=== PATIENT | female | born 1945 | race Caucasian/White ===

== ENCOUNTER → 2017-01-14 | Outpatient (CLI) | payer MEDICARE, BC ==
[2017-01-14 11:28] LABS: Basophils % (A) 1 %; CH 29.4; CHCM 32.7; Eosinophils # (A) 0.2 k/uL (0-0.7); Eosinophils % (A) 3 %; HCT 49.4 % (34.0-46.0); HDW 2.67; HGB 15.6 gm/dL (11.4-16.0); Luc # (Auto) 0.17; Luc % (Auto) 3; Lymphocytes # (A) 1.6 k/uL (1.0-4.8); Lymphocytes % (A) 29 %; MCH 28.7 pg (25.0-35.0); MCHC 31.6 g/dL (31.0-37.0); MCV 90.8 fL (80.0-100.0); Mean Platelet Volume 7.6; Monocytes # (A) 0.4 k/uL (0-1.0); Monocytes % (A) 7 %; Neutrophils # (A) 3.3 k/uL (1.3-7.7); Neutrophils % (A) 58 %; RBC 5.44 m/uL (3.80-5.40); RDW 15.1 % (11.5-15.5); WBC 5.7 k/uL (3.8-10.6); WBC (Perox) 5.37
[2017-01-14 11:39] LABS: ALT 30 U/L (9-52); AST 31 U/L (14-36); Alkaline Phosphatase 93 U/L (38-126); Anion Gap 12 mmol/L; Blood Urea Nitrogen 21 mg/dL (7-17); Calcium 9.4 mg/dL (8.4-10.2); Carbon Dioxide 26 mmol/L (22-30); Chloride 102 mmol/L (98-107); Cholesterol 213 mg/dL (<200); Glucose 107 mg/dL (74-99); HDL Cholesterol 69 mg/dL (40-60); Non-African American GFR(MDRD) >60 (>60 ml/min/1.73 sqM); Potassium 4.7 mmol/L (3.5-5.1); Sodium 140 mmol/L (137-145); Total Protein 7.3 g/dL (6.3-8.2); Triglycerides 352 mg/dL (<150)
== END | disposition home or self-care (01) ==
LOC: LABWHC1 10:52
PROVIDERS: ATTEND Family Medicine
DX: E03.9 Hypothyroidism, unspecified (principal); I10 Essential (primary) hypertension; E78.00 Pure hypercholesterolemia, unspecified
CPT/HCPCS: 36415; 80053; 80061; 84439; 84443; 85025

== ENCOUNTER 2017-07-13 19:34 | Inpatient (IN) | payer MEDICARE, BC ==
[2017-07-13] MEDS ORDERED: SODIUM CHLORIDE 0.9% 500 ML IV STA (19:53)
[2017-07-13] MEDS ORDERED: PANTOPRAZOLE 40 MG/10 ML VIAL IVP STA (19:53)
--- NOTE | 2017-07-13 20:02 | ED ---
General Adult HPI - General Source: patient, RN notes reviewed Mode of arrival: wheelchair Limitations: no limitations <Daily Alexandra - Last Filed: 07/13/17 22:15> <Rudy Cobian - Last Filed: 07/13/17 22:16> - General Chief complaint: GI Bleed Stated complaint: Rectal Bleeding Time Seen by Provider: 07/13/17 19:45 - History of Present Illness Initial comments: 72-year-old female presents to the emergency department with a chief complaint of bright red blood for per rectum. Patient does take Coumadin. Patient states that this started this morning when she wiped and she did notice bright red blood in the toilet. Patient states she's been having lower abdominal cramping with a dark brown diarrhea. Patient has a lightheadedness or dizziness. Patient denies any nausea or vomiting with this. Patient states she has a history of hemorrhoids but she has not had those for years. Patient denies any difficulty or constipation recently. Patient was concerned due to the bleeding so she thought that she should be evaluated. Patient denies any recent fever, chills, shortness of breath, chest pain, back pain, nausea vomiting, numbness or tingling, dysuria or hematuria, constipation, headaches or visual changes, or any other current symptoms. (Daily Alexandra) - Related Data Home Medications Medication Instructions Recorded Confirmed Acetaminophen Tab [Tylenol] 500 mg PO DAILY PRN 06/06/15 07/13/17 Atorvastatin [Lipitor] 20 mg PO HS 06/06/15 07/13/17 Levothyroxine Sodium [Synthroid] 50 mcg PO DAILY 06/06/15 07/13/17 Multivitamins, Thera [Multivitamin 1 tab PO DAILY 06/06/15 07/13/17 (formulary)] amLODIPine BESYLATE/BENAZEPRIL 1 tab PO DAILY 06/06/15 07/13/17 [amLODIPine BESYLATE/BENAZEPRIL 5-40 mg] Ciclopirox 1 applic TOPICAL BID PRN 05/23/16 07/13/17 Furosemide [Lasix] 40 mg PO DAILY 05/23/16 07/13/17 Mupirocin 2% Oint [Bactroban 2% 1 applic TOPICAL TID PRN 05/23/16 07/13/17 Oint] Warfarin Sodium [Coumadin] 4 mg PO SUFR 05/23/16 07/13/17 Spironolactone [Aldactone] 25 mg PO DAILY 07/13/17 07/13/17 Warfarin Sodium [Coumadin] 2 mg PO MOTUWETHSA 07/13/17 07/13/17 Previous Rx's Medication Instructions Recorded Famotidine [Pepcid] 20 mg PO DAILY tab 06/13/15 Metoprolol Tartrate [Lopressor] 50 mg PO BID #60 tab 06/13/15 Allergies Allergy/AdvReac Type Severity Reaction Status Date / Time adhesive Allergy Rash/Hives Verified 07/13/17 20:14 cefaclor [From Ceclor] Allergy Rash/Hives Verified 07/13/17 20:14 Penicillins Allergy Unknown Verified 07/13/17 20:14 povidone-iodine Allergy Rash/Hives Verified 07/13/17 20:14 [From Betadine] soap [From Betadine] Allergy Rash/Hives Verified 07/13/17 20:14 Review of Systems ROS Other: All systems not noted in ROS Statement are negative. <Daily Alexandra - Last Filed: 07/13/17 22:15> ROS Other: All systems not noted in ROS Statement are negative. <Rudy Cobian - Last Filed: 07/13/17 22:16> ROS Statement: Those systems with pertinent positive or pertinent negative responses have been documented in the HPI. Past Medical History Past Medical History: Atrial Fibrillation, Asthma, Heart Failure, COPD, Hyperlipidemia, Hypertension, Osteoarthritis (OA), Thyroid Disorder Additional Past Medical History / Comment(s): 06-06-15 admitted to [facility] with c/o sob-dx with pe.other hx: diverticulosis,asthma, emphysema,scoliosis uses a crutch( when up walking), umbilical hernia,stated does have some blockage enrike carotids, History of Any Multi-Drug Resistant Organisms: None Reported Past Surgical History: Orthopedic Surgery, Tubal Ligation Additional Past Surgical History / Comment(s): per old hx: d&c,colonoscopy, orif lt ankle has plate and screws. Past Anesthesia/Blood Transfusion Reactions: No Reported Reaction Past Psychological History: No Psychological Hx Reported Smoking Status: Former smoker Past Alcohol Use History: Daily Past Drug Use History: None Reported - Past Family History Father Additional Family Medical History / Comment(s): had tb at age 55, lt leg amp.heart problems. Mother History Unknown: Yes <Daily Alexandra - Last Filed: 07/13/17 22:15> General Exam Limitations: no limitations <Daily Alexandra - Last Filed: 07/13/17 22:15> <Rudy Cobian - Last Filed: 07/13/17 22:16> - General Exam Comments Initial Comments: General: The patient is awake and alert, in no distress, and does not appear acutely ill. Eye: Pupils are equal, round and reactive to light, extra-ocular movements are intact; there is normal conjunctiva bilaterally. No signs of icterus. Ears, nose, mouth and throat: There are moist mucous membranes and no oral lesions. Neck: The neck is supple, there is no tenderness. Cardiovascular: There is a regular rate and rhythm. No murmur, rub or gallop is appreciated. Respiratory: Lungs are clear to auscultation, respirations are non-labored, breath sounds are equal. No wheezes, stridor, rales, or rhonchi. Gastrointestinal: Soft, non-distended, non-tender abdomen without masses or organomegaly noted. There is no rebound or guarding present. No CVA tenderness. Bowel sounds are unremarkable. Rectal: Patient does appear to have bright red blood, no obvious hemorrhoids noted Back: There is no tenderness to palpation in the midline. There is no obvious deformity. No rashes noted. Musculoskeletal: Normal ROM, no tenderness, There is no pedal edema. There is no calf tenderness or swelling. Sensation intact. Pulses equal bilaterally 2+. Neurological: CN II-XII intact, There are no obvious motor or sensory deficits. Coordination appears grossly intact. Speech is normal. Skin: Skin is warm and dry and no rashes or lesions are noted. Psychiatric: Cooperative, appropriate mood & affect, normal judgment. (Daily Aelxandra) Medical Decision Making - Lab Data Result diagrams: 07/13/17 20:36 07/13/17 20:36 <Daily lAexandra - Last Filed: 07/13/17 22:15> - Lab Data Result diagrams: 07/13/17 20:36 07/13/17 20:36 <Rudy Cobian - Last Filed: 07/13/17 22:16> - Medical Decision Making 72-year-old female presents for bright red blood per rectum who is on Coumadin. At this time patient is Hemoccult-positive hemoglobin vital signs are stable. Patient has not had any blood per rectum since she's been here. At this time we will admit the patient due to a mildly elevated INR 3.3. We did give the patient Protonix. We did discuss the case with on-call Dr. palencia who does agree to the plan. All questions have been answered. Patient will be admitted at this time. (Daily Alexandra) I saw this patient in conjunction with the physician marketing operations assistant. I performed independent history and physical exam. Agree with case management. (Rudy Cobian) - Lab Data Lab Results 07/13/17 07/13/17 07/13/17 Range/Units 20:36 20:36 20:36 WBC 9.5 (3.8-10.6) k/uL RBC 5.26 (3.80-5.40) m/uL Hgb 15.5 (11.4-16.0) gm/dL Hct 47.0 H (34.0-46.0) % MCV 89.5 (80.0-100.0) fL MCH 29.4 (25.0-35.0) pg MCHC 32.8 (31.0-37.0) g/dL RDW 14.7 (11.5-15.5) % Plt Count 268 (150-450) k/uL Neutrophils % 72 % Lymphocytes % 17 % Monocytes % 9 % Eosinophils % 1 % Basophils % 0 % Neutrophils # 6.8 (1.3-7.7) k/uL Lymphocytes # 1.6 (1.0-4.8) k/uL Monocytes # 0.8 (0-1.0) k/uL Eosinophils # 0.1 (0-0.7) k/uL Basophils # 0.0 (0-0.2) k/uL PT 32.3 H (9.0-12.0) sec INR 3.3 H (<1.2) APTT 32.8 H (22.0-30.0) sec Sodium 141 (137-145) mmol/L Potassium 4.3 (3.5-5.1) mmol/L Chloride 104 (98-107) mmol/L Carbon Dioxide 25 (22-30) mmol/L Anion Gap 12 mmol/L BUN 30 H (7-17) mg/dL Creatinine 1.08 H (0.52-1.04) mg/dL Est GFR (MDRD) Af Amer >60 (>60 ml/min/1.73 sqM) Est GFR (MDRD) Non-Af 50 (>60 ml/min/1.73 sqM) Glucose 103 H (74-99) mg/dL Calcium 9.3 (8.4-10.2) mg/dL Total Bilirubin 0.9 (0.2-1.3) mg/dL AST 25 (14-36) U/L ALT 32 (9-52) U/L Alkaline Phosphatase 96 (38-126) U/L Total Protein 7.2 (6.3-8.2) g/dL Albumin 4.2 (3.5-5.0) g/dL Urine Color Urine Appearance (Clear) Urine pH (5.0-8.0) Ur Specific [place] (1.001-1.035) Urine Protein (Negative) Urine Glucose (UA) (Negative) Urine Ketones (Negative) Urine Blood (Negative) Urine Nitrite (Negative) Urine Bilirubin (Negative) Urine Urobilinogen (<2.0) mg/dL Ur Leukocyte Esterase (Negative) Stool Occult Blood (Negative) 07/13/17 07/13/17 Range/Units 20:38 21:39 WBC (3.8-10.6) k/uL RBC (3.80-5.40) m/uL Hgb (11.4-16.0) gm/dL Hct (34.0-46.0) % MCV (80.0-100.0) fL MCH (25.0-35.0) pg MCHC (31.0-37.0) g/dL RDW (11.5-15.5) % Plt Count (150-450) k/uL Neutrophils % % Lymphocytes % % Monocytes % % Eosinophils % % Basophils % % Neutrophils # (1.3-7.7) k/uL Lymphocytes # (1.0-4.8) k/uL Monocytes # (0-1.0) k/uL Eosinophils # (0-0.7) k/uL Basophils # (0-0.2) k/uL PT (9.0-12.0) sec INR (<1.2) APTT (22.0-30.0) sec Sodium (137-145) mmol/L Potassium (3.5-5.1) mmol/L Chloride (98-107) mmol/L Carbon Dioxide (22-30) mmol/L Anion Gap mmol/L BUN (7-17) mg/dL Creatinine (0.52-1.04) mg/dL Est GFR (MDRD) Af Amer (>60 ml/min/1.73 sqM) Est GFR (MDRD) Non-Af (>60 ml/min/1.73 sqM) Glucose (74-99) mg/dL Calcium (8.4-10.2) mg/dL Total Bilirubin (0.2-1.3) mg/dL AST (14-36) U/L ALT (9-52) U/L Alkaline Phosphatase (38-126) U/L Total Protein (6.3-8.2) g/dL Albumin (3.5-5.0) g/dL Urine Color Yellow Urine Appearance Clear (Clear) Urine pH 6.5 (5.0-8.0) Ur Specific [place] 1.011 (1.001-1.035) Urine Protein Negative (Negative) Urine Glucose (UA) Negative (Negative) Urine Ketones Negative (Negative) Urine Blood Negative (Negative) Urine Nitrite Negative (Negative) Urine Bilirubin Negative (Negative) Urine Urobilinogen <2.0 (<2.0) mg/dL Ur Leukocyte Esterase Negative (Negative) Stool Occult Blood Positive H (Negative) Disposition Time of Disposition: 21:34 Decision Date: 07/13/17 Decision Time: 21:34 <Daily Alexandra - Last Filed: 07/13/17 22:15> <Rudy Cobian - Last Filed: 07/13/17 22:16> Clinical Impression: GI bleed, Elevated INR, Dehydration Disposition: ADMITTED IP TO THIS [facility] Condition: Stable Referrals: Miguel Hardwick MD [Primary Care Provider] - 1-2 days
[2017-07-13 20:53] LABS: Basophils % (A) 0 %; CHCM 32.7; Eosinophils # (A) 0.1 k/uL (0-0.7); Eosinophils % (A) 1 %; HDW 2.69; HGB 15.5 gm/dL (11.4-16.0); Luc # (Auto) 0.17; Luc % (Auto) 2; Lymphocytes # (A) 1.6 k/uL (1.0-4.8); Lymphocytes % (A) 17 %; MCH 29.4 pg (25.0-35.0); MCHC 32.8 g/dL (31.0-37.0); MCV 89.5 fL (80.0-100.0); Mean Platelet Volume 7.2; Monocytes # (A) 0.8 k/uL (0-1.0); Monocytes % (A) 9 %; Neutrophils # (A) 6.8 k/uL (1.3-7.7); Neutrophils % (A) 72 %; RBC 5.26 m/uL (3.80-5.40); RDW 14.7 % (11.5-15.5); WBC 9.5 k/uL (3.8-10.6); WBC (Perox) 8.83
[2017-07-13 20:55] LABS: INR 3.3 (<1.2); Partial Thromboplastin Time 32.8 sec (22.0-30.0); Prothrombin Time 32.3 sec (9.0-12.0)
[2017-07-13 20:57] LABS: ALT 32 U/L (9-52); AST 25 U/L (14-36); Alkaline Phosphatase 96 U/L (38-126); Anion Gap 12 mmol/L; Blood Urea Nitrogen 30 mg/dL (7-17); Calcium 9.3 mg/dL (8.4-10.2); Carbon Dioxide 25 mmol/L (22-30); Chloride 104 mmol/L (98-107); Glucose 103 mg/dL (74-99); Non-African American GFR(MDRD) 50 (>60 ml/min/1.73 sqM); Potassium 4.3 mmol/L (3.5-5.1); Sodium 141 mmol/L (137-145); Total Bilirubin 0.9 mg/dL (0.2-1.3); Total Protein 7.2 g/dL (6.3-8.2)
[2017-07-13] MEDS ORDERED: NALOXONE 0.4 MG/ML 1 ML VIAL IV PRN (21:34)
[2017-07-13] MEDS ORDERED: MUPIROCIN 2% OINT 22 GM TUBE TOPICAL PRN (21:36)
[2017-07-13] MEDS ORDERED: CLOTRIMAZOLE 1% CREAM 15 GM TUBE TOPICAL PRN (21:36)
[2017-07-13 21:49] LABS: Appearance,Urine Clear (Clear); Bilirubin,Urine Negative (Negative); Glucose,Urine (UA) Negative (Negative); Ketones,Urine Negative (Negative); Leukocyte Esterase,Urine Negative (Negative); Nitrite,Urine Negative (Negative); PH, Urine 6.5 (5.0-8.0); Protein,Urine Negative (Negative); Specific Gravity,Urine 1.011 (1.001-1.035); UA Billing (MACRO vs. MICRO) CHEM; Urobilinogen,Urine <2.0 mg/dL (<2.0)
[2017-07-13] MEDS: SODIUM CHLORIDE 0.9% 1,000 ML IV SCH (22:15)
[2017-07-14] MEDS: ACETAMINOPHEN TAB 325 MG TAB PO PRN ×2 (01:23→10:47)
[2017-07-14] MEDS: LEVOTHYROXINE 50 MCG TAB PO SCH (06:40)
[2017-07-14] MEDS: PANTOPRAZOLE 40 MG/10 ML VIAL IV SCH (08:46)
[2017-07-14 09:26] LABS: ALT 29 U/L (9-52); AST 21 U/L (14-36); Alkaline Phosphatase 81 U/L (38-126); Anion Gap 8 mmol/L; Blood Urea Nitrogen 22 mg/dL (7-17); Calcium 8.7 mg/dL (8.4-10.2); Carbon Dioxide 25 mmol/L (22-30); Chloride 108 mmol/L (98-107); Glucose 87 mg/dL (74-99); INR 2.3 (<1.2); Non-African American GFR(MDRD) >60 (>60 ml/min/1.73 sqM); Potassium 4.5 mmol/L (3.5-5.1); Prothrombin Time 21.7 sec (9.0-12.0); Sodium 141 mmol/L (137-145)
[2017-07-14 10:22] LABS: Basophils % (A) 0 %; CHCM 31.8; Eosinophils # (A) 0.1 k/uL (0-0.7); Eosinophils % (A) 1 %; HCT 43.7 % (34.0-46.0); HDW 2.62; HGB 14.1 gm/dL (11.4-16.0); Hypochromasia Slight; Luc # (Auto) 0.15; Luc % (Auto) 2; Lymphocytes # (A) 1.3 k/uL (1.0-4.8); Lymphocytes % (A) 16 %; MCH 29.5 pg (25.0-35.0); MCHC 32.2 g/dL (31.0-37.0); MCV 91.7 fL (80.0-100.0); Monocytes # (A) 0.8 k/uL (0-1.0); Monocytes % (A) 10 %; Neutrophils # (A) 5.4 k/uL (1.3-7.7); Neutrophils % (A) 70 %; RBC 4.77 m/uL (3.80-5.40); RDW 14.9 % (11.5-15.5); WBC 7.7 k/uL (3.8-10.6); WBC (Perox) 8.04
[2017-07-14] MEDS: METOPROLOL TARTRATE 50 MG TAB PO SCH ×2 (10:48→20:31)
[2017-07-14] MEDS: LISINOPRIL 20 MG TAB PO SCH (10:48)
[2017-07-14] MEDS: SODIUM CHLORIDE 0.9% 1,000 ML IV SCH (10:49)
[2017-07-14] MEDS: amLODIPine 5 MG TAB PO SCH (10:49)
[2017-07-14] MEDS: FUROSEMIDE 40 MG TAB PO SCH (10:49)
[2017-07-14] MEDS: SPIRONOLACTONE 25 MG TAB PO SCH (10:49)
[2017-07-14] MEDS ORDERED: RX INFO: IV CONTRAST WAS GIVEN 1 EACH MISC MISCELLANE PRN (11:15)
[2017-07-14] MEDS: MULTIVITAMINS, THERA 1 EACH TAB PO SCH (11:28)
[2017-07-14] MEDS: IOHEXOL 350 MG/ML 25 ML BOTTLE (ORAL USE) PO PRN ×2 (11:29→12:24)
--- NOTE | 2017-07-14 11:31 | P.CONS ---
History of Present Illness - Reason for Consult Consult date: 07/14/17 GI bleed Requesting physician: Miguel Hardwick - History of Present Illness 72-year-old female with a history of bilateral PE DVT 2014, atrial fibrillation maintained on Coumadin, chronic diastolic heart failure, morbid obesity BMI 49, chronic abdominal hernia, hypothyroidism, hypertension, hyperlipidemia, and COPD. Patient presents with acute rectal bleeding that started yesterday morning. Patient developed severe lower abdominal cramping followed by a large loose bowel movement that was blood tinged. She had 2 more bowel movements at home more grossly bloody red in color. Denies melena or hematemesis fever or chills. Patient has a chronic umbilical abdominal hernia for several years without discomfort except when palpated. Last bloody bowel movement was 3 hours ago bright red. No history GI bleed. Last screening colonoscopy August [address] Hopper left-sided diverticulosis. Admission hemoglobin 15.5 presently 14.1. INR 3.3 presently 2.3. BUN 30. Creatinine 1.0. Platelet 268. Review of Systems Constitutional: Denies fever, chills, sweats, weight gain, or loss. HEENT: Negative for migraines, blurred vision or loss, earaches, drainage, tinnitus, oral mucosal lesions, dysphagia, or odynophagia. CARDIAC: PE. DVT. Atrial fibrillation. Negative for chest pain, arrhythmias, or palpitation. RESPIRATORY: COPD. Negative for shortness of breath, hemoptysis, cough, or sputum production. GI: See HPI for pertinent findings. : Negative for hematuria, urgency, frequency, polyuria, or dysuria. GYNc: Denies possibility of . Negative vaginal discharge. MUSCULOSKELETAL: Negative for muscle aches, swelling, arthritis, and arthralgias. NEUROLOGIC: Negative for stroke or TIA. ENDOCRINE: Negative for thyroid problems. SKIN: Negative for rash or itching. PSYCHIATRIC: Negative history for depression and anxiety All systems: negative (See HPI) Past Medical History Past Medical History: Atrial Fibrillation, Asthma, Heart Failure, COPD, Hyperlipidemia, Hypertension, Osteoarthritis (OA), Thyroid Disorder Additional Past Medical History / Comment(s): 06-06-[address] [facility] with c/o sob-dx with pe.other hx: diverticulosis,asthma, emphysema,scoliosis uses a crutch( when up walking), umbilical hernia,stated does have some blockage enrike carotids, History of Any Multi-Drug Resistant Organisms: None Reported Past Surgical History: Orthopedic Surgery, Tubal Ligation Additional Past Surgical History / Comment(s): per old hx: d&c,colonoscopy, orif lt ankle has plate and screws. Past Anesthesia/Blood Transfusion Reactions: No Reported Reaction Past Psychological History: No Psychological Hx Reported Smoking Status: Former smoker Past Alcohol Use History: Daily Additional Past Alcohol Use History / Comment(s): smoked off and on for 20 years quit in 1999 Past Drug Use History: None Reported - Past Family History Father Additional Family Medical History / Comment(s): had tb at age 55, lt leg amp.heart problems. Mother History Unknown: Yes Medications and Allergies Home Medications Medication Instructions Recorded Confirmed Type Acetaminophen Tab [Tylenol] 500 mg PO DAILY PRN 06/06/15 07/13/17 History Atorvastatin [Lipitor] 20 mg PO HS 06/06/15 07/13/17 History Levothyroxine Sodium [Synthroid] 50 mcg PO DAILY 06/06/15 07/13/17 History Multivitamins, Thera [Multivitamin 1 tab PO DAILY 06/06/15 07/13/17 History (formulary)] amLODIPine BESYLATE/BENAZEPRIL 1 tab PO DAILY 06/06/15 07/13/17 History [amLODIPine BESYLATE/BENAZEPRIL 5-40 mg] Famotidine [Pepcid] 20 mg PO DAILY tab 06/13/15 07/13/17 Rx Metoprolol Tartrate [Lopressor] 50 mg PO BID #60 tab 06/13/15 07/13/17 Rx Ciclopirox 1 applic TOPICAL BID PRN 05/23/16 07/13/17 History Furosemide [Lasix] 40 mg PO DAILY 05/23/16 07/13/17 History Mupirocin 2% Oint [Bactroban 2% 1 applic TOPICAL TID PRN 05/23/16 07/13/17 History Oint] Warfarin Sodium [Coumadin] 4 mg PO SUFR 05/23/16 07/13/17 History Spironolactone [Aldactone] 25 mg PO DAILY 07/13/17 07/13/17 History Warfarin Sodium [Coumadin] 2 mg PO MOTUWETHSA 07/13/17 07/13/17 History Allergies Allergy/AdvReac Type Severity Reaction Status Date / Time adhesive Allergy Rash/Hives Verified 07/13/17 20:14 cefaclor [From Ceclor] Allergy Rash/Hives Verified 07/13/17 20:14 Penicillins Allergy Unknown Verified 07/13/17 20:14 povidone-iodine Allergy Rash/Hives Verified 07/13/17 20:14 [From Betadine] soap [From Betadine] Allergy Rash/Hives Verified 07/13/17 20:14 Physical Exam Vitals: Vital Signs Temp Pulse Pulse Resp BP BP Pulse Ox 07/14/17 08:39 85 16 156/81 97 07/14/17 08:00 85 16 07/14/17 07:00 97.0 F L 101 H 18 128/67 91 L 07/14/17 00:17 97.1 F L 89 20 141/57 99 07/13/17 23:34 96 16 154/92 96 07/13/17 22:16 99 17 135/83 97 07/13/17 21:24 93 17 150/87 97 07/13/17 20:26 97 17 145/83 96 07/13/17 19:39 97.4 F L 52 L 18 172/100 96 Intake and Output 07/13/17 07/14/17 07/14/17 22:59 06:59 14:59 Intake Total 580 0 Output Total 400 Balance 580 -400 Intake: Amount of Fluid Infused ( 580 ml) Oral 0 0 Output: Stool 400 Other: Voiding Method Bedside Commode Bedside Commode # Voids 1 # Bowel Movements 1 Weight 123.377 kg 119.522 kg General appearance: The patient is alert, oriented, in no acute distress. HET: Head is normocephalic and atraumatic. Pupils are equal and reactive. Oropharynx is clear without lesions. Neck: Supple without lymphadenopathy. Trachea midline. Heart: S1 S2. Lungs: No crackles or wheezes are heard. Abdomen: Soft, tenderness bilateral abdomen, large umbilical hernia reducible but tender on palpation without erythema, nondistended with bowel sounds. No peritoneal signs. No palpable organomegaly or masses. Extremities: Normal skin color and turgor. No cyanosis, rash, ulceration, clubbing, or edema. Radial and pedal pulses are 2/4 bilaterally. Neurological: No focal deficits. Strength and sensation are grossly intact. Results CBC & Chem 7: 07/15/17 02:10 07/15/17 02:10 Labs: Abnormal Lab Results - Last 24 Hours (Table) 07/13/17 07/13/17 07/13/17 Range/Units 20:36 20:36 20:36 Hct 47.0 H (34.0-46.0) % PT 32.3 H (9.0-12.0) sec INR 3.3 H (<1.2) APTT 32.8 H (22.0-30.0) sec Chloride (98-107) mmol/L BUN 30 H (7-17) mg/dL Creatinine 1.08 H (0.52-1.04) mg/dL Glucose 103 H (74-99) mg/dL Total Protein (6.3-8.2) g/dL Albumin (3.5-5.0) g/dL Stool Occult Blood (Negative) 07/13/17 07/14/17 07/14/17 Range/Units 20:38 08:10 08:10 Hct (34.0-46.0) % PT 21.7 H (9.0-12.0) sec INR 2.3 H (<1.2) APTT (22.0-30.0) sec Chloride 108 H (98-107) mmol/L BUN 22 H (7-17) mg/dL Creatinine (0.52-1.04) mg/dL Glucose (74-99) mg/dL Total Protein 6.0 L (6.3-8.2) g/dL Albumin 3.4 L (3.5-5.0) g/dL Stool Occult Blood Positive H (Negative) Assessment and Plan (1) GI bleed Narrative/Plan: Suspect ischemic colitis possible diverticular bleed possible combination of both with a history of chronic umbilical hernia cannot exclude superimposed infectious colitis exacerbated by warfarin-induced coagulopathy Status: Acute (2) Atrial fibrillation Status: Chronic (3) Warfarin-induced coagulopathy Status: Acute (4) Hx pulmonary embolism Status: Resolved (5) History of DVT (deep vein thrombosis) Status: Resolved (6) Diverticulosis of colon Status: Chronic (7) Morbid obesity with BMI of 45.0-49.9, adult Status: Chronic (8) Abdominal hernia Status: Chronic Plan: 1. CT abdomen and pelvis secondary to tenderness of abdominal hernia and rectal bleeding. 2. Hold Coumadin. Serial CBC every 6 hours. GI prophylaxis Protonix 40 mg daily. 3. We'll proceed with colonoscopy tentatively Wednesday once INR closer to 1.5 or less. 4. Will allow clear liquid sparingly. Thank you for this kind referral and the opportunity to participate in the care of your patient. This consultation was discussed with Dr. Luo. The impression and plan of care have been directed as dictated.
[2017-07-14 11:56] LABS: Glucose,Whole Blood 115 mg/dL (75-99)
--- NOTE | 2017-07-14 12:35 | P.HPIM ---
History of Present Illness H&P Date: 07/14/17 Chief Complaint: Rectal bleeding and abdominal pain Patient is a 72-year-old female who presented to [facility] emergency room with the chief complaint of rectal bleeding patient had multiple episodes of rectal bleeding . Patient stated that she felt some cramps in the lower abdomen she had a bowel movement in the morning with some blood in it subsequently she had recurrent episodes of rectal bleeding with large amount of blood she came to the emergency room she was initially admitted to medical floor she continued to have rectal bleeding and was then transferred to intensive care unit. Patient states that she had history of hemorrhoids however she hasn't had any problems with that for many years. She states that she had 2 colonoscopies in the past the last one was 7 years ago. She is maintained on Coumadin her INR on presentation was 3.3 Past Medical History Past Medical History: Atrial Fibrillation, Asthma, Heart Failure, COPD, Hyperlipidemia, Hypertension, Osteoarthritis (OA), Thyroid Disorder Additional Past Medical History / Comment(s): 06-06-15 admitted to [facility] with c/o sob-dx with pe.other hx: diverticulosis,asthma, emphysema,scoliosis uses a crutch( when up walking), umbilical hernia,stated does have some blockage enrike carotids, History of Any Multi-Drug Resistant Organisms: None Reported Past Surgical History: Orthopedic Surgery, Tubal Ligation Additional Past Surgical History / Comment(s): per old hx: d&c,colonoscopy, orif lt ankle has plate and screws. Past Anesthesia/Blood Transfusion Reactions: No Reported Reaction Past Psychological History: No Psychological Hx Reported Smoking Status: Former smoker Past Alcohol Use History: Daily Additional Past Alcohol Use History / Comment(s): smoked off and on for 20 years quit in 1999 Past Drug Use History: None Reported - Past Family History Father Additional Family Medical History / Comment(s): had tb at age 55, lt leg amp.heart problems. Mother History Unknown: Yes Medications and Allergies Home Medications Medication Instructions Recorded Confirmed Type Acetaminophen Tab [Tylenol] 500 mg PO DAILY PRN 06/06/15 07/13/17 History Atorvastatin [Lipitor] 20 mg PO HS 06/06/15 07/13/17 History Levothyroxine Sodium [Synthroid] 50 mcg PO DAILY 06/06/15 07/13/17 History Multivitamins, Thera [Multivitamin 1 tab PO DAILY 06/06/15 07/13/17 History (formulary)] amLODIPine BESYLATE/BENAZEPRIL 1 tab PO DAILY 06/06/15 07/13/17 History [amLODIPine BESYLATE/BENAZEPRIL 5-40 mg] Famotidine [Pepcid] 20 mg PO DAILY tab 06/13/15 07/13/17 Rx Metoprolol Tartrate [Lopressor] 50 mg PO BID #60 tab 06/13/15 07/13/17 Rx Ciclopirox 1 applic TOPICAL BID PRN 05/23/16 07/13/17 History Furosemide [Lasix] 40 mg PO DAILY 05/23/16 07/13/17 History Mupirocin 2% Oint [Bactroban 2% 1 applic TOPICAL TID PRN 05/23/16 07/13/17 History Oint] Warfarin Sodium [Coumadin] 4 mg PO SUFR 05/23/16 07/13/17 History Spironolactone [Aldactone] 25 mg PO DAILY 07/13/17 07/13/17 History Warfarin Sodium [Coumadin] 2 mg PO MOTUWETHSA 07/13/17 07/13/17 History Allergies Allergy/AdvReac Type Severity Reaction Status Date / Time adhesive Allergy Rash/Hives Verified 07/13/17 20:14 cefaclor [From Ceclor] Allergy Rash/Hives Verified 07/13/17 20:14 Penicillins Allergy Unknown Verified 07/13/17 20:14 povidone-iodine Allergy Rash/Hives Verified 07/13/17 20:14 [From Betadine] soap [From Betadine] Allergy Rash/Hives Verified 07/13/17 20:14 Physical Exam Vitals: Vital Signs Temp Pulse Pulse Resp BP BP Pulse Ox 07/14/17 12:10 98.2 F 79 27 H 124/58 96 07/14/17 08:39 85 16 156/81 97 07/14/17 08:00 85 16 07/14/17 07:00 97.0 F L 101 H 18 128/67 91 L 07/14/17 00:17 97.1 F L 89 20 141/57 99 07/13/17 23:34 96 16 154/92 96 07/13/17 22:16 99 17 135/83 97 07/13/17 21:24 93 17 150/87 97 07/13/17 20:26 97 17 145/83 96 07/13/17 19:39 97.4 F L 52 L 18 172/100 96 Intake and Output 07/13/17 07/14/17 07/14/17 22:59 06:59 14:59 Intake Total 580 80 Output Total 400 Balance 580 -320 Intake: Amount of Fluid Infused ( 580 ml) Intake, IV Titration 80 Amount Sodium Chloride 0.9% 1, 80 000 ml @ 80 mls/hr IV . [id number] [facility] Rx#:[id number] Oral 0 0 Output: Stool 400 Other: Voiding Method Bedside Commode Bedside Commode # Voids 1 # Bowel Movements 1 Weight 123.377 kg 119.522 kg In general patient is alert and oriented 3 in no apparent distress HEENT head normocephalic and atraumatic Neck is supple no JVD no goiter no lymphadenopathy Chest exam reveals a few scattered crackles no wheezing Cardiac exam reveals irregular heart sounds no gallops no murmurs Abdomen is soft nontender no organomegaly easily is a large umbilical hernia to the left of the umbilicus Lower extremity exam reveals 2+ edema no cyanosis or clubbing Results CBC & Chem 7: 07/14/17 08:10 07/14/17 08:10 Labs: Abnormal Lab Results - Last 24 Hours (Table) 07/13/17 07/13/17 07/13/17 Range/Units 20:36 20:36 20:36 Hct 47.0 H (34.0-46.0) % PT 32.3 H (9.0-12.0) sec INR 3.3 H (<1.2) APTT 32.8 H (22.0-30.0) sec Chloride (98-107) mmol/L BUN 30 H (7-17) mg/dL Creatinine 1.08 H (0.52-1.04) mg/dL Glucose 103 H (74-99) mg/dL POC Glucose (mg/dL) (75-99) mg/dL Total Protein (6.3-8.2) g/dL Albumin (3.5-5.0) g/dL Stool Occult Blood (Negative) 07/13/17 07/14/17 07/14/17 Range/Units 20:38 08:10 08:10 Hct (34.0-46.0) % PT 21.7 H (9.0-12.0) sec INR 2.3 H (<1.2) APTT (22.0-30.0) sec Chloride 108 H (98-107) mmol/L BUN 22 H (7-17) mg/dL Creatinine (0.52-1.04) mg/dL Glucose (74-99) mg/dL POC Glucose (mg/dL) (75-99) mg/dL Total Protein 6.0 L (6.3-8.2) g/dL Albumin 3.4 L (3.5-5.0) g/dL Stool Occult Blood Positive H (Negative) 07/14/17 Range/Units 11:53 Hct (34.0-46.0) % PT (9.0-12.0) sec INR (<1.2) APTT (22.0-30.0) sec Chloride (98-107) mmol/L BUN (7-17) mg/dL Creatinine (0.52-1.04) mg/dL Glucose (74-99) mg/dL POC Glucose (mg/dL) 115 H (75-99) mg/dL Total Protein (6.3-8.2) g/dL Albumin (3.5-5.0) g/dL Stool Occult Blood (Negative) Thrombosis Risk Factor Assmnt - Choose All That Apply Any of the Below Risk Factors Present?: Yes Each Factor Represents 1 point: Abnormal pulmonary function (COPD), Heart failure (<1month), Obesity (BMI >25) Other Risk Factors: Yes Each Risk Factor Represents 2 Points: Age 61-74 years Each Risk Factor Represents 3 Points: History of DVT/PE Thrombosis Risk Factor Assessment Total Risk Factor Score: 8 Thrombosis Risk Factor Assessment Level: High Risk Assessment and Plan Plan: #1 rectal bleeding was multiple episodes of large amount of blood at this time we are monitoring in ICU, check hemoglobin every 6 hours, GI consultation following #2 underlying history of atrial fibrillation maintained on Coumadin, Coumadin at this time on hold #3 umbilical hernia #4 abdominal cramping and pain patient is scheduled for computed tomography scan of the abdomen At this time continue to monitor hemoglobin Gastroenterology following Further management will depend on progress of hemoglobin and computed tomography scan of the abdomen results and clinical progress
--- NOTE | 2017-07-14 13:13 | P.CNPUL ---
History of Present Illness Consult date: 07/14/17 Requesting physician: Miguel Hardwick Reason for consult: other (Critical care management) Chief complaint: Bloody bowel movements History of present illness: This is a very pleasant 72-year-old female patient who follows with Dr. Hardwick as her primary care physician. She has a history of pulmonary embolism/DVT, atrial fibrillation anticoagulated with warfarin, diverticulosis, carotid stenosis, umbilical hernia, hypertension, hyperlipidemia, osteoarthritis, hypothyroidism. She has a remote history of smoking. She presented here yesterday after having 2-3 bright red mixed with maroon-colored bowel movements. She also had some abdominal cramping and diarrhea. Her initial hemoglobin is 5.8. INR 3.3. Creatinine 1.08. Stool for occult blood was positive. She was admitted to the regular medical floor. Earlier today she had another bloody bowel movement and felt as though the patient was actively bleeding and she was transferred here to the intensive care unit. Hemoglobin this morning is 14.1. Her INR is 2.3. she is seen today in consultation in the ICU. She is awake and alert in no acute distress. She does have some lower abdominal discomfort. No bleeding since she's arrived. She's been hemodynamically stable. She is maintaining good O2 saturations in the 90s on room air. She is afebrile. She has been seen and evaluated by GI services who are planning a computed tomography scan of the abdomen and pelvis. There is some concern regarding possible ischemic colitis as she does have a chronic umbilical hernia versus diverticular bleed. Review of Systems 14 point review of system was conducted. All negative other than as mentioned in the HPI. Past Medical History Past Medical History: Atrial Fibrillation, Asthma, Heart Failure, COPD, Hyperlipidemia, Hypertension, Osteoarthritis (OA), Thyroid Disorder Additional Past Medical History / Comment(s): 06-06-15 admitted to [facility] with c/o sob-dx with pe.other hx: diverticulosis,asthma, emphysema,scoliosis uses a crutch( when up walking), umbilical hernia,stated does have some blockage enrike carotids, History of Any Multi-Drug Resistant Organisms: None Reported Past Surgical History: Orthopedic Surgery, Tubal Ligation Additional Past Surgical History / Comment(s): per old hx: d&c,colonoscopy, orif lt ankle has plate and screws. Past Anesthesia/Blood Transfusion Reactions: No Reported Reaction Past Psychological History: No Psychological Hx Reported Smoking Status: Former smoker Past Alcohol Use History: Daily Additional Past Alcohol Use History / Comment(s): smoked off and on for 20 years quit in 1999 Past Drug Use History: None Reported - Past Family History Father Additional Family Medical History / Comment(s): had tb at age 55, lt leg amp.heart problems. Mother History Unknown: Yes Medications and Allergies Home Medications Medication Instructions Recorded Confirmed Type Acetaminophen Tab [Tylenol] 500 mg PO DAILY PRN 06/06/15 07/13/17 History Atorvastatin [Lipitor] 20 mg PO HS 06/06/15 07/13/17 History Levothyroxine Sodium [Synthroid] 50 mcg PO DAILY 06/06/15 07/13/17 History Multivitamins, Thera [Multivitamin 1 tab PO DAILY 06/06/15 07/13/17 History (formulary)] amLODIPine BESYLATE/BENAZEPRIL 1 tab PO DAILY 06/06/15 07/13/17 History [amLODIPine BESYLATE/BENAZEPRIL 5-40 mg] Famotidine [Pepcid] 20 mg PO DAILY tab 06/13/15 07/13/17 Rx Metoprolol Tartrate [Lopressor] 50 mg PO BID #60 tab 06/13/15 07/13/17 Rx Ciclopirox 1 applic TOPICAL BID PRN 05/23/16 07/13/17 History Furosemide [Lasix] 40 mg PO DAILY 05/23/16 07/13/17 History Mupirocin 2% Oint [Bactroban 2% 1 applic TOPICAL TID PRN 05/23/16 07/13/17 History Oint] Warfarin Sodium [Coumadin] 4 mg PO SUFR 05/23/16 07/13/17 History Spironolactone [Aldactone] 25 mg PO DAILY 07/13/17 07/13/17 History Warfarin Sodium [Coumadin] 2 mg PO MOTUWETHSA 07/13/17 07/13/17 History Allergies Allergy/AdvReac Type Severity Reaction Status Date / Time adhesive Allergy Rash/Hives Verified 07/13/17 20:14 cefaclor [From Ceclor] Allergy Rash/Hives Verified 07/13/17 20:14 Penicillins Allergy Unknown Verified 07/13/17 20:14 povidone-iodine Allergy Rash/Hives Verified 07/13/17 20:14 [From Betadine] soap [From Betadine] Allergy Rash/Hives Verified 07/13/17 20:14 Physical Exam Vitals: Vital Signs Temp Pulse Pulse Resp BP BP Pulse Ox 07/14/17 12:10 98.2 F 79 27 H 124/58 96 07/14/17 12:00 27 H 07/14/17 08:39 85 16 156/81 97 07/14/17 08:00 85 16 07/14/17 07:00 97.0 F L 101 H 18 128/67 91 L 07/14/17 00:17 97.1 F L 89 20 141/57 99 07/13/17 23:34 96 16 154/92 96 07/13/17 22:16 99 17 135/83 97 07/13/17 21:24 93 17 150/87 97 07/13/17 20:26 97 17 145/83 96 07/13/17 19:39 97.4 F L 52 L 18 172/100 96 Intake and Output 07/13/17 07/14/17 07/14/17 22:59 06:59 14:59 Intake Total 580 80 Output Total 400 Balance 580 -320 Intake: Amount of Fluid Infused ( 580 ml) Intake, IV Titration 80 Amount Sodium Chloride 0.9% 1, 80 000 ml @ 80 mls/hr IV . [id number] [facility] Rx#:[id number] Oral 0 0 Output: Stool 400 Other: Voiding Method Bedside Commode Bedside Commode # Voids 1 # Bowel Movements 1 Weight 123.377 kg 119.522 kg GENERAL EXAM: Obese. Alert, comfortable in no apparent distress. HEAD: Normocephalic. EYES: Normal reaction of pupils, equal size. NOSE: Clear with pink turbinates. THROAT: No erythema or exudates. NECK: No masses, no JVD. CHEST: No chest wall deformity. LUNGS: Equal air entry with no crackles, wheeze, rhonchi or dullness. CVS: S1 and S2 normal with no audible murmurs, irregular rhythm. ABDOMEN: Periumbilical hernia. Normal bowel sounds, no guarding or rigidity. SPINE: No scoliosis or deformity SKIN: No rashes CENTRAL NERVOUS SYSTEM: No focal deficits, tone is normal in all 4 extremities. Extremities: There is trace peripheral edema. No clubbing, no cyanosis. Peripheral pulses are intact. Results - Laboratory Findings CBC and BMP: 07/14/17 08:10 07/14/17 08:10 PT/INR, D-dimer PT 21.7 sec (9.0-12.0) H 07/14/17 08:10 INR 2.3 (<1.2) H 07/14/17 08:10 Abnormal lab findings: Abnormal Labs 07/13/17 07/13/17 07/13/17 20:36 20:36 20:36 Hct 47.0 H PT 32.3 H INR 3.3 H APTT 32.8 H Chloride BUN 30 H Creatinine 1.08 H Glucose 103 H POC Glucose (mg/dL) Total Protein Albumin Stool Occult Blood 07/13/17 07/14/17 07/14/17 20:38 08:10 08:10 Hct PT 21.7 H INR 2.3 H APTT Chloride 108 H BUN 22 H Creatinine Glucose POC Glucose (mg/dL) Total Protein 6.0 L Albumin 3.4 L Stool Occult Blood Positive H 07/14/17 11:53 Hct PT INR APTT Chloride BUN Creatinine Glucose POC Glucose (mg/dL) 115 H Total Protein Albumin Stool Occult Blood Assessment and Plan Plan: Impression: #1 Acute gastrointestinal bleeding suspect diverticular, however ischemic colitis cannot be ruled out in a patient with a chronic umbilical hernia. #2 Chronic atrial fibrillation, anticoagulated with warfarin, initial INR 3.3, currently 2.3. #3 History of bilateral pulmonary embolism/DVT. #4 Hypertension. #5 Hyperlipidemia. #6 Hypothyroidism. #7 History of diverticulosis per colonoscopy approximate 7 years ago. Plan: The patient was seen and evaluated by Dr. Feliciano. We'll continue to observe her closely here in the intensive care unit. Continue to monitor her hemoglobin. We will await computed tomography scan of the abdomen and pelvis results. The plan is for colonoscopy in the next day or 2. If INR is not normalized by tomorrow we'll utilize vitamin K. In the interim, we'll continue with her current medications. We'll continue to follow. Time with Patient: Greater than 30
--- NOTE | 2017-07-14 13:58 | CT ---
EXAMINATION TYPE: CT abdomen pelvis w con DATE OF EXAM: 07/14/2017 COMPARISON: NONE HISTORY: Rectal bleeding, hernia, GI bleed and increased INR CT DLP: 1665 mGycm Automated exposure control for dose reduction was used. TECHNIQUE: Helical acquisition of images from the lung bases through the pelvis have been completed. CONTRAST: Performed with Oral Contrast and with IV Contrast, patient injected with 100 ml mL of Omnipaque 300. FINDINGS: There is a marked scoliosis. Anterior abdominal wall hernia is present containing fat only in the umbilical location. LUNG BASES: No significant abnormality is appreciated. Heart is borderline enlarged, coronary artery calcifications. AORTA: No significant abnormality is appreciated. LIVER/GB: Cystic focus is present within the left lobe of the liver measuring approximately 2.6 cm is indeterminate but statistically likely represents a cyst, gallbladder is normal. PANCREAS: No significant abnormality is seen. SPLEEN: No significant abnormality is seen. ADRENALS: No significant abnormality is seen. KIDNEYS: No significant abnormality is seen. REPRODUCTIVE ORGANS: Uterus is atrophic and shows some associated calcifications compatible with fibr oids. Ovaries within normal limits. BOWEL: The transverse colon shows abnormal wall thickening, additional areas of colonic wall thicken ing are present, at the mid transverse colon there is very colonic inflammatory change however. Diver ticular change also present in the sigmoid colon. Hiatal hernia is present.. FREE AIR: No Free Air visible. ASCITES: None visible. PELVIC ADENOPATHY: None visualized. RETROPERITONEAL ADENOPATHY: No Retroperitoneal Adenopathy visible. URINARY BLADDER: No significant abnormality is seen. OSSEOUS STRUCTURES: No significant abnormality is seen. IMPRESSION: FINDINGS LIKELY REPRESENT COLITIS. Additional findings above.
[2017-07-14 15:52] LABS: Basophils % (A) 0 %; Eosinophils # (A) 0.1 k/uL (0-0.7); Eosinophils % (A) 1 %; HCT 44.5 % (34.0-46.0); HDW 2.67; HGB 14.3 gm/dL (11.4-16.0); Hypochromasia Slight; Luc # (Auto) 0.15; Luc % (Auto) 2; Lymphocytes # (A) 1.1 k/uL (1.0-4.8); Lymphocytes % (A) 11 %; MCH 29.3 pg (25.0-35.0); MCHC 32.1 g/dL (31.0-37.0); MCV 91.3 fL (80.0-100.0); Mean Platelet Volume 7.1; Monocytes # (A) 0.9 k/uL (0-1.0); Monocytes % (A) 9 %; Neutrophils # (A) 7.8 k/uL (1.3-7.7); Neutrophils % (A) 78 %; RBC 4.88 m/uL (3.80-5.40); WBC (Perox) 9.61
[2017-07-14 20:30] LABS: Basophils # (A) 0.1 k/uL (0-0.2); Basophils % (A) 1 %; CH 30.2; CHCM 33.2; Eosinophils # (A) 0.2 k/uL (0-0.7); Eosinophils % (A) 2 %; HCT 49.5 % (34.0-46.0); HDW 2.79; HGB 15.7 gm/dL (11.4-16.0); Luc # (Auto) 0.23; Luc % (Auto) 2; Lymphocytes # (A) 2.1 k/uL (1.0-4.8); Lymphocytes % (A) 15 %; MCH 29.2 pg (25.0-35.0); MCHC 31.8 g/dL (31.0-37.0); MCV 91.6 fL (80.0-100.0); Mean Platelet Volume 7.8; Monocytes # (A) 1.1 k/uL (0-1.0); Monocytes % (A) 8 %; Neutrophils # (A) 10.6 k/uL (1.3-7.7); Neutrophils % (A) 73 %; RDW 15.9 % (11.5-15.5); WBC 14.4 k/uL (3.8-10.6); WBC (Perox) 13.18
[2017-07-14] MEDS: ATORVASTATIN 20 MG TAB PO SCH (20:31)
[2017-07-15 02:26] LABS: Basophils % (A) 0 %; CH 30.2; CHCM 33.3; Eosinophils # (A) 0.2 k/uL (0-0.7); Eosinophils % (A) 2 %; HCT 44.3 % (34.0-46.0); HDW 2.78; HGB 14.1 gm/dL (11.4-16.0); Luc # (Auto) 0.11; Luc % (Auto) 1; Lymphocytes # (A) 1.3 k/uL (1.0-4.8); Lymphocytes % (A) 11 %; MCH 29.2 pg (25.0-35.0); MCHC 31.9 g/dL (31.0-37.0); MCV 91.7 fL (80.0-100.0); Mean Platelet Volume 7.7; Monocytes # (A) 0.7 k/uL (0-1.0); Monocytes % (A) 6 %; Neutrophils # (A) 8.8 k/uL (1.3-7.7); Neutrophils % (A) 79 %; RBC 4.83 m/uL (3.80-5.40); RDW 15.8 % (11.5-15.5); WBC (Perox) 10.83
[2017-07-15 02:49] LABS: Anion Gap 8 mmol/L; Blood Urea Nitrogen 16 mg/dL (7-17); Calcium 8.6 mg/dL (8.4-10.2); Carbon Dioxide 23 mmol/L (22-30); Chloride 107 mmol/L (98-107); Glucose 102 mg/dL (74-99); Magnesium 1.6 mg/dL (1.6-2.3); Non-African American GFR(MDRD) >60 (>60 ml/min/1.73 sqM); Potassium 4.1 mmol/L (3.5-5.1); Sodium 138 mmol/L (137-145)
[2017-07-15 06:08] LABS: INR 2.2 (<1.2); Prothrombin Time 21.3 sec (9.0-12.0)
[2017-07-15] MEDS: MAGNESIUM SULFATE-D5W PMX 1 GM in DEXTROSE/WATER 1 100ML.BAG IVPB SCH ×2 (06:12→08:46)
[2017-07-15] MEDS: LEVOTHYROXINE 50 MCG TAB PO SCH (06:16)
[2017-07-15] MEDS: FUROSEMIDE 40 MG TAB PO SCH (08:46)
[2017-07-15] MEDS: MULTIVITAMINS, THERA 1 EACH TAB PO SCH (08:47)
[2017-07-15] MEDS: LISINOPRIL 20 MG TAB PO SCH (08:47)
[2017-07-15] MEDS: PANTOPRAZOLE 40 MG/10 ML VIAL IV SCH (08:47)
[2017-07-15] MEDS: amLODIPine 5 MG TAB PO SCH (08:47)
[2017-07-15] MEDS: SODIUM CHLORIDE 0.9% 1,000 ML IV SCH ×2 (08:48→10:45)
[2017-07-15] MEDS: SPIRONOLACTONE 25 MG TAB PO SCH (08:48)
[2017-07-15] MEDS: METOPROLOL TARTRATE 50 MG TAB PO SCH ×2 (10:44→21:29)
--- NOTE | 2017-07-15 11:25 | P.PN ---
Subjective Principal diagnosis: Acute GI bleeding This is a very pleasant 72-year-old female patient who follows with Dr. Hardwick as her primary care physician. She has a history of pulmonary embolism/DVT, atrial fibrillation anticoagulated with warfarin, diverticulosis, carotid stenosis, umbilical hernia, hypertension, hyperlipidemia, osteoarthritis, hypothyroidism. She has a remote history of smoking. She presented here yesterday after having 2-3 bright red mixed with maroon-colored bowel movements. She also had some abdominal cramping and diarrhea. Her initial hemoglobin is 5.8. INR 3.3. Creatinine 1.08. Stool for occult blood was positive. She was admitted to the regular medical floor. Earlier today she had another bloody bowel movement and felt as though the patient was actively bleeding and she was transferred here to the intensive care unit. Hemoglobin this morning is 14.1. Her INR is 2.3. she is seen today in consultation in the ICU. She is awake and alert in no acute distress. She does have some lower abdominal discomfort. No bleeding since she's arrived. She's been hemodynamically stable. She is maintaining good O2 saturations in the 90s on room air. She is afebrile. She has been seen and evaluated by GI services who are planning a computed tomography scan of the abdomen and pelvis. There is some concern regarding possible ischemic colitis as she does have a chronic umbilical hernia versus diverticular bleed. Patient was reevaluated today on 07/15/2017, continues to do relatively well, minimal rectal bleeding noted today. Hemoglobin is holding at 14.1, it is basically unchanged since admission. INR is 2.2 today. Electrolytes and basic metabolic profile are normal. Hemodynamically, the patient remains stable. Patient is being considered for possible colonoscopy in the morning, and that is to be done, the patient could receive vitamin K sometime today hoping to get the INR down below 1.5. Overall the patient is stable from the IC perspective, and I will make arrangements for her to be transferred to a medical floor. GI is still following, and decision will likely be made regarding colonoscopy in the next 24 hours. Patient overall is asymptomatic. She had 1 episode of minimal blood in her bowel movement today. Objective - Vital Signs Vital signs: Vital Signs Temp 97.8 F 07/15/17 08:00 Pulse 100 07/15/17 10:00 Resp 32 H 07/15/17 10:00 BP 145/108 09/07/17 10:00 Pulse Ox 96 07/15/17 10:00 Intake & Output 07/14/17 07/15/17 07/15/17 18:59 06:59 18:59 Intake Total 560 1100 820 Output Total 400 0 Balance 160 1100 820 Weight 120.4 kg 123.2 kg Intake: IV 240 Sodium Chloride 0.9% 1, 240 000 ml @ 80 mls/hr IV . [id number] [facility] Rx#:[id number] Intake, IV Titration 560 980 100 Amount Magnesium Sulfate-D5w Pmx 100 100 1 gm In Dextrose/Water 1 100ml.bag @ 100 mls/hr IVPB Q1H [facility] Rx#: [id number] Sodium Chloride 0.9% 1, 560 880 000 ml @ 80 mls/hr IV . [id number] [facility] Rx#:[id number] Oral 0 120 480 Output: Urine 0 Stool 400 Other: Voiding Method Toilet Toilet Bedside Commode # Voids 1 0 1 # Bowel Movements 1 - Exam GENERAL EXAM: Obese. Alert, comfortable in no apparent distress. HEAD: Normocephalic. EYES: Normal reaction of pupils, equal size. NOSE: Clear with pink turbinates. THROAT: No erythema or exudates. NECK: No masses, no JVD. CHEST: No chest wall deformity. LUNGS: Equal air entry with no crackles, wheeze, rhonchi or dullness. CVS: S1 and S2 normal with no audible murmurs, irregular rhythm. ABDOMEN: Periumbilical hernia. Normal bowel sounds, no guarding or rigidity. SPINE: No scoliosis or deformity SKIN: No rashes CENTRAL NERVOUS SYSTEM: No focal deficits, tone is normal in all 4 extremities. Extremities: There is trace peripheral edema. No clubbing, no cyanosis. Peripheral pulses are intact. - Labs CBC & Chem 7: 07/15/17 02:10 07/15/17 02:10 Labs: Abnormal Lab Results - Last 24 Hours (Table) 07/14/17 07/14/17 07/14/17 Range/Units 11:53 15:17 20:10 WBC 14.4 H (3.8-10.6) k/uL Hct 49.5 H (34.0-46.0) % RDW 15.9 H (11.5-15.5) % Neutrophils # 7.8 H 10.6 H (1.3-7.7) k/uL Monocytes # 1.1 H (0-1.0) k/uL PT (9.0-12.0) sec INR (<1.2) Glucose (74-99) mg/dL POC Glucose (mg/dL) 115 H (75-99) mg/dL 07/15/17 07/15/17 07/15/17 Range/Units 02:10 02:10 02:10 WBC 11.0 H (3.8-10.6) k/uL Hct (34.0-46.0) % RDW 15.8 H (11.5-15.5) % Neutrophils # 8.8 H (1.3-7.7) k/uL Monocytes # (0-1.0) k/uL PT 21.3 H (9.0-12.0) sec INR 2.2 H (<1.2) Glucose 102 H (74-99) mg/dL POC Glucose (mg/dL) (75-99) mg/dL Assessment and Plan Plan: #1 Acute gastrointestinal bleeding suspect diverticular, however ischemic colitis cannot be ruled out in a patient with a chronic umbilical hernia. #2 Chronic atrial fibrillation, anticoagulated with warfarin, initial INR 3.3, currently 2.3. #3 History of bilateral pulmonary embolism/DVT. #4 Hypertension. #5 Hyperlipidemia. #6 Hypothyroidism. #7 History of diverticulosis per colonoscopy approximate 7 years ago. Plan: Continue present supportive care measures, patient did not require any transfusions, consider vitamin K today, and proceed with colonoscopy as recommended by gastroenterology on the case. Patient can be transferred out of the ICU today and we'll continue to follow. Time with Patient: Less than 30
--- NOTE | 2017-07-15 11:34 | P.PN ---
Subjective Principal diagnosis: GI bleed 72-year-old female with a history of chronic abdominal hernia, DVT PE A. fib warfarin monitoring admitted with crampy abdominal pain and bloody diarrhea. CT abdomen and pelvis reported colitis. Feels better today. Hemoccult 14.7. Warfarin on hold. Last bloody bowel movement several hours ago. Abdominal cramping improved. Afebrile. Tolerating clear liquids. Objective - Vital Signs Vital signs: Vital Signs Temp 97.8 F 07/15/17 08:00 Pulse 100 07/15/17 10:00 Resp 32 H 07/15/17 10:00 BP 145/108 07/15/17 10:00 Pulse Ox 96 07/15/17 10:00 Intake & Output 07/14/17 07/15/17 07/15/17 18:59 06:59 18:59 Intake Total 560 1100 820 Output Total 400 0 Balance 160 1100 820 Weight 120.4 kg 123.2 kg Intake: IV 240 Sodium Chloride 0.9% 1, 240 000 ml @ 80 mls/hr IV . [id number] [facility] Rx#:[id number] Intake, IV Titration 560 980 100 Amount Magnesium Sulfate-D5w Pmx 100 100 1 gm In Dextrose/Water 1 100ml.bag @ 100 mls/hr IVPB Q1H [facility] Rx#: [id number] Sodium Chloride 0.9% 1, 560 880 000 ml @ 80 mls/hr IV . [id number] [facility] Rx#:[id number] Oral 0 120 480 Output: Urine 0 Stool 400 Other: Voiding Method Toilet Toilet Bedside Commode # Voids 1 0 1 # Bowel Movements 1 - Exam General appearance: The patient is alert, oriented, in no acute distress. HET: Head is normocephalic and atraumatic. Pupils are equal and reactive. Oropharynx is clear without lesions. Neck: Supple without lymphadenopathy. Trachea midline. Heart: S1 S2. Lungs: No crackles or wheezes are heard. Abdomen: Soft, mild tenderness left lower abdomen reducible umbilical hernia with mild tenderness with bowel sounds. No peritoneal signs. No palpable organomegaly or masses. Extremities: Normal skin color and turgor. No cyanosis, rash, ulceration, clubbing, or edema. Radial and pedal pulses are 2/4 bilaterally. Neurological: No focal deficits. Strength and sensation are grossly intact. - Labs CBC & Chem 7: 07/15/17 02:10 07/15/17 02:10 Labs: Abnormal Lab Results - Last 24 Hours (Table) 07/14/17 07/14/17 07/14/17 Range/Units 11:53 15:17 20:10 WBC 14.4 H (3.8-10.6) k/uL Hct 49.5 H (34.0-46.0) % RDW 15.9 H (11.5-15.5) % Neutrophils # 7.8 H 10.6 H (1.3-7.7) k/uL Monocytes # 1.1 H (0-1.0) k/uL PT (9.0-12.0) sec INR (<1.2) Glucose (74-99) mg/dL POC Glucose (mg/dL) 115 H (75-99) mg/dL 07/15/17 07/15/17 07/15/17 Range/Units 02:10 02:10 02:10 WBC 11.0 H (3.8-10.6) k/uL Hct (34.0-46.0) % RDW 15.8 H (11.5-15.5) % Neutrophils # 8.8 H (1.3-7.7) k/uL Monocytes # (0-1.0) k/uL PT 21.3 H (9.0-12.0) sec INR 2.2 H (<1.2) Glucose 102 H (74-99) mg/dL POC Glucose (mg/dL) (75-99) mg/dL Assessment and Plan (1) GI bleed Narrative/Plan: Suspect ischemic colitis possible diverticular bleed possible combination of both with a history of chronic umbilical hernia cannot exclude superimposed infectious colitis exacerbated by warfarin-induced coagulopathy Status: Acute (2) Atrial fibrillation Status: Chronic (3) Warfarin-induced coagulopathy Status: Acute (4) Hx pulmonary embolism Status: Resolved (5) History of DVT (deep vein thrombosis) Status: Resolved (6) Diverticulosis of colon Status: Chronic (7) Morbid obesity with BMI of 45.0-49.9, adult Status: Chronic (8) Abdominal hernia Status: Chronic Plan: 1. Vitamin K. Repeat PT/INR in a.m. 2. We'll proceed with colonoscopy evaluation tomorrow. Start bowel prep this afternoon. Nothing by mouth after midnight. CBC monitoring. Continue GI prophylaxis. Assessment and plan of care discussed with Dr. Luo
[2017-07-15] MEDS ORDERED: PHYTONADIONE ORAL 5 MG/5 ML ORAL.SYRG PO STA (12:56)
[2017-07-15] MEDS ORDERED: PEG 3350-NA SULF,BICARB,CL/KCL 4,000 ML BOTTLE PO ONE (15:00)
--- NOTE | 2017-07-15 17:38 | P.PN ---
Subjective Patient is a 72-year-old female who presented to [facility] emergency room with the chief complaint of rectal bleeding patient had multiple episodes of rectal bleeding . Patient stated that she felt some cramps in the lower abdomen she had a bowel movement in the morning with some blood in it subsequently she had recurrent episodes of rectal bleeding with large amount of blood she came to the emergency room she was initially admitted to medical floor she continued to have rectal bleeding and was then transferred to intensive care unit. Patient states that she had history of hemorrhoids however she hasn't had any problems with that for many years. She states that she had 2 colonoscopies in the past the last one was 7 years ago. She is maintained on Coumadin her INR on presentation was 3.3 On 07/15/2017 patient is still having some rectal bleeding however hemoglobin is stable she will be transferred out of intensive care unit she is having some abdominal discomfort computed tomography scan of the abdomen and pelvis was positive for evidence of colitis case discussed was gastroenterology most likely is this is an ischemic colitis no need for antibiotic at this time patient will have colonoscopy tomorrow stool studies were ordered Objective - Vital Signs Vital signs: Vital Signs Temp 97.4 F L 07/15/17 17:08 Pulse 94 07/15/17 17:08 Resp 16 07/15/17 17:08 BP 144/85 07/15/17 17:08 Pulse Ox 97 07/15/17 17:08 Intake & Output 07/14/17 07/15/17 07/15/17 18:59 06:59 18:59 Intake Total 560 1100 1080 Output Total 400 0 0 Balance 160 1100 1080 Weight 120.4 kg 123.2 kg Intake: IV 500 Sodium Chloride 0.9% 1, 500 000 ml @ 80 mls/hr IV . [id number] [facility] Rx#:[id number] Intake, IV Titration 560 980 100 Amount Magnesium Sulfate-D5w Pmx 100 100 1 gm In Dextrose/Water 1 100ml.bag @ 100 mls/hr IVPB Q1H [facility] Rx#: [id number] Sodium Chloride 0.9% 1, 560 880 000 ml @ 80 mls/hr IV . [id number] [facility] Rx#:[id number] Oral 0 120 480 Output: Urine 0 0 Stool 400 Other: Voiding Method Toilet Toilet Bedside Commode # Voids 1 0 1 # Bowel Movements 1 1 - Exam In general patient is alert and oriented 3 in no apparent distress HEENT head normocephalic and atraumatic Neck is supple no JVD no goiter no lymphadenopathy Chest exam reveals a few scattered crackles no wheezing Cardiac exam reveals irregular heart sounds no gallops no murmurs Abdomen is soft nontender no organomegaly easily is a large umbilical hernia to the left of the umbilicus Lower extremity exam reveals 2+ edema no cyanosis or clubbing - Labs CBC & Chem 7: 07/15/17 02:10 07/15/17 02:10 Labs: Abnormal Lab Results - Last 24 Hours (Table) 07/14/17 07/15/17 07/15/17 Range/Units 20:10 02:10 02:10 WBC 14.4 H 11.0 H (3.8-10.6) k/uL Hct 49.5 H (34.0-46.0) % RDW 15.9 H 15.8 H (11.5-15.5) % Neutrophils # 10.6 H 8.8 H (1.3-7.7) k/uL Monocytes # 1.1 H (0-1.0) k/uL PT (9.0-12.0) sec INR (<1.2) Glucose 102 H (74-99) mg/dL 07/15/17 Range/Units 02:10 WBC (3.8-10.6) k/uL Hct (34.0-46.0) % RDW (11.5-15.5) % Neutrophils # (1.3-7.7) k/uL Monocytes # (0-1.0) k/uL PT 21.3 H (9.0-12.0) sec INR 2.2 H (<1.2) Glucose (74-99) mg/dL Assessment and Plan Plan: #1 rectal bleeding was multiple episodes of large amount of blood at this time we are monitoring in ICU, check hemoglobin every 6 hours, GI consultation following #2 underlying history of atrial fibrillation maintained on Coumadin, Coumadin at this time on hold #3 umbilical hernia #4 abdominal cramping and pain. computed tomography of the abdomen revealed evidence of colitis awaiting colonoscopy At this time continue to monitor hemoglobin Gastroenterology following Further management will depend on progress of hemoglobin and computed tomography scan of the abdomen results and clinical progress
[2017-07-15] MEDS: LACTATED RINGERS 1,000 ML IV SCH (18:34)
[2017-07-15] MEDS: ATORVASTATIN 20 MG TAB PO SCH (21:29)
[2017-07-15] MEDS ORDERED: NEOMYCIN-BACITRACIN-POLY OINT 14 GM TUBE TOPICAL PRN (22:41)
[2017-07-16] MEDS: SODIUM CHLORIDE 0.9% 1,000 ML IV SCH ×2 (03:00→12:43)
[2017-07-16] MEDS: LEVOTHYROXINE 50 MCG TAB PO SCH (06:30)
[2017-07-16] MEDS: MULTIVITAMINS, THERA 1 EACH TAB PO SCH (08:14)
[2017-07-16] MEDS: FUROSEMIDE 40 MG TAB PO SCH (08:24)
[2017-07-16] MEDS: METOPROLOL TARTRATE 50 MG TAB PO SCH ×2 (08:24→20:27)
[2017-07-16] MEDS: LISINOPRIL 20 MG TAB PO SCH (08:25)
[2017-07-16] MEDS: amLODIPine 5 MG TAB PO SCH (08:25)
[2017-07-16] MEDS: SPIRONOLACTONE 25 MG TAB PO SCH (08:25)
[2017-07-16 08:26] LABS: Anion Gap 10 mmol/L; Blood Urea Nitrogen 10 mg/dL (7-17); Calcium 8.3 mg/dL (8.4-10.2); Carbon Dioxide 23 mmol/L (22-30); Chloride 105 mmol/L (98-107); Glucose 81 mg/dL (74-99); Magnesium 1.9 mg/dL (1.6-2.3); Non-African American GFR(MDRD) >60 (>60 ml/min/1.73 sqM); Sodium 138 mmol/L (137-145)
[2017-07-16 08:27] LABS: INR 1.6 (<1.2); Prothrombin Time 15.6 sec (9.0-12.0)
[2017-07-16 08:46] LABS: Basophils % (A) 0 %; CHCM 32.3; Eosinophils # (A) 0.2 k/uL (0-0.7); Eosinophils % (A) 3 %; HCT 44.7 % (34.0-46.0); HDW 2.65; HGB 14.6 gm/dL (11.4-16.0); Luc # (Auto) 0.14; Luc % (Auto) 2; Lymphocytes # (A) 1.3 k/uL (1.0-4.8); Lymphocytes % (A) 16 %; MCH 29.5 pg (25.0-35.0); MCHC 32.6 g/dL (31.0-37.0); MCV 90.4 fL (80.0-100.0); Mean Platelet Volume 7.4; Monocytes # (A) 0.6 k/uL (0-1.0); Monocytes % (A) 8 %; Neutrophils # (A) 5.8 k/uL (1.3-7.7); Neutrophils % (A) 71 %; RBC 4.94 m/uL (3.80-5.40); RDW 14.8 % (11.5-15.5); WBC 8.1 k/uL (3.8-10.6); WBC (Perox) 7.68
[2017-07-16 11:43] VITALS: BMI 51.2
--- NOTE | 2017-07-16 12:25 | P.PN ---
Subjective Principal diagnosis: Acute GI bleed. This is a very pleasant 72-year-old female patient who follows with Dr. Hardwick as her primary care physician. She has a history of pulmonary embolism/DVT, atrial fibrillation anticoagulated with warfarin, diverticulosis, carotid stenosis, umbilical hernia, hypertension, hyperlipidemia, osteoarthritis, hypothyroidism. She has a remote history of smoking. She presented here yesterday after having 2-3 bright red mixed with maroon-colored bowel movements. She also had some abdominal cramping and diarrhea. Her initial hemoglobin is 5.8. INR 3.3. Creatinine 1.08. Stool for occult blood was positive. She was admitted to the regular medical floor. Earlier today she had another bloody bowel movement and felt as though the patient was actively bleeding and she was transferred here to the intensive care unit. Hemoglobin this morning is 14.1. Her INR is 2.3. she is seen today in consultation in the ICU. She is awake and alert in no acute distress. She does have some lower abdominal discomfort. No bleeding since she's arrived. She's been hemodynamically stable. She is maintaining good O2 saturations in the 90s on room air. She is afebrile. She has been seen and evaluated by GI services who are planning a computed tomography scan of the abdomen and pelvis. There is some concern regarding possible ischemic colitis as she does have a chronic umbilical hernia versus diverticular bleed. Patient was reevaluated today on 07/15/2017, continues to do relatively well, minimal rectal bleeding noted today. Hemoglobin is holding at 14.1, it is basically unchanged since admission. INR is 2.2 today. Electrolytes and basic metabolic profile are normal. Hemodynamically, the patient remains stable. Patient is being considered for possible colonoscopy in the morning, and that is to be done, the patient could receive vitamin K sometime today hoping to get the INR down below 1.5. Overall the patient is stable from the IC perspective, and I will make arrangements for her to be transferred to a medical floor. GI is still following, and decision will likely be made regarding colonoscopy in the next 24 hours. Patient overall is asymptomatic. She had 1 episode of minimal blood in her bowel movement today. The patient is seen again today 07/16/2017 in follow-up on the regular medical floor. She is awake and alert in no acute distress. The plan is for colonoscopy today. She's not had any further bleeding. Hemoglobin 14.6. INR 1.6. C. diff screen is negative. No pulmonary complaints. She is maintaining good O2 saturations in the 90s on room air. Hemodynamically stable. Objective - Vital Signs Vital signs: Vital Signs Temp 97.0 F L 07/16/17 07:00 Pulse 90 07/16/17 07:00 Resp 18 07/16/17 07:00 BP 121/76 07/16/17 07:00 Pulse Ox 96 07/16/17 07:00 Intake & Output 07/15/17 07/16/17 07/16/17 18:59 06:59 18:59 Intake Total 1080 Output Total 0 Balance 1080 Weight 123.2 kg Intake: IV 500 Sodium Chloride 0.9% 1, 500 000 ml @ 80 mls/hr IV . [id number] [facility] Rx#:[id number] Intake, IV Titration 100 Amount Magnesium Sulfate-D5w Pmx 100 1 gm In Dextrose/Water 1 100ml.bag @ 100 mls/hr IVPB Q1H [facility] Rx#: [id number] Oral 480 Output: Urine 0 Other: Voiding Method Toilet # Voids 1 2 1 # Bowel Movements 1 2 - Exam GENERAL EXAM: Alert, active, comfortable in no apparent distress. HEAD: Normocephalic. EYES: Normal reaction of pupils, equal size. NOSE: Clear with pink turbinates. THROAT: No erythema or exudates. NECK: No masses, no JVD. CHEST: No chest wall deformity. LUNGS: Equal air entry with no crackles, wheeze, rhonchi or dullness. CVS: S1 and S2 normal with no audible mumurs, regular rhythm. ABDOMEN: No hepatosplenomegaly, normal bowel sounds, no guarding or rigidity. SPINE: No scoliosis or deformity SKIN: No rashes CENTRAL NERVOUS SYSTEM: No focal deficits, tone is normal in all 4 extremities. Extremities: There is trace peripheral edema. No clubbing, no cyanosis. Peripheral pulses are intact. - Labs CBC & Chem 7: 07/16/17 07:37 07/16/17 07:37 Labs: Abnormal Lab Results - Last 24 Hours (Table) 07/16/17 07/16/17 Range/Units 07:37 07:37 PT 15.6 H (9.0-12.0) sec INR 1.6 H (<1.2) Calcium 8.3 L (8.4-10.2) mg/dL Assessment and Plan Plan: Impression: #1 Acute gastrointestinal bleeding suspect diverticular, however ischemic colitis cannot be ruled out in a patient with a chronic umbilical hernia. #2 Chronic atrial fibrillation, anticoagulated with warfarin, initial INR 3.3, currently 1.6. #3 History of bilateral pulmonary embolism/DVT. #4 Hypertension. #5 Hyperlipidemia. #6 Hypothyroidism. #7 History of diverticulosis per colonoscopy approximate 7 years ago. Plan: The patient was seen and evaluated by Dr. Feliciano. She is stable from the pulmonary and critical care standpoint. She is going for a colonoscopy today. If no recurrent bleeding we will follow the patient on an as-needed basis.
[2017-07-16] MEDS: PANTOPRAZOLE 40 MG/10 ML VIAL IV SCH (12:42)
[2017-07-16] MEDS ORDERED: PHENYLEPHRINE-0.9% NACL SYG 1 MG/10 ML SYRINGE ONE (13:16)
[2017-07-16] MEDS ORDERED: PROPOFOL 10 MG/ML 20 ML VIAL IV ONE (13:16)
[2017-07-16] MEDS ORDERED: IV FLUID CONTINUATION 1,000 ML IV ONE (13:26)
--- NOTE | 2017-07-16 13:35 | P.PCN ---
Date of Procedure: 07/16/17 Preoperative Diagnosis: Postoperative Diagnosis: Procedure(s) Performed: BRIEF HISTORY: Patient is a 72-year-old pleasant white female, admitted hospital with acute onset of lower abdominal pain followed by bloody diarrhea of 2 days' duration. She is scheduled for colonoscopy to evaluate further. PROCEDURE PERFORMED: Colonoscopy with biopsy. PREOPERATIVE DIAGNOSIS: Lower abdominal pain and acute bloody diarrhea of 2 days ' duration. IV sedation per Anesthesia. PROCEDURE: After informed consent was obtained, the patient, was brought into the endoscopy unit. IV sedation was administered by Anesthesia under continuous monitoring. Digital rectal examination was normal. Initially the Olympus CF- 160 flexible video colonoscope was then inserted in the rectum, gradually advanced into the cecum without any difficulty. Careful examination was performed as the scope was gradually being withdrawn. Ileocecal valve and the appendiceal orifice were visualized and appeared normal. Prep was excellent. Mucosa of the cecum, ascending colon, appeared normal. There was segment of colitis involving the distal transverse colon and sent from 55-70 cm from the anal verge with mucosal erythema friability and congested appearing mucosa consistent with ischemic colitis and biopsies were done from this area. The descending colon, appeared normal. In the sigmoid colon extending from 30-40 cm from the anal verge there was mucosal erythema with friability noted and biopsies were also done from this area. The rest of the sigmoid colon, and rectum appeared normal. Retroflexion was performed in the rectum and no lesions were seen. The patient tolerated the procedure well. IMPRESSION: 1.Segmental colitis involving the sigmoid colon as well as the distal transverse colon extending from 30-40 cm from the anal verge and 55-70 cm from the anal verge with mucosal erythema, friability and congested appearing mucosa consistent with ischemic colitis. Biopsies done to rule out infectious colitis 2. 1 cm ascending colon polyp serous was snare polypectomy 3. Scattered sigmoid diverticulosis. RECOMMENDATIONS: Findings of this examination were discussed with the patient . At this time will await the biopsy results. Diet will be advanced to full liquid diet. If she remains stable she can be discharged home tomorrow. Implants: Indications for Procedure: Operative Findings: Description of Procedure:
--- NOTE | 2017-07-16 14:02 | P.PN ---
Subjective Patient is a 72-year-old female who presented to [facility] emergency room with the chief complaint of rectal bleeding patient had multiple episodes of rectal bleeding . Patient stated that she felt some cramps in the lower abdomen she had a bowel movement in the morning with some blood in it subsequently she had recurrent episodes of rectal bleeding with large amount of blood she came to the emergency room she was initially admitted to medical floor she continued to have rectal bleeding and was then transferred to intensive care unit. Patient states that she had history of hemorrhoids however she hasn't had any problems with that for many years. She states that she had 2 colonoscopies in the past the last one was 7 years ago. She is maintained on Coumadin her INR on presentation was 3.3 On 07/15/2017 patient is still having some rectal bleeding however hemoglobin is stable she will be transferred out of intensive care unit she is having some abdominal discomfort computed tomography scan of the abdomen and pelvis was positive for evidence of colitis case discussed was gastroenterology most likely is this is an ischemic colitis no need for antibiotic at this time patient will have colonoscopy tomorrow stool studies were ordered On 07/16/2017 patient is alert and oriented in no apparent distress no new episodes of bleeding since yesterday total sample was negative for C. diff, patient underwent colonoscopy which revealed 2 areas of segmental colitis and one polyp which was removed Objective - Vital Signs Vital signs: Vital Signs Temp 97.0 F L 07/16/17 07:00 Pulse 90 07/16/17 07:00 Resp 18 07/16/17 07:00 BP 121/76 07/16/17 07:00 Pulse Ox 96 07/16/17 07:00 Intake & Output 07/15/17 07/16/17 07/16/17 18:59 06:59 18:59 Intake Total 1080 200 Output Total 0 Balance 1080 200 Weight 123.2 kg Intake: IV 500 200 Sodium Chloride 0.9% 1, 500 000 ml @ 80 mls/hr IV . [id number] [facility] Rx#:[id number] Intake, IV Titration 100 Amount Magnesium Sulfate-D5w Pmx 100 1 gm In Dextrose/Water 1 100ml.bag @ 100 mls/hr IVPB Q1H [facility] Rx#: [id number] Oral 480 Output: Urine 0 Other: Voiding Method Toilet # Voids 1 2 1 # Bowel Movements 1 2 - Exam In general patient is alert and oriented 3 in no apparent distress HEENT head normocephalic and atraumatic Neck is supple no JVD no goiter no lymphadenopathy Chest exam reveals a few scattered crackles no wheezing Cardiac exam reveals irregular heart sounds no gallops no murmurs Abdomen is soft nontender no organomegaly easily is a large umbilical hernia to the left of the umbilicus Lower extremity exam reveals 2+ edema no cyanosis or clubbing - Labs CBC & Chem 7: 07/16/17 07:37 07/16/17 07:37 Labs: Abnormal Lab Results - Last 24 Hours (Table) 07/16/17 07/16/17 Range/Units 07:37 07:37 PT 15.6 H (9.0-12.0) sec INR 1.6 H (<1.2) Calcium 8.3 L (8.4-10.2) mg/dL Assessment and Plan Plan: #1 rectal bleeding was multiple episodes of large amount of blood at this time we are monitoring in ICU, check hemoglobin every 6 hours, GI consultation following #2 underlying history of atrial fibrillation maintained on Coumadin, Coumadin at this time on hold #3 umbilical hernia #4 abdominal cramping and pain. computed tomography of the abdomen revealed evidence of colitis awaiting colonoscopy At this time continue to monitor hemoglobin Gastroenterology following Patient underwent colonoscopy this morning which revealed 2 segmental areas of colitis also bleary representing ischemic colitis and one polyp which was removed Patient improving clinically no new episodes of bleeding Diet is being advanced to full liquid diet If stable and no significant bleeding, possible discharge to home tomorrow
[2017-07-16] MEDS: LACTATED RINGERS 1,000 ML IV SCH (17:06)
[2017-07-16] MEDS ORDERED: SODIUM CHLORIDE 0.9% 1,000 ML IV SCH (20:00)
[2017-07-16] MEDS: ATORVASTATIN 20 MG TAB PO SCH (20:27)
[2017-07-16 23:22] VITALS: RESP 16
[2017-07-17] MEDS: LEVOTHYROXINE 50 MCG TAB PO SCH (05:31)
[2017-07-17] MEDS: ACETAMINOPHEN TAB 325 MG TAB PO PRN (05:35)
[2017-07-17 08:05] VITALS: BP 109/63; PULSE 83; TEMP 97.7
[2017-07-17] MEDS: PANTOPRAZOLE 40 MG/10 ML VIAL IV SCH (08:28)
[2017-07-17] MEDS: amLODIPine 5 MG TAB PO SCH ×2 (08:29→08:36)
[2017-07-17] MEDS: MULTIVITAMINS, THERA 1 EACH TAB PO SCH (08:29)
[2017-07-17] MEDS: LISINOPRIL 20 MG TAB PO SCH ×2 (08:29→08:36)
[2017-07-17] MEDS: METOPROLOL TARTRATE 50 MG TAB PO SCH (08:29)
[2017-07-17] MEDS: SPIRONOLACTONE 25 MG TAB PO SCH (08:29)
[2017-07-17] MEDS: FUROSEMIDE 40 MG TAB PO SCH (08:29)
--- NOTE | 2017-07-17 13:33 | P.DS ---
Providers Date of admission: 07/13/17 22:15 Expected date of discharge: 07/17/17 Attending physician: Miguel Hardwick Consults: 07/14/17 09:07 Consult Physician Stat Consulting Provider: Thu Luo Consult Reason/Comments: Active Gi bleed Do you want consulting provider notified?: Yes 07/14/17 09:51 Consult Physician Stat Consulting Provider: Ladonna Parks Consult Reason/Comments: ICU management Do you want consulting provider notified?: Yes Primary care physician: Miguel Hardwick [facility] Course: Diagnosis on discharge: #1 Acute gastrointestinal bleeding likely ischemic colitis #2 Chronic atrial fibrillation, anticoagulated with warfarin, initial INR 3.3, currently 1.6. #3 History of bilateral pulmonary embolism/DVT. #4 Hypertension. #5 Hyperlipidemia. #6 Hypothyroidism. #7 History of diverticulosis per colonoscopy approximate 7 years ago. Hospital course: This is a very pleasant 72-year-old female patient who follows with Dr. Hardwick as her primary care physician. She has a history of pulmonary embolism/DVT, atrial fibrillation anticoagulated with warfarin, diverticulosis, carotid stenosis, umbilical hernia, hypertension, hyperlipidemia, osteoarthritis, hypothyroidism. She has a remote history of smoking. She presented here yesterday after having 2-3 bright red mixed with maroon-colored bowel movements. She also had some abdominal cramping and diarrhea. Her initial hemoglobin is 5.8. INR 3.3. Creatinine 1.08. Stool for occult blood was positive. She was admitted to the regular medical floor. Earlier today she had another bloody bowel movement and felt as though the patient was actively bleeding and she was transferred here to the intensive care unit. Hemoglobin this morning is 14.1. Her INR is 2.3. she is seen today in consultation in the ICU. She is awake and alert in no acute distress. She does have some lower abdominal discomfort. No bleeding since she's arrived. She's been hemodynamically stable. She is maintaining good O2 saturations in the 90s on room air. She is afebrile. She has been seen and evaluated by GI services who are planning a computed tomography scan of the abdomen and pelvis. There is some concern regarding possible ischemic colitis as she does have a chronic umbilical hernia versus diverticular bleed. Bleeding resolved during this admission, at this point patient was discharged home on 07/17/2017. She was told to stay without Coumadin at this time, she will be reevaluated in our office in 3-4 days. If there is no further bleeding Coumadin could be restarted at that point. Follow-up in our office in 4-5 days Patient Condition at Discharge: Stable Plan - Discharge Summary New Discharge Prescriptions: No Action amLODIPine BESYLATE/BENAZEPRIL [amLODIPine BESYLATE/BENAZEPRIL 5-40 mg] 1 tab PO DAILY Acetaminophen Tab [Tylenol] 500 mg PO DAILY PRN PRN Reason: Pain Atorvastatin [Lipitor] 20 mg PO HS Levothyroxine Sodium [Synthroid] 50 mcg PO DAILY Multivitamins, Thera [Multivitamin (formulary)] 1 tab PO DAILY Famotidine [Pepcid] 20 mg PO DAILY tab Metoprolol Tartrate [Lopressor] 50 mg PO BID #60 tab Furosemide [Lasix] 40 mg PO DAILY Warfarin Sodium [Coumadin] 4 mg PO SUFR Mupirocin 2% Oint [Bactroban 2% Oint] 1 applic TOPICAL TID PRN PRN Reason: Rash Ciclopirox 1 applic TOPICAL BID PRN PRN Reason: Rash Spironolactone [Aldactone] 25 mg PO DAILY Warfarin Sodium [Coumadin] 2 mg PO MOTUWETHSA Discharge Medication List Acetaminophen Tab [Tylenol] 500 mg PO DAILY PRN 06/06/15 [History] Atorvastatin [Lipitor] 20 mg PO HS 06/06/15 [History] Levothyroxine Sodium [Synthroid] 50 mcg PO DAILY 06/06/15 [History] Multivitamins, Thera [Multivitamin (formulary)] 1 tab PO DAILY 06/06/15 [History ] amLODIPine BESYLATE/BENAZEPRIL [amLODIPine BESYLATE/BENAZEPRIL 5-40 mg] 1 tab PO DAILY 06/06/15 [History] Famotidine [Pepcid] 20 mg PO DAILY tab 06/13/15 [Rx] Metoprolol Tartrate [Lopressor] 50 mg PO BID #60 tab 06/13/15 [Rx] Ciclopirox 1 applic TOPICAL BID PRN 05/23/16 [History] Furosemide [Lasix] 40 mg PO DAILY 05/23/16 [History] Mupirocin 2% Oint [Bactroban 2% Oint] 1 applic TOPICAL TID PRN 05/23/16 [History ] Warfarin Sodium [Coumadin] 4 mg PO SUFR 05/23/16 [History] Spironolactone [Aldactone] 25 mg PO DAILY 07/13/17 [History] Warfarin Sodium [Coumadin] 2 mg PO MOTUWETHSA 07/13/17 [History] Follow up Appointment(s)/Referral(s): Miguel Hardwick MD [Primary Care Provider] - 1-2 days Patient Instructions/Handouts: Gastrointestinal Bleeding (DC)
== END 2017-07-17 14:14 | disposition home or self-care (01) | DRG 394 ==
LOC: EC 19:34 → 4MS4W 22:15 → 6ICU 07-14 11:59 → 4MS4W 07-15 16:31
PROVIDERS: ADMIT Internal Medicine; ATTEND Internal Medicine
PROC: 0DBK8ZX Excision of Ascending Colon, Via Natural or Artificial Opening Endoscopic, Diagnostic (ICD-10-PCS; principal; 2017-07-16 13:55)
PROC: 0DBL8ZX Excision of Transverse Colon, Via Natural or Artificial Opening Endoscopic, Diagnostic (ICD-10-PCS; 2017-07-16 13:55)
DX: K55.039 Acute (reversible) ischemia of large intestine, extent unspecified (principal); I50.32 Chronic diastolic (congestive) heart failure; I48.2 Chronic atrial fibrillation; E66.01 Morbid (severe) obesity due to excess calories; M41.9 Scoliosis, unspecified; I11.0 Hypertensive heart disease with heart failure; J44.9 Chronic obstructive pulmonary disease, unspecified; E86.0 Dehydration; I65.23 Occlusion and stenosis of bilateral carotid arteries; K63.5 Polyp of colon; E03.9 Hypothyroidism, unspecified; E78.5 Hyperlipidemia, unspecified; K42.9 Umbilical hernia without obstruction or gangrene; K57.30 Diverticulosis of large intestine without perforation or abscess without bleeding; R79.1 Abnormal coagulation profile; T45.515A Adverse effect of anticoagulants, initial encounter; K64.9 Unspecified hemorrhoids; M19.90 Unspecified osteoarthritis, unspecified site; Z68.42 Body mass index [BMI] 45.0-49.9, adult; Z87.891 Personal history of nicotine dependence; Z79.01 Long term (current) use of anticoagulants; Z79.899 Other long term (current) drug therapy; Z88.1 Allergy status to other antibiotic agents; Z88.0 Allergy status to penicillin; Z88.8 Allergy status to other drugs, medicaments and biological substances
CPT/HCPCS: 36415; 45380; 45385; 74177; 80048; 80053; 81003; 82272; 83735; 85025; 85610; 85730; 86850; 86900; 86901; 87045; 87046; 87070; 87075; 87077; 87186; 87205; 87324; 88305; 96361; 96374; 99285

== ENCOUNTER → 2017-07-20 | Outpatient (CLI) | payer MEDICARE, BC ==
[2017-07-20 09:59] LABS: Calcium 9.3 mg/dL (8.4-10.2); Potassium 4.9 mmol/L (3.5-5.1); Total Bilirubin 0.8 mg/dL (0.2-1.3); Total Protein 6.9 g/dL (6.3-8.2)
== END | disposition home or self-care (01) ==
LOC: LABWHC1 09:12
PROVIDERS: ATTEND Internal Medicine Interventional Cardiology
DX: I10 Essential (primary) hypertension (principal)
CPT/HCPCS: 36415; 80053

== ENCOUNTER → 2018-07-15 | Outpatient (CLI) | payer MEDICARE, BC ==
[2018-07-15 16:06] LABS: Appearance,Urine Clear (Clear); Bilirubin,Urine Negative (Negative); Blood,Urine Negative (Negative); Color,Urine Light Yellow; Glucose,Urine (UA) Negative (Negative); Hyaline Casts,Urine 13 /lpf (0-2); Ketones,Urine Negative (Negative); Leukocyte Esterase,Urine Small (Negative); Nitrite,Urine Negative (Negative); Protein,Urine Negative (Negative); RBC,Urine 1 /hpf (0-5); Specific Gravity,Urine 1.007 (1.001-1.035); Squamous Epithelial Cell,Urine 1 /hpf (0-4); Urobilinogen,Urine <2.0 mg/dL (<2.0); WBC,Urine 2 /hpf (0-5)
[2018-07-15 16:07] LABS: Basophils % (A) 0 %; Eosinophils # (A) 0.1 k/uL (0-0.7); Eosinophils % (A) 1 %; HCT 44.6 % (34.0-46.0); HGB 13.9 gm/dL (11.4-16.0); Lymphocytes # (A) 1.6 k/uL (1.0-4.8); Lymphocytes % (A) 23 %; MCH 27.7 pg (25.0-35.0); MCHC 31.2 g/dL (31.0-37.0); MCV 88.5 fL (80.0-100.0); Monocytes # (A) 0.9 k/uL (0-1.0); Monocytes % (A) 13 %; Neutrophils # (A) 4.1 k/uL (1.3-7.7); Neutrophils % (A) 60 %; Platelet Count 250 k/uL (150-450); RBC 5.04 m/uL (3.80-5.40); RDW 14.1 % (11.5-15.5); WBC 6.9 k/uL (3.8-10.6)
[2018-07-15 16:19] LABS: Albumin 3.7 g/dL (3.5-5.0); Calcium 8.9 mg/dL (8.4-10.2); Magnesium 1.8 mg/dL (1.6-2.3); Phosphorus 4.4 mg/dL (2.5-4.5); Potassium 4.4 mmol/L (3.5-5.1); Total Bilirubin 0.5 mg/dL (0.2-1.3); Total Protein 6.9 g/dL (6.3-8.2); Uric Acid 11.8 mg/dL (3.7-7.4)
[2018-07-16 02:21] LABS: Iron Saturation 14.2 (12.00-45.00)
[2018-07-16 02:26] LABS: Parathyroid Hormone Intact 171.6 pg/mL (14.0-72.0)
[2018-07-16 02:29] LABS: Vitamin D 25 Hydroxy 23.2 ng/mL (30.0-100.0)
== END | disposition home or self-care (01) ==
LOC: LABT 15:29
PROVIDERS: ATTEND Internal Medicine
DX: E55.9 Vitamin D deficiency, unspecified (principal); M10.9 Gout, unspecified; N18.3 Chronic kidney disease, stage 3 (moderate); D63.1 Anemia in chronic kidney disease
CPT/HCPCS: 80053; 81001; 82306; 82728; 83540; 83550; 83735; 83970; 84100; 84550; 85025

== ENCOUNTER 2018-08-04 11:36 | Inpatient (IN) | payer MEDICARE, BC ==
[2018-08-04] MEDS ORDERED: KETOROLAC 30 MG/ML 1 ML VIAL IVP STA (11:55)
[2018-08-04] MEDS ORDERED: SODIUM CHLORIDE 0.9% 500 ML IV STA (11:55)
[2018-08-04] MEDS ORDERED: ORPHENADRINE 30 MG/ML 2 ML VIAL IVP STA (11:56)
--- NOTE | 2018-08-04 12:00 | ED ---
General Adult HPI - General Chief complaint: Back Pain/Injury Stated complaint: back & flank pain Time Seen by Provider: 08/04/18 11:40 Source: patient, EMS, RN notes reviewed Mode of arrival: EMS Limitations: no limitations - History of Present Illness Initial comments: This is a 73-year-old female presents emergency Department complaining of right sided flank pain. Patient states she's had some back pain in the past secondary to her scoliosis. Patient states this pain was much worse than previous back pains. Patient denies any numbness or weakness. Patient denies any urinary incontinence or retention. Patient states she's had no recent injury or fall. Patient states the pain started yesterday but was much worse when she woke up today. Patient seems to think the pain is related to her movement and the pain increases with twisting or bending about the flank. Patient denies any dysuria hematuria urinary frequency. Denies any abdominal pain. Patient denies any vomiting but was nauseated earlier. Patient denies any diarrhea. Patient denies any other symptoms at this time. Patient denies fever chills. - Related Data Home Medications Medication Instructions Recorded Confirmed Acetaminophen Tab [Tylenol] 500 mg PO DAILY PRN 06/06/15 08/04/18 Levothyroxine Sodium [Synthroid] 50 mcg PO DAILY 06/06/15 08/04/18 Multivitamins, Thera [Multivitamin 1 tab PO DAILY 06/06/15 08/04/18 (formulary)] Cholecalciferol [Vitamin D3] 400 unit PO DAILY 08/04/18 08/04/18 Previous Rx's Medication Instructions Recorded Famotidine [Pepcid] 20 mg PO DAILY tab 06/13/15 Metoprolol Tartrate [Lopressor] 50 mg PO BID #60 tab 06/13/15 Allergies Allergy/AdvReac Type Severity Reaction Status Date / Time adhesive Allergy Rash/Hives Verified 08/04/18 12:38 cefaclor [From Ceclor] Allergy Rash/Hives Verified 08/04/18 12:38 Penicillins Allergy Unknown Verified 08/04/18 12:38 povidone-iodine Allergy Rash/Hives Verified 08/04/18 12:38 [From Betadine] soap [From Betadine] Allergy Rash/Hives Verified 08/04/18 12:38 Review of Systems ROS Statement: Those systems with pertinent positive or pertinent negative responses have been documented in the HPI. ROS Other: All systems not noted in ROS Statement are negative. Past Medical History Past Medical History: Atrial Fibrillation, Asthma, Heart Failure, COPD, Hyperlipidemia, Hypertension, Osteoarthritis (OA), Thyroid Disorder Additional Past Medical History / Comment(s): 06-06-15 admitted to [facility] with c/o sob-dx with pe.other hx: diverticulosis,asthma, emphysema,scoliosis uses a crutch( when up walking), umbilical hernia,stated does have some blockage enrike carotids, History of Any Multi-Drug Resistant Organisms: None Reported Past Surgical History: Orthopedic Surgery, Tubal Ligation Additional Past Surgical History / Comment(s): per old hx: d&c,colonoscopy, orif lt ankle has plate and screws. Past Anesthesia/Blood Transfusion Reactions: No Reported Reaction Past Psychological History: No Psychological Hx Reported Smoking Status: Former smoker Past Alcohol Use History: Daily Past Drug Use History: None Reported - Past Family History Father Additional Family Medical History / Comment(s): had tb at age 55, lt leg amp.heart problems. Mother History Unknown: Yes General Exam - General Exam Comments Initial Comments: GENERAL: Patient is well-developed and well-nourished. Patient is nontoxic and well- hydrated and is in moderate distress. ENT: Neck is soft and supple. No significant lymphadenopathy is noted. Oropharynx is clear. Moist mucous membranes. Neck has full range of motion without eliciting any pain. EYES: The sclera were anicteric and conjunctiva were pink and moist. Extraocular movements were intact and pupils were equal round and reactive to light. Eyelids were unremarkable. PULMONARY: Unlabored respirations. Good breath sounds bilaterally. No audible rales rhonchi or wheezing was noted. CARDIOVASCULAR: There is a regular rate and rhythm without any murmurs gallops or rubs. ABDOMEN: Soft and nontender with normal bowel sounds. No palpable organomegaly was noted. There is no palpable pulsatile mass. SKIN: Skin is clear with no lesions or rashes and otherwise unremarkable. NEUROLOGIC: Patient is alert and oriented x3. Cranial nerves II through XII are grossly intact. Motor and sensory are also intact. Normal speech, volume and content. Symmetrical smile. Straight leg test was negative bilaterally. MUSCULOSKELETAL: Normal extremities with adequate strength and full range of motion. No lower extremity swelling or edema. No calf tenderness. Patient had reproducible back pain in the right flank just inferior to the ribs LYMPHATICS: No significant lymphadenopathy is noted PSYCHIATRIC: Normal psychiatric evaluation. Limitations: no limitations Course Vital Signs 08/04/18 11:41 Temperature 98.8 F Pulse Rate 90 Respiratory 20 Rate Blood Pressure 133/59 O2 Sat by Pulse 92 L Oximetry Medical Decision Making - Medical Decision Making Patient received morphine and Zofran prior to arrival and that did not help with the pain. I gave the patient Toradol and Norflex and that helped the pain slightly however with her movement going to CAT scan it increased I gave her some Dilaudid and more Zofran. Patient still was quite a bit of pain and to think she can go home so at that point in time I called Dr. Hardwick he agreed to admit the patient admitted the patient for pain control and I consult the Dr. Joyner - Lab Data Result diagrams: 08/04/18 11:39 08/04/18 11:39 Lab Results 08/04/18 08/04/18 08/04/18 Range/Units 11:39 11:39 13:26 WBC 11.6 H (3.8-10.6) k/uL RBC 4.61 (3.80-5.40) m/uL Hgb 13.2 (11.4-16.0) gm/dL Hct 42.5 (34.0-46.0) % MCV 92.3 (80.0-100.0) fL MCH 28.5 (25.0-35.0) pg MCHC 30.9 L (31.0-37.0) g/dL RDW 14.3 (11.5-15.5) % Plt Count 300 (150-450) k/uL Neutrophils % 76 % Lymphocytes % 14 % Monocytes % 7 % Eosinophils % 1 % Basophils % 0 % Neutrophils # 8.8 H (1.3-7.7) k/uL Lymphocytes # 1.7 (1.0-4.8) k/uL Monocytes # 0.9 (0-1.0) k/uL Eosinophils # 0.2 (0-0.7) k/uL Basophils # 0.1 (0-0.2) k/uL Hypochromasia Slight Sodium 137 (137-145) mmol/L Potassium 4.6 (3.5-5.1) mmol/L Chloride 107 (98-107) mmol/L Carbon Dioxide 20 L (22-30) mmol/L Anion Gap 10 mmol/L BUN 44 H (7-17) mg/dL Creatinine 1.65 H (0.52-1.04) mg/dL Est GFR (CKD-EPI)AfAm 35 (>60 ml/min/1.73 sqM) Est GFR (CKD-EPI)NonAf 30 (>60 ml/min/1.73 sqM) Glucose 132 H (74-99) mg/dL Calcium 8.7 (8.4-10.2) mg/dL Total Bilirubin 0.7 (0.2-1.3) mg/dL AST 25 (14-36) U/L ALT 18 (9-52) U/L Alkaline Phosphatase 83 (38-126) U/L Total Protein 6.8 (6.3-8.2) g/dL Albumin 3.7 (3.5-5.0) g/dL Amylase 107 (30-110) U/L Lipase 270 (23-300) U/L Urine Color Yellow Urine Appearance Cloudy H (Clear) Urine pH 5.5 (5.0-8.0) Ur Specific [place] 1.019 (1.001-1.035) Urine Protein Trace H (Negative) Urine Glucose (UA) Negative (Negative) Urine Ketones Negative (Negative) Urine Blood Negative (Negative) Urine Nitrite Negative (Negative) Urine Bilirubin Negative (Negative) Urine Urobilinogen <2.0 (<2.0) mg/dL Ur Leukocyte Esterase Large H (Negative) Urine WBC 30 H (0-5) /hpf Ur Squamous Epith Cells 10 H (0-4) /hpf Urine Bacteria Rare H (None) /hpf Hyaline Casts 19 H (0-2) /lpf Urine Mucus Rare H (None) /hpf Disposition Clinical Impression: Acute exacerbation of chronic low back pain Disposition: ADMITTED IP TO THIS HOSP Referrals: Miguel Hardwick MD [Primary Care Provider] - 1-2 days Time of Disposition: 15:48
[2018-08-04 12:08] LABS: Basophils # (A) 0.1 k/uL (0-0.2); Basophils % (A) 0 %; Eosinophils # (A) 0.2 k/uL (0-0.7); Eosinophils % (A) 1 %; HCT 42.5 % (34.0-46.0); HGB 13.2 gm/dL (11.4-16.0); Hypochromasia Slight; Lymphocytes # (A) 1.7 k/uL (1.0-4.8); Lymphocytes % (A) 14 %; MCH 28.5 pg (25.0-35.0); MCHC 30.9 g/dL (31.0-37.0); MCV 92.3 fL (80.0-100.0); Mean Platelet Volume 6.9; Monocytes # (A) 0.9 k/uL (0-1.0); Monocytes % (A) 7 %; Neutrophils # (A) 8.8 k/uL (1.3-7.7); Neutrophils % (A) 76 %; Platelet Count 300 k/uL (150-450); RBC 4.61 m/uL (3.80-5.40); RDW 14.3 % (11.5-15.5); WBC 11.6 k/uL (3.8-10.6)
[2018-08-04 12:22] LABS: Albumin 3.7 g/dL (3.5-5.0); Calcium 8.7 mg/dL (8.4-10.2); Potassium 4.6 mmol/L (3.5-5.1); Total Bilirubin 0.7 mg/dL (0.2-1.3); Total Protein 6.8 g/dL (6.3-8.2)
[2018-08-04 13:48] LABS: Appearance,Urine Cloudy (Clear); Bacteria,Urine Rare /hpf; Bilirubin,Urine Negative (Negative); Blood,Urine Negative (Negative); Color,Urine Yellow; Glucose,Urine (UA) Negative (Negative); Hyaline Casts,Urine 19 /lpf (0-2); Ketones,Urine Negative (Negative); Leukocyte Esterase,Urine Large (Negative); Mucus,Urine Rare /hpf; Nitrite,Urine Negative (Negative); PH, Urine 5.5 (5.0-8.0); Protein,Urine Trace (Negative); Specific Gravity,Urine 1.019 (1.001-1.035); Squamous Epithelial Cell,Urine 10 /hpf (0-4); Urobilinogen,Urine <2.0 mg/dL (<2.0); WBC,Urine 30 /hpf (0-5)
[2018-08-04] MEDS ORDERED: HYDROmorphone 1 MG/ML 1 ML SYRINGE IVP STA (14:09)
[2018-08-04] MEDS ORDERED: LEVOFLOXACIN 750MG-D5W PMX 750 MG in DEXTROSE/WATER 1 150ML.BAG IVPB STA (14:10)
--- NOTE | 2018-08-04 15:11 | CT ---
EXAMINATION TYPE: CT abdomen pelvis wo con DATE OF EXAM: 08/04/2018 COMPARISON: 07/14/2017 INDICATION: Right side flank and groin pain. DLP: 975 mGycm, Automated exposure control for dose reduction was used. CONTRAST: 0 mL of Isovue 300. Study performed without Oral Contrast TECHNIQUE: Axial images were obtained from above the diaphragm to the pubic rami in the axial plane a t 5 mm thick sections. Reconstructed images are reviewed on the computer in the coronal plane. FINDINGS: Limited CT sections are obtained the lung bases. The lung bases are clear. Mild coronary artery nahomi cifications present. CT ABDOMEN: Scoliosis is present to the thoracic and lumbar spine. Liver: There is a 1.7 cm cyst within the left lobe liver measuring -9 Hounsfield units. Spleen: Normal Pancreas: Normal Adrenal glands: The adrenal glands are normal. Gallbladder: Normal Kidneys: No masses are evident. No hydronephrosis is present. No cysts are present. Delayed images were obtained through the kidneys, which remain unremarkable. Aorta: Vascular calcification is within the aorta. Inferior vena cava: Normal. CT PELVIS: There is a large mesenteric fat containing hernia in the anterior upper pelvis with an ope damaris of 3.2 cm. Loops of bowel within the abdomen and pelvis are normal. Few scattered diverticuli are present. Appendix: Not visualized. No suspicious inflammatory changes evident. Urinary bladder: Normal. Genitourinary structures: Uterus contains calcification. Adnexal regions are clear. Osseous structures: No suspicious lytic or sclerotic lesions. IMPRESSIONS: 1. 1. Mesenteric fat containing anterior abdominal wall hernia. 2. Diverticulosis without acute diverticulitis. 3. Suspected hepatic cyst
[2018-08-04] MEDS ORDERED: ONDANSETRON 4 MG/2 ML VIAL IVP STA (15:37)
[2018-08-04] MEDS ORDERED: SODIUM CHLORIDE 0.9% 1,000 ML IV ONE (15:49)
[2018-08-04] MEDS ORDERED: HYDROmorphone 1 MG/ML 1 ML SYRINGE IVP PRN (15:50)
--- NOTE | 2018-08-04 16:30 | P.HPIM ---
History of Present Illness H&P Date: 08/04/18 Chief Complaint: Right flank pain This is a 73-year-old female with a known past medical history of scoliosis, hypertension, chronic kidney disease stage III, congestive heart failure, hypothyroidism and chronic atrial fibrillation. Patient presents to the hospital with complaints of right flank pain. Pain started last night and into this morning. She's been nauseated. She denies any chest pain or shortness of breath. She denies any urinary symptoms. Denies any burning with urination, frequency hesitancy or urgency. Her pain does not radiate. She denies any difficulty ambulating. She does get pain with her scoliosis. But this pain has been different. Urinalysis appears to be positive for UTI she's been given a dose of Levaquin. Computed tomography scan of the abdomen and pelvis showing mesenteric fat-containing anterior abdominal wall hernia. Diverticulosis without acute diverticulitis and suspected hepatic cyst. No evidence of kidney stones. Continue with IV fluids. Await urine culture. Pain service was consulted. Patient denies any fever or chills or sweats. Denies vomiting. Denies any bowel movement changes. Denies any chest pain or shortness of breath. Review of Systems Please refer to HPI otherwise unremarkable Past Medical History Past Medical History: Atrial Fibrillation, Asthma, Heart Failure, COPD, Hyperlipidemia, Hypertension, Osteoarthritis (OA), Thyroid Disorder Additional Past Medical History / Comment(s): 06-06-15 admitted to [facility] with c/o sob-dx with pe.other hx: diverticulosis,asthma, emphysema,scoliosis uses a crutch( when up walking), umbilical hernia,stated does have some blockage enrike carotids, History of Any Multi-Drug Resistant Organisms: None Reported Past Surgical History: Orthopedic Surgery, Tubal Ligation Additional Past Surgical History / Comment(s): per old hx: d&c,colonoscopy, orif lt ankle has plate and screws. Past Anesthesia/Blood Transfusion Reactions: No Reported Reaction Past Psychological History: No Psychological Hx Reported Smoking Status: Former smoker Past Alcohol Use History: Daily Past Drug Use History: None Reported - Past Family History Father Additional Family Medical History / Comment(s): had tb at age 55, lt leg amp.heart problems. Mother History Unknown: Yes Medications and Allergies Home Medications Medication Instructions Recorded Confirmed Type Acetaminophen Tab [Tylenol] 500 mg PO DAILY PRN 06/06/15 08/04/18 History Levothyroxine Sodium [Synthroid] 50 mcg PO DAILY 06/06/15 08/04/18 History Multivitamins, Thera [Multivitamin 1 tab PO DAILY 06/06/15 08/04/18 History (formulary)] Famotidine [Pepcid] 20 mg PO DAILY tab 06/13/15 08/04/18 Rx Metoprolol Tartrate [Lopressor] 50 mg PO BID #60 tab 06/13/15 08/04/18 Rx Cholecalciferol [Vitamin D3] 400 unit PO DAILY 08/04/18 08/04/18 History Allergies Allergy/AdvReac Type Severity Reaction Status Date / Time adhesive Allergy Rash/Hives Verified 08/04/18 12:38 cefaclor [From Ceclor] Allergy Rash/Hives Verified 08/04/18 12:38 Penicillins Allergy Unknown Verified 08/04/18 12:38 povidone-iodine Allergy Rash/Hives Verified 08/04/18 12:38 [From Betadine] soap [From Betadine] Allergy Rash/Hives Verified 08/04/18 12:38 Physical Exam Vitals: Vital Signs Temp Pulse Resp BP Pulse Ox 08/04/18 15:45 97.7 F 70 16 107/55 92 L 08/04/18 11:41 98.8 F 90 20 133/59 92 L Intake and Output 08/04/18 08/04/18 08/04/18 06:59 14:59 22:59 Other: Weight 112.945 kg Head normocephalic Neck supple Lungs clear to auscultation bilaterally no wheezing or crackles Heart regular rate and rhythm S1-S2, no rub or gallop Abdomen is soft nontender nondistended positive bowel sounds no hepatosplenomegaly. Right flank pain Extremities no edema Neuro alert and orientated to 3 Results CBC & Chem 7: 08/04/18 11:39 08/04/18 11:39 Labs: Abnormal Lab Results - Last 24 Hours (Table) 08/04/18 08/04/18 08/04/18 Range/Units 11:39 11:39 13:26 WBC 11.6 H (3.8-10.6) k/uL MCHC 30.9 L (31.0-37.0) g/dL Neutrophils # 8.8 H (1.3-7.7) k/uL Carbon Dioxide 20 L (22-30) mmol/L BUN 44 H (7-17) mg/dL Creatinine 1.65 H (0.52-1.04) mg/dL Glucose 132 H (74-99) mg/dL Urine Appearance Cloudy H (Clear) Urine Protein Trace H (Negative) Ur Leukocyte Esterase Large H (Negative) Urine WBC 30 H (0-5) /hpf Ur Squamous Epith Cells 10 H (0-4) /hpf Urine Bacteria Rare H (None) /hpf Hyaline Casts 19 H (0-2) /lpf Urine Mucus Rare H (None) /hpf Assessment and Plan Assessment: 1. Right-sided flank pain: Concerns for possible pyelonephritis with evidence of a positive UTI or patient scoliosis could be contributing to pain. Computed tomography scan of the abdomen and pelvis showing a mesenteric fat-containing anterior abdominal wall hernia, diverticulosis, suspected hepatic cyst. Patient received Levaquin in the ER. We'll monitor closely since she is on Coumadin for her A. fib. Continue IV Dilaudid as needed. Continue the Zofran as needed for nausea 2. Acute on chronic kidney disease, stage III. Continue with IV fluid hydration. 3. Hypothyroidism continue Synthroid 4. Essential hypertension 5. Scoliosis with episodes of chronic back pain 6. Chronic atrial fibrillation anticoagulated with Coumadin. Continue the metoprolol for rate control GI prophylaxis Protonix and DVT prophylaxis Coumadin Review patient's home meds in the morning. Patient seen in the ER. Awaiting home meds to be fully reconciled. Time with Patient: Greater than 30 (Greater than 60% of the total time spent in counseling and coordination of care.I performed an examination of the patient and discussed their management with the physician Title Processor. I have reviewed the Physician Title Processor's notes and agree with the documented findings and plan of care)
[2018-08-04] MEDS ORDERED: PANTOPRAZOLE 40 MG/10 ML VIAL IVP STA (16:37)
[2018-08-04 17:22] LABS: INR 2.5 (<1.2); Prothrombin Time 22.3 sec (9.0-12.0)
[2018-08-04] MEDS: METOPROLOL TARTRATE 50 MG TAB PO SCH (21:52)
[2018-08-04] MEDS: HYDROcodone/APAP 7.5-325MG 1 EACH TAB PO PRN (21:56)
[2018-08-04] MEDS: ONDANSETRON 4 MG/2 ML VIAL IVP PRN (21:58)
[2018-08-05] MEDS: ONDANSETRON 4 MG/2 ML VIAL IVP PRN (05:41)
[2018-08-05] MEDS: LEVOTHYROXINE 50 MCG TAB PO SCH (05:41)
[2018-08-05] MEDS: HYDROcodone/APAP 7.5-325MG 1 EACH TAB PO PRN ×3 (05:42→19:54)
[2018-08-05] MEDS ORDERED: ACETAMINOPHEN TAB 500 MG TAB PO PRN (07:17)
[2018-08-05] MEDS: FUROSEMIDE 40 MG TAB PO SCH (08:18)
[2018-08-05] MEDS: FAMOTIDINE 20 MG TAB PO SCH (08:18)
[2018-08-05] MEDS: METOPROLOL TARTRATE 50 MG TAB PO SCH ×2 (08:18→19:55)
[2018-08-05] MEDS ORDERED: BENAZEPRIL PO SCH (09:00)
[2018-08-05] MEDS ORDERED: PANTOPRAZOLE 40 MG/10 ML VIAL IVP SCH (09:00)
[2018-08-05] MEDS ORDERED: amLODIPine 5 MG TAB PO SCH (09:00)
[2018-08-05] MEDS ORDERED: CHOLECALCIFEROL 400 UNIT TAB PO SCH (09:00)
[2018-08-05] MEDS ORDERED: [UNRECOGNIZED DRUG - OTHER] PO SCH (09:00)
[2018-08-05] MEDS ORDERED: SPIRONOLACTONE 25 MG TAB PO SCH (09:00)
[2018-08-05] MEDS ORDERED: AMLODIPINE BESYLATE PO SCH (09:00)
[2018-08-05 09:51] LABS: INR 2.8 (<1.2)
[2018-08-05 09:57] LABS: Albumin 3.4 g/dL (3.5-5.0); Calcium 8.6 mg/dL (8.4-10.2); Potassium 4.8 mmol/L (3.5-5.1); Total Bilirubin 0.7 mg/dL (0.2-1.3); Total Protein 6.3 g/dL (6.3-8.2)
[2018-08-05 10:22] LABS: HCT 37.1 % (34.0-46.0); HGB 11.3 gm/dL (11.4-16.0); Hypochromasia Moderate; MCH 28.1 pg (25.0-35.0); MCHC 30.6 g/dL (31.0-37.0); MCV 91.9 fL (80.0-100.0); Mean Platelet Volume 7.3; Platelet Count 234 k/uL (150-450); RBC 4.03 m/uL (3.80-5.40); RDW 14.5 % (11.5-15.5)
[2018-08-05] MEDS ORDERED: LEVOFLOXACIN 500MG-D5W PMX 500 MG in DEXTROSE/WATER 1 100ML.BAG IVPB SCH (12:00)
[2018-08-05 12:01] LABS: Band Neutrophils % 2 %; Monocytes # (M) 1.05 k/uL (0-1.0); Neutrophils % (M) 73 %; Nucleated Red Blood Cells 0 /100 WBC (0-0); Total Cells Counted 100
[2018-08-05] MEDS: CHOLECALCIFEROL 400 UNIT TAB PO SCH (12:39)
[2018-08-05] MEDS: LISINOPRIL 20 MG TAB PO SCH (12:39)
[2018-08-05] MEDS: amLODIPine 5 MG TAB PO SCH (12:39)
[2018-08-05] MEDS: MULTIVITAMINS, THERA 1 EACH TAB PO SCH (12:39)
[2018-08-05] MEDS: SPIRONOLACTONE 25 MG TAB PO SCH (12:39)
--- NOTE | 2018-08-05 13:48 | P.PN ---
Subjective Progress Note Date: 08/05/18 This is a 73-year-old female with a known past medical history of scoliosis, hypertension, chronic kidney disease stage III, congestive heart failure, hypothyroidism and chronic atrial fibrillation. Patient presents to the hospital with complaints of right flank pain. Pain started last night and into this morning. She's been nauseated. She denies any chest pain or shortness of breath. She denies any urinary symptoms. Denies any burning with urination, frequency hesitancy or urgency. Her pain does not radiate. She denies any difficulty ambulating. She does get pain with her scoliosis. But this pain has been different. Urinalysis appears to be positive for UTI she's been given a dose of Levaquin. Computed tomography scan of the abdomen and pelvis showing mesenteric fat-containing anterior abdominal wall hernia. Diverticulosis without acute diverticulitis and suspected hepatic cyst. No evidence of kidney stones. Continue with IV fluids. Await urine culture. Pain service was consulted. Patient denies any fever or chills or sweats. Denies vomiting. Denies any bowel movement changes. Denies any chest pain or shortness of breath. 08/05/2018 patient still complaining of right flank and back pain and into the right hip pain. Awaiting pain management consult. Patient denies any burning with urination. Denies any chest pain or shortness of breath. Reports having bowel movements. No diarrhea. Still complaining of nausea no actual vomiting. Pain is not controlled. White count has normalized. Patient is afebrile. Patient reports the Dilaudid is making the nausea worse Objective - Vital Signs Vital signs: Vital Signs Temp 98.3 F 08/05/18 07:00 Pulse 81 08/05/18 07:00 Resp 16 08/05/18 07:30 BP 100/66 08/05/18 07:00 Pulse Ox 95 08/05/18 07:00 Intake & Output 08/04/18 08/05/18 08/05/18 18:59 06:59 18:59 Intake Total 200 Balance 200 Weight 112.945 kg 114 kg Intake: Oral 200 Other: Voiding Method Toilet Toilet # Voids 1 - Exam Head normocephalic Neck supple Lungs clear to auscultation bilaterally no wheezing or crackles Heart regular rate and rhythm S1-S2, no rub or gallop Abdomen is soft nontender nondistended positive bowel sounds no hepatosplenomegaly right flank tenderness Extremities no edema Neuro alert and orientated to 3 Musculoskeletal tenderness patient of the right CVA area and into the lower right hip. - Labs CBC & Chem 7: 08/05/18 08:43 08/05/18 08:43 Labs: Abnormal Lab Results - Last 24 Hours (Table) 08/04/18 08/04/18 08/05/18 Range/Units 11:39 13:26 08:43 Hgb 11.3 L (11.4-16.0) gm/dL MCHC 30.6 L (31.0-37.0) g/dL Lymphocytes # (Manual) 0.70 L (1.0-4.8) k/uL Monocytes # (Manual) 1.05 H (0-1.0) k/uL PT 22.3 H (9.0-12.0) sec INR 2.5 H (<1.2) Sodium (137-145) mmol/L BUN (7-17) mg/dL Creatinine (0.52-1.04) mg/dL Glucose (74-99) mg/dL Albumin (3.5-5.0) g/dL Urine Appearance Cloudy H (Clear) Urine Protein Trace H (Negative) Ur Leukocyte Esterase Large H (Negative) Urine WBC 30 H (0-5) /hpf Ur Squamous Epith Cells 10 H (0-4) /hpf Urine Bacteria Rare H (None) /hpf Hyaline Casts 19 H (0-2) /lpf Urine Mucus Rare H (None) /hpf 08/05/18 08/05/18 Range/Units 08:43 08:43 Hgb (11.4-16.0) gm/dL MCHC (31.0-37.0) g/dL Lymphocytes # (Manual) (1.0-4.8) k/uL Monocytes # (Manual) (0-1.0) k/uL PT 25.0 H (9.0-12.0) sec INR 2.8 H (<1.2) Sodium 136 L (137-145) mmol/L BUN 42 H (7-17) mg/dL Creatinine 1.32 H (0.52-1.04) mg/dL Glucose 103 H (74-99) mg/dL Albumin 3.4 L (3.5-5.0) g/dL Urine Appearance (Clear) Urine Protein (Negative) Ur Leukocyte Esterase (Negative) Urine WBC (0-5) /hpf Ur Squamous Epith Cells (0-4) /hpf Urine Bacteria (None) /hpf Hyaline Casts (0-2) /lpf Urine Mucus (None) /hpf Microbiology - Last 24 Hours (Table) 08/04/18 13:26 Urine Culture - Preliminary Urine,Voided Assessment and Plan Assessment: 1. Right-sided flank pain: Concerns for possible pyelonephritis with evidence of a positive UTI or patient scoliosis could be contributing to pain. Computed tomography scan of the abdomen and pelvis showing a mesenteric fat-containing anterior abdominal wall hernia, diverticulosis, suspected hepatic cyst. Continue Levaquin We'll monitor closely since she is on Coumadin for her A. fib. Continue [place] for pain control. Continue the Zofran as needed for nausea await pain service recommendations. Check lumbar spine x-ray, right hip x-ray and kidney ultrasound 2. Acute on chronic kidney disease, stage III. Improving with IV fluids. Fluids are KVO 3. Hypothyroidism continue Synthroid 4. Essential hypertension 5. Scoliosis with episodes of chronic back pain 6. Chronic atrial fibrillation anticoagulated with Coumadin at home. Continue the metoprolol for rate control. Coumadin on hold. INR 2.8. Monitor closely while patient is on Levaquin GI prophylaxis Protonix and DVT prophylaxis Coumadin I performed an examination of the patient and discussed their management with the physician Armed Custom Protection Officer. I have reviewed the Physician Armed Custom Protection Officer's notes and agree with the documented findings and plan of care
[2018-08-05] MEDS: ATORVASTATIN 20 MG TAB PO SCH (19:55)
--- NOTE | 2018-08-05 20:11 | XR ---
EXAMINATION TYPE: XR lumbar spine 2 or 3V DATE OF EXAM: 08/05/2018 COMPARISON: 09/07/2013 HISTORY: Back pain TECHNIQUE: 3 views FINDINGS: There is a severe thoracolumbar levorotoscoliosis. There is lateral subluxation of L2 to th e left of L3 of approximately 3.5 cm. There is spur formation. There is some compression deformity of L2 and L3 vertebral body. Sacroiliac joints are intact. I see no acute fracture. IMPRESSION: Old L2 and L3 compression fracture with significant scoliotic deformity and subluxation d eformity at L2-3. No acute fracture seen. No change compared to old exam.
--- NOTE | 2018-08-05 20:12 | XR ---
EXAMINATION TYPE: XR Hip Complete RT DATE OF EXAM: 08/05/2018 COMPARISON: 09/07/2013 HISTORY: Hip pain TECHNIQUE: 2 views FINDINGS: There is mild acetabular spurring. Proximal femur is intact. I see no fracture nor dislocat ion. IMPRESSION: Mild degenerative changes. No fracture. No change compared to old exam.
--- NOTE | 2018-08-05 21:43 | US ---
EXAMINATION TYPE: US kidneys/renal and bladder DATE OF EXAM: 08/05/2018 COMPARISON: NONE CLINICAL HISTORY: right flank pain. rule out kidney stone. right sided pain EXAM MEASUREMENTS: Right Kidney: 9.4 x 4.9 x 5.4 cm Left Kidney: 9.6 x 4.3 x 5.4 cm Large body habitus, kidneys difficult to penetrate Right Kidney: No hydronephrosis or masses seen Left Kidney: No hydronephrosis or masses seen Bladder: not distended IMPRESSION: No evidence of renal mass or obstruction. Urinary bladder was empty during the exam.
[2018-08-06] MEDS: HYDROcodone/APAP 7.5-325MG 1 EACH TAB PO PRN ×3 (02:44→16:40)
[2018-08-06] MEDS: LEVOTHYROXINE 50 MCG TAB PO SCH (05:57)
[2018-08-06 07:57] LABS: Basophils % (A) 0 %; Eosinophils # (A) 0.2 k/uL (0-0.7); Eosinophils % (A) 3 %; HCT 37.7 % (34.0-46.0); HGB 11.5 gm/dL (11.4-16.0); Hypochromasia Moderate; Lymphocytes # (A) 1.4 k/uL (1.0-4.8); Lymphocytes % (A) 26 %; MCH 28.4 pg (25.0-35.0); MCHC 30.5 g/dL (31.0-37.0); MCV 92.9 fL (80.0-100.0); Mean Platelet Volume 6.8; Monocytes # (A) 0.6 k/uL (0-1.0); Monocytes % (A) 11 %; Neutrophils # (A) 3.2 k/uL (1.3-7.7); Neutrophils % (A) 58 %; Platelet Count 244 k/uL (150-450); RBC 4.06 m/uL (3.80-5.40); RDW 14.5 % (11.5-15.5); WBC 5.5 k/uL (3.8-10.6)
[2018-08-06] MEDS: METOPROLOL TARTRATE 50 MG TAB PO SCH ×2 (08:09→20:20)
[2018-08-06] MEDS: PANTOPRAZOLE 40 MG TABLET PO SCH (08:09)
[2018-08-06] MEDS: FUROSEMIDE 40 MG TAB PO SCH (08:10)
[2018-08-06] MEDS: FAMOTIDINE 20 MG TAB PO SCH (08:10)
[2018-08-06 08:13] LABS: Albumin 3.4 g/dL (3.5-5.0); Calcium 8.9 mg/dL (8.4-10.2); Potassium 4.5 mmol/L (3.5-5.1); Total Bilirubin 0.5 mg/dL (0.2-1.3); Total Protein 6.5 g/dL (6.3-8.2)
[2018-08-06 08:18] LABS: INR 1.9 (<1.2); Prothrombin Time 16.9 sec (9.0-12.0)
--- NOTE | 2018-08-06 11:38 | P.PN ---
Subjective Progress Note Date: 08/06/18 This is a 73-year-old female with a known past medical history of scoliosis, hypertension, chronic kidney disease stage III, congestive heart failure, hypothyroidism and chronic atrial fibrillation. Patient presents to the hospital with complaints of right flank pain. Pain started last night and into this morning. She's been nauseated. She denies any chest pain or shortness of breath. She denies any urinary symptoms. Denies any burning with urination, frequency hesitancy or urgency. Her pain does not radiate. She denies any difficulty ambulating. She does get pain with her scoliosis. But this pain has been different. Urinalysis appears to be positive for UTI she's been given a dose of Levaquin. Computed tomography scan of the abdomen and pelvis showing mesenteric fat-containing anterior abdominal wall hernia. Diverticulosis without acute diverticulitis and suspected hepatic cyst. No evidence of kidney stones. Continue with IV fluids. Await urine culture. Pain service was consulted. Patient denies any fever or chills or sweats. Denies vomiting. Denies any bowel movement changes. Denies any chest pain or shortness of breath. 08/05/2018 patient still complaining of right flank and back pain and into the right hip pain. Awaiting pain management consult. Patient denies any burning with urination. Denies any chest pain or shortness of breath. Reports having bowel movements. No diarrhea. Still complaining of nausea no actual vomiting. Pain is not controlled. White count has normalized. Patient is afebrile. Patient reports the Dilaudid is making the nausea worse. On 08/06/2018 patient was seen and examined labs and x-ray results reviewed, patient is still complaining of severe pain in the right flank and back area, otherwise she denies any complaints. kidney ultrasound did not reveal any significant abnormality there was no evidence of kidney stones or hydronephrosis, lumbar spine x-ray revealed evidence of old compression fracture without any significant change from previous, right hip x-ray revealed evidence of mild degenerative disease without any evidence of fracture or dislocation. Objective - Vital Signs Vital signs: Vital Signs Temp 98.5 F 08/06/18 06:34 Pulse 77 08/06/18 06:34 Resp 16 08/06/18 06:34 BP 130/69 08/06/18 06:34 Pulse Ox 95 08/06/18 06:34 Intake & Output 08/05/18 08/06/18 08/06/18 18:59 06:59 18:59 Intake Total 200 Output Total 200 300 Balance -200 -100 Weight 115.1 kg 115.1 kg Intake: Oral 200 Output: Urine 200 300 Other: Voiding Method Toilet Toilet Toilet # Voids 3 100 - Exam Head normocephalic and atraumatic Neck supple no JVD no goiter Lungs clear to auscultation bilaterally no wheezing or crackles Heart regular rate and rhythm S1-S2, no rub or gallop Abdomen is soft nontender nondistended positive bowel sounds no hepatosplenomegaly right flank tenderness Extremities no edema no cyanosis or clubbing Neuro alert and orientated to 3 Musculoskeletal tenderness patient of the right CVA area and into the lower right hip. - Labs CBC & Chem 7: 08/06/18 07:28 08/06/18 07:28 Labs: Abnormal Lab Results - Last 24 Hours (Table) 08/05/18 08/06/18 08/06/18 Range/Units 08:43 07:28 07:28 MCHC 30.5 L (31.0-37.0) g/dL Lymphocytes # (Manual) 0.70 L (1.0-4.8) k/uL Monocytes # (Manual) 1.05 H (0-1.0) k/uL PT 16.9 H (9.0-12.0) sec INR 1.9 H (<1.2) BUN (7-17) mg/dL Creatinine (0.52-1.04) mg/dL Glucose (74-99) mg/dL Albumin (3.5-5.0) g/dL 08/06/18 Range/Units 07:28 MCHC (31.0-37.0) g/dL Lymphocytes # (Manual) (1.0-4.8) k/uL Monocytes # (Manual) (0-1.0) k/uL PT (9.0-12.0) sec INR (<1.2) BUN 37 H (7-17) mg/dL Creatinine 1.36 H (0.52-1.04) mg/dL Glucose 109 H (74-99) mg/dL Albumin 3.4 L (3.5-5.0) g/dL Microbiology - Last 24 Hours (Table) 08/04/18 23:13 Blood Culture - Preliminary Blood No Growth after 24 hours 08/04/18 13:26 Urine Culture - Final Urine,Voided Assessment and Plan Plan: 1. Right-sided flank pain: Concerns for possible pyelonephritis with evidence of a positive UTI or patient scoliosis could be contributing to pain. Computed tomography scan of the abdomen and pelvis showing a mesenteric fat-containing anterior abdominal wall hernia, diverticulosis, suspected hepatic cyst. Continue Levaquin We'll monitor closely since she is on Coumadin for her A. fib. Continue [place] for pain control. Continue the Zofran as needed for nausea await pain service recommendations. Check lumbar spine x-ray, right hip x-ray and kidney ultrasound 2. Acute on chronic kidney disease, stage III. Improving with IV fluids. Fluids are KVO 3. Hypothyroidism continue Synthroid 4. Essential hypertension 5. Scoliosis with episodes of chronic back pain 6. Chronic atrial fibrillation anticoagulated with Coumadin at home. Continue the metoprolol for rate control. Coumadin on hold. INR 2.8. Monitor closely while patient is on Levaquin GI prophylaxis Protonix and DVT prophylaxis Coumadin
[2018-08-06] MEDS: MULTIVITAMINS, THERA 1 EACH TAB PO SCH (11:50)
[2018-08-06] MEDS: amLODIPine 5 MG TAB PO SCH (11:50)
[2018-08-06] MEDS: CHOLECALCIFEROL 400 UNIT TAB PO SCH (11:50)
[2018-08-06] MEDS: LISINOPRIL 20 MG TAB PO SCH (11:51)
[2018-08-06] MEDS: SPIRONOLACTONE 25 MG TAB PO SCH (11:51)
[2018-08-06] MEDS ORDERED: LEVOFLOXACIN 500 MG TAB PO SCH (12:00)
[2018-08-06] MEDS ORDERED: WARFARIN 2 MG TAB PO ONE (18:00)
[2018-08-06] MEDS: ATORVASTATIN 20 MG TAB PO SCH (20:20)
[2018-08-07] MEDS: LEVOTHYROXINE 50 MCG TAB PO SCH (04:56)
[2018-08-07] MEDS: HYDROcodone/APAP 7.5-325MG 1 EACH TAB PO PRN ×3 (04:58→22:55)
[2018-08-07 08:08] LABS: Basophils % (A) 1 %; Eosinophils # (A) 0.2 k/uL (0-0.7); Eosinophils % (A) 3 %; HGB 11.4 gm/dL (11.4-16.0); Hypochromasia Moderate; Lymphocytes # (A) 1.2 k/uL (1.0-4.8); Lymphocytes % (A) 20 %; MCH 27.4 pg (25.0-35.0); MCHC 29.9 g/dL (31.0-37.0); MCV 91.6 fL (80.0-100.0); Monocytes # (A) 0.6 k/uL (0-1.0); Monocytes % (A) 11 %; Neutrophils # (A) 3.8 k/uL (1.3-7.7); Neutrophils % (A) 64 %; Platelet Count 255 k/uL (150-450); RBC 4.14 m/uL (3.80-5.40); RDW 14.5 % (11.5-15.5); WBC 5.9 k/uL (3.8-10.6)
[2018-08-07 08:18] LABS: INR 1.5 (<1.2); Prothrombin Time 14.2 sec (9.0-12.0)
[2018-08-07 08:20] LABS: Albumin 3.3 g/dL (3.5-5.0); Calcium 8.9 mg/dL (8.4-10.2); Potassium 4.8 mmol/L (3.5-5.1); Total Bilirubin 0.5 mg/dL (0.2-1.3); Total Protein 6.2 g/dL (6.3-8.2)
[2018-08-07] MEDS: METOPROLOL TARTRATE 50 MG TAB PO SCH ×2 (08:23→22:55)
[2018-08-07] MEDS: FUROSEMIDE 40 MG TAB PO SCH (08:24)
[2018-08-07] MEDS: PANTOPRAZOLE 40 MG TABLET PO SCH (08:24)
[2018-08-07] MEDS: LEVOFLOXACIN 250 MG TAB PO SCH (08:24)
--- NOTE | 2018-08-07 11:10 | P.PN ---
Subjective Progress Note Date: 08/07/18 This is a 73-year-old female with a known past medical history of scoliosis, hypertension, chronic kidney disease stage III, congestive heart failure, hypothyroidism and chronic atrial fibrillation. Patient presents to the hospital with complaints of right flank pain. Pain started last night and into this morning. She's been nauseated. She denies any chest pain or shortness of breath. She denies any urinary symptoms. Denies any burning with urination, frequency hesitancy or urgency. Her pain does not radiate. She denies any difficulty ambulating. She does get pain with her scoliosis. But this pain has been different. Urinalysis appears to be positive for UTI she's been given a dose of Levaquin. Computed tomography scan of the abdomen and pelvis showing mesenteric fat-containing anterior abdominal wall hernia. Diverticulosis without acute diverticulitis and suspected hepatic cyst. No evidence of kidney stones. Continue with IV fluids. Await urine culture. Pain service was consulted. Patient denies any fever or chills or sweats. Denies vomiting. Denies any bowel movement changes. Denies any chest pain or shortness of breath. 08/05/2018 patient still complaining of right flank and back pain and into the right hip pain. Awaiting pain management consult. Patient denies any burning with urination. Denies any chest pain or shortness of breath. Reports having bowel movements. No diarrhea. Still complaining of nausea no actual vomiting. Pain is not controlled. White count has normalized. Patient is afebrile. Patient reports the Dilaudid is making the nausea worse. On 08/06/2018 patient was seen and examined labs and x-ray results reviewed, patient is still complaining of severe pain in the right flank and back area, otherwise she denies any complaints. kidney ultrasound did not reveal any significant abnormality there was no evidence of kidney stones or hydronephrosis, lumbar spine x-ray revealed evidence of old compression fracture without any significant change from previous, right hip x-ray revealed evidence of mild degenerative disease without any evidence of fracture or dislocation. On 08/07/2018 patient was seen and examined she is still complaining of severe pain in the lower back mostly to the right side, patient is having temporary relief with pain medications, otherwise she denies any complaints at this time. Objective - Vital Signs Vital signs: Vital Signs Temp 96.6 F L 08/07/18 06:38 Pulse 69 08/07/18 06:38 Resp 16 08/07/18 08:27 BP 92/53 08/07/18 06:38 Pulse Ox 95 08/07/18 06:38 Intake & Output 08/06/18 08/07/18 08/07/18 18:59 06:59 18:59 Intake Total 600 350 Output Total 600 Balance 0 350 Weight 115.1 kg 115.1 kg 115.1 kg Intake: Oral 600 350 Output: Urine 600 Other: Voiding Method Toilet Toilet Toilet # Voids 3 2 - Exam Head normocephalic and atraumatic Neck supple no JVD no goiter Lungs clear to auscultation bilaterally no wheezing or crackles Heart regular rate and rhythm S1-S2, no rub or gallop Abdomen is soft nontender nondistended positive bowel sounds no hepatosplenomegaly right flank tenderness Extremities no edema no cyanosis or clubbing Neuro alert and orientated to 3 Musculoskeletal tenderness patient of the right CVA area and into the lower right hip. - Labs CBC & Chem 7: 08/07/18 07:31 08/07/18 07:31 Labs: Abnormal Lab Results - Last 24 Hours (Table) 08/07/18 08/07/18 08/07/18 Range/Units 07:31 07:31 07:31 MCHC 29.9 L (31.0-37.0) g/dL PT 14.2 H (9.0-12.0) sec INR 1.5 H (<1.2) Sodium 134 L (137-145) mmol/L BUN 37 H (7-17) mg/dL Creatinine 1.43 H (0.52-1.04) mg/dL Glucose 109 H (74-99) mg/dL Total Protein 6.2 L (6.3-8.2) g/dL Albumin 3.3 L (3.5-5.0) g/dL Microbiology - Last 24 Hours (Table) 08/04/18 23:13 Blood Culture - Preliminary Blood No Growth after 48 hours Assessment and Plan Plan: 1. Right-sided flank pain: Concerns for possible pyelonephritis with evidence of a positive UTI or patient scoliosis could be contributing to pain. Computed tomography scan of the abdomen and pelvis showing a mesenteric fat-containing anterior abdominal wall hernia, diverticulosis, suspected hepatic cyst. Continue Levaquin We'll monitor closely since she is on Coumadin for her A. fib. Continue [place] for pain control. Continue the Zofran as needed for nausea await pain service recommendations. Check lumbar spine x-ray, right hip x-ray and kidney ultrasound 2. Acute on chronic kidney disease, stage III. Improving with IV fluids. Fluids are KVO 3. Hypothyroidism continue Synthroid 4. Essential hypertension 5. Scoliosis with episodes of chronic back pain 6. Chronic atrial fibrillation anticoagulated with Coumadin at home. Continue the metoprolol for rate control. INR down to 1.5 will give 5 mg of Coumadin today recheck INR in a.m. Monitor closely while patient is on Levaquin At this time patient is not improving Will consult Dr. Storm, we are also still awaiting input from Dr. Castro GI prophylaxis Protonix and DVT prophylaxis Coumadin
[2018-08-07] MEDS: SPIRONOLACTONE 25 MG TAB PO SCH (11:42)
[2018-08-07] MEDS: MULTIVITAMINS, THERA 1 EACH TAB PO SCH (11:42)
[2018-08-07] MEDS: LISINOPRIL 20 MG TAB PO SCH (11:42)
[2018-08-07] MEDS: CHOLECALCIFEROL 400 UNIT TAB PO SCH (11:42)
[2018-08-07] MEDS: amLODIPine 5 MG TAB PO SCH (11:43)
[2018-08-07] MEDS ORDERED: WARFARIN 5 MG TAB PO ONE (18:00)
[2018-08-07] MEDS: ATORVASTATIN 20 MG TAB PO SCH (20:28)
[2018-08-08] MEDS: HYDROcodone/APAP 7.5-325MG 1 EACH TAB PO PRN ×3 (05:06→21:48)
[2018-08-08] MEDS: LEVOTHYROXINE 50 MCG TAB PO SCH (05:06)
[2018-08-08] MEDS: FUROSEMIDE 40 MG TAB PO SCH (08:01)
[2018-08-08] MEDS: LEVOFLOXACIN 250 MG TAB PO SCH (08:03)
[2018-08-08] MEDS: METOPROLOL TARTRATE 50 MG TAB PO SCH ×2 (08:03→22:48)
[2018-08-08] MEDS: PANTOPRAZOLE 40 MG TABLET PO SCH (08:03)
[2018-08-08 09:25] LABS: Basophils % (A) 0 %; Eosinophils # (A) 0.3 k/uL (0-0.7); Eosinophils % (A) 4 %; HCT 41.1 % (34.0-46.0); HGB 12.7 gm/dL (11.4-16.0); Hypochromasia Moderate; Lymphocytes # (A) 1.9 k/uL (1.0-4.8); Lymphocytes % (A) 32 %; MCH 28.3 pg (25.0-35.0); MCHC 30.8 g/dL (31.0-37.0); MCV 91.7 fL (80.0-100.0); Mean Platelet Volume 7.1; Monocytes # (A) 0.6 k/uL (0-1.0); Monocytes % (A) 11 %; Neutrophils # (A) 3.1 k/uL (1.3-7.7); Neutrophils % (A) 51 %; Platelet Count 279 k/uL (150-450); RBC 4.49 m/uL (3.80-5.40); RDW 14.3 % (11.5-15.5)
[2018-08-08 09:28] LABS: INR 1.5 (<1.2); Prothrombin Time 13.9 sec (9.0-12.0)
[2018-08-08 09:45] LABS: Albumin 3.8 g/dL (3.5-5.0); Calcium 9.4 mg/dL (8.4-10.2); Potassium 4.4 mmol/L (3.5-5.1); Total Bilirubin 0.6 mg/dL (0.2-1.3); Total Protein 6.9 g/dL (6.3-8.2)
[2018-08-08 09:51] LABS: Appearance,Urine Clear (Clear); Bilirubin,Urine Negative (Negative); Blood,Urine Negative (Negative); Color,Urine Yellow; Glucose,Urine (UA) Negative (Negative); Hyaline Casts,Urine 12 /lpf (0-2); Ketones,Urine Negative (Negative); Leukocyte Esterase,Urine Small (Negative); Nitrite,Urine Negative (Negative); PH, Urine 5.5 (5.0-8.0); Protein,Urine Negative (Negative); RBC,Urine <1 /hpf (0-5); Specific Gravity,Urine 1.012 (1.001-1.035); Squamous Epithelial Cell,Urine 1 /hpf (0-4); Urobilinogen,Urine <2.0 mg/dL (<2.0); WBC,Urine 4 /hpf (0-5)
--- NOTE | 2018-08-08 11:27 | P.CONS ---
History of Present Illness - Reason for Consult Consult date: 08/08/18 - History of Present Illness This is 73 years old female with a chronic history of back pain ,she is diagnosed with this scoliosis, she was admitted to [facility] because of severe right flank and right hip pain, patient reported that she had a chronic pain secondary to scoliosis and she was managed as an outpatient with Tylenol, she reported that last week she started having severe pain localized above the right iliac crest and radiated superiorly towards the right flank, pain is constant , she denies any urinary frequency or urgency, she denies any burning sensation, she ambulates using cane, patient currently on norco 7.5/325 every 6 hours, and Dilaudid , he denies any side effect of the medication Past Medical History Past Medical History: Atrial Fibrillation, Asthma, Heart Failure, COPD, GI Bleed , Hyperlipidemia, Hypertension, Osteoarthritis (OA), Pulmonary Embolus (PE), Thyroid Disorder Additional Past Medical History / Comment(s): 06-06-15 admitted to [facility] with c/o sob-dx with pe. diverticulosis,, emphysema,scoliosis uses a crutch( when up walking), umbilical hernia,stated does have some blockage enrike carotids,rt upper bridge and has" 2 loose teeth", chronic low back pain History of Any Multi-Drug Resistant Organisms: MRSA Year Discovered:: 07/16/17 MDRO Source:: Left First Toe Past Surgical History: Orthopedic Surgery, Tubal Ligation Additional Past Surgical History / Comment(s): d&c,colonoscopy, orif lt ankle has plate and screws.lt knee arthroscopy Past Anesthesia/Blood Transfusion Reactions: No Reported Reaction Smoking Status: Former smoker - Past Family History Father Additional Family Medical History / Comment(s): had tb at age 55, lt leg amp.heart problems. Mother History Unknown: Yes Family Medical History: Dementia, Diabetes Mellitus Medications and Allergies Home Medications Medication Instructions Recorded Confirmed Type Acetaminophen Tab [Tylenol] 500 mg PO DAILY PRN 06/06/15 08/04/18 History Levothyroxine Sodium [Synthroid] 50 mcg PO DAILY 06/06/15 08/04/18 History Multivitamins, Thera [Multivitamin 1 tab PO DAILY 06/06/15 08/04/18 History (formulary)] Famotidine [Pepcid] 20 mg PO DAILY tab 06/13/15 08/04/18 Rx Metoprolol Tartrate [Lopressor] 50 mg PO BID #60 tab 06/13/15 08/04/18 Rx Atorvastatin Calcium [Lipitor] 20 mg PO HS 08/04/18 08/04/18 History Cholecalciferol [Vitamin D3] 400 unit PO DAILY 08/04/18 08/04/18 History Furosemide [Lasix] 40 mg PO DAILY 08/04/18 08/04/18 History Spironolactone [Aldactone] 25 mg PO DAILY 08/04/18 08/04/18 History Warfarin Sodium 2 mg PO DIRECTED 08/04/18 08/04/18 History Warfarin Sodium 4 mg PO DIRECTED 08/04/18 08/04/18 History amLODIPine BESYLATE/BENAZEPRIL 1 tab PO DAILY 08/04/18 08/04/18 History [amLODIPine BESYLATE/BENAZEPRIL 5-40 mg] Allergies Allergy/AdvReac Type Severity Reaction Status Date / Time adhesive Allergy Rash/Hives Verified 08/04/18 12:38 cefaclor [From Ceclor] Allergy Rash/Hives Verified 08/04/18 12:38 Penicillins Allergy Unknown Verified 08/04/18 12:38 povidone-iodine Allergy Rash/Hives Verified 08/04/18 12:38 [From Betadine] soap [From Betadine] Allergy Rash/Hives Verified 08/04/18 12:38 Physical Exam Vitals: Vital Signs Temp Pulse Resp BP BP Pulse Ox 08/08/18 05:46 97.0 F L 72 16 93/50 98 08/07/18 23:00 97.3 F L 83 16 122/65 98 08/07/18 16:53 88 16 08/07/18 15:00 97.4 F L 88 16 99/53 98 08/07/18 11:40 129/63 Intake and Output 08/07/18 08/08/18 08/08/18 22:59 06:59 14:59 Intake Total 350 Output Total 300 Balance 50 Intake: Oral 350 Output: Urine 300 Other: Voiding Method Toilet Toilet # Voids 1 2 # Bowel Movements 1 Weight 115.1 kg Physical Examinations : 1-Constitutional : Cooperative , not in acute distress . 2-HEENT : nech ; supple , no Lymphadenopathy , no Thyromegaly , :eyes , no icterus, no photophobia . ENT : , normal oropharynx , no Thrush 3- Respiratory : Chest clear to auscultations Bilaterally , no wheezing . 4- Cardiovascular : irregular rate and rhythem , S1 , S2 , no S3 , no S4. 5- Gastrointestinal: abdomen soft no tenderness , no organomegally . 6- Genitourinary : Defferred . 7-Integumentary : No cellulitis , no ulcers , normal skin turgor , no cyanotic . 8- neurologic : Cranial nerve II to XII intact , no focal neurological deffecit 9-psychatric : alert , oriented X 3 , appropriate affect , intact judgment and insight . 10-Lymphatic : no Lymphadenopathy. 11- musculoskeltal: Ambulate using Cane Lumber spine moter stegnth lower extremities ,thigh and legs 4/5 Right side , 4/5 Left side deep tendon reflexes : normal Knee Jerk , normal ankle Jerk positive lumber facet Loading Test Range of motion of the lumbar spine Flexion 30 degrees, extension 10 degrees strait leg raising test , positive at 45 degree Fabere test positive RT and positive LT . Sever tenderness over the right iliac crest ( at the location of the right cluneal nerve ) Mild tenderness over the right sacroiliac joint Results CBC & Chem 7: 08/08/18 08:44 08/08/18 08:44 Labs: Abnormal Lab Results - Last 24 Hours (Table) 08/08/18 08/08/18 08/08/18 Range/Units 08:44 08:44 08:44 MCHC 30.8 L (31.0-37.0) g/dL PT 13.9 H (9.0-12.0) sec INR 1.5 H (<1.2) BUN 36 H (7-17) mg/dL Creatinine 1.49 H (0.52-1.04) mg/dL Ur Leukocyte Esterase (Negative) Hyaline Casts (0-2) /lpf 08/08/18 Range/Units 08:45 MCHC (31.0-37.0) g/dL PT (9.0-12.0) sec INR (<1.2) BUN (7-17) mg/dL Creatinine (0.52-1.04) mg/dL Ur Leukocyte Esterase Small H (Negative) Hyaline Casts 12 H (0-2) /lpf Microbiology - Last 24 Hours (Table) 08/04/18 23:13 Blood Culture - Preliminary Blood No Growth after 72 hours Comments: X-ray of the lumbar spine= compression fracture at L2, L3 , scoliosis Assessment and Plan Plan: Assessment and plan= chronic low back pain secondary to scoliosis, currently patient having 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 Patient could benefit from a right cluneal nerve block. Patient had a history of compression fracture of the spine at L2/L3 levels, clinically this is not the cause of her low back pain. had a history of chronic atrial fibrillation and she is on Coumadin but currently her INR is 1.5 Time with Patient: Greater than 30
--- NOTE | 2018-08-08 12:20 | P.PCN ---
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 Postoperative diagnosis= same as pre op diagnosis. Operation= Right cluneal nerve steroid injection under fluoroscopy guidance. Anesthesia= only local infiltration with lidocaine 1% 2 mL . Complications= none . Description of the procedure= patient had history of severe low back pain and hip pain secondary to right cluneal nerve neuralgia, for this reason patient was a good candidate to have right cluneal nerve steroid injection which hopefully it will help her pain, risks and benefits of the procedure including but not limited to risk of infection and bleeding and not complete pain relief and ALLERGIC reaction to medication discussed with the patient and the alternative also discussed with the patient and he agreed with the preceding, patient taken to the operating room placed in prone position or standard monitors applied patient ,and the back and the hip area prepped with chlorhexidine 3 times, and under sterile technique using 25-gauge needle for skin and subcutaneous tissue infiltration was first admitted the right iliac crest at the location of the cluneal nerve injection at 22-gauge Quincke-type spinal needle advanced slowly under fluoroscopy and placed in the right cluneal nerve area , needle placement confirmed with AP and lateral view and after appropriate needle placement confirmed under fluoroscopy 7 ML of Ropivacaine 0.5 % mixed with 40 mg of Kenalog injected after negative aspiration for heme and there was no CSF and there was no paresthesia during the injection and needle removed and a dressing applied , patient tolerated the procedure well without any complication ,and she will follow up with the pain clinic in a few weeks .
--- NOTE | 2018-08-08 12:38 | FL ---
EXAMINATION TYPE: FL guided pain mgmt statistic DATE OF EXAM: 08/08/2018 HISTORY: Pain 3 films, 18 sec fl
[2018-08-08] MEDS: amLODIPine 5 MG TAB PO SCH (12:39)
[2018-08-08] MEDS: LISINOPRIL 20 MG TAB PO SCH (12:39)
[2018-08-08] MEDS: MULTIVITAMINS, THERA 1 EACH TAB PO SCH (12:39)
[2018-08-08] MEDS: SPIRONOLACTONE 25 MG TAB PO SCH (12:39)
[2018-08-08] MEDS: CHOLECALCIFEROL 400 UNIT TAB PO SCH (12:39)
--- NOTE | 2018-08-08 13:19 | P.PN ---
Subjective Progress Note Date: 08/08/18 This is a 73-year-old female with a known past medical history of scoliosis, hypertension, chronic kidney disease stage III, congestive heart failure, hypothyroidism and chronic atrial fibrillation. Patient presents to the hospital with complaints of right flank pain. Pain started last night and into this morning. She's been nauseated. She denies any chest pain or shortness of breath. She denies any urinary symptoms. Denies any burning with urination, frequency hesitancy or urgency. Her pain does not radiate. She denies any difficulty ambulating. She does get pain with her scoliosis. But this pain has been different. Urinalysis appears to be positive for UTI she's been given a dose of Levaquin. Computed tomography scan of the abdomen and pelvis showing mesenteric fat-containing anterior abdominal wall hernia. Diverticulosis without acute diverticulitis and suspected hepatic cyst. No evidence of kidney stones. Continue with IV fluids. Await urine culture. Pain service was consulted. Patient denies any fever or chills or sweats. Denies vomiting. Denies any bowel movement changes. Denies any chest pain or shortness of breath. 08/05/2018 patient still complaining of right flank and back pain and into the right hip pain. Awaiting pain management consult. Patient denies any burning with urination. Denies any chest pain or shortness of breath. Reports having bowel movements. No diarrhea. Still complaining of nausea no actual vomiting. Pain is not controlled. White count has normalized. Patient is afebrile. Patient reports the Dilaudid is making the nausea worse On 08/06/2018 patient was seen and examined labs and x-ray results reviewed, patient is still complaining of severe pain in the right flank and back area, otherwise she denies any complaints. kidney ultrasound did not reveal any significant abnormality there was no evidence of kidney stones or hydronephrosis, lumbar spine x-ray revealed evidence of old compression fracture without any significant change from previous, right hip x-ray revealed evidence of mild degenerative disease without any evidence of fracture or dislocation. On 08/07/2018 patient was seen and examined she is still complaining of severe pain in the lower back mostly to the right side, patient is having temporary relief with pain medications, otherwise she denies any complaints at this time. 08/08/2018 patient had nerve block today. Also [place] for pain control. Awaiting spinal surgery evaluation. Lumbar x-ray had showed old L2 and L3 compression fractures as well as her scoliosis. INR 1.5. Urinalysis small leukocyte esterase. Patient denies any urinary symptoms. Denies any fevers chills or sweats. Denies any vomiting doesn't occasional nausea. Reports having bowel movements Objective - Vital Signs Vital signs: Vital Signs Temp 97.0 F L 08/08/18 05:46 Pulse 94 08/08/18 12:33 Resp 16 08/08/18 05:46 BP 112/67 08/08/18 12:33 Pulse Ox 98 08/08/18 05:46 Intake & Output 08/07/18 08/08/18 08/08/18 18:59 06:59 18:59 Intake Total 700 Output Total 300 Balance 400 Weight 115.1 kg Intake: Oral 700 Output: Urine 300 Other: Voiding Method Toilet Toilet # Voids 3 2 # Bowel Movements 1 - Exam Head normocephalic Neck supple Lungs clear to auscultation bilaterally no wheezing or crackles Heart regular rate and rhythm S1-S2, no rub or gallop Abdomen is soft nontender nondistended positive bowel sounds no hepatosplenomegaly right flank tenderness Extremities no edema Neuro alert and orientated to 3 Musculoskeletal tenderness patient of the right CVA area and into the lower right hip. - Labs CBC & Chem 7: 08/08/18 08:44 08/08/18 08:44 Labs: Abnormal Lab Results - Last 24 Hours (Table) 08/08/18 08/08/18 08/08/18 Range/Units 08:44 08:44 08:44 MCHC 30.8 L (31.0-37.0) g/dL PT 13.9 H (9.0-12.0) sec INR 1.5 H (<1.2) BUN 36 H (7-17) mg/dL Creatinine 1.49 H (0.52-1.04) mg/dL Ur Leukocyte Esterase (Negative) Hyaline Casts (0-2) /lpf 08/08/18 Range/Units 08:45 MCHC (31.0-37.0) g/dL PT (9.0-12.0) sec INR (<1.2) BUN (7-17) mg/dL Creatinine (0.52-1.04) mg/dL Ur Leukocyte Esterase Small H (Negative) Hyaline Casts 12 H (0-2) /lpf Microbiology - Last 24 Hours (Table) 08/04/18 23:13 Blood Culture - Preliminary Blood No Growth after 72 hours Assessment and Plan Assessment: 1. Right-sided flank pain: Concerns for possible pyelonephritis with evidence of a positive UTI or patient scoliosis could be contributing to pain. Computed tomography scan of the abdomen and pelvis showing a mesenteric fat-containing anterior abdominal wall hernia, diverticulosis, suspected hepatic cyst. Continue Levaquin We'll monitor closely since she is on Coumadin for her A. fib. Continue [place] for pain control. Continue the Zofran as needed for nausea await pain service recommendations. X-ray of the lumbar spine shows an old L2 to an L3 compression fracture and scoliosis. Right hip x-ray shows degenerative change changes. And kidney ultrasound was negative. Patient status post nerve block. Awaiting Dr. Storm consult 2. Acute on chronic kidney disease, stage III. Improving with IV fluids. Fluids are KVO 3. Hypothyroidism continue Synthroid 4. Essential hypertension 5. Scoliosis with episodes of chronic back pain 6. Chronic atrial fibrillation anticoagulated with Coumadin at home. Continue the metoprolol for rate control. Monitor INR closely while patient is on Levaquin. Will give Coumadin 5 mg tonight and repeat PT/INR in a.m. GI prophylaxis Protonix and DVT prophylaxis Coumadin I performed an examination of the patient and discussed their management with the physician Production Assistant. I have reviewed the Physician Production Assistant's notes and agree with the documented findings and plan of care
--- NOTE | 2018-08-08 16:03 | P.CNOR ---
History of Present Illness - [facility] Consult date: 08/08/18 Requesting physician: Miguel Hardwick Consult reason: back pain (Right-sided flank pain) History of present illness: Patient is a very pleasant 73-year-old male who is seen and examined at bedside for further evaluation in regards to her right sided flank pain. She started to experience some right-sided flank pain and presented to the emergency department on 08/04/2018. She was admitted for further evaluation. She was also found to have a urinary tract infection at that time. She was started on Levaquin. She is known have significant scoliosis of the lumbosacral spine. She states her current pain feels different than her scoliosis. She denies any specific lower extremity radiculopathy this weakness bilaterally. She states the pain is not centered along the midline of her thoracic and lumbar spine. She states the pain is out laterally to the right flank and has extended down towards her right lateral hip. She denies any injuries. She has active range of motion of the bilateral lower extremities without difficulty. Her WBC is currently within normal limits. She has had further imaging performed since her admission to the hospital including abdomen/bladder ultrasound and abdomen/ pelvis CT which did not show evidence of kidney stones or hydronephrosis. She is currently waiting for consultation by pain management. X-ray imaging of the lumbar spine and right hip has also been performed without evidence of significant changes compared to previous study taken on 09/07/2013. Medicines last dictation notes states there whereby the possibility of pyelonephritis. Prior to dictation of this note, patient has been seen and examined by Dr. Shakir Camacho and pain management. Patient underwent a right cluneal nerve steroid injection under fluoroscopic guidance today, 08/08/2018. Nursing states the patient pain went from 10/10 down to 3/10 following the treatment with pain management. She is planning to follow-up with him in outpatient setting in a couple weeks. She has significant medical history including hypertension, chronic kidney disease stage III, congestive heart failure, hypothyroidism, and chronic atrial fibrillation. Past Medical History Past Medical History: Atrial Fibrillation, Asthma, Heart Failure, COPD, GI Bleed , Hyperlipidemia, Hypertension, Osteoarthritis (OA), Pulmonary Embolus (PE), Thyroid Disorder Additional Past Medical History / Comment(s): 06-06-[address] [facility] with c/o sob-dx with pe. diverticulosis,, emphysema,scoliosis uses a crutch( when up walking), umbilical hernia,stated does have some blockage enrike carotids,rt upper bridge and has" 2 loose teeth", chronic low back pain History of Any Multi-Drug Resistant Organisms: MRSA Year Discovered:: 07/16/17 MDRO Source:: Left First Toe Past Surgical History: Orthopedic Surgery, Tubal Ligation Additional Past Surgical History / Comment(s): d&c,colonoscopy, orif lt ankle has plate and screws.lt knee arthroscopy Past Anesthesia/Blood Transfusion Reactions: No Reported Reaction Smoking Status: Former smoker - Past Family History Father Additional Family Medical History / Comment(s): had tb at age 55, lt leg amp.heart problems. Mother History Unknown: Yes Family Medical History: Dementia, Diabetes Mellitus Medications and Allergies Home Medications Medication Instructions Recorded Confirmed Type Acetaminophen Tab [Tylenol] 500 mg PO DAILY PRN 06/06/15 08/04/18 History Levothyroxine Sodium [Synthroid] 50 mcg PO DAILY 06/06/15 08/04/18 History Multivitamins, Thera [Multivitamin 1 tab PO DAILY 06/06/15 08/04/18 History (formulary)] Famotidine [Pepcid] 20 mg PO DAILY tab 06/13/15 08/04/18 Rx Metoprolol Tartrate [Lopressor] 50 mg PO BID #60 tab 06/13/15 08/04/18 Rx Atorvastatin Calcium [Lipitor] 20 mg PO HS 08/04/18 08/04/18 History Cholecalciferol [Vitamin D3] 400 unit PO DAILY 08/04/18 08/04/18 History Furosemide [Lasix] 40 mg PO DAILY 08/04/18 08/04/18 History Spironolactone [Aldactone] 25 mg PO DAILY 08/04/18 08/04/18 History Warfarin Sodium 2 mg PO DIRECTED 08/04/18 08/04/18 History Warfarin Sodium 4 mg PO DIRECTED 08/04/18 08/04/18 History amLODIPine BESYLATE/BENAZEPRIL 1 tab PO DAILY 08/04/18 08/04/18 History [amLODIPine BESYLATE/BENAZEPRIL 5-40 mg] Allergies Allergy/AdvReac Type Severity Reaction Status Date / Time adhesive Allergy Rash/Hives Verified 08/04/18 12:38 cefaclor [From Ceclor] Allergy Rash/Hives Verified 08/04/18 12:38 Penicillins Allergy Unknown Verified 08/04/18 12:38 povidone-iodine Allergy Rash/Hives Verified 08/04/18 12:38 [From Betadine] soap [From Betadine] Allergy Rash/Hives Verified 08/04/18 12:38 Physical Examination Physical exam: Patient is awake, alert, and oriented 3 Vital signs stable Good chest excursion with deep inspiration and expiration Abdomen soft nontender Examination of lumbar spine reveals skin is intact with no abrasions, lacerations, or bruises; no erythema, purulence or signs of infection Some pain to palpation over the right flank No pain with palpation along the midline of the lumbosacral spine Dorsiflexion, plantarflexion, and extensor hallucis longus positive sustained bilaterally Lower extremity strength 5/5 bilaterally Straight leg test negative bilateral lower extremities No signs or symptoms of DVT; no calf pain No pain with internal and external rotation of the hips bilaterally Neurovascularly intact Results Pertinent studies: X-ray lumbosacral spine taken on 08/05/2018: L2 and L3 chronic compression fracture deformities; severe levoscoliosis of the lumbosacral spine; L2-3 lateral listhesis; no change in previous imaging taken on 09/07/2013 X-ray the right hip taken on 08/05/2018: Mild degenerative changes without evidence of fracture or dislocation of the right hip and without significant changes compared to previous study taken on 09/07/2013 - Labs Labs: Abnormal Lab Results - Last 24 Hours (Table) 08/08/18 08/08/18 08/08/18 Range/Units 08:44 08:44 08:44 MCHC 30.8 L (31.0-37.0) g/dL PT 13.9 H (9.0-12.0) sec INR 1.5 H (<1.2) BUN 36 H (7-17) mg/dL Creatinine 1.49 H (0.52-1.04) mg/dL Ur Leukocyte Esterase (Negative) Hyaline Casts (0-2) /lpf 08/08/18 Range/Units 08:45 MCHC (31.0-37.0) g/dL PT (9.0-12.0) sec INR (<1.2) BUN (7-17) mg/dL Creatinine (0.52-1.04) mg/dL Ur Leukocyte Esterase Small H (Negative) Hyaline Casts 12 H (0-2) /lpf Microbiology - Last 24 Hours (Table) 08/04/18 23:13 Blood Culture - Preliminary Blood No Growth after 72 hours H & H 08/04/18 08/05/18 08/06/18 Range/Units 11:39 08:43 07:28 Hgb 13.2 11.3 L 11.5 (11.4-16.0) gm/dL Hct 42.5 37.1 37.7 (34.0-46.0) % 08/07/18 08/08/18 Range/Units 07:31 08:44 Hgb 11.4 12.7 (11.4-16.0) gm/dL Hct 38.0 41.1 (34.0-46.0) % Coagulation 08/04/18 08/05/18 08/06/18 Range/Units 11:39 08:43 07:28 INR 2.5 H 2.8 H 1.9 H (<1.2) 08/07/18 08/08/18 Range/Units 07:31 08:44 INR 1.5 H 1.5 H (<1.2) Result Diagrams: 08/08/18 08:44 08/08/18 08:44 Assessment and Plan Assessment: Assessment: Right flank pain Severe levoscoliosis lumbosacral spine L2 and L3 chronic compression fracture deformities L2-3 lateral listhesis Hypertension Chronic kidney disease stage III Congestive heart failure Hypothyroidism Chronic atrial fibrillation (1) Acute right flank pain Current Visit: Yes Status: Acute Code(s): R10.9 - UNSPECIFIED ABDOMINAL PAIN SNOMED Code(s): 505247219 (2) Lumbar scoliosis Current Visit: Yes Status: Acute Code(s): M41.9 - SCOLIOSIS, UNSPECIFIED SNOMED Code(s): 561042196 (3) Spondylolisthesis, lumbar region Current Visit: Yes Status: Acute Code(s): M43.16 - SPONDYLOLISTHESIS, LUMBAR REGION SNOMED Code(s): 914239589549738 (4) Chronic kidney disease, stage III (moderate) Current Visit: Yes Status: Acute Code(s): N18.3 - CHRONIC KIDNEY DISEASE, STAGE 3 (MODERATE) SNOMED Code(s): 738365730 (5) Congestive heart failure Current Visit: Yes Status: Acute Code(s): I50.9 - HEART FAILURE, UNSPECIFIED SNOMED Code(s): 29105136 (6) Chronic atrial fibrillation Current Visit: Yes Status: Acute Code(s): I48.2 - CHRONIC ATRIAL FIBRILLATION SNOMED Code(s): 278221568 (7) HTN (hypertension) Current Visit: No Status: Acute Code(s): I10 - ESSENTIAL (PRIMARY) HYPERTENSION SNOMED Code(s): 06286964 (8) Hypothyroid Current Visit: No Status: Acute Code(s): E03.9 - HYPOTHYROIDISM, UNSPECIFIED SNOMED Code(s): 10770730 Plan: Plan: 1. After reviewing of imaging, and physical examination the patient, it does not appear her symptoms are specifically stemming from her lumbosacral spine. She does not have significant and severe scoliosis of the lumbosacral spine. She has adequate for range of motion bilateral lower extremities without evidence of weakness. She is not currently experiencing any significant lower extremity radiculopathy symptoms. She is experiencing significant right-sided flank pain. Current imaging has not shown evidence of kidney stone or hydronephrosis. She continues to be treated for urinary tract infection by medicine. She has not had a new urinary tract infection performed since 2017. We ordered an urgent urinary analysis this morning, 09/07/2018. Her urine does appear to have significant improvement as compared to her previous study taken on 08/04/2018. At this time, we are not currently planning for surgical intervention regards to her lumbosacral spine as it does not her symptoms are stemming specifically from her known degenerative changes of the lumbosacral spine and severe scoliosis. We recommended continued follow-up evaluation with medicine into the possibility of pyelonephritis and/or continued treatment and evaluation by Dr. Bowen in pain management. Nursing states her symptoms have significantly improved following recent procedure performed by Dr. Bowen in pain management. 2. Patient will continue to be followed by medicine for her other medical diagnoses including treatment evaluation for urinary tract infection 3. Patient will continue to follow Dr. Bowen in pain management for further treatment evaluation 4. For orthopedic spine standpoint, patient cleared for discharge once cleared by other medical providers 5. Patient may follow-up in the outpatient setting on an as-needed basis with Terry King PA-C or Dr. Ermias Storm at [facility] on an as-needed basis following discharge 6. Patient has been discussed in detail with Dr. Ermias Storm and he agrees with this plan . Time with Patient: Less than 30
[2018-08-08] MEDS ORDERED: WARFARIN 5 MG TAB PO ONE (18:00)
[2018-08-08] MEDS: ATORVASTATIN 20 MG TAB PO SCH (21:41)
[2018-08-08] MEDS: BISACODYL 5 MG TABLET.DR PO SCH (21:52)
[2018-08-09] MEDS: LEVOTHYROXINE 50 MCG TAB PO SCH (06:01)
[2018-08-09] MEDS: METOPROLOL TARTRATE 50 MG TAB PO SCH ×2 (07:48→21:21)
[2018-08-09] MEDS: FUROSEMIDE 40 MG TAB PO SCH (07:49)
[2018-08-09] MEDS: PANTOPRAZOLE 40 MG TABLET PO SCH (07:49)
[2018-08-09] MEDS: LEVOFLOXACIN 250 MG TAB PO SCH (07:49)
[2018-08-09] MEDS: BISACODYL 5 MG TABLET.DR PO SCH (07:50)
[2018-08-09 09:25] LABS: Prothrombin Time 18.2 sec (9.0-12.0)
[2018-08-09 09:28] LABS: Basophils % (A) 0 %; Eosinophils # (A) 0.1 k/uL (0-0.7); Eosinophils % (A) 1 %; HCT 40.2 % (34.0-46.0); HGB 12.3 gm/dL (11.4-16.0); Hypochromasia Moderate; Lymphocytes % (A) 16 %; MCH 28.3 pg (25.0-35.0); MCHC 30.7 g/dL (31.0-37.0); MCV 92.2 fL (80.0-100.0); Mean Platelet Volume 6.8; Monocytes # (A) 0.3 k/uL (0-1.0); Monocytes % (A) 5 %; Neutrophils # (A) 4.8 k/uL (1.3-7.7); Neutrophils % (A) 77 %; Platelet Count 294 k/uL (150-450); RBC 4.36 m/uL (3.80-5.40); RDW 14.3 % (11.5-15.5); WBC 6.2 k/uL (3.8-10.6)
[2018-08-09 09:38] LABS: Albumin 3.4 g/dL (3.5-5.0); Calcium 9.2 mg/dL (8.4-10.2); Potassium 4.6 mmol/L (3.5-5.1); Total Bilirubin 0.4 mg/dL (0.2-1.3); Total Protein 6.4 g/dL (6.3-8.2)
[2018-08-09] MEDS: HYDROcodone/APAP 7.5-325MG 1 EACH TAB PO PRN ×2 (09:40→21:24)
[2018-08-09] MEDS: SPIRONOLACTONE 25 MG TAB PO SCH (11:06)
[2018-08-09] MEDS: amLODIPine 5 MG TAB PO SCH (11:06)
[2018-08-09] MEDS: CHOLECALCIFEROL 400 UNIT TAB PO SCH (11:06)
[2018-08-09] MEDS: MULTIVITAMINS, THERA 1 EACH TAB PO SCH (11:06)
[2018-08-09] MEDS: LISINOPRIL 20 MG TAB PO SCH ×2 (11:06→11:32)
--- NOTE | 2018-08-09 11:16 | P.PN ---
Subjective Progress Note Date: 08/09/18 This is a 73-year-old female with a known past medical history of scoliosis, hypertension, chronic kidney disease stage III, congestive heart failure, hypothyroidism and chronic atrial fibrillation. Patient presents to the hospital with complaints of right flank pain. Pain started last night and into this morning. She's been nauseated. She denies any chest pain or shortness of breath. She denies any urinary symptoms. Denies any burning with urination, frequency hesitancy or urgency. Her pain does not radiate. She denies any difficulty ambulating. She does get pain with her scoliosis. But this pain has been different. Urinalysis appears to be positive for UTI she's been given a dose of Levaquin. Computed tomography scan of the abdomen and pelvis showing mesenteric fat-containing anterior abdominal wall hernia. Diverticulosis without acute diverticulitis and suspected hepatic cyst. No evidence of kidney stones. Continue with IV fluids. Await urine culture. Pain service was consulted. Patient denies any fever or chills or sweats. Denies vomiting. Denies any bowel movement changes. Denies any chest pain or shortness of breath. 08/05/2018 patient still complaining of right flank and back pain and into the right hip pain. Awaiting pain management consult. Patient denies any burning with urination. Denies any chest pain or shortness of breath. Reports having bowel movements. No diarrhea. Still complaining of nausea no actual vomiting. Pain is not controlled. White count has normalized. Patient is afebrile. Patient reports the Dilaudid is making the nausea worse On 08/06/2018 patient was seen and examined labs and x-ray results reviewed, patient is still complaining of severe pain in the right flank and back area, otherwise she denies any complaints. kidney ultrasound did not reveal any significant abnormality there was no evidence of kidney stones or hydronephrosis, lumbar spine x-ray revealed evidence of old compression fracture without any significant change from previous, right hip x-ray revealed evidence of mild degenerative disease without any evidence of fracture or dislocation. On 08/07/2018 patient was seen and examined she is still complaining of severe pain in the lower back mostly to the right side, patient is having temporary relief with pain medications, otherwise she denies any complaints at this time. 08/08/2018 patient had nerve block today. Also [place] for pain control. Awaiting spinal surgery evaluation. Lumbar x-ray had showed old L2 and L3 compression fractures as well as her scoliosis. INR 1.5. Urinalysis small leukocyte esterase. Patient denies any urinary symptoms. Denies any fevers chills or sweats. Denies any vomiting doesn't occasional nausea. Reports having bowel movements 08/09/2018 patient's back pain is showing improvement. She does not feel ready for discharge yet. Physical therapy will be consulted to assess patient with ambulating. She has been hypotensive. Nursing staff has been staggering blood pressure medications. INR is 2.0. Creatinine is decreased to 1.29. Patient denies any chest pain or shortness of breath. Denies any burning with urination. She reports having regular bowel movements. Patient seen by spinal orthopedics. No surgical intervention warranted. Objective - Vital Signs Vital signs: Vital Signs Temp 97.9 F 08/09/18 06:32 Pulse 82 08/09/18 06:32 Resp 18 08/09/18 08:00 BP 97/59 08/09/18 06:32 Pulse Ox 96 08/09/18 06:32 Intake & Output 08/08/18 08/09/18 08/09/18 18:59 06:59 18:59 Intake Total 600 Balance 600 Weight 116 kg Intake: Oral 600 Other: Voiding Method Toilet Toilet # Voids 4 1 - Exam Head normocephalic Neck supple Lungs clear to auscultation bilaterally no wheezing or crackles Heart regular rate and rhythm S1-S2, no rub or gallop Abdomen is soft nontender nondistended positive bowel sounds no hepatosplenomegaly right flank tenderness Extremities edema present bilateral lower extremities Neuro alert and orientated to 3 Musculoskeletal tenderness patient of the right CVA area and into the lower right hip. - Labs CBC & Chem 7: 08/09/18 09:00 08/09/18 09:00 Labs: Abnormal Lab Results - Last 24 Hours (Table) 08/09/18 08/09/18 08/09/18 Range/Units 09:00 09:00 09:00 MCHC 30.7 L (31.0-37.0) g/dL PT 18.2 H (9.0-12.0) sec INR 2.0 H (<1.2) BUN 35 H (7-17) mg/dL Creatinine 1.29 H (0.52-1.04) mg/dL Glucose 150 H (74-99) mg/dL Albumin 3.4 L (3.5-5.0) g/dL Microbiology - Last 24 Hours (Table) 08/04/18 23:13 Blood Culture - Preliminary Blood No Growth after 96 hours Assessment and Plan Assessment: 1. Right-sided flank pain: Concerns for possible pyelonephritis with evidence of a positive UTI or pain secondary to right cluneal nerve neuralgia. Computed tomography scan of the abdomen and pelvis showing a mesenteric fat-containing anterior abdominal wall hernia, diverticulosis, suspected hepatic cyst. Continue Levaquin We'll monitor closely since she is on Coumadin for her A. fib. Continue [place] for pain control. Continue the Zofran as needed for nausea await pain service recommendations. X-ray of the lumbar spine shows an old L2 to an L3 compression fracture and scoliosis. Right hip x-ray shows degenerative change changes. And kidney ultrasound was negative. Repeat urinalysis showing improvement. Patient's pain has improved with nerve block. Patient seen by orthopedics no surgical intervention warranted. And they did not feel that her pain was stemming from the lumbar sacral spine. 2. Acute on chronic kidney disease, stage III. Improving with IV fluids. Fluids are KVO 3. Hypothyroidism continue Synthroid 4. Essential hypertension: Patient has been more hypotensive. At this time we' ll discontinue the Norvasc. This also help with patient's chronic lower extremity edema. Decrease lisinopril to 20 mg daily with parameters to hold for systolic blood pressure less than 120 5. Scoliosis with episodes of chronic back pain 6. Chronic atrial fibrillation anticoagulated with Coumadin at home. Continue the metoprolol for rate control. Monitor INR closely while patient is on Levaquin. Will give Coumadin 2 mg tonight and repeat PT/INR in a.m. 7. Lumbar scoliosis 8. L2 and L3 chronic compression fracture 9. Chronic diastolic congestive heart failure. No evidence of exacerbation 10. 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 Encouraged patient to increase activity. Anticipate discharge possibly tomorrow. GI prophylaxis Protonix and DVT prophylaxis Coumadin I performed an examination of the patient and discussed their management with the physician Monument Installer. I have reviewed the Physician Monument Installer's notes and agree with the documented findings and plan of care
[2018-08-09] MEDS ORDERED: INFLUENZA VACCINE (6 MOS+) 60 MCG/0.5 ML SYRINGE IM ONE (12:02)
[2018-08-09] MEDS ORDERED: WARFARIN 2 MG TAB PO ONE (18:00)
[2018-08-09] MEDS: ATORVASTATIN 20 MG TAB PO SCH (21:20)
[2018-08-10] MEDS: LEVOTHYROXINE 50 MCG TAB PO SCH (06:17)
[2018-08-10] MEDS: BISACODYL 5 MG TABLET.DR PO SCH (08:48)
[2018-08-10] MEDS: CHOLECALCIFEROL 400 UNIT TAB PO SCH (08:48)
[2018-08-10] MEDS: METOPROLOL TARTRATE 50 MG TAB PO SCH (08:48)
[2018-08-10] MEDS: LISINOPRIL 20 MG TAB PO SCH (08:48)
[2018-08-10] MEDS: HYDROcodone/APAP 7.5-325MG 1 EACH TAB PO PRN ×2 (08:48→14:23)
[2018-08-10] MEDS: LEVOFLOXACIN 250 MG TAB PO SCH (08:49)
[2018-08-10] MEDS: MULTIVITAMINS, THERA 1 EACH TAB PO SCH (08:49)
[2018-08-10] MEDS: PANTOPRAZOLE 40 MG TABLET PO SCH (08:49)
[2018-08-10] MEDS: SPIRONOLACTONE 25 MG TAB PO SCH (08:49)
[2018-08-10] MEDS: FUROSEMIDE 40 MG TAB PO SCH (08:49)
[2018-08-10 11:23] LABS: Albumin 3.1 g/dL (3.5-5.0); Potassium 4.3 mmol/L (3.5-5.1); Total Bilirubin 0.3 mg/dL (0.2-1.3); Total Protein 6.1 g/dL (6.3-8.2)
[2018-08-10 11:36] LABS: Basophils % (A) 0 %; Eosinophils # (A) 0.2 k/uL (0-0.7); Eosinophils % (A) 3 %; HCT 38.6 % (34.0-46.0); HGB 12.1 gm/dL (11.4-16.0); Hypochromasia Slight; Lymphocytes # (A) 1.2 k/uL (1.0-4.8); Lymphocytes % (A) 19 %; MCH 28.4 pg (25.0-35.0); MCHC 31.3 g/dL (31.0-37.0); MCV 90.6 fL (80.0-100.0); Mean Platelet Volume 7.2; Monocytes # (A) 0.8 k/uL (0-1.0); Monocytes % (A) 13 %; Neutrophils % (A) 64 %; Platelet Count 285 k/uL (150-450); RBC 4.26 m/uL (3.80-5.40); RDW 14.2 % (11.5-15.5); WBC 6.3 k/uL (3.8-10.6)
[2018-08-10 12:30] LABS: INR 2.2 (<1.2); Prothrombin Time 19.6 sec (9.0-12.0)
--- NOTE | 2018-08-10 12:48 | P.DS ---
Providers Date of admission: 08/08/18 07:51 Expected date of discharge: 08/10/18 Attending physician: Miguel Hardwick Consults: 08/04/18 15:49 Consult Physician Urgent Consulting Provider: Frannie Bowen Consult Reason/Comments: Chronic pain Do you want consulting provider notified?: Yes 08/07/18 11:06 Consult Physician Routine Consulting Provider: Harpreet Storm Consult Reason/Comments: back pain Do you want consulting provider notified?: Yes Primary care physician: Miguel [facility] Course: Discharge diagnosis 1. Right-sided flank pain: Concerns for possible pyelonephritis with evidence of a positive UTI or pain secondary to right cluneal nerve neuralgia. Computed tomography scan of the abdomen and pelvis showing a mesenteric fat-containing anterior abdominal wall hernia, diverticulosis, suspected hepatic cyst. Continue Levaquin We'll monitor closely since she is on Coumadin for her A. fib. Continue [place] for pain control. Continue the Zofran as needed for nausea await pain service recommendations. X-ray of the lumbar spine shows an old L2 to an L3 compression fracture and scoliosis. Right hip x-ray shows degenerative change changes. And kidney ultrasound was negative. Repeat urinalysis showing improvement. Patient's pain has improved with nerve block. Patient seen by orthopedics no surgical intervention warranted. And they did not feel that her pain was stemming from the lumbar sacral spine. Blood culture showing no growth. She will be discharged home on 3 days of Levaquin. Patient to follow-up closely with PCP 2. Acute on chronic kidney disease, stage III. Improving with IV fluids. Fluids are KVO 3. Hypothyroidism continue Synthroid 4. Essential hypertension: Patient has been more hypotensive. At this time we' ll discontinue the Norvasc. This also help with patient's chronic lower extremity edema. Decrease lisinopril to 20 mg daily with parameters to hold for systolic blood pressure less than 120. Patient will be DC'd home on lisinopril 20 mg and Norvasc DC'd at this time. Patient to follow-up closely with PCP. 5. Scoliosis with episodes of chronic back pain 6. Chronic atrial fibrillation anticoagulated with Coumadin at home. Continue the metoprolol for rate control. Monitor INR closely while patient is on Levaquin. Will give Coumadin 2 mg tonight and repeat PT/INR in a.m. INR 2.2 this AM. continue home dose of coumadin. PT/INR ordered for 2 days. patient to follow up closely with pcp 7. Lumbar scoliosis 8. L2 and L3 chronic compression fracture 9. Chronic diastolic congestive heart failure. No evidence of exacerbation 10. 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 Patient presents to the hospital with complaints of right flank pain. Pain started last night and into this morning. She's been nauseated. She denies any chest pain or shortness of breath. She denies any urinary symptoms. Denies any burning with urination, frequency hesitancy or urgency. Her pain does not radiate. She denies any difficulty ambulating. She does get pain with her scoliosis. But this pain has been different. Urinalysis appears to be positive for UTI she's been given a dose of Levaquin. Computed tomography scan of the abdomen and pelvis showing mesenteric fat-containing anterior abdominal wall hernia. Diverticulosis without acute diverticulitis and suspected hepatic cyst. No evidence of kidney stones. Continue with IV fluids. Await urine culture. Pain service was consulted. Patient denies any fever or chills or sweats. Denies vomiting. Denies any bowel movement changes. Denies any chest pain or shortness of breath. 08/05/2018 patient still complaining of right flank and back pain and into the right hip pain. Awaiting pain management consult. Patient denies any burning with urination. Denies any chest pain or shortness of breath. Reports having bowel movements. No diarrhea. Still complaining of nausea no actual vomiting. Pain is not controlled. White count has normalized. Patient is afebrile. Patient reports the Dilaudid is making the nausea worse On 08/06/2018 patient was seen and examined labs and x-ray results reviewed, patient is still complaining of severe pain in the right flank and back area, otherwise she denies any complaints. kidney ultrasound did not reveal any significant abnormality there was no evidence of kidney stones or hydronephrosis, lumbar spine x-ray revealed evidence of old compression fracture without any significant change from previous, right hip x-ray revealed evidence of mild degenerative disease without any evidence of fracture or dislocation. On 08/07/2018 patient was seen and examined she is still complaining of severe pain in the lower back mostly to the right side, patient is having temporary relief with pain medications, otherwise she denies any complaints at this time. 08/08/2018 patient had nerve block today. Also [place] for pain control. Awaiting spinal surgery evaluation. Lumbar x-ray had showed old L2 and L3 compression fractures as well as her scoliosis. INR 1.5. Urinalysis small leukocyte esterase. Patient denies any urinary symptoms. Denies any fevers chills or sweats. Denies any vomiting doesn't occasional nausea. Reports having bowel movements 08/09/2018 patient's back pain is showing improvement. She does not feel ready for discharge yet. Physical therapy will be consulted to assess patient with ambulating. She has been hypotensive. Nursing staff has been staggering blood pressure medications. INR is 2.0. Creatinine is decreased to 1.29. Patient denies any chest pain or shortness of breath. Denies any burning with urination. She reports having regular bowel movements. Patient seen by spinal orthopedics. No surgical intervention warranted. On 08/10/2018 patient states improvement with back pain. Patient has been cleared for discharge home. Patient will go home on antibiotic Levaquin for 3 days. Blood pressures have improved. Creatinine continuing to improve. This time patient denies chest pain or shortness of breath. Patient denies any urinary burning or frequency. Patient denies nausea vomiting or diarrhea. CMP and PT/INR will be ordered for 2 days. Patient to follow-up closely with PCP I performed an examination of the patient and discussed their management with the Nurse Practitioner. I have reviewed the Nurse Practitioner's notes and agree with the documented findings and plan of care Patient Condition at Discharge: Stable Plan - Discharge Summary Discharge Rx Participant: Yes New Discharge Prescriptions: New HYDROcodone/APAP 7.5-325MG [[place] 7.5-325] 1 each PO Q6H PRN 3 Days #12 tab PRN Reason: Moderate Pain Lisinopril [Zestril] 20 mg PO DAILY #30 tab Levofloxacin [Levaquin] 250 mg PO DAILY 3 Days #3 tab Continue Acetaminophen Tab [Tylenol] 500 mg PO DAILY PRN PRN Reason: Pain Levothyroxine Sodium [Synthroid] 50 mcg PO DAILY Multivitamins, Thera [Multivitamin (formulary)] 1 tab PO DAILY Famotidine [Pepcid] 20 mg PO DAILY tab Metoprolol Tartrate [Lopressor] 50 mg PO BID #60 tab Cholecalciferol [Vitamin D3] 400 unit PO DAILY Atorvastatin Calcium [Lipitor] 20 mg PO HS Warfarin Sodium 4 mg PO DIRECTED Furosemide [Lasix] 40 mg PO DAILY Warfarin Sodium 2 mg PO DIRECTED Spironolactone [Aldactone] 25 mg PO DAILY Discontinued amLODIPine BESYLATE/BENAZEPRIL [amLODIPine BESYLATE/BENAZEPRIL 5-40 mg] 1 tab PO DAILY Discharge Medication List Acetaminophen Tab [Tylenol] 500 mg PO DAILY PRN 06/06/15 [History] Levothyroxine Sodium [Synthroid] 50 mcg PO DAILY 06/06/15 [History] Multivitamins, Thera [Multivitamin (formulary)] 1 tab PO DAILY 06/06/15 [History ] Famotidine [Pepcid] 20 mg PO DAILY tab 06/13/15 [Rx] Metoprolol Tartrate [Lopressor] 50 mg PO BID #60 tab 06/13/15 [Rx] Atorvastatin Calcium [Lipitor] 20 mg PO HS 08/04/18 [History] Cholecalciferol [Vitamin D3] 400 unit PO DAILY 08/04/18 [History] Furosemide [Lasix] 40 mg PO DAILY 08/04/18 [History] Spironolactone [Aldactone] 25 mg PO DAILY 08/04/18 [History] Warfarin Sodium 2 mg PO DIRECTED 08/04/18 [History] Warfarin Sodium 4 mg PO DIRECTED 08/04/18 [History] HYDROcodone/APAP 7.5-325MG [[place] 7.5-325] 1 each PO Q6H PRN 3 Days #12 tab 01/23 [Rx] Levofloxacin [Levaquin] 250 mg PO DAILY 3 Days #3 tab 08/10/18 [Rx] Lisinopril [Zestril] 20 mg PO DAILY #30 tab 08/10/18 [Rx] Follow up Appointment(s)/Referral(s): Harpreet Storm, [Doctor of Osteopathic Medicine] - As Needed (Patient may follow-up with Terry King PA-C or Dr. Erimas Storm at [facility] on an as-needed basis following discharge. ) Frannie Bowen MD [STAFF PHYSICIAN] - 1 Week (Make appointment between 10- 12 per patient. ) Miguel Hardwick MD [Primary Care Provider] - 08/12/18 11:15 am Ambulatory/Diagnostic Orders: Comprehensive Metabolic Panel [LAB.AMB] Time Frame: 2 Days, Location: None Selected Prothrombin Time INR [LAB.AMB] Time Frame: 2 Days, Location: None Selected Patient Instructions/Handouts: Heart Failure (DC) Activity/Diet/Wound Care/Special Instructions: Flu vaccine given on this admission. Discharge Disposition: HOME SELF-CARE
[2018-08-10 14:34] VITALS: BP 124/71; PULSE 76; TEMP 97.8
[2018-08-10 16:02] VITALS: RESP 16
== END 2018-08-10 17:24 | disposition home or self-care (01) | DRG 74 ==
LOC: EC 11:36 → 4MS4W 15:49 → OBSVTOIN 08-08 07:51
PROVIDERS: ADMIT Internal Medicine; ATTEND Internal Medicine
PROC: 3E0T3BZ Introduction of Anesthetic Agent into Peripheral Nerves and Plexi, Percutaneous Approach (ICD-10-PCS; 2018-08-08)
PROC: 3E0T33Z Introduction of Anti-inflammatory into Peripheral Nerves and Plexi, Percutaneous Approach (ICD-10-PCS; principal; 2018-08-08 11:30)
PROC: 3E0234Z Introduction of Serum, Toxoid and Vaccine into Muscle, Percutaneous Approach (ICD-10-PCS; 2018-08-09)
DX: G58.8 Other specified mononeuropathies (principal); I13.0 Hypertensive heart and chronic kidney disease with heart failure and stage 1 through stage 4 chronic kidney disease, or unspecified chronic kidney disease; I50.32 Chronic diastolic (congestive) heart failure; N17.9 Acute kidney failure, unspecified; N39.0 Urinary tract infection, site not specified; I48.2 Chronic atrial fibrillation; I95.9 Hypotension, unspecified; M41.9 Scoliosis, unspecified; I65.23 Occlusion and stenosis of bilateral carotid arteries; N18.3 Chronic kidney disease, stage 3 (moderate); Z23 Encounter for immunization; G89.29 Other chronic pain; M43.16 Spondylolisthesis, lumbar region; J43.9 Emphysema, unspecified; E78.5 Hyperlipidemia, unspecified; E03.9 Hypothyroidism, unspecified; K43.9 Ventral hernia without obstruction or gangrene; J45.909 Unspecified asthma, uncomplicated; M19.91 Primary osteoarthritis, unspecified site; R40.2362 Coma scale, best motor response, obeys commands, at arrival to emergency department; R40.2252 Coma scale, best verbal response, oriented, at arrival to emergency department; R40.2142 Coma scale, eyes open, spontaneous, at arrival to emergency department; K42.9 Umbilical hernia without obstruction or gangrene; K57.90 Diverticulosis of intestine, part unspecified, without perforation or abscess without bleeding; Z79.01 Long term (current) use of anticoagulants; Z79.890 Hormone replacement therapy; Z79.899 Other long term (current) drug therapy; Z87.891 Personal history of nicotine dependence; Z86.711 Personal history of pulmonary embolism; Z87.311 Personal history of (healed) other pathological fracture; Z98.51 Tubal ligation status; Z88.1 Allergy status to other antibiotic agents; Z88.3 Allergy status to other anti-infective agents; Z88.0 Allergy status to penicillin; Z91.048 Other nonmedicinal substance allergy status; Z83.1 Family history of other infectious and parasitic diseases; Z83.3 Family history of diabetes mellitus; Z81.8 Family history of other mental and behavioral disorders
CPT/HCPCS: 36415; 64450; 72100; 73502; 74176; 76770; 80053; 81001; 82150; 83605; 83690; 85025; 85610; 87040; 87086; 90686; 96361; 96365; 96366; 96375; 99285

== ENCOUNTER → 2018-08-11 | Outpatient (CLI) | payer MEDICARE, BC ==
[2018-08-11 15:22] LABS: INR 1.8 (<1.2); Prothrombin Time 16.4 sec (9.0-12.0)
[2018-08-11 15:27] LABS: Calcium 9.8 mg/dL (8.4-10.2); Potassium 4.6 mmol/L (3.5-5.1); Total Bilirubin 0.6 mg/dL (0.2-1.3)
== END | disposition home or self-care (01) ==
LOC: LABWHC1 14:01
PROVIDERS: ATTEND Nurse Practitioner
DX: Z51.81 Encounter for therapeutic drug level monitoring (principal); Z79.2 Long term (current) use of antibiotics
CPT/HCPCS: 36415; 80053; 85610

== ENCOUNTER → 2018-08-26 | Outpatient (CLI) | payer MEDICARE, BC ==
[2018-08-26 10:31] LABS: Prothrombin Time 47.9 sec (9.0-12.0)
[2018-08-26 10:35] LABS: INR 5.3 (<1.2)
== END ==
LOC: LABWHC1 09:43
PROVIDERS: ATTEND Nurse Practitioner Adult Health
DX: I48.2 Chronic atrial fibrillation (principal)
CPT/HCPCS: 36415; 85610

== ENCOUNTER → 2018-10-13 | Outpatient (CLI) | payer MEDICARE, BC ==
[2018-10-13 11:19] LABS: HCT 40.9 % (34.0-46.0); HGB 12.5 gm/dL (11.4-16.0); Hypochromasia Slight; MCH 27.5 pg (25.0-35.0); MCHC 30.6 g/dL (31.0-37.0); MCV 89.8 fL (80.0-100.0); Mean Platelet Volume 6.7; Platelet Count 567 k/uL (150-450); RBC 4.55 m/uL (3.80-5.40); RDW 13.9 % (11.5-15.5); WBC 10.3 k/uL (3.8-10.6)
[2018-10-13 11:46] LABS: Appearance,Urine Clear (Clear); Bacteria,Urine Rare /hpf; Bilirubin,Urine Negative (Negative); Blood,Urine Negative (Negative); Color,Urine Yellow; Glucose,Urine (UA) Negative (Negative); Hyaline Casts,Urine 1 /lpf (0-2); Ketones,Urine Negative (Negative); Leukocyte Esterase,Urine Trace (Negative); Mucus,Urine Rare /hpf; Nitrite,Urine Negative (Negative); PH, Urine 5.5 (5.0-8.0); Protein,Urine Negative (Negative); Specific Gravity,Urine 1.018 (1.001-1.035); Squamous Epithelial Cell,Urine 3 /hpf (0-4); WBC,Urine 1 /hpf (0-5)
[2018-10-13 17:31] LABS: Parathyroid Hormone Intact 83.2 pg/mL (14.0-72.0)
[2018-10-13 17:44] LABS: Albumin 3.8 g/dL (3.80-4.90); Albumin/Globulin Ratio 1.81 (1.20-2.10); Anion Gap 10.2 mmol/L (4.00-12.00); Calcium 9.4 mg/dL (8.7-10.3); Carbon Dioxide 23.8 mmol/L (21.6-31.8); Globulin 2.1 g/dL (2.1-3.7); Iron Saturation 12.65 (12.00-45.00); Magnesium 1.7 mg/dL (1.5-2.4); Phosphorus 3.6 mg/dL (2.4-5.1); Potassium 4.8 mmol/L (3.5-5.5); Total Bilirubin 0.4 mg/dL (0.3-1.2); Total Protein 5.9 g/dL (6.2-8.2); Uric Acid 9.7 mg/dL (2.9-7.7)
== END | disposition home or self-care (01) ==
LOC: LABWHC1 10:18
PROVIDERS: ATTEND Internal Medicine
DX: N18.3 Chronic kidney disease, stage 3 (moderate) (principal); R80.9 Proteinuria, unspecified; E83.39 Other disorders of phosphorus metabolism; E55.9 Vitamin D deficiency, unspecified; M10.9 Gout, unspecified
CPT/HCPCS: 36415; 80053; 81001; 82306; 82728; 83540; 83550; 83735; 83970; 84100; 84550; 85027

== ENCOUNTER → 2019-01-12 | Outpatient (CLI) | payer MEDICARE, BC ==
[2019-01-12 11:51] LABS: Basophils % (A) 1 %; Eosinophils # (A) 0.1 k/uL (0-0.7); Eosinophils % (A) 2 %; HCT 43.6 % (34.0-46.0); HGB 13.4 gm/dL (11.4-16.0); Hypochromasia Slight; Lymphocytes # (A) 1.9 k/uL (1.0-4.8); Lymphocytes % (A) 30 %; MCH 27.3 pg (25.0-35.0); MCHC 30.8 g/dL (31.0-37.0); MCV 88.7 fL (80.0-100.0); Monocytes # (A) 0.5 k/uL (0-1.0); Monocytes % (A) 7 %; Neutrophils # (A) 3.6 k/uL (1.3-7.7); Neutrophils % (A) 58 %; Platelet Count 299 k/uL (150-450); RBC 4.91 m/uL (3.80-5.40); RDW 15.9 % (11.5-15.5); WBC 6.2 k/uL (3.8-10.6)
[2019-01-12 12:01] LABS: Appearance,Urine Clear (Clear); Bacteria,Urine Rare /hpf; Bilirubin,Urine Negative (Negative); Blood,Urine Negative (Negative); Color,Urine Yellow; Glucose,Urine (UA) Negative (Negative); Hyaline Casts,Urine 1 /lpf (0-2); Ketones,Urine Negative (Negative); Leukocyte Esterase,Urine Small (Negative); Mucus,Urine Rare /hpf; Nitrite,Urine Negative (Negative); PH, Urine 5.5 (5.0-8.0); Protein,Urine Negative (Negative); Specific Gravity,Urine 1.014 (1.001-1.035); Squamous Epithelial Cell,Urine 3 /hpf (0-4); Urobilinogen,Urine <2.0 mg/dL (<2.0); WBC,Urine 20 /hpf (0-5)
[2019-01-12 20:13] LABS: Albumin 4.3 g/dL (3.80-4.90); Albumin/Globulin Ratio 1.87 (1.60-3.17); Anion Gap 7.1 mmol/L (4.00-12.00); Calcium 9.2 mg/dL (8.7-10.3); Carbon Dioxide 25.9 mmol/L (21.6-31.8); Globulin 2.3 g/dL (1.6-3.3); LDL Cholesterol,Calculated 108.8 mg/dL (0.0-131.0); Magnesium 1.9 mg/dL (1.5-2.4); Phosphorus 3.4 mg/dL (2.4-5.1); Potassium 4.7 mmol/L (3.5-5.5); Total Bilirubin 0.6 mg/dL (0.3-1.2); Total Protein 6.6 g/dL (6.2-8.2); Uric Acid 8.2 mg/dL (2.9-7.7); VLDL Calculation 34.2 mg/dL (5.00-40.00)
== END | disposition home or self-care (01) ==
LOC: LABWHC1 11:09
PROVIDERS: ATTEND Internal Medicine
DX: E03.9 Hypothyroidism, unspecified (principal); E78.2 Mixed hyperlipidemia; I12.9 Hypertensive chronic kidney disease with stage 1 through stage 4 chronic kidney disease, or unspecified chronic kidney disease; N18.3 Chronic kidney disease, stage 3 (moderate); J44.9 Chronic obstructive pulmonary disease, unspecified
CPT/HCPCS: 36415; 80053; 80061; 81001; 83735; 83970; 84100; 84443; 84550; 85025

== ENCOUNTER 2019-02-14 14:30 | Inpatient (IN) | payer MEDICARE, BC ==
--- NOTE | 2019-02-14 15:12 | ED ---
General Adult HPI - General Chief complaint: Back Pain/Injury Stated complaint: Pain on right side, Possible blood clots Time Seen by Provider: 02/14/19 14:37 Source: patient Mode of arrival: wheelchair Limitations: no limitations - History of Present Illness Initial comments: 73-year-old female presents today for chief complaint of pleuritic chest pain. Patient states she has history of cardiopulmonary embolism on warfarin. She states she also has history of atrophic relation, hypertension, congestive heart failure and kidney disease states she got off by the morning did not notice any pain, she states she did not note any pain in particular moving, patient states she went out her morning routine, she states when she was sitting on the couch that she noticed pain in the right side of her chest in the right upper back that is only present with deep inspiration. Patient denies pain with regular inspiration. Patient has cough hemoptysis. Patient she has chronic bilateral leg swelling secondary to her heart failure. Patient denies any increase. Patient states she has been compliant with her walker but hasn't had a checked yet this month. Patient denies any increase in shortness of breath however she states she always has dyspnea on exertion when walking long distances. Patient denies any changes from baseline. Patient denies calf pain recent travel. Patient denies any chest pain at rest or an absence of taking a deep breath. Patient was concerned of possibility of pulmonary embolism and presents emergency department for evaluation. Upon arrival patient appears well, 99% on RA, HR WNL. Patient did not appear in acute distress. - Related Data Home Medications Medication Instructions Recorded Confirmed Acetaminophen Tab [Tylenol] 500 mg PO DAILY PRN 06/06/15 02/14/19 Levothyroxine Sodium [Synthroid] 50 mcg PO DAILY 06/06/15 02/14/19 Multivitamins, Thera [Multivitamin 1 tab PO DAILY 06/06/15 02/14/19 (formulary)] Spironolactone [Aldactone] 25 mg PO DAILY 08/04/18 02/14/19 Warfarin Sodium 2 mg PO [id number] 08/04/18 02/14/19 Warfarin Sodium 4 mg PO MO 08/04/18 02/14/19 Atorvastatin [Lipitor] 40 mg PO HS 02/14/19 02/14/19 Cholecalciferol [Vitamin D3] 5,000 unit PO DAILY 02/14/19 02/14/19 Febuxostat [Uloric] 40 mg PO DAILY 02/14/19 02/14/19 Furosemide [Lasix] 40 mg PO BID 02/14/19 02/14/19 Previous Rx's Medication Instructions Recorded Metoprolol Tartrate [Lopressor] 50 mg PO BID #60 tab 06/13/15 Lisinopril [Zestril] 20 mg PO DAILY #30 tab 08/10/18 Allergies Allergy/AdvReac Type Severity Reaction Status Date / Time adhesive Allergy Rash/Hives Verified 02/14/19 15:01 cefaclor [From Ceclor] Allergy Rash/Hives Verified 02/14/19 15:01 Penicillins Allergy Unknown Verified 02/14/19 15:01 povidone-iodine Allergy Rash/Hives Verified 02/14/19 15:01 [From Betadine] soap [From Betadine] Allergy Rash/Hives Verified 02/14/19 15:01 Review of Systems ROS Statement: Those systems with pertinent positive or pertinent negative responses have been documented in the HPI. ROS Other: All systems not noted in ROS Statement are negative. Past Medical History Past Medical History: Atrial Fibrillation, Asthma, Heart Failure, COPD, GI Bleed, Hyperlipidemia, Hypertension, Osteoarthritis (OA), Pulmonary Embolus (PE), Thyroid Disorder Additional Past Medical History / Comment(s): 06-06-15 admitted to [facility] with c/o sob-dx with pe. diverticulosis,, emphysema,scoliosis uses a crutch( when up walking), umbilical hernia,stated does have some blockage enrike carotids,rt upper bridge and has" 2 loose teeth", chronic low back pain History of Any Multi-Drug Resistant Organisms: MRSA Date of last positivie culture/infection: 07/16/17 MDRO Source:: Left First Toe Past Surgical History: Orthopedic Surgery, Tubal Ligation Additional Past Surgical History / Comment(s): d&c,colonoscopy, orif lt ankle has plate and screws.lt knee arthroscopy Past Anesthesia/Blood Transfusion Reactions: No Reported Reaction Past Psychological History: No Psychological Hx Reported Smoking Status: Former smoker Past Alcohol Use History: Daily Past Drug Use History: None Reported - Past Family History Father Additional Family Medical History / Comment(s): had tb at age 55, lt leg amp.heart problems. Mother History Unknown: Yes Family Medical History: Dementia, Diabetes Mellitus General Exam - General Exam Comments Initial Comments: General: The patient is awake and alert, in no distress, and does not appear acutely ill. Eye: +3 mm pupils are equal, round and reactive to light, extra-ocular mov ements are intact. No nystagmus. There is normal conjunctiva bilaterally. No signs of icterus. Ears, nose, mouth and throat: There are moist mucous membranes and no oral lesions. Neck: The neck is supple, there is no tenderness or JVD. Cardiovascular: There is a regular rate and irregular rhythm. No murmur, rub or gallop is appreciated. Respiratory: Lungs are clear to auscultation, respirations are non-labored, breath sounds are equal. No wheezes, stridor, rales, or rhonchi. Gastrointestinal: Soft, non-distended, non-tender abdomen without masses or organomegaly noted. There is no rebound or guarding present. No CVA tenderness. Bowel sounds are unremarkable. Musculoskeletal: Normal ROM, no tenderness. Strength 5/5. Sensation intact. Radial and DP pulses equal bilaterally 2+. Neurological: A&O x 3. CN II-XII intact, There are no obvious motor or sensory deficits. Coordination appears grossly intact. Speech is normal. Skin: Skin is warm and dry and no rashes or lesions are noted. B/l lower extremity swelling L>R. No pain to palpation of the calf. Psychiatric: Cooperative, appropriate mood & affect, normal judgment. Limitations: no limitations Course Vital Signs 02/14/19 02/14/19 02/14/19 14:32 17:16 18:45 Temperature 98.2 F Pulse Rate 90 70 78 Respiratory 18 18 18 Rate Blood Pressure 153/84 121/80 O2 Sat by Pulse 99 99 99 Oximetry EKG Findings - EKG Comments: EKG Findings:: Ventricular rate 89 bpm, QRS 132mss, QT/QTC 380/462 most seconds. Atrial fibrillation. Left axis noted. Right bundle branch block redemonstrated Medical Decision Making - Medical Decision Making 73-year-old female presenting for chief complaint of pleuritic chest pain. Patient denies pain at rest she denies dyspnea or dyspnea on exertion increased from her baseline. Patient states her legs are chronically swollen. Upon examination left leg increased swelling compared to right. Patient states she is compliant with her warfarin but has not had it checked in one month. INR revealed subtherapeutic levels of 1.3. Patient has history of atrial fibrillation as well as previous pulmonary embolism. EKG was obtained revealing atrial fibrillation no evidence of rapid ventricular rate. Repeat right bundle branch block his redemonstrated from previous EKG. No significant ST elevation or depression noted. Vital signs within acceptable limits. With patient's therapeutic INR and history of pulmonary embolism concern for possibility of pulmonary him was a. Patient's hemogram stable appearing well heart rate within normal limits x-ray well and room air. Given patient BUN and creatinine with stage III kidney disease, VQ was obtained as alternative for CT angiography, pt was stable with normal BP, HR and oxygen saturation levels upon arrival and throughout stay. I received a critical call by radiology at 6:29PM, she started on high intensity heparin. Dr. Hardwick admitting provider was contacted by my attending provider who discussed case. Recommended pulmonology consult. Patient continues to remain hemodynamically stable. Will be transferred to floor on telemetry. Findings were discussed the patient patient verbalizes any. Patient agreeable to admission. - Lab Data Result diagrams: 02/14/19 15:15 02/14/19 15:15 Lab Results 02/14/19 02/14/19 02/14/19 Range/Units 15:15 15:15 15:15 WBC 10.1 (3.8-10.6) k/uL RBC 5.24 (3.80-5.40) m/uL Hgb 14.0 (11.4-16.0) gm/dL Hct 44.9 (34.0-46.0) % MCV 85.6 (80.0-100.0) fL MCH 26.7 (25.0-35.0) pg MCHC 31.2 (31.0-37.0) g/dL RDW 15.8 H (11.5-15.5) % Plt Count 349 (150-450) k/uL Neutrophils % 68 % Lymphocytes % 20 % Monocytes % 8 % Eosinophils % 2 % Basophils % 0 % Neutrophils # 6.9 (1.3-7.7) k/uL Lymphocytes # 2.0 (1.0-4.8) k/uL Monocytes # 0.8 (0-1.0) k/uL Eosinophils # 0.2 (0-0.7) k/uL Basophils # 0.0 (0-0.2) k/uL PT 13.3 H (9.0-12.0) sec INR 1.3 H (<1.2) APTT 25.3 (22.0-30.0) sec D-Dimer 0.88 H (<0.60) mg/L FEU Sodium 137 (137-145) mmol/L Potassium 4.9 (3.5-5.1) mmol/L Chloride 105 (98-107) mmol/L Carbon Dioxide 20 L (22-30) mmol/L Anion Gap 12 mmol/L BUN 53 H (7-17) mg/dL Creatinine 1.37 H (0.52-1.04) mg/dL Est GFR (CKD-EPI)AfAm 44 (>60 ml/min/1.73 sqM) Est GFR (CKD-EPI)NonAf 38 (>60 ml/min/1.73 sqM) Glucose 117 H (74-99) mg/dL Calcium 9.4 (8.4-10.2) mg/dL Total Bilirubin 0.8 (0.2-1.3) mg/dL AST 27 (14-36) U/L ALT 29 (9-52) U/L Alkaline Phosphatase 82 (38-126) U/L Troponin I (0.000-0.034) ng/mL NT-Pro-B Natriuret Pep pg/mL Total Protein 7.4 (6.3-8.2) g/dL Albumin 4.2 (3.5-5.0) g/dL 02/14/19 02/14/19 Range/Units 15:15 15:15 WBC (3.8-10.6) k/uL RBC (3.80-5.40) m/uL Hgb (11.4-16.0) gm/dL Hct (34.0-46.0) % MCV (80.0-100.0) fL MCH (25.0-35.0) pg MCHC (31.0-37.0) g/dL RDW (11.5-15.5) % Plt Count (150-450) k/uL Neutrophils % % Lymphocytes % % Monocytes % % Eosinophils % % Basophils % % Neutrophils # (1.3-7.7) k/uL Lymphocytes # (1.0-4.8) k/uL Monocytes # (0-1.0) k/uL Eosinophils # (0-0.7) k/uL Basophils # (0-0.2) k/uL PT (9.0-12.0) sec INR (<1.2) APTT (22.0-30.0) sec D-Dimer (<0.60) mg/L FEU Sodium (137-145) mmol/L Potassium (3.5-5.1) mmol/L Chloride (98-107) mmol/L Carbon Dioxide (22-30) mmol/L Anion Gap mmol/L BUN (7-17) mg/dL Creatinine (0.52-1.04) mg/dL Est GFR (CKD-EPI)AfAm (>60 ml/min/1.73 sqM) Est GFR (CKD-EPI)NonAf (>60 ml/min/1.73 sqM) Glucose (74-99) mg/dL Calcium (8.4-10.2) mg/dL Total Bilirubin (0.2-1.3) mg/dL AST (14-36) U/L ALT (9-52) U/L Alkaline Phosphatase (38-126) U/L Troponin I <0.012 (0.000-0.034) ng/mL NT-Pro-B Natriuret Pep 1480 pg/mL Total Protein (6.3-8.2) g/dL Albumin (3.5-5.0) g/dL Disposition Clinical Impression: Pulmonary embolism on right Disposition: ADMITTED IP TO THIS [facility] Condition: Serious Is patient prescribed a controlled substance at d/c from ED?: No Referrals: Miguel Hardwick MD [Primary Care Provider] - 1-2 days Time of Disposition: 18:33 Decision to Admit Reason: Admit from EC Decision Date: 02/14/19 Decision Time: 18:33
[2019-02-14 15:36] LABS: Basophils % (A) 0 %; Eosinophils # (A) 0.2 k/uL (0-0.7); Eosinophils % (A) 2 %; HCT 44.9 % (34.0-46.0); Lymphocytes % (A) 20 %; MCH 26.7 pg (25.0-35.0); MCHC 31.2 g/dL (31.0-37.0); MCV 85.6 fL (80.0-100.0); Mean Platelet Volume 6.9; Monocytes # (A) 0.8 k/uL (0-1.0); Monocytes % (A) 8 %; Neutrophils # (A) 6.9 k/uL (1.3-7.7); Neutrophils % (A) 68 %; Platelet Count 349 k/uL (150-450); RBC 5.24 m/uL (3.80-5.40); RDW 15.8 % (11.5-15.5); WBC 10.1 k/uL (3.8-10.6)
[2019-02-14 15:47] LABS: Albumin 4.2 g/dL (3.5-5.0); Calcium 9.4 mg/dL (8.4-10.2); Potassium 4.9 mmol/L (3.5-5.1); Total Bilirubin 0.8 mg/dL (0.2-1.3); Total Protein 7.4 g/dL (6.3-8.2)
--- NOTE | 2019-02-14 15:56 | XR ---
EXAMINATION TYPE: XR chest 2V DATE OF EXAM: 02/14/2019 COMPARISON: 05/25/2016 HISTORY: Shortness of breath TECHNIQUE: Frontal and lateral views of the chest are obtained. FINDINGS: Scattered senescent parenchymal changes noted. Hyperinflation compatible with COPD. No evidence for infiltrate. No evidence for atelectasis. Heart size is stable. Mediastinal structures are stable and grossly unremarkable. No evidence for hilar prominence. Degenerative changes dorsal spine. IMPRESSION: 1. No evidence for acute pulmonary disease.
[2019-02-14 15:57] LABS: INR 1.3 (<1.2); Partial Thromboplastin Time 25.3 sec (22.0-30.0); Prothrombin Time 13.3 sec (9.0-12.0)
[2019-02-14 15:59] LABS: D-Dimer 0.88 mg/L FEU (<0.60)
[2019-02-14] MEDS ORDERED: HEPARIN SODIUM,PORCINE 10,000 UNIT/ML 1 ML VIAL IV ONE (18:29)
[2019-02-14] MEDS ORDERED: HEPARIN SODIUM,PORCINE 5,000 UNIT/ML 1 ML VIAL IV PRN (18:29)
--- NOTE | 2019-02-14 18:30 | NM ---
EXAMINATION TYPE: NM pul vent and perfuse DATE OF EXAM: 02/14/2019 COMPARISON: Chest radiographs 02/14/2019 at 3:57 PM HISTORY: Pleuritic chest pain, right-sided TECHNIQUE: Utilizing inhalation of 35.7 mCi Tc 99m DTPA aerosol and intravenous injection of 4.9 mCi of Tc 99m MAA, ventilation and perfusion images are acquired post injection in multiple projections. FINDINGS: There is a large VQ mismatch with perfusion photopenia much greater than ventilation. This pattern suggests pulmonary embolism involving the posterior segment of the right upper lobe. There are no other definite VQ mismatches. There is mild-moderate heterogeneity of the radiopharmaceutical activity throughout the lungs bilater ally on the perfusion and dilation multiplanar images. Also noted is the overall decreased radiopharmaceutical activity on the left thorax, as compared with the right thorax. CTA can provide complementary anatomic correlation to this physiologic examination. IMPRESSION: SCINTIGRAPHIC FINDINGS CONSISTENT WITH PULMONARY EMBOLISM INVOLVING THE POSTERIOR SEGMENT OF THE RIGH T UPPER LOBE. Results discussed with the ordering provider just now, in order to ensure efficient time-sensitive c ommunications.
[2019-02-14] MEDS ORDERED: NALOXONE 0.4 MG/ML 1 ML VIAL IV PRN (18:40)
[2019-02-14] MEDS: HEPARIN SOD,PORK IN 0.45% NACL 25,000 UNIT in 0.45% NACL 1 250ML.BAG IV SCH (19:03)
[2019-02-14] MEDS ORDERED: METOPROLOL TARTRATE 50 MG TAB PO STA (21:26)
[2019-02-14] MEDS ORDERED: ATORVASTATIN 40 MG TAB PO STA (21:27)
[2019-02-15] MEDS: SODIUM CHLORIDE 0.9% 1,000 ML IV SCH ×2 (01:10→09:48)
[2019-02-15] MEDS: ACETAMINOPHEN TAB 500 MG TAB PO PRN (01:44)
[2019-02-15 03:57] VITALS: BMI 43.6
[2019-02-15 07:33] LABS: Basophils % (A) 1 %; Eosinophils # (A) 0.3 k/uL (0-0.7); Eosinophils % (A) 3 %; HGB 13.3 gm/dL (11.4-16.0); Hypochromasia Slight; Lymphocytes # (A) 1.9 k/uL (1.0-4.8); Lymphocytes % (A) 23 %; MCH 27.2 pg (25.0-35.0); MCV 87.6 fL (80.0-100.0); Mean Platelet Volume 6.8; Monocytes # (A) 0.7 k/uL (0-1.0); Monocytes % (A) 9 %; Neutrophils # (A) 5.2 k/uL (1.3-7.7); Neutrophils % (A) 63 %; Platelet Count 304 k/uL (150-450); RBC 4.91 m/uL (3.80-5.40); RDW 15.8 % (11.5-15.5); WBC 8.3 k/uL (3.8-10.6)
[2019-02-15] MEDS: METOPROLOL TARTRATE 50 MG TAB PO SCH ×2 (09:05→21:14)
[2019-02-15] MEDS: HEPARIN SOD,PORK IN 0.45% NACL 25,000 UNIT in 0.45% NACL 1 250ML.BAG IV SCH (09:05)
[2019-02-15] MEDS: LEVOTHYROXINE 50 MCG TAB PO SCH (09:49)
[2019-02-15 11:35] LABS: Glucose,Whole Blood 107 mg/dL (75-99)
[2019-02-15 12:13] LABS: Albumin 3.9 g/dL (3.5-5.0); Calcium 9.1 mg/dL (8.4-10.2); Potassium 4.9 mmol/L (3.5-5.1); Total Bilirubin 0.6 mg/dL (0.2-1.3); Total Protein 6.8 g/dL (6.3-8.2)
--- NOTE | 2019-02-15 12:58 | P.HPIM ---
History of Present Illness H&P Date: 02/15/19 This is a 73-year-old female patient who presented to the ER with complaints of shortness of breath and pleuritic chest pain. Patient reports she was watching TV last night when she started to experience this discomfort. Patient reports that this pain felt similar to the previous when she had with a pulmonary embolism. Patient does have a past medical history of pulmonary embolism in which she is on Coumadin. Patient's INR was subtherapeutic on admission. Patient does report that she has had an increase in consumption of leafy green vegetables. Additional medical history includes A. fib, asthma, heart failure, COPD, GI bleed, hyperlipidemia, hypertension, osteoarthritis,thyroid disorder, diverticulosis, emphysema, chronic low back pain and ex-smoker. Initial chest x-ray completed showing no evidence for acute pulmonary disease. EKG completed showing A. fib with left axis deviation right bundle branch block. d-dimer elevated at 0.88. VQ scan completed showing findings consistent with pulmonary embolism involving the posterior segment of the right. Patient was started on heparin drip at this time. Pulmonary services have been consulted. Patient also having increased swelling to lower extremities. Patient does have a history of DVTs. Patient reports this time does appear chronic but will order venous Doppler to rule out DVT at this time. Patient's creatinine also slightly elevated at 1.36. Patient states she does follow with nephrology services. These levels do appear chronic. At this time patient is still complaining of moderate amount of chest pain. Patient denies significant shortness breath. Patient denies nausea vomiting or diarrhea. Patient denies any urinary burning or frequency. Review of Systems please refer to HPI otherwise unremarkable Past Medical History Past Medical History: Atrial Fibrillation, Asthma, Heart Failure, COPD, GI Bleed, Hyperlipidemia, Hypertension, Osteoarthritis (OA), Pneumonia, Pulmonary Embolus (PE), Renal Disease, Thyroid Disorder Additional Past Medical History / Comment(s): 06-06-15 admitted to [facility] with c/o sob-dx with pe. diverticulosis,, emphysema,scoliosis uses a crutch( when up walking), umbilical hernia,stated does have some blockage enrike carotids,rt upper bridge and has" 2 loose teeth", chronic low back pain, gout. 02-15-19 Patient states she has been seeing Dr. Bassett for "3rd stage kidney disease" History of Any Multi-Drug Resistant Organisms: MRSA Date of last positivie culture/infection: 07/16/17 MDRO Source:: Left First Toe Past Surgical History: Orthopedic Surgery, Tubal Ligation Additional Past Surgical History / Comment(s): d&c,colonoscopy, orif lt ankle has plate and screws.lt knee arthroscopy, skin biopsy on left upper foot Past Anesthesia/Blood Transfusion Reactions: No Reported Reaction Past Psychological History: No Psychological Hx Reported Additional Psychological History / Comment(s): lives alone single level home that has 4 [address], uses crutch towalk with.no home care services, has nebulizer Smoking Status: Former smoker Past Alcohol Use History: Daily Additional Past Alcohol Use History / Comment(s): started smoking 1979 smoked off and on then quit in 1999. smoked 1 ppd. stated has 1 drink hs daily Past Drug Use History: None Reported - Past Family History Father Additional Family Medical History / Comment(s): had tb at age 55, lt leg amp.heart problems. Mother History Unknown: Yes Family Medical History: Dementia, Diabetes Mellitus Medications and Allergies Home Medications Medication Instructions Recorded Confirmed Type Acetaminophen Tab [Tylenol] 500 mg PO DAILY PRN 06/06/15 02/14/19 History Levothyroxine Sodium [Synthroid] 50 mcg PO DAILY 06/06/15 02/14/19 History Multivitamins, Thera [Multivitamin 1 tab PO DAILY 06/06/15 02/14/19 History (formulary)] Metoprolol Tartrate [Lopressor] 50 mg PO BID #60 tab 06/13/15 02/14/19 Rx Spironolactone [Aldactone] 25 mg PO DAILY 08/04/18 02/14/19 History Warfarin Sodium 2 mg PO SUTUWETHFRSA 08/04/18 02/14/19 History Warfarin Sodium 4 mg PO MO 08/04/18 02/14/19 History Lisinopril [Zestril] 20 mg PO DAILY #30 tab 08/10/18 02/14/19 Rx Atorvastatin [Lipitor] 40 mg PO HS 02/14/19 02/14/19 History Cholecalciferol [Vitamin D3] 5,000 unit PO DAILY 02/14/19 02/14/19 History Febuxostat [Uloric] 40 mg PO DAILY 02/14/19 02/14/19 History Furosemide [Lasix] 40 mg PO BID 02/14/19 02/14/19 History Allergies Allergy/AdvReac Type Severity Reaction Status Date / Time adhesive Allergy Rash/Hives Verified 02/14/19 15:01 cefaclor [From Ceclor] Allergy Rash/Hives Verified 02/14/19 15:01 Penicillins Allergy Unknown Verified 02/14/19 15:01 povidone-iodine Allergy Rash/Hives Verified 02/14/19 15:01 [From Betadine] soap [From Betadine] Allergy Rash/Hives Verified 02/14/19 15:01 hydromorphone [From Dilaudid] AdvReac Unknown Verified 02/15/19 06:08 Physical Exam Vitals: Vital Signs Temp Pulse Pulse Resp BP BP Pulse Ox 02/15/19 08:16 98.1 F 84 18 129/86 100 02/15/19 04:00 97.5 F L 93 18 109/73 98 02/15/19 01:47 89 19 140/85 97 02/14/19 23:25 72 16 128/88 100 02/14/19 22:02 85 20 135/85 100 02/14/19 20:29 97.5 F L 93 18 109/73 98 02/14/19 19:08 158/95 02/14/19 18:45 78 18 99 02/14/19 17:16 70 18 121/80 99 02/14/19 14:32 98.2 F 90 18 153/84 99 Intake and Output 02/14/19 02/15/19 02/15/19 22:59 06:59 14:59 Intake Total 128.49 79.136 Balance 128.49 79.136 Intake: Intake, IV Titration 128.49 79.136 Amount Heparin Sod,Pork in 0.45% 128.49 79.136 NaCl 25,000 unit In 0.45 % NaCl 1 250ml.bag @ 18 UNITS/KG/HR 18.942 mls/hr IV .[id number] [facility] Rx#: [id number] Other: Voiding Method Bedside Commode Bedside Commode Head normocephalic Neck supple Lungs clear to auscultation bilaterally no wheezing or crackles Heart regular rate and rhythm S1-S2, no rub or gallop Abdomen is soft nontender nondistended positive bowel sounds no hepatosplenomegaly Extremities +2 lower extremity edema. Erythema noted bilaterally Neuro alert and orientated to 3 Results CBC & Chem 7: 02/15/19 07:06 02/15/19 07:06 Labs: Abnormal Lab Results - Last 24 Hours (Table) 02/14/19 02/14/19 02/14/19 Range/Units 15:15 15:15 15:15 RDW 15.8 H (11.5-15.5) % PT 13.3 H (9.0-12.0) sec INR 1.3 H (<1.2) APTT (22.0-30.0) sec D-Dimer 0.88 H (<0.60) mg/L FEU Chloride (98-107) mmol/L Carbon Dioxide 20 L (22-30) mmol/L BUN 53 H (7-17) mg/dL Creatinine 1.37 H (0.52-1.04) mg/dL Glucose 117 H (74-99) mg/dL POC Glucose (mg/dL) (75-99) mg/dL 02/15/19 02/15/19 02/15/19 Range/Units 01:06 07:06 07:06 RDW 15.8 H (11.5-15.5) % PT (9.0-12.0) sec INR (<1.2) APTT >200.0 H* >200.0 H* (22.0-30.0) sec D-Dimer (<0.60) mg/L FEU Chloride (98-107) mmol/L Carbon Dioxide (22-30) mmol/L BUN (7-17) mg/dL Creatinine (0.52-1.04) mg/dL Glucose (74-99) mg/dL POC Glucose (mg/dL) (75-99) mg/dL 02/15/19 02/15/19 Range/Units 07:06 11:23 RDW (11.5-15.5) % PT (9.0-12.0) sec INR (<1.2) APTT (22.0-30.0) sec D-Dimer (<0.60) mg/L FEU Chloride 110 H (98-107) mmol/L Carbon Dioxide 17 L (22-30) mmol/L BUN 49 H (7-17) mg/dL Creatinine 1.34 H (0.52-1.04) mg/dL Glucose 102 H (74-99) mg/dL POC Glucose (mg/dL) 107 H (75-99) mg/dL Thrombosis Risk Factor Assmnt - Choose All That Apply Any of the Below Risk Factors Present?: Yes Each Factor Represents 1 point: Abnormal pulmonary function (COPD), Swollen legs (current) Other Risk Factors: Yes Each Risk Factor Represents 3 Points: Age 75 years or older, History of DVT/PE Thrombosis Risk Factor Assessment Total Risk Factor Score: 8 Thrombosis Risk Factor Assessment Level: High Risk Assessment and Plan Assessment: 1. Pleuritic chest pain due to pulmonary embolism. VQ scan completed showing findings consistent with pulmonary embolism involving the posterior segment of the right upper lobe. Patient's INR was subtherapeutic of 1.3. Patient has be en on Coumadin for PE and atrial fibrillation. Patient started on heparin drip. Patient reports she cannot afford Xarelto previously. We'll consult case management to discuss other anticoagulation options. Pulmonary services have been consulted 2. Lower extremity edema and erythema. Will order venous Doppler to rule out DVT 3. chronic Atrial fibrillation. Patient has been maintained on Coumadin. Subtherapeutic. Patient currently on heparin drip for PE 4. History of asthma. 5. Chronic kidney disease stage III. Creatinine 1.34. This does appear baseline patient will continue to monitor outpatient is receiving her home dose of Lasix and lisinopril 6. Hypothyroidism. Continue Synthroid 7. Essential hypertension. Home meds resumed 8. Scoliosis with chronic back pain 9. History of L2 and L3 chronic compression fracture 10. Chronic diastolic congestive heart failure. BNP 1480 on admission. Home dose Lasix resumed 11. History of osteoarthritis DVT prophylaxis heparin drip. GI prophylaxis Protonix I performed an examination of the patient and discussed their management with the Nurse Practitioner. I have reviewed the Nurse Practitioner's notes and agree with the documented findings and plan of care
--- NOTE | 2019-02-15 13:23 | P.CNPUL ---
History of Present Illness Consult date: 02/15/19 Reason for consult: pulmonary embolism History of present illness: This is a very pleasant 73-year-old female patient was coming in when acute pl euritic right upper lung chest pain. The pain is worse with deep breathing. It occurred acutely. 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 Unfortunately the patient has been able to get her warfarin regulated. She was subtherapeutic last week. She was asked to take additional Coumadin and at time of admission to the hospital the patient's INR was also low with an INR of 1.3. Immediately patient was started on IV heparin. D-dimer was 0.8. VQ scan showed mismatched defect in the right upper lobe consistent with the area where the patient is symptomatic. CT angiogram was not done as the patient's ear canal was at 1.3. The patient has no pain in her lower extremities. No swelling in lower extremities. His echocardiogram from 2 years ago showed no evidence of any pulmonary hypertension. She is hemodynamically stable. No hemoptysis. No fever. No chills. No other complaints otherwise for now. We are seeking a different anticoagulants such as Eliquis or Xarelto on this patient.this patient has history of chronic atrial fibrillation. The patient also has previous history of diverticulosis and previous history of GI bleed, currently inactive and stable. She is known to have hypertension, hyperlipidemia, hypothyroidism, umbilical hernia and osteoarthritis. The patient is also known to have carotid artery stenosis. Review of Systems Constitutional: Denies chills, Denies fever Eyes: denies as per HPI, denies blurred vision, denies bulging eye, denies decr eased vision, denies diplopia, denies discharge, denies dry eye, denies irritation, denies itching, denies pain, denies photophobia, denies loss of peripheral vision, denies loss of vision, denies tunnel vision/blind spots Ears: deny: decreased hearing, ear discharge, earache, tinnitus Ears, nose, mouth and throat: Reports as per HPI Breasts: absent: as per HPI, change in shape, gynecomastia, masses, nipple discharge, pain, skin changes, swelling Cardiovascular: Reports chest pain Respiratory: Reports cough, Reports dyspnea Gastrointestinal: Denies abdominal pain, Denies diarrhea, Denies nausea, Denies vomiting Genitourinary: Reports as per HPI Menstruation: Reports as per HPI Musculoskeletal: Reports as per HPI Musculoskeletal: bilateral: ankle swelling, absent: ankle pain, ankle stiffness Integumentary: Reports as per HPI Neurological: Reports as per HPI Psychiatric: Reports as per HPI Endocrine: Reports as per HPI Allergic/Immunologic: Reports as per HPI Past Medical History Past Medical History: Atrial Fibrillation, Asthma, COPD, GI Bleed, Hyperlipidemia, Hypertension, Osteoarthritis (OA), Pulmonary Embolus (PE), Renal Disease, Thyroid Disorder Additional Past Medical History / Comment(s): Chronic atrial fibrillation, previous history of a popliteal left lower extremity DVT and pulmonary embolism, obesity, bronchial asthma/COPD, previous history of GI bleed secondary to diverticulosis, hypertension, hyperlipidemia, hypothyroidism, chronic renal failure, osteoarthritis him a umbilical hernia, carotid artery disease, chronic back pain, gout, chronic stage III kidney disease History of Any Multi-Drug Resistant Organisms: MRSA Date of last positivie culture/infection: 07/16/17 MDRO Source:: Left First Toe Past Surgical History: Orthopedic Surgery, Tubal Ligation Additional Past Surgical History / Comment(s): d&c,colonoscopy, orif lt ankle has plate and screws.lt knee arthroscopy, skin biopsy on left upper foot Past Anesthesia/Blood Transfusion Reactions: No Reported Reaction Past Psychological History: No Psychological Hx Reported Additional Psychological History / Comment(s): lives alone single level home that has [address]. [address], uses crutch towalk with.no home care services, has nebulizer Smoking Status: Former smoker Past Alcohol Use History: Daily Additional Past Alcohol Use History / Comment(s): started smoking 1979 smoked off and on then quit in 1999. smoked 1 ppd. stated has 1 drink hs daily Past Drug Use History: None Reported - Past Family History Father Additional Family Medical History / Comment(s): had tb at age 55, lt leg amp. heart problems. Mother History Unknown: Yes Family Medical History: Dementia, Diabetes Mellitus Medications and Allergies Home Medications Medication Instructions Recorded Confirmed Type Acetaminophen Tab [Tylenol] 500 mg PO DAILY PRN 06/06/15 02/14/19 History Levothyroxine Sodium [Synthroid] 50 mcg PO DAILY 06/06/15 02/14/19 History Multivitamins, Thera [Multivitamin 1 tab PO DAILY 06/06/15 02/14/19 History (formulary)] Metoprolol Tartrate [Lopressor] 50 mg PO BID #60 tab 06/13/15 02/14/19 Rx Spironolactone [Aldactone] 25 mg PO DAILY 08/04/18 02/14/19 History Warfarin Sodium 2 mg PO SUTUWETHFRSA 08/04/18 02/14/19 History Warfarin Sodium 4 mg PO MO 08/04/18 02/14/19 History Lisinopril [Zestril] 20 mg PO DAILY #30 tab 08/10/18 02/14/19 Rx Atorvastatin [Lipitor] 40 mg PO HS 02/14/19 02/14/19 History Cholecalciferol [Vitamin D3] 5,000 unit PO DAILY 02/14/19 02/14/19 History Febuxostat [Uloric] 40 mg PO DAILY 02/14/19 02/14/19 History Furosemide [Lasix] 40 mg PO BID 02/14/19 02/14/19 History Allergies Allergy/AdvReac Type Severity Reaction Status Date / Time adhesive Allergy Rash/Hives Verified 02/14/19 15:01 cefaclor [From Ceclor] Allergy Rash/Hives Verified 02/14/19 15:01 Penicillins Allergy Unknown Verified 02/14/19 15:01 povidone-iodine Allergy Rash/Hives Verified 02/14/19 15:01 [From Betadine] soap [From Betadine] Allergy Rash/Hives Verified 02/14/19 15:01 hydromorphone [From Dilaudid] AdvReac Unknown Verified 02/15/19 06:08 Physical Exam Vitals: Vital Signs Temp Pulse Pulse Resp BP BP Pulse Ox 02/15/19 08:16 98.1 F 84 18 129/86 100 02/15/19 04:00 97.5 F L 93 18 109/73 98 02/15/19 01:47 89 19 140/85 97 02/14/19 23:25 72 16 128/88 100 02/14/19 22:02 85 20 135/85 100 02/14/19 20:29 97.5 F L 93 18 109/73 98 02/14/19 19:08 158/95 02/14/19 18:45 78 18 99 02/14/19 17:16 70 18 121/80 99 02/14/19 14:32 98.2 F 90 18 153/84 99 Intake and Output 02/14/19 02/15/19 02/15/19 22:59 06:59 14:59 Intake Total 128.49 79.136 Balance 128.49 79.136 Intake: Intake, IV Titration 128.49 79.136 Amount Heparin Sod,Pork in 0.45% 128.49 79.136 NaCl 25,000 unit In 0.45 % NaCl 1 250ml.bag @ 18 UNITS/KG/HR 18.942 mls/hr IV .[id number] [facility] Rx#: [id number] Other: Voiding Method Bedside Commode Bedside Commode obese, comfortable likely distress Head exam was generally normal. There was no scleral icterus or corneal arcus. Mucous membranes were moist. Neck was supple and without jugular venous distension, thyromegaly, or carotid bruits. Carotids were easily palpable bilaterally. There was no adenopathy., Mallampati class IV. Lungs sounds are diminished bilaterally. No wheezes or rhonchi. Full crackles in lung bases. Cardiac exam revealed the PMI to be normally situated and sized. The rhythm was irregular and no extrasystoles were noted during several minutes of auscultation. The first and second heart sounds were irregular consistent with atrial fibrillation and physiologic splitting of the second heart sound was noted. There were no murmurs, rubs, clicks, or gallops. Abdominal exam revealed normal bowel sounds. The abdomen was soft, non-tender, and without masses, organomegaly, or appreciable enlargement of the abdominal aorta. Examination of the extremities revealed easily palpable radial, femoral and pedal pulses. There was no cyanosis, clubbing or edema.There are changes consistent with chronic venous stasis involving lower extremity is bilaterally. Examination of the skin revealed no evidence of significant rashes, suspicious appearing nevi or other concerning lesions. Neurologically the patient is awake and alert and is no focal neurological deficit. Psychiatrically the patient has no anxiety or depression. Results - Laboratory Findings CBC and BMP: 02/15/19 07:06 02/15/19 07:06 PT/INR, D-dimer PT 13.3 sec (9.0-12.0) H 02/14/19 15:15 INR 1.3 (<1.2) H 02/14/19 15:15 D-Dimer 0.88 mg/L FEU (<0.60) H 02/14/19 15:15 Abnormal lab findings: Abnormal Labs 02/14/19 02/14/19 02/14/19 15:15 15:15 15:15 RDW 15.8 H PT 13.3 H INR 1.3 H APTT D-Dimer 0.88 H Chloride Carbon Dioxide 20 L BUN 53 H Creatinine 1.37 H Glucose 117 H POC Glucose (mg/dL) 02/15/19 02/15/19 02/15/19 01:06 07:06 07:06 RDW 15.8 H PT INR APTT >200.0 H* >200.0 H* D-Dimer Chloride Carbon Dioxide BUN Creatinine Glucose POC Glucose (mg/dL) 02/15/19 02/15/19 07:06 11:23 RDW PT INR APTT D-Dimer Chloride 110 H Carbon Dioxide 17 L BUN 49 H Creatinine 1.34 H Glucose 102 H POC Glucose (mg/dL) 107 H - Diagnostic Findings Chest x-ray: image reviewed U/S of Legs: image reviewed Assessment and Plan Plan: assessment 1 acute right upper lobe pulmonary embolism. Clinical presentation is typical. The patient is known to have previous history of DVT and pulmonary embolism. The patient was subtherapeutic on her INR at time of admission. Furthermore, the patient had a mildly elevated d-dimer and VQ scan is showing a mismatch defect in the right upper lobe consistent with her symptoms. I am confident that the patient had a pulmonary embolism involving the right upper lobe. The patient is currently on IV heparin. Hemodynamically stable. Doppler of the lower extremity still pending for now 2 chronic stage III kidney disease 3 obesity with BMI 43.8 4 chronic atrial fibrillation 5 previous history of a left orbital DVT and pulmonary embolism 6 previous history of diverticular bleed 7 hypertension 8 hyperlipidemia 9 hypothyroidism 10 history of COPD/asthma currently inactive in stable 11 gout 12 carotid artery disease 13 osteoarthritis 14 chronic back pain related to L2/L3 compression fracture of the spine along with scoliosis Plan Proceed with IV heparin. Explored the possibility of putting this patient on a new agent anticoagulants such as Xarelto and Eliquis knowing that this patient's PT/INR has been extremely variable. The patient has been consuming excess domi unt of green vegetables and this has contributed to her lower INR at admission.she would do much better on a new agent anticoagulants. Meanwhile, we'll repeat echocardiogram. We'll repeat the Doppler of the lower extremity. She is hemodynamically stable. She is on oxygen at 2 L per minute nasal cannula. We'll continue to follow. Outpatient medication will be resumed. Chronic atrial fibrillation, previous history of a popliteal left lower extremity DVT and pulmonary embolism, obesity, bronchial asthma/COPD, previous history of GI bleed secondary to diverticulosis, hypertension, hyperlipidemia, hypothyroidism, chronic renal failure, osteoarthritis him a umbilical hernia, carotid artery disease, chronic back pain, gout, chronic stage III kidney disease
--- NOTE | 2019-02-15 13:29 | US ---
EXAMINATION TYPE: US venous doppler duplex LE DATE OF EXAM: 02/15/2019 1:06 PM COMPARISON: NONE CLINICAL HISTORY: Rule out DVT. PE, history of DVT left leg 2014, patient on blood thinner SIDE PERFORMED: Bilateral TECHNIQUE: The lower extremity deep venous system is examined utilizing real time linear array sonog ruby with graded compression, doppler sonography and color-flow sonography. VESSELS IMAGED: External Iliac Vein (EIV) Common Femoral Vein Deep Femoral Vein Greater Saphenous Vein * Femoral Vein Popliteal Vein Small Saphenous Vein * Proximal Calf Veins (* superficial vessels) Grayscale, color doppler, spectral doppler imaging performed of the deep veins of the lower extremiti es. There is normal flow, compressibility, vascular waveforms. Right Leg: No evidence of DVT Left Leg: No evidence of DVT IMPRESSION: No sonographic evidence of deep venous thrombosis within the bilateral lower extremities .
[2019-02-15] MEDS ORDERED: ONDANSETRON 4 MG/2 ML VIAL IVP PRN (15:33)
[2019-02-15] MEDS: FUROSEMIDE 40 MG TAB PO SCH (17:49)
[2019-02-15] MEDS: ATORVASTATIN 40 MG TAB PO SCH (21:14)
--- NOTE | 2019-02-15 23:05 | CONS ---
CONSULTATION DATE OF SERVICE: 02/15/2019. REASON FOR CONSULT: Renal failure. HISTORY OF PRESENT ILLNESS: Patient is a 73-year-old female with history of PE. She also has chronic kidney disease with baseline creatinine about 1.3-1.0 mg/dL. The patient follows up at our office. The etiology of CKD is nephrosclerosis. She was last seen at our office in January of 2019. Her renal function has been stable. Patient was admitted to the hospital with complaints of chest pain. The V/Q scan showed evidence of right lower lobe PE and patient is currently maintained on IV heparin. Her INR was 1.2 at the time of admission. The patient is maintained on Coumadin at home. She currently denies any significant chest pains. No urinary symptoms. Her serum creatinine was 1.34. The patient is maintained on IV fluids. PAST MEDICAL HISTORY: Significant for atrial fibrillation, asthma, COPD, GI bleed, CKD stage 3, history of PE, hypothyroidism, gout, hyperuricemia, osteoarthritis. PAST SURGICAL HISTORY: Tubal ligation, D and C, colonoscopy, ORIF, left knee arthroscopy. SOCIAL HISTORY: Patient is a former smoker. No history of drug abuse or alcohol abuse. MEDICATIONS: Prior to admission included: 1. Tylenol. 2. Synthroid. 3. Lopressor. 4. Aldactone. 5. Coumadin. 6. Zestril. 7. Lipitor. 8. Vitamin D3. 9. Uloric. 10.Lasix. ALLERGIES: Are multiple, include PENICILLIN, CECLOR, TAPE, SOAP, DILAUDID. REVIEW OF SYSTEMS: As per HPI. Other systems negative. PHYSICAL EXAMINATION: Patient is comfortable, awake, alert, oriented x3. She is not in any acute distress. The blood pressure this morning was 140/85, heart rate 87 per minute, she is afebrile. Examination of the heart S1, S2. Examination lungs bilateral breath sounds are heard. Abdomen is soft, nontender. Exam of lower extremities shows no evidence of edema. 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 LABS: Hemoglobin 13.3, white cell count 8.3, sodium 138, potassium 4.9, CO2 17, BUN 49, serum creatinine 1.34. ASSESSMENT: 1. Chronic kidney disease and NKF stage III renal function at baseline secondary to nephrosclerosis. 2. Acute PE, maintained on anticoagulation. Patient has a history of PE. She was on Coumadin, however, her INR was not therapeutic. 3. Chronic atrial fibrillation. 4. Previous history of left orbital DVT and history of PE. 5. History of chronic obstructive pulmonary disease. 6. Hyperuricemia and gout, maintained on Uloric as outpatient, however, we can switch that to allopurinol as patient was not able to afford the Uloric. Continue with the 200 mg daily dose that patient is on at this point. 7. Hypertension, maintained on BECKY inhibitors, currently stable. PLAN: Continue with BECKY inhibitors. Repeat labs in a.m. Renal function is currently at baseline. Decrease diuretics if renal function is worse. Thank you for this consultation. Will continue to follow the patient during her hospitalization. MMODL / IJN: [id number] /
[2019-02-16] MEDS: LEVOTHYROXINE 50 MCG TAB PO SCH (05:46)
[2019-02-16 06:09] LABS: Basophils % (A) 0 %; Eosinophils # (A) 0.1 k/uL (0-0.7); Eosinophils % (A) 1 %; HCT 41.1 % (34.0-46.0); HGB 12.2 gm/dL (11.4-16.0); Hypochromasia Moderate; Lymphocytes # (A) 1.6 k/uL (1.0-4.8); Lymphocytes % (A) 15 %; MCH 26.9 pg (25.0-35.0); MCHC 29.8 g/dL (31.0-37.0); MCV 90.4 fL (80.0-100.0); Monocytes % (A) 9 %; Neutrophils # (A) 7.9 k/uL (1.3-7.7); Neutrophils % (A) 73 %; Platelet Count 299 k/uL (150-450); RBC 4.55 m/uL (3.80-5.40); RDW 15.8 % (11.5-15.5); WBC 10.8 k/uL (3.8-10.6)
[2019-02-16 06:30] LABS: Albumin 3.3 g/dL (3.5-5.0); Calcium 9.4 mg/dL (8.4-10.2); Potassium 4.5 mmol/L (3.5-5.1); Total Bilirubin 0.6 mg/dL (0.2-1.3)
[2019-02-16] MEDS ORDERED: LISINOPRIL 20 MG TAB PO SCH ×2 (09:00→12:00)
[2019-02-16] MEDS: HEPARIN SOD,PORK IN 0.45% NACL 25,000 UNIT in 0.45% NACL 1 250ML.BAG IV SCH (09:28)
[2019-02-16] MEDS: ALLOPURINOL 100 MG TAB PO SCH (09:29)
[2019-02-16] MEDS: FUROSEMIDE 40 MG TAB PO SCH ×2 (09:29→16:05)
[2019-02-16] MEDS: METOPROLOL TARTRATE 50 MG TAB PO SCH ×2 (09:29→20:46)
[2019-02-16] MEDS: SPIRONOLACTONE 25 MG TAB PO SCH (09:29)
[2019-02-16] MEDS: PANTOPRAZOLE 40 MG TABLET PO SCH (09:29)
[2019-02-16] MEDS: ACETAMINOPHEN TAB 500 MG TAB PO PRN (09:30)
--- NOTE | 2019-02-16 09:41 | P.PN ---
Subjective Progress Note Date: 02/16/19 This is a very pleasant 73-year-old female patient was coming in when acute pleuritic right upper lung chest pain. The pain is worse with deep breathing. It occurred acutely. 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 Unfortunately the patient has been able to get her warfarin regulated. She was subtherapeutic last week. She was asked to take additional Coumadin and at time of admission to the hospital the patient's INR was also low with an INR of 1.3. Immediately patient was started on IV heparin. D-dimer was 0.8. VQ scan showed mismatched defect in the right upper lobe consistent with the area where the patient is symptomatic. CT angiogram was not done as the patient's ear canal was at 1.3. The patient has no pain in her lower extremities. No swelling in lower extremities. His echocardiogram from 2 years ago showed no evidence of any pulmonary hypertension. She is hemodynamically stable. No hemoptysis. No fever. No chills. No other complaints otherwise for now. We are seeking a different anticoagulants such as Eliquis or Xarelto on this patient.this patient has history of chronic atrial fibrillation. The patient also has previous history of diverticulosis and previous history of GI bleed, currently inactive and stable. She is known to have hypertension, hyperlipidemia, hypothyroidism, umbilical hernia and osteoarthritis. The patient is also known to have carotid artery stenosis. On today's evaluation of 02/16/2019 I'm seeing this patient for a follow-up H is doing well. The first is improved although it is still present and the pain is subsided considerably. The patient is on IV heparin. We were able to check her coverage for Xarelto on Eliquis and the patient will be started and one of these agents today. She remains on IV heparin. Doppler of the lower extremity was negative. Kidney function is improved. We will going also to switch her from uloric to allopurinol. No other significant events otherwise. Objective - Vital Signs Vital signs: Vital Signs Temp 98.7 F 02/16/19 04:00 Pulse 94 02/16/19 05:00 Resp 21 02/16/19 05:00 BP 128/73 02/16/19 05:00 Pulse Ox 95 02/16/19 05:00 Intake & Output 02/15/19 02/16/19 02/16/19 18:59 06:59 18:59 Intake Total 162.691 250 166.445 Output Total 1150 Balance 162.691 -900 166.445 Weight 104.5 kg Intake: Intake, IV Titration 162.691 166.445 Amount Heparin Sod,Pork in 0.45% 162.691 166.445 NaCl 25,000 unit In 0.45 % NaCl 1 250ml.bag @ 18 UNITS/KG/HR 18.942 mls/hr IV .[id number] [facility] Rx#: [id number] Oral 250 Output: Urine 1150 Other: Voiding Method Bedside Commode Bedside Commode # Voids 0 2 # Bowel Movements 1 - Exam obese, comfortable likely distress Head exam was generally normal. There was no scleral icterus or corneal arcus. Mucous membranes were moist. Neck was supple and without jugular venous distension, thyromegaly, or carotid bruits. Carotids were easily palpable bilaterally. There was no adenopathy., Mallampati class IV. Lungs sounds are diminished bilaterally. No wheezes or rhonchi. Full crackles in lung bases. Cardiac exam revealed the PMI to be normally situated and sized. The rhythm was irregular and no extrasystoles were noted during several minutes of auscultation. The first and second heart sounds were irregular consistent with atrial fibrillation and physiologic splitting of the second heart sound was noted. There were no murmurs, rubs, clicks, or gallops. Abdominal exam revealed normal bowel sounds. The abdomen was soft, non-tender, and without masses, organomegaly, or appreciable enlargement of the abdominal aorta. Examination of the extremities revealed easily palpable radial, femoral and pedal pulses. There was no cyanosis, clubbing or edema.There are changes c onsistent with chronic venous stasis involving lower extremity is bilaterally. Examination of the skin revealed no evidence of significant rashes, suspicious appearing nevi or other concerning lesions. Neurologically the patient is awake and alert and is no focal neurological deficit. Psychiatrically the patient has no anxiety or depression. - Labs CBC & Chem 7: 02/16/19 05:07 02/16/19 05:07 Labs: Abnormal Lab Results - Last 24 Hours (Table) 02/15/19 02/15/19 02/15/19 Range/Units 07:06 11:23 14:36 WBC (3.8-10.6) k/uL MCHC (31.0-37.0) g/dL RDW (11.5-15.5) % Neutrophils # (1.3-7.7) k/uL APTT 95.8 H (22.0-30.0) sec Chloride 110 H (98-107) mmol/L Carbon Dioxide 17 L (22-30) mmol/L BUN 49 H (7-17) mg/dL Creatinine 1.34 H (0.52-1.04) mg/dL Glucose 102 H (74-99) mg/dL POC Glucose (mg/dL) 107 H (75-99) mg/dL Total Protein (6.3-8.2) g/dL Albumin (3.5-5.0) g/dL 02/15/19 02/16/19 02/16/19 Range/Units 22:12 05:07 05:07 WBC 10.8 H (3.8-10.6) k/uL MCHC 29.8 L (31.0-37.0) g/dL RDW 15.8 H (11.5-15.5) % Neutrophils # 7.9 H (1.3-7.7) k/uL APTT 61.0 H (22.0-30.0) sec Chloride 109 H (98-107) mmol/L Carbon Dioxide (22-30) mmol/L BUN 35 H (7-17) mg/dL Creatinine (0.52-1.04) mg/dL Glucose 127 H (74-99) mg/dL POC Glucose (mg/dL) (75-99) mg/dL Total Protein 6.0 L (6.3-8.2) g/dL Albumin 3.3 L (3.5-5.0) g/dL 02/16/19 Range/Units 05:07 WBC (3.8-10.6) k/uL MCHC (31.0-37.0) g/dL RDW (11.5-15.5) % Neutrophils # (1.3-7.7) k/uL APTT 49.7 H (22.0-30.0) sec Chloride (98-107) mmol/L Carbon Dioxide (22-30) mmol/L BUN (7-17) mg/dL Creatinine (0.52-1.04) mg/dL Glucose (74-99) mg/dL POC Glucose (mg/dL) (75-99) mg/dL Total Protein (6.3-8.2) g/dL Albumin (3.5-5.0) g/dL Assessment and Plan Plan: assessment 1 acute right upper lobe pulmonary embolism. Clinical presentation is typical. The patient is known to have previous history of DVT and pulmonary embolism. The patient was subtherapeutic on her INR at time of admission. Furthermore, the patient had a mildly elevated d-dimer and VQ scan is showing a mismatch defect in the right upper lobe consistent with her symptoms. I am confident that the patient had a pulmonary embolism involving the right upper lobe. The patient is currently on IV heparin. Hemodynamically stable. Doppler of the lower extremity still pending for now 2 chronic stage III kidney disease 3 obesity with BMI 43.8 4 chronic atrial fibrillation 5 previous history of a left orbital DVT and pulmonary embolism 6 previous history of diverticular bleed 7 hypertension 8 hyperlipidemia 9 hypothyroidism 10 history of COPD/asthma currently inactive in stable 11 gout 12 carotid artery disease 13 osteoarthritis 14 chronic back pain related to L2/L3 compression fracture of the spine along with scoliosis Plan The patient on Eliquis 10 mg by mouth twice a day gradually for one week and then drop it down to 5 mg by mouth twice a day. Stopped IV heparin. Kidney failure is improved and her kidney function is normalized and I'm not sure the patient has any form of chronic kidney failure. Her most recent creatinine is down to 0.9 and the GFR is up to 58. No evidence of any acute bleeding. She remains in atrial fibrillation. Rate is controlled for now. Stop Uloric and Recommend start the patient on allopurinol. We'll continue to follow.
[2019-02-16] MEDS: APIXABAN 5 MG TAB PO SCH ×2 (10:21→20:46)
[2019-02-16] MEDS: MULTIVITAMINS, THERA 1 EACH TAB PO SCH (11:37)
[2019-02-16] MEDS: CHOLECALCIFEROL 1,000 UNIT TAB PO SCH (11:41)
--- NOTE | 2019-02-16 11:49 | PN ---
PROGRESS NOTE Patient is seen for followup for chronic kidney disease. She was admitted with pleuritic pain on the right side and was found to have a right upper lobe PE and is maintained on IV heparin. The creatinine was 1.3 on admission. It is down to 0.96 now. She is maintained on IV fluids. Denies any complaints and the pleuritic pain is also improved. PHYSICAL EXAMINATION: This morning blood pressure was 119/104, heart rate 83 per minute. She is afebrile. Examination of the heart, S1, S2. Examination of the lungs, bilateral breath sounds are heard. Abdomen is soft, nontender. Examination of the lower extremities shows no significant edema. MANAGER FITNESS exam is grossly intact. LABS: Show sodium 138, potassium 4.5, BUN 35, serum creatinine 0.96, hemoglobin 12.2 g/dL. ASSESSMENT: 1. Acute kidney injury, prerenal, currently improved. 2. Chronic kidney disease. stage III, secondary to nephrosclerosis. 3. Acute pulmonary embolism, right upper lobe maintained on anticoagulation. 4. Chronic atrial fibrillation. 5. History of left occipital deep venous thrombosis and previous pulmonary embolism. 6. Hyperuricemia and gout, maintained on allopurinol. Patient was not able to afford the Uloric. May continue with the allopurinol. PLAN: Continue with the BECKY inhibitors. Continue with the Lasix p.o. At this time, her renal function has improved since admission. Previous creatinine had been at about 1.3- 1.2 mg/dL as outpatient during her office visit. Her serum creatinine may have improved secondary to recent fluid administration. UA is completely benign. MMODL / IJN: [id number] /
--- NOTE | 2019-02-16 12:09 | P.PN ---
Subjective Progress Note Date: 02/16/19 This is a 73-year-old female patient who presented to the ER with complaints of shortness of breath and pleuritic chest pain. Patient reports she was watching TV last night when she started to experience this discomfort. Patient reports that this pain felt similar to the previous when she had with a pulmonary embolism. Patient does have a past medical history of pulmonary embolism in which she is on Coumadin. Patient's INR was subtherapeutic on admission. Patient does report that she has had an increase in consumption of leafy green vegetables. Additional medical history includes A. fib, asthma, heart failure, COPD, GI bleed, hyperlipidemia, hypertension, osteoarthritis,thyroid disorder, diverticulosis, emphysema, chronic low back pain and ex-smoker. Initial chest x-ray completed showing no evidence for acute pulmonary disease. EKG completed showing A. fib with left axis deviation right bundle branch block. d-dimer elevated at 0.88. VQ scan completed showing findings consistent with pulmonary embolism involving the posterior segment of the right. Patient was started on heparin drip at this time. Pulmonary services have been consulted. Patient also having increased swelling to lower extremities. Patient does have a history of DVTs. Patient reports this time does appear chronic but will order venous Doppler to rule out DVT at this time. Patient's creatinine also slightly elevated at 1.36. Patient states she does follow with nephrology services. These levels do appear chronic. At this time patient is still complaining of moderate amount of chest pain. Patient denies significant shortness breath. Patient denies nausea vomiting or diarrhea. Patient denies any urinary burning or frequency. On 02/16/2019 patient is alert and oriented 3. Venous Doppler completed showing negative for DVT. Patient has been switched to eliquis for oral anticoagulation. Co-pay will be $40. This was discussed with patient per case management patient is willing to pay at this time. At this time patient is still having moderate amount of chest discomfort. Patient denies significant shortness breath. Patient denies nausea vomiting or diarrhea. Patient denies any urinary burning or frequency Objective - Vital Signs Vital signs: Vital Signs Temp 98.6 F 02/16/19 08:00 Pulse 83 02/16/19 08:00 Resp 24 02/16/19 08:00 BP 119/104 02/16/19 08:00 Pulse Ox 94 L 02/16/19 08:00 Intake & Output 02/15/19 02/16/19 02/16/19 18:59 06:59 18:59 Intake Total 162.691 250 176.232 Output Total 1150 Balance 162.691 -900 176.232 Weight 104.5 kg Intake: Intake, IV Titration 162.691 176.232 Amount Heparin Sod,Pork in 0.45% 162.691 176.232 NaCl 25,000 unit In 0.45 % NaCl 1 250ml.bag @ 18 UNITS/KG/HR 18.942 mls/hr IV .[id number] [facility] Rx#: [id number] Oral 250 Output: Urine 1150 Other: Voiding Method Bedside Commode Bedside Commode Bedside Commode # Voids 0 2 # Bowel Movements 1 - Exam Head normocephalic Neck supple Lungs clear to auscultation bilaterally no wheezing or crackles Heart regular rate and rhythm S1-S2, no rub or gallop Abdomen is soft nontender nondistended positive bowel sounds no hepatosplenomegaly Extremities no edema Neuro alert and orientated to 3 - Labs CBC & Chem 7: 02/16/19 05:07 02/16/19 05:07 Labs: Abnormal Lab Results - Last 24 Hours (Table) 02/15/19 02/15/19 02/15/19 Range/Units 07:06 14:36 22:12 WBC (3.8-10.6) k/uL MCHC (31.0-37.0) g/dL RDW (11.5-15.5) % Neutrophils # (1.3-7.7) k/uL APTT 95.8 H 61.0 H (22.0-30.0) sec Chloride 110 H (98-107) mmol/L Carbon Dioxide 17 L (22-30) mmol/L BUN 49 H (7-17) mg/dL Creatinine 1.34 H (0.52-1.04) mg/dL Glucose 102 H (74-99) mg/dL Total Protein (6.3-8.2) g/dL Albumin (3.5-5.0) g/dL 02/16/19 02/16/19 02/16/19 Range/Units 05:07 05:07 05:07 WBC 10.8 H (3.8-10.6) k/uL MCHC 29.8 L (31.0-37.0) g/dL RDW 15.8 H (11.5-15.5) % Neutrophils # 7.9 H (1.3-7.7) k/uL APTT 49.7 H (22.0-30.0) sec Chloride 109 H (98-107) mmol/L Carbon Dioxide (22-30) mmol/L BUN 35 H (7-17) mg/dL Creatinine (0.52-1.04) mg/dL Glucose 127 H (74-99) mg/dL Total Protein 6.0 L (6.3-8.2) g/dL Albumin 3.3 L (3.5-5.0) g/dL Assessment and Plan Assessment: 1. Pleuritic chest pain due to pulmonary embolism. VQ scan completed showing findings consistent with pulmonary embolism involving the posterior segment of the right upper lobe. Patient's INR was subtherapeutic of 1.3. Patient has been on Coumadin for PE and atrial fibrillation. Patient started on heparin drip. Patient has been switched to eliquis for oral anticoagulation. Patient's co-pay will be $40 this was discussed with patient. Patient is able to afford. 2. Lower extremity edema and erythema. Venous Doppler negative for bilateral DVTs 3. chronic Atrial fibrillation. Patient has been maintained on Coumadin. Subtherapeutic. Patient currently on heparin drip for PE 4. History of asthma. 5. Chronic kidney disease stage III. Creatinine 1.34. This does appear baseline patient will continue to monitor outpatient is receiving her home dose of Lasix and lisinopril. Creatinine improving to 0.96 and bun 35. Nephrology services are following 6. Hypothyroidism. Continue Synthroid 7. Essential hypertension. Home meds resumed 8. Scoliosis with chronic back pain 9. History of L2 and L3 chronic compression fracture 10. Chronic diastolic congestive heart failure. BNP 1480 on admission. Home dose Lasix resumed. 2-D echo has been ordered 11. History of osteoarthritis 12. Hyperuricemia and gout. Patient has been switched to allopurinol due to cost DVT prophylaxis eliquis. GI prophylaxis Protonix I performed an examination of the patient and discussed their management with the Nurse Practitioner. I have reviewed the Nurse Practitioner's notes and agree with the documented findings and plan of care
--- NOTE | 2019-02-16 18:37 | ECHOF ---
Referral Reason:Pulmonary Embolism MEASUREMENTS -------- HEIGHT: 152.4 cm WEIGHT: 14.5 kg BP: RVIDd: 3.5 cm (< 3.3) IVSd: 1.4 cm (0.6 - 1.1) LVIDd: 4.4 cm (3.9 - 5.3) LVPWd: 1.1 cm (0.6 - 1.1) IVSs: 1.5 cm LVIDs: 3.6 cm LVPWs: 1.2 cm LA Diam: 5.8 cm (2.7 - 3.8) LAESV Index (A-L): 133.14 ml/m Ao Diam: 2.8 cm (2.0 - 3.7) AV Cusp: 1.9 cm (1.5 - 2.6) LA Diam: 6.2 cm (2.7 - 3.8) MV EXCURSION: 21.866 mm (> 18.000) MV EF SLOPE: 75 mm/s (70 - 150) EPSS: 0.3 cm MV E Tam: 1.00 m/s MV DecT: 118 ms MV A Tam: 0.26 m/s MV E/A Ratio: 3.77 RAP: 5.00 mmHg RVSP: 50.92 mmHg FINDINGS -------- Atrial fibrillation. The left ventricular size is normal. Left ventricular wall thickness is normal. Overall left vent ricular systolic function is low-normal with, an EF between 50 - 55 %. The right ventricle is moderate to severely enlarged. The left atrium is markedly dilated. LA is severely dilated >40 ml/m2 The right atrial size is normal. 1.5MG OF DEFINITY UTLIZED: 2 OR MORE WALL SEGMENTS NOT VISUALIZED. There is mild aortic valve sclerosis. There is no evidence of aortic regurgitation. Mild mitral annular calcification present. Moderate mitral regurgitation is present. Moderate tricuspid regurgitation present. There is moderate pulmonary hypertension. The right julia tricular systolic pressure, as measured by Doppler, is 50.92mmHg. There is no pulmonic regurgitation present. The aortic root size is normal. There is no pericardial effusion. CONCLUSIONS -------- 1. The left ventricular size is normal. 2. Left ventricular wall thickness is normal. 3. Overall left ventricular systolic function is low-normal with, an EF between 50 - 55 %. 4. The right ventricle is moderate to severely enlarged. 5. The left atrium is markedly dilated. 6. LA is severely dilated >40 ml/m2 7. The right atrial size is normal. 8. 1.5MG OF DEFINITY UTLIZED: 2 OR MORE WALL SEGMENTS NOT VISUALIZED. 9. There is mild aortic valve sclerosis. 10. Mild mitral annular calcification present. 11. Moderate mitral regurgitation is present. 12. Moderate tricuspid regurgitation present. 13. There is moderate pulmonary hypertension. 14. The right ventricular systolic pressure, as measured by Doppler, is 50.92mmHg. 15. There is no pulmonic regurgitation present. 16. The aortic root size is normal. 17. There is no pericardial effusion. LICENSED MENTAL HEALTH PROFESSIONAL: Lauren Major RDCS
--- NOTE | 2019-02-16 20:13 | P.CRDCN ---
History of Present Illness History of present illness: This is Dr. Bateman dictating a consult on this patient The patient was interviewed and examined by me IMPRESSION / ASSESSMENT: Acute pulmonary embolus of Despite being on Coumadin Atrial fibrillation with RVR on beta blockers heart rates 9200 bpm PLAN: Continue same dose of beta blockers at this time and hopefully once the pulmonary embolism begins to resolve heart rates will improve Agree with switching to a NOAC HPI Patient was admitted with right chest discomfort which is worse with breathing no syncope no swelling in the legs history of DVT Currently her Coumadin level was being regulated ROS: No fever chills or rigors, no cough, phlegm or expectoration, no nausea, vomiting or diarrhea, no hematuria, dysuria, no musculoskeletal complaints, no strokes or seizures, no skin lesions. EXAMINATION: Blood pressure 126/90 mmHg respirations 16 pulse rate 9200 beats a minute irregular atrial fibrillation Breath sounds are reduced bilaterally Heart sounds. Soft but irregular Abdomen soft nontender The patient looks comfortable REVIEW OF LABS, ECG & MEDICAL DATA White count 11,000, hemoglobin 12.2 Sodium 138 potassium 4.5 2-D echo shows left ventricular ejection fraction of 55% RV is moderate to severely enlarged, RVSP 50 m of mercury Severe dilation of the LAD Pulmonalis and involving the posterior segment of the right upper lobe Past Medical History Past Medical History: Atrial Fibrillation, Asthma, COPD, GI Bleed, Hyperlipidemia, Hypertension, Osteoarthritis (OA), Pulmonary Embolus (PE), Renal Disease, Thyroid Disorder Additional Past Medical History / Comment(s): Chronic atrial fibrillation, previous history of a popliteal left lower extremity DVT and pulmonary embolism, obesity, bronchial asthma/COPD, previous history of GI bleed secondary to diverticulosis, hypertension, hyperlipidemia, hypothyroidism, chronic renal failure, osteoarthritis him a umbilical hernia, carotid artery disease, chronic back pain, gout, chronic stage III kidney disease History of Any Multi-Drug Resistant Organisms: MRSA Date of last positivie culture/infection: 07/16/17 MDRO Source:: Left First Toe Past Surgical History: Orthopedic Surgery, Tubal Ligation Additional Past Surgical History / Comment(s): d&c,colonoscopy, orif lt ankle has plate and screws.lt knee arthroscopy, skin biopsy on left upper foot Past Anesthesia/Blood Transfusion Reactions: No Reported Reaction Past Psychological History: No Psychological Hx Reported Additional Psychological History / Comment(s): lives alone single level home that has 4 [address], uses crutch towalk with.no home care services, has nebulizer Smoking Status: Former smoker Past Alcohol Use History: Daily Additional Past Alcohol Use History / Comment(s): started smoking 1979 smoked off and on then quit in 1999. smoked 1 ppd. stated has 1 drink hs daily Past Drug Use History: None Reported - Past Family History Father Additional Family Medical History / Comment(s): had tb at age 55, lt leg amp.heart problems. Mother History Unknown: Yes Family Medical History: Dementia, Diabetes Mellitus Medications and Allergies Home Medications Medication Instructions Recorded Confirmed Type Acetaminophen Tab [Tylenol] 500 mg PO DAILY PRN 06/06/15 02/14/19 History Levothyroxine Sodium [Synthroid] 50 mcg PO DAILY 06/06/15 02/14/19 History Multivitamins, Thera [Multivitamin 1 tab PO DAILY 06/06/15 02/14/19 History (formulary)] Metoprolol Tartrate [Lopressor] 50 mg PO BID #60 tab 06/13/15 02/14/19 Rx Spironolactone [Aldactone] 25 mg PO DAILY 08/04/18 02/14/19 History Warfarin Sodium 2 mg PO SUTUWETHFRSA 08/04/18 02/14/19 History Warfarin Sodium 4 mg PO MO 08/04/18 02/14/19 History Lisinopril [Zestril] 20 mg PO DAILY #30 tab 08/10/18 02/14/19 Rx Atorvastatin [Lipitor] 40 mg PO HS 02/14/19 02/14/19 History Cholecalciferol [Vitamin D3] 5,000 unit PO DAILY 02/14/19 02/14/19 History Febuxostat [Uloric] 40 mg PO DAILY 02/14/19 02/14/19 History Furosemide [Lasix] 40 mg PO BID 02/14/19 02/14/19 History Allergies Allergy/AdvReac Type Severity Reaction Status Date / Time adhesive Allergy Rash/Hives Verified 02/14/19 15:01 cefaclor [From Ceclor] Allergy Rash/Hives Verified 02/14/19 15:01 Penicillins Allergy Unknown Verified 02/14/19 15:01 povidone-iodine Allergy Rash/Hives Verified 02/14/19 15:01 [From Betadine] soap [From Betadine] Allergy Rash/Hives Verified 02/14/19 15:01 hydromorphone [From Dilaudid] AdvReac Unknown Verified 02/15/19 06:08 Physical Exam Vitals: Vital Signs Temp Pulse Resp BP Pulse Ox 02/16/19 16:00 98.3 F 92 20 137/82 94 L 02/16/19 14:00 80 25 H 126/90 02/16/19 12:00 98.3 F 79 16 126/90 95 02/16/19 08:00 98.6 F 83 24 119/104 94 L 02/16/19 05:00 94 21 128/73 95 02/16/19 04:00 98.7 F 89 20 95 02/16/19 03:00 96 19 94 L 02/16/19 02:00 116 H 25 H 02/16/19 01:00 88 18 96 02/16/19 00:01 92 68 H 146/83 95 02/16/19 00:00 98.5 F 92 20 146/83 98 02/15/19 22:00 93 22 137/74 98 02/15/19 21:00 152 H 59 H 137/74 Intake and Output 02/16/19 02/16/19 02/16/19 06:59 14:59 22:59 Intake Total 656.232 Output Total 550 Balance -550 656.232 Intake: Intake, IV Titration 176.232 Amount Heparin Sod,Pork in 0.45% 176.232 NaCl 25,000 unit In 0.45 % NaCl 1 250ml.bag @ 18 UNITS/KG/HR 18.942 mls/hr IV .[id number] [facility] Rx#: [id number] Oral 480 Output: Urine 550 Other: Voiding Method Bedside Commode Bedside Commode Bedside Commode # Voids 2 1 2 # Bowel Movements 1 Weight 104.5 kg Results 02/16/19 05:07 02/16/19 05:07 Cardiac Enzymes 02/16/19 Range/Units 05:07 AST 19 (14-36) U/L Coagulation 02/15/19 02/16/19 Range/Units 22:12 05:07 APTT 61.0 H 49.7 H (22.0-30.0) sec CBC 02/16/19 Range/Units 05:07 WBC 10.8 H (3.8-10.6) k/uL RBC 4.55 (3.80-5.40) m/uL Hgb 12.2 (11.4-16.0) gm/dL Hct 41.1 (34.0-46.0) % Plt Count 299 (150-450) k/uL Comprehensive Metabolic Panel 02/16/19 Range/Units 05:07 Sodium 138 (137-145) mmol/L Potassium 4.5 (3.5-5.1) mmol/L Chloride 109 H (98-107) mmol/L Carbon Dioxide 22 (22-30) mmol/L BUN 35 H (7-17) mg/dL Creatinine 0.96 (0.52-1.04) mg/dL Glucose 127 H (74-99) mg/dL Calcium 9.4 (8.4-10.2) mg/dL AST 19 (14-36) U/L ALT 19 (9-52) U/L Alkaline Phosphatase 79 (38-126) U/L Total Protein 6.0 L (6.3-8.2) g/dL Albumin 3.3 L (3.5-5.0) g/dL Current Medications Generic Name Dose Route Start Last Admin Trade Name Freq PRN Reason Stop Dose Admin Acetaminophen 500 mg 02/15/19 01:17 02/16/19 09:30 Tylenol Tab PO 500 mg Q4HR PRN Administration Fever and/ or Pain Allopurinol 200 mg 02/16/19 09:00 02/16/19 09:29 Zyloprim PO 200 mg DAILY MACKENZIE Administration Apixaban 10 mg 02/16/19 09:45 02/16/19 10:21 Eliquis PO 02/22/19 09:42 10 mg BID MACKENZIE Administration Atorvastatin Calcium 40 mg 02/15/19 21:00 02/15/19 21:14 Lipitor PO 40 mg HS MACKENZIE Administration Cholecalciferol 5,000 unit 02/16/19 12:00 02/16/19 11:41 Vitamin D3 PO 5,000 unit 1200 MACKENZIE Administration Furosemide 40 mg 02/15/19 16:00 02/16/19 16:05 Lasix PO 40 mg BID@0900,1600 MACKENZIE Administration Levothyroxine Sodium 50 mcg 02/15/19 09:00 02/16/19 05:46 Synthroid PO 50 mcg DAILY@0630 MACKENZIE Administration Lisinopril 20 mg 02/16/19 12:00 02/16/19 11:37 Zestril PO 20 mg DAILY MACKENZIE Administration Metoprolol Tartrate 50 mg 02/15/19 09:00 02/16/19 09:29 Lopressor PO 50 mg BID MACKENZIE Administration Multivitamins 1 each 02/16/19 12:00 02/16/19 11:37 Theragran PO 1 each 1200 MACKENZIE Administration Naloxone HCl 0.2 mg 02/14/19 18:40 Narcan IV Q2M PRN Opioid Reversal Ondansetron HCl 4 mg 02/15/19 15:33 Zofran IVP Q6HR PRN Vomiting Pantoprazole Sodium 40 mg 02/16/19 07:30 02/16/19 09:29 Protonix PO 40 mg AC-BRKFST MACKENZIE Administration Spironolactone 25 mg 02/16/19 09:00 02/16/19 09:29 Aldactone PO 25 mg DAILY MACKENZIE Administration Intake and Output 02/16/19 02/16/19 02/16/19 06:59 14:59 22:59 Intake Total 656.232 Output Total 550 Balance -550 656.232 Intake: Intake, IV Titration 176.232 Amount Heparin Sod,Pork in 0.45% 176.232 NaCl 25,000 unit In 0.45 % NaCl 1 250ml.bag @ 18 UNITS/KG/HR 18.942 mls/hr IV .[id number] [facility] Rx#: [id number] Oral 480 Output: Urine 550 Other: Voiding Method Bedside Commode Bedside Commode Bedside Commode # Voids 2 1 2 # Bowel Movements 1 Weight 104.5 kg 02/16/19 05:07 02/16/19 05:07
[2019-02-16] MEDS: ATORVASTATIN 40 MG TAB PO SCH (20:46)
[2019-02-17] MEDS: ACETAMINOPHEN TAB 500 MG TAB PO PRN ×2 (00:27→08:53)
[2019-02-17 05:43] LABS: Basophils % (A) 0 %; Eosinophils # (A) 0.1 k/uL (0-0.7); Eosinophils % (A) 1 %; HCT 38.3 % (34.0-46.0); HGB 11.7 gm/dL (11.4-16.0); Hypochromasia Slight; Lymphocytes # (A) 1.5 k/uL (1.0-4.8); Lymphocytes % (A) 18 %; MCHC 30.4 g/dL (31.0-37.0); MCV 88.9 fL (80.0-100.0); Mean Platelet Volume 7.2; Monocytes # (A) 0.9 k/uL (0-1.0); Monocytes % (A) 10 %; Neutrophils # (A) 5.7 k/uL (1.3-7.7); Neutrophils % (A) 68 %; Platelet Count 285 k/uL (150-450); RBC 4.31 m/uL (3.80-5.40); RDW 15.8 % (11.5-15.5); WBC 8.3 k/uL (3.8-10.6)
[2019-02-17 05:56] LABS: Albumin 3.1 g/dL (3.5-5.0); Calcium 8.8 mg/dL (8.4-10.2); Potassium 4.3 mmol/L (3.5-5.1); Total Bilirubin 0.6 mg/dL (0.2-1.3); Total Protein 5.6 g/dL (6.3-8.2)
[2019-02-17] MEDS: LEVOTHYROXINE 50 MCG TAB PO SCH (07:01)
[2019-02-17] MEDS: PANTOPRAZOLE 40 MG TABLET PO SCH (07:01)
--- NOTE | 2019-02-17 08:45 | XR ---
EXAMINATION TYPE: XR chest 1V portable DATE OF EXAM: 02/17/2019 HISTORY: Shortness of breath. COMPARISON: 02/14/2019 TECHNIQUE: Single view of the chest is submitted. FINDINGS: Demonstrated are scattered senescent parenchymal change. There is cardiomegaly with basilar patchy infiltrates. Correlate for underlying pneumonia. Hilar and mediastinal structures are within normal limits. Degenerative changes are seen of the dorsal spine. Severe scoliosis of the lumbar spine. IMPRESSION: 1. Correlate for right lower lobe pneumonia.
[2019-02-17] MEDS: ALLOPURINOL 100 MG TAB PO SCH (08:52)
[2019-02-17] MEDS: METOPROLOL TARTRATE 50 MG TAB PO SCH (08:53)
[2019-02-17] MEDS: APIXABAN 5 MG TAB PO SCH (08:53)
[2019-02-17] MEDS: FUROSEMIDE 40 MG TAB PO SCH ×2 (08:53→15:26)
[2019-02-17] MEDS: SPIRONOLACTONE 25 MG TAB PO SCH (08:53)
[2019-02-17] MEDS ORDERED: LISINOPRIL 20 MG TAB PO SCH (12:00)
[2019-02-17] MEDS: MULTIVITAMINS, THERA 1 EACH TAB PO SCH (13:11)
[2019-02-17] MEDS: CHOLECALCIFEROL 1,000 UNIT TAB PO SCH (13:11)
[2019-02-17 13:56] LABS: Appearance,Urine Clear (Clear); Bilirubin,Urine Negative (Negative); Blood,Urine Negative (Negative); Color,Urine Yellow; Glucose,Urine (UA) Negative (Negative); Ketones,Urine Negative (Negative); Leukocyte Esterase,Urine Negative (Negative); Nitrite,Urine Negative (Negative); PH, Urine 5.5 (5.0-8.0); Protein,Urine Negative (Negative); Specific Gravity,Urine 1.013 (1.001-1.035); Urobilinogen,Urine <2.0 mg/dL (<2.0)
[2019-02-17] MEDS ORDERED: methylPREDNISolone SOD SUCCI 125 MG/2 ML VIAL IV STA (14:45)
--- NOTE | 2019-02-17 14:58 | P.PN ---
Subjective Progress Note Date: 02/17/19 This is a very pleasant 73-year-old female patient was coming in when acute pleuritic right upper lung chest pain. The pain is worse with deep breathing. It occurred acutely. 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 Unfortunately the patient has been able to get her warfarin regulated. She was subtherapeutic last week. She was asked to take additional Coumadin and at time of admission to the hospital the patient's INR was also low with an INR of 1.3. Immediately patient was started on IV heparin. D-dimer was 0.8. VQ scan showed mismatched defect in the right upper lobe consistent with the area where the patient is symptomatic. CT angiogram was not done as the patient's ear canal was at 1.3. The patient has no pain in her lower extremities. No swelling in lower extremities. His echocardiogram from 2 years ago showed no evidence of any pulmonary hypertension. She is hemodynamically stable. No hemoptysis. No fever. No chills. No other complaints otherwise for now. We are seeking a different anticoagulants such as Eliquis or Xarelto on this patient.this patient has history of chronic atrial fibrillation. The patient also has previous history of diverticulosis and previous history of GI bleed, currently inactive and stable. She is known to have hypertension, hyperlipidemia, hypothyroidism, umbilical hernia and osteoarthritis. The patient is also known to have carotid artery stenosis. On today's evaluation of 02/16/2019 I'm seeing this patient for a follow-up H is doing well. The first is improved although it is still present and the pain is subsided considerably. The patient is on IV heparin. We were able to check her coverage for Xarelto on Eliquis and the patient will be started and one of these agents today. She remains on IV heparin. Doppler of the lower extremity was negative. Kidney function is improved. We will going also to switch her from uloric to allopurinol. No other significant events otherwise. On 02/17/2019 I'm seeing this patient for a follow-up. The patient is currently on Eliquis. Doing extremely well from the pulmonary standpoint. No significant pleurisy. Meanwhile, the patient is complaining of some gouty pain in lower extremities bilaterally. She has some limited edema in her lower extremities. She is currently on Lasix 40 mg by mouth twice a day. She is on Eliquis 10 mg by mouth twice a day regarding her history of pulmonary embolism. Hemodynamically stable. She'll be transferred out of the intensive care unit today. She remains in atrial fibrillation which is a chronic issue. The patient is on beta blockers. No other complaints otherwise for now. No significant shortness of breath, cough or sputum production. No nausea. No vomiting. No diarrhea. Objective - Vital Signs Vital signs: Vital Signs Temp 98.2 F 02/17/19 11:46 Pulse 97 02/17/19 11:46 Resp 18 02/17/19 11:46 BP 112/47 02/17/19 11:46 Pulse Ox 98 02/17/19 11:46 Intake & Output 02/16/19 02/17/19 02/17/19 18:59 06:59 18:59 Intake Total 656.232 840 Output Total 1 Balance 656.232 -1 840 Weight 103.7 kg Intake: Intake, IV Titration 176.232 Amount Heparin Sod,Pork in 0.45% 176.232 NaCl 25,000 unit In 0.45 % NaCl 1 250ml.bag @ 18 UNITS/KG/HR 18.942 mls/hr IV .[id number] [facility] Rx#: [id number] Oral 480 840 Output: Urine 1 Other: Voiding Method Bedside Commode Bedside Commode Bedside Commode # Voids 2 400 2 # Bowel Movements 1 - Exam obese, comfortable likely distress Head exam was generally normal. There was no scleral icterus or corneal arcus. Mucous membranes were moist. Neck was supple and without jugular venous distension, thyromegaly, or carotid bruits. Carotids were easily palpable bilaterally. There was no adenopathy., Mallampati class IV. Lungs sounds are diminished bilaterally. No wheezes or rhonchi. Full crackles in lung bases. Cardiac exam revealed the PMI to be normally situated and sized. The rhythm was irregular and no extrasystoles were noted during several minutes of auscultation. The first and second heart sounds were irregular consistent with atrial fibrillation and physiologic splitting of the second heart sound was noted. There were no murmurs, rubs, clicks, or gallops. Abdominal exam revealed normal bowel sounds. The abdomen was soft, non-tender, and without masses, organomegaly, or appreciable enlargement of the abdominal aorta. Examination of the extremities revealed easily palpable radial, femoral and pedal pulses. There was no cyanosis, clubbing or edema.There are changes consistent with chronic venous stasis involving lower extremity is bilaterally. Examination of the skin revealed no evidence of significant rashes, suspicious appearing nevi or other concerning lesions. Neurologically the patient is awake and alert and is no focal neurological deficit. Psychiatrically the patient has no anxiety or depression. - Labs CBC & Chem 7: 02/17/19 04:25 02/17/19 04:25 Labs: Abnormal Lab Results - Last 24 Hours (Table) 02/17/19 02/17/19 Range/Units 04:25 04:25 MCHC 30.4 L (31.0-37.0) g/dL RDW 15.8 H (11.5-15.5) % Chloride 108 H (98-107) mmol/L BUN 33 H (7-17) mg/dL Creatinine 1.07 H (0.52-1.04) mg/dL Glucose 113 H (74-99) mg/dL Total Protein 5.6 L (6.3-8.2) g/dL Albumin 3.1 L (3.5-5.0) g/dL Assessment and Plan Plan: assessment 1 acute right upper lobe pulmonary embolism. Clinical presentation is typical. The patient is known to have previous history of DVT and pulmonary embolism. The patient was subtherapeutic on her INR at time of admission. Furthermore, the patient had a mildly elevated d-dimer and VQ scan is showing a mismatch defect in the right upper lobe consistent with her symptoms. I am confident that the patient had a pulmonary embolism involving the right upper lobe. The patient is currently Eliquis and the patient is doing well with improvement in symptoms of pleurisy 2 thick chest pain, improving 3 obesity with BMI 43.8 4 chronic atrial fibrillation, rate controlled 5 previous history of a left orbital DVT and pulmonary embolism 6 previous history of diverticular bleed 7 hypertension 8 hyperlipidemia 9 hypothyroidism 10 history of COPD/asthma currently inactive in stable 11 gout 12 carotid artery disease 13 osteoarthritis 14 chronic back pain related to L2/L3 compression fracture of the spine along with scoliosis Plan Continue the patient on Eliquis 10 mg by mouth twice a day gradually for one week and then drop it down to 5 mg by mouth twice a day. Renal function is stable. Electrolytes are normal. The patient is having some gouty pain and this will be deferred to medicine for treatment. The patient can leave the ICU and possibly home either today or within the next 24 hours.
--- NOTE | 2019-02-17 15:04 | P.DS ---
Providers Date of admission: 02/14/19 18:27 Expected date of discharge: 02/17/19 Attending physician: Miguel Hardwick Consults: 02/14/19 19:02 Consult Physician Routine Consulting Provider: Ladonna Parks Consult Reason/Comments: pulmonary embolism Do you want consulting provider notified?: Yes, Notify in am Primary care physician: Miguel Hardwick [facility] Course: Discharge diagnosis 1. Pleuritic chest pain due to pulmonary embolism. VQ scan completed showing findings consistent with pulmonary embolism involving the posterior segment of the right upper lobe. Patient's INR was subtherapeutic of 1.3. Patient has been on Coumadin for PE and atrial fibrillation. Patient started on heparin drip. Patient has been switched to eliquis for oral anticoagulation. Patient's co-pay will be $40 this was discussed with patient. Patient is able to afford. Patient will be on Eliquis 10 mg twice a day for one week and then switched to Eliquis 5 mg twice a day. Patient will likely need to be on Eliquis lifelong. She's had previous history of PE and DVT. As well as history of atrial fibrillation. 2. Lower extremity edema and erythema. Venous Doppler negative for bilateral DVTs 3. chronic Atrial fibrillation with episode of rapid ventricular response. Patient has been maintained on Coumadin. Subtherapeutic. Patient currently on heparin drip for PE 4. History of asthma. 5. Chronic kidney disease stage III. Creatinine 1.34. This does appear baseline patient will continue to monitor outpatient is receiving her home dose of Lasix and lisinopril. Creatinine improving to 0.96 and bun 35. Nephrology services are following 6. Hypothyroidism. Continue Synthroid 7. Essential hypertension. Home meds resumed 8. Scoliosis with chronic back pain 9. History of L2 and L3 chronic compression fracture 10. Chronic diastolic congestive heart failure. BNP 1480 on admission. Home dose Lasix resumed. 11. History of osteoarthritis 12. Hyperuricemia and gout. Patient has been switched to allopurinol due to cost. Acute exacerbation of gout. Will give 1 dose of IV Solu-Medrol prior to discharge. And continue Medrol Dosepak at discharge 13. Pneumonia ruled out. Concerns for pneumonia on chest x-ray. Discussed with pulmonary service. They doubt that this is a pneumonia. No no need for antibiotics. Patient has no elevation in his white count. Has only had one low-grade temp of 99. No significant fever. 14. Acute kidney injury prerenal Hospital course This is a 73-year-old female patient who presented to the ER with complaints of shortness of breath and pleuritic chest pain. Patient reports she was watching TV last night when she started to experience this discomfort. Patient reports that this pain felt similar to the previous when she had with a pulmonary embolism. Patient does have a past medical history of pulmonary embolism in which she is on Coumadin. Patient's INR was subtherapeutic on admission. Patient does report that she has had an increase in consumption of leafy green vegetables. Additional medical history includes A. fib, asthma, heart failure, COPD, GI bleed, hyperlipidemia, hypertension, osteoarthritis,thyroid disorder, diverticulosis, emphysema, chronic low back pain and ex-smoker. Initial chest x-ray completed showing no evidence for acute pulmonary disease. EKG completed showing A. fib with left axis deviation right bundle branch block. d-dimer elevated at 0.88. VQ scan completed showing findings consistent with pulmonary embolism involving the posterior segment of the right. Patient was started on heparin drip at this time. Pulmonary services have been consulted. Patient also having increased swelling to lower extremities. Patient does have a history of DVTs. Patient reports this time does appear chronic but will order venous Doppler to rule out DVT at this time. Patient's creatinine also slightly elevated at 1.36. Patient states she does follow with nephrology services. These levels do appear chronic. At this time patient is still complaining of moderate amount of chest pain. Patient denies significant shortness breath. Patient denies nausea vomiting or diarrhea. Patient denies any urinary burning or frequency. On 02/16/2019 patient is alert and oriented 3. Venous Doppler completed showing negative for DVT. Patient has been switched to eliquis for oral anticoagulation. Co-pay will be $40. This was discussed with patient per case management patient is willing to pay at this time. At this time patient is still having moderate amount of chest discomfort. Patient denies significant shortness breath. Patient denies nausea vomiting or diarrhea. Patient denies any urinary burning or frequency 02/17/2019 patient's shortness of breath and pleuritic chest pain have improved. She was found to have evidence of PE and initially placed on IV heparin during this admission. She's been switched over to Eliquis. Her INR was subtherapeutic on admission. Patient reports that she ate a lot of green vegetables. And had difficulty with maintaining her INR. Due to her previous history of PE and DVT is recommended that she is switched over to Eliquis. She is able to pay to 40 co-pay. And again symptoms have improved. Patient will likely need to be on anticoagulation lifelong. She's been given the Eliquis starter pack. Patient also treated for acute gout. Patient is medical stable for discharge. Please refer to chart for details. Patient will follow up with nephrology and pulmonary service at time of discharge. Patient also seen by cardiology during this admission. They are agreeable patient would benefit from starting Eliquis. I performed an examination of the patient and discussed their management with the physician Pre Sales Architect. I have reviewed the Physician Pre Sales Architect's notes and agree with the documented findings and plan of care Patient Condition at Discharge: Stable Plan - Discharge Summary Discharge Rx Participant: Yes New Discharge Prescriptions: New Apixaban [Eliquis] 10 mg PO BID #12 tab Apixaban [Eliquis] 5 mg PO BID #60 tab methylPREDNISolone Dose Pack [Medrol Dose Pack] 4 mg PO DIRECTED #21 package Allopurinol [Zyloprim] 200 mg PO DAILY #30 tab Continue Acetaminophen Tab [Tylenol] 500 mg PO DAILY PRN PRN Reason: Pain Levothyroxine Sodium [Synthroid] 50 mcg PO DAILY Multivitamins, Thera [Multivitamin (formulary)] 1 tab PO DAILY Metoprolol Tartrate [Lopressor] 50 mg PO BID #60 tab Spironolactone [Aldactone] 25 mg PO DAILY Lisinopril [Zestril] 20 mg PO DAILY #30 tab Furosemide [Lasix] 40 mg PO BID Atorvastatin [Lipitor] 40 mg PO HS Cholecalciferol [Vitamin D3] 5,000 unit PO DAILY Discontinued Warfarin Sodium 4 mg PO MO Warfarin Sodium 2 mg PO SUTUWETHFRSA Febuxostat [Uloric] 40 mg PO DAILY Discharge Medication List Acetaminophen Tab [Tylenol] 500 mg PO DAILY PRN 06/06/15 [History] Levothyroxine Sodium [Synthroid] 50 mcg PO DAILY 06/06/15 [History] Multivitamins, Thera [Multivitamin (formulary)] 1 tab PO DAILY 06/06/15 [History] Metoprolol Tartrate [Lopressor] 50 mg PO BID #60 tab 06/13/15 [Rx] Spironolactone [Aldactone] 25 mg PO DAILY 08/04/18 [History] Lisinopril [Zestril] 20 mg PO DAILY #30 tab 08/10/18 [Rx] Atorvastatin [Lipitor] 40 mg PO HS 02/14/19 [History] Cholecalciferol [Vitamin D3] 5,000 unit PO DAILY 02/14/19 [History] Furosemide [Lasix] 40 mg PO BID 02/14/19 [History] Allopurinol [Zyloprim] 200 mg PO DAILY #30 tab 02/17/19 [Rx] Apixaban [Eliquis] 5 mg PO BID #60 tab 02/17/19 [Rx] Apixaban [Eliquis] 10 mg PO BID #12 tab 02/17/19 [Rx] methylPREDNISolone Dose Pack [Medrol Dose Pack] 4 mg PO DIRECTED #21 package 02/17/19 [Rx] Follow up Appointment(s)/Referral(s): [facility], [NON-STAFF] - 1-2 Days Miguel Hardwick MD [Primary Care Provider] - 1 Week Emma Kim MD [STAFF PHYSICIAN] - 1 Week Ladonna Parks MD [STAFF PHYSICIAN] - 1 Week Patient Instructions/Handouts: Allopurinol (By mouth), Methylprednisolone (By mouth), Apixaban (By mouth), Pulmonary Embolism (DC) Activity/Diet/Wound Care/Special Instructions: Diet: cardiac Activity: as tolerated Discharge Disposition: HOME WITH HOME HEALTH SERVICES
[2019-02-17 16:35] VITALS: BP 122/77; PULSE 94; RESP 14; TEMP 97.7
== END 2019-02-17 19:09 | disposition home health service (06) | DRG 176 ==
LOC: EC 14:30 → 3SCARD 18:27 → 2SICU 02-15 09:14 → 3NMEDONC 02-17 10:30
PROVIDERS: ADMIT Internal Medicine; ATTEND Internal Medicine
DX: I26.99 Other pulmonary embolism without acute cor pulmonale (principal); I50.32 Chronic diastolic (congestive) heart failure; I13.0 Hypertensive heart and chronic kidney disease with heart failure and stage 1 through stage 4 chronic kidney disease, or unspecified chronic kidney disease; Z68.41 Body mass index [BMI] 40.0-44.9, adult; N17.9 Acute kidney failure, unspecified; E66.9 Obesity, unspecified; I48.2 Chronic atrial fibrillation; M41.9 Scoliosis, unspecified; J43.9 Emphysema, unspecified; I65.29 Occlusion and stenosis of unspecified carotid artery; I45.10 Unspecified right bundle-branch block; N18.3 Chronic kidney disease, stage 3 (moderate); F03.90 Unspecified dementia, unspecified severity, without behavioral disturbance, psychotic disturbance, mood disturbance, and anxiety; M19.90 Unspecified osteoarthritis, unspecified site; E78.5 Hyperlipidemia, unspecified; G89.29 Other chronic pain; S32.029S Unspecified fracture of second lumbar vertebra, sequela; S32.039S Unspecified fracture of third lumbar vertebra, sequela; E03.9 Hypothyroidism, unspecified; M10.9 Gout, unspecified; K42.9 Umbilical hernia without obstruction or gangrene; J45.909 Unspecified asthma, uncomplicated; Z79.890 Hormone replacement therapy; Z79.01 Long term (current) use of anticoagulants; Z79.899 Other long term (current) drug therapy; Z86.711 Personal history of pulmonary embolism; Z87.891 Personal history of nicotine dependence; Z86.14 Personal history of Methicillin resistant Staphylococcus aureus infection; Z86.718 Personal history of other venous thrombosis and embolism; Z98.51 Tubal ligation status; Z87.19 Personal history of other diseases of the digestive system; Z87.01 Personal history of pneumonia (recurrent); Z88.1 Allergy status to other antibiotic agents; Z88.0 Allergy status to penicillin; Z88.8 Allergy status to other drugs, medicaments and biological substances; Z91.048 Other nonmedicinal substance allergy status; Z83.1 Family history of other infectious and parasitic diseases; Z83.3 Family history of diabetes mellitus; Z81.8 Family history of other mental and behavioral disorders
CPT/HCPCS: 36415; 71045; 71046; 78582; 80053; 81003; 83880; 84484; 85025; 85379; 85610; 85730; 93005; 93306; 93970; 96365; 96366; 96376; 99285

== ENCOUNTER → 2019-05-19 | Outpatient (CLI) | payer MEDICARE, BC ==
[2019-05-19 12:34] LABS: Anisocytosis Slight; Basophils % (A) 1 %; Eosinophils # (A) 0.1 k/uL (0-0.7); Eosinophils % (A) 2 %; HCT 40.1 % (34.0-46.0); HGB 12.4 gm/dL (11.4-16.0); Hypochromasia Slight; Lymphocytes # (A) 1.6 k/uL (1.0-4.8); Lymphocytes % (A) 26 %; MCH 28.9 pg (25.0-35.0); MCHC 30.9 g/dL (31.0-37.0); MCV 93.6 fL (80.0-100.0); Mean Platelet Volume 7.4; Monocytes # (A) 0.4 k/uL (0-1.0); Monocytes % (A) 7 %; Neutrophils # (A) 3.8 k/uL (1.3-7.7); Neutrophils % (A) 63 %; Platelet Count 258 k/uL (150-450); RBC 4.28 m/uL (3.80-5.40); RDW 17.9 % (11.5-15.5); WBC 6.1 k/uL (3.8-10.6)
[2019-05-19 16:17] LABS: African American GFR (CKD) 33.4 (60.0-200.0); Albumin/Globulin Ratio 1.9 (1.60-3.17); Anion Gap 10.6 mmol/L (4.00-12.00); BUN/Creat Ratio 34.12 Ratio (12.00-20.00); Calcium 9.3 mg/dL (8.7-10.3); Carbon Dioxide 23.4 mmol/L (21.6-31.8); Globulin 2.1 g/dL (1.6-3.3); Total Bilirubin 0.5 mg/dL (0.3-1.2); Total Protein 6.1 g/dL (6.2-8.2)
[2019-05-19 19:12] LABS: Hemoglobin A1C 5.8 % (4.0-6.0)
== END | disposition home or self-care (01) ==
LOC: LABWHC1 11:27
PROVIDERS: ATTEND Internal Medicine
DX: E03.9 Hypothyroidism, unspecified (principal); E78.2 Mixed hyperlipidemia; I10 Essential (primary) hypertension; J44.9 Chronic obstructive pulmonary disease, unspecified; E55.9 Vitamin D deficiency, unspecified; R73.09 Other abnormal glucose
CPT/HCPCS: 36415; 80053; 80061; 82306; 83036; 84443; 85025

== ENCOUNTER → 2019-08-24 | Outpatient (CLI) | payer MEDICARE, BC ==
[2019-08-24 11:27] LABS: Basophils % (A) 1 %; Eosinophils # (A) 0.3 k/uL (0-0.7); Eosinophils % (A) 5 %; HCT 38.8 % (34.0-46.0); HGB 12.6 gm/dL (11.4-16.0); Lymphocytes # (A) 1.8 k/uL (1.0-4.8); Lymphocytes % (A) 28 %; MCH 30.9 pg (25.0-35.0); MCHC 32.4 g/dL (31.0-37.0); MCV 95.4 fL (80.0-100.0); Mean Platelet Volume 6.6; Monocytes # (A) 0.5 k/uL (0-1.0); Monocytes % (A) 7 %; Neutrophils # (A) 3.8 k/uL (1.3-7.7); Neutrophils % (A) 58 %; Platelet Count 266 k/uL (150-450); RBC 4.07 m/uL (3.80-5.40); RDW 15.2 % (11.5-15.5); WBC 6.6 k/uL (3.8-10.6)
[2019-08-24 16:12] LABS: African American GFR (CKD) 24.4 (60.0-200.0); Anion Gap 11.9 mmol/L (4.00-12.00); BUN/Creat Ratio 32.27 Ratio (12.00-20.00); Calcium 9.2 mg/dL (8.7-10.3); Carbon Dioxide 25.1 mmol/L (21.6-31.8); Potassium 4.8 mmol/L (3.5-5.5); Uric Acid 6.3 mg/dL (2.9-7.7)
== END | disposition home or self-care (01) ==
LOC: LABWHC1 10:31
PROVIDERS: ATTEND Physician Assistant
DX: I12.9 Hypertensive chronic kidney disease with stage 1 through stage 4 chronic kidney disease, or unspecified chronic kidney disease (principal); E55.9 Vitamin D deficiency, unspecified; D63.1 Anemia in chronic kidney disease; E21.3 Hyperparathyroidism, unspecified; R80.9 Proteinuria, unspecified; M10.9 Gout, unspecified
CPT/HCPCS: 36415; 80048; 83970; 84550; 85025

== ENCOUNTER → 2019-10-17 | Outpatient (CLI) | payer MEDICARE, BC ==
[2019-10-17 13:55] LABS: HCT 40.2 % (34.0-46.0); HGB 12.4 gm/dL (11.4-16.0); Hypochromasia Slight; MCV 96.9 fL (80.0-100.0); Mean Platelet Volume 7.9; Platelet Count 305 k/uL (150-450); RBC 4.15 m/uL (3.80-5.40); RDW 15.4 % (11.5-15.5); WBC 6.1 k/uL (3.8-10.6)
[2019-10-17 20:26] LABS: African American GFR (CKD) 35.9 (60.0-200.0); Albumin 4.2 g/dL (3.80-4.90); Albumin/Globulin Ratio 2.1 (1.60-3.17); Anion Gap 7.2 mmol/L (4.00-12.00); BUN/Creat Ratio 33.75 Ratio (12.00-20.00); Calcium 9.2 mg/dL (8.7-10.3); Carbon Dioxide 24.8 mmol/L (21.6-31.8); Chol/HDL Ratio 3.18; LDL Cholesterol,Calculated 90.4 mg/dL (0.0-131.0); Total Bilirubin 0.7 mg/dL (0.2-1.2); Total Protein 6.2 g/dL (6.2-8.2); Uric Acid 5.9 mg/dL (2.9-7.7); VLDL Calculation 33.6 mg/dL (5.00-40.00)
[2019-10-18 07:54] LABS: Potassium 6.1 mmol/L (3.5-5.5)
== END | disposition home or self-care (01) ==
LOC: LABWHC1 13:16
PROVIDERS: ATTEND Internal Medicine
DX: I10 Essential (primary) hypertension (principal); E78.5 Hyperlipidemia, unspecified; E03.9 Hypothyroidism, unspecified; M10.9 Gout, unspecified
CPT/HCPCS: 36415; 80053; 80061; 84443; 84550; 85027

== ENCOUNTER → 2019-10-25 | Outpatient (CLI) | payer MEDICARE, BC ==
[2019-10-25 18:58] LABS: African American GFR (CKD) 56.5 (60.0-200.0); BUN/Creat Ratio 30.91 Ratio (12.00-20.00); Calcium 9.1 mg/dL (8.7-10.3); Non-African American GFR(CKD) 48.7 (60.0-200.0); Potassium 3.9 mmol/L (3.5-5.5)
== END | disposition home or self-care (01) ==
LOC: LABWHC1 14:02
PROVIDERS: ATTEND Internal Medicine
DX: N18.3 Chronic kidney disease, stage 3 (moderate) (principal)
CPT/HCPCS: 36415; 80048

== ENCOUNTER 2019-11-02 10:20 | Inpatient (IN) | payer MEDICARE, BC ==
[2019-11-02 11:36] LABS: Basophils % (A) 1 %; Eosinophils # (A) 0.3 k/uL (0-0.7); Eosinophils % (A) 4 %; HCT 39.3 % (34.0-46.0); HGB 12.7 gm/dL (11.4-16.0); Lymphocytes # (A) 1.6 k/uL (1.0-4.8); Lymphocytes % (A) 21 %; MCH 30.5 pg (25.0-35.0); MCHC 32.3 g/dL (31.0-37.0); MCV 94.3 fL (80.0-100.0); Monocytes # (A) 0.6 k/uL (0-1.0); Monocytes % (A) 8 %; Neutrophils % (A) 65 %; Platelet Count 246 k/uL (150-450); RBC 4.17 m/uL (3.80-5.40); RDW 15.9 % (11.5-15.5); WBC 7.7 k/uL (3.8-10.6)
[2019-11-02 11:43] LABS: Potassium 4.1 mmol/L (3.5-5.1)
[2019-11-02 11:45] LABS: Albumin 4.2 g/dL (3.5-5.0); Calcium 9.2 mg/dL (8.4-10.2); Total Bilirubin 0.8 mg/dL (0.2-1.3); Total Protein 6.9 g/dL (6.3-8.2)
[2019-11-02 11:51] LABS: INR 0.9 (<1.2); Partial Thromboplastin Time 26.9 sec (22.0-30.0); Prothrombin Time 10.1 sec (9.0-12.0)
--- NOTE | 2019-11-02 11:51 | XR ---
EXAMINATION TYPE: XR chest 2V DATE OF EXAM: 11/02/2019 COMPARISON: Prior chest x-ray dated 02/17/2019 HISTORY: Difficulty breathing, shortness of breath TECHNIQUE: Frontal and lateral views of the chest are obtained. FINDINGS: There is an underlying scoliosis. Patient is rotated. Aorta is dense. Cardiac silhouette m ay be enlarged although rotation may accentuate the appearance. No evident pneumothorax or pleural ef fusion. Interstitium is increased. IMPRESSION: Possible underlying interstitial lung disease, correlate for possible interstitial edema .
[2019-11-02] MEDS ORDERED: methylPREDNISolone SOD SUCCI 125 MG/2 ML VIAL IV STA (12:12)
[2019-11-02] MEDS ORDERED: FAMOTIDINE 20 MG/2 ML VIAL IV STA (12:12)
[2019-11-02] MEDS ORDERED: diphenhydrAMINE 50 MG/ML 1 ML VIAL IVP STA (12:12)
--- NOTE | 2019-11-02 14:34 | CT ---
EXAMINATION TYPE: CT angio chest DATE OF EXAM: 11/02/2019 COMPARISON: 06/06/2015 HISTORY: 74-year-old female SOB TECHNIQUE: Contiguous axial scanning of the chest performed with IV Contrast, patient injected with 8 0 mL of Isovue 370. Coronal/sagittal MIP reconstructions performed. CT DLP: 852.6 mGycm Automated exposure control for dose reduction was used. FINDINGS: Heart upper limits of normal in size without pericardial effusion. Three-vessel coronary artery calc ifications are present. No flattening of the interventricular septum reflux of contrast into the hepatic veins. However, ther e is prominence to the right side of the heart and enlarged main right and left pulmonary arteries ar e patent 3.0 and 2.7 cm, respectively. Mild aneurysm ascending aorta 4.0 cm. Conventional branching anatomy. No thoracic lymphadenopathy by CT size criteria. Mild breathing motion artifacts. No definite pulmonary embolus. Some mosaic attenuation within the mid and lower lungs without consolidation or pleural effusion. Moderate size hiatal hernia. Stable 2.6 cm cyst segment 3 left liver lobe. Severe S-shaped scoliosis. IMPRESSION: 1. NO DEFINITE PULMONARY EMBOLUS. 2. HOWEVER, THERE IS CAD WITH PROMINENCE TO THE RIGHT SIDE OF THE HEART AND FINDINGS SUGGESTING UNDER LYING PULMONARY ARTERIAL HYPERTENSION. 3. SOME MOSAIC ATTENUATION IN THE MID AND LOWER LUNGS COULD REPRESENT SMALL AIRWAYS DISEASE. 4. MODERATE-SIZED HILAR HERNIA. 5. SEVERE S-SHAPED SCOLIOSIS.
[2019-11-02] MEDS ORDERED: LORazepam 2 MG/ML INJ IV STA (14:35)
[2019-11-02] MEDS ORDERED: IPRATROPIUM-ALBUTEROL 3 ML NEB INHALATION STA (14:35)
--- NOTE | 2019-11-02 15:26 | US ---
EXAMINATION TYPE: US venous doppler duplex LE LT DATE OF EXAM: 11/02/2019 3:14 PM COMPARISON: NONE CLINICAL HISTORY: PAIN. left leg pain and swelling, h/o dvt and PE's SIDE PERFORMED: Left TECHNIQUE: The lower extremity deep venous system is examined utilizing real time linear array sonog ruby with graded compression, doppler sonography and color-flow sonography. VESSELS IMAGED: External Iliac Vein (EIV) Common Femoral Vein Deep Femoral Vein Greater Saphenous Vein * Femoral Vein Popliteal Vein Small Saphenous Vein * Proximal Calf Veins (* superficial vessels) Left Leg: Appears negative for DVT *unable to compress Left EIV or CFV due to patient being unable t o tolerate pressure, patient already refused testing but convinced her to try again. There is normal flow, compressibility, vascular waveforms. IMPRESSION: No evident deep venous thrombosis at or above the left knee. Limitations to exam.
[2019-11-02] MEDS ORDERED: NALOXONE 0.4 MG/ML 1 ML VIAL IV PRN (16:10)
--- NOTE | 2019-11-02 16:14 | ED ---
SOB HPI - General Chief Complaint: Shortness of Breath Stated Complaint: SOB Time Seen by Provider: 11/02/19 10:33 Source: patient Mode of arrival: wheelchair Limitations: no limitations - History of Present Illness Initial Comments: 74yo female presenting today for chief complaint of shortness of breath with ambulation increasing for the past week. Patient states the past week she's had increasing shortness of breath with ambulation she noticed last night she had difficulty sleeping secondary to feeling as though she could not breathe. Patient states she has history of pulmonary embolism while on anticoagulation therapy and she has noted increasing leg swelling which she was concerning for possible pulmonary embolism so she called her friend to bring him to the emergency department today for evaluation. Patient denies any active cancer admits to history of atrial fibrillation. Patient denies any chest pain or pain with deep inspiration nausea or vomiting epigastric pain back pain. Patient states that her left leg has more swelling than her right. Patient denies any leg pain. Remaining review of systems negative upon arrival patient appears well no signs of acute distress - Related Data Home Medications Medication Instructions Recorded Confirmed Acetaminophen Tab [Tylenol] 500 mg PO DAILY PRN 06/06/15 02/14/19 Levothyroxine Sodium [Synthroid] 50 mcg PO DAILY 06/06/15 02/14/19 Multivitamins, Thera [Multivitamin 1 tab PO DAILY 06/06/15 02/14/19 (formulary)] Spironolactone [Aldactone] 25 mg PO DAILY 08/04/18 02/14/19 Atorvastatin [Lipitor] 40 mg PO HS 02/14/19 02/14/19 Cholecalciferol [Vitamin D3 (25 5,000 unit PO DAILY 02/14/19 02/14/19 Mcg = 1000 Iu)] Furosemide [Lasix] 40 mg PO BID 02/14/19 02/14/19 Previous Rx's Medication Instructions Recorded Metoprolol Tartrate [Lopressor] 50 mg PO BID #60 tab 06/13/15 Lisinopril [Zestril] 20 mg PO DAILY #30 tab 08/10/18 Allopurinol [Zyloprim] 200 mg PO DAILY #30 tab 02/17/19 Apixaban [Eliquis] 5 mg PO BID #60 tab 02/17/19 Apixaban [Eliquis] 10 mg PO BID #12 tab 02/17/19 methylPREDNISolone Dose Pack 4 mg PO DIRECTED #21 package 02/17/19 [Medrol Dose Pack] Allergies Allergy/AdvReac Type Severity Reaction Status Date / Time adhesive Allergy Rash/Hives Verified 02/14/19 15:01 cefaclor [From Ceclor] Allergy Rash/Hives Verified 02/14/19 15:01 Penicillins Allergy Unknown Verified 02/14/19 15:01 povidone-iodine Allergy Rash/Hives Verified 02/14/19 15:01 [From Betadine] soap [From Betadine] Allergy Rash/Hives Verified 02/14/19 15:01 hydromorphone [From Dilaudid] AdvReac Unknown Verified 02/15/19 06:08 Review of Systems ROS Statement: Those systems with pertinent positive or pertinent negative responses have been documented in the HPI. ROS Other: All systems not noted in ROS Statement are negative. Past Medical History Past Medical History: Atrial Fibrillation, Asthma, COPD, GI Bleed, Hyperlipi demia, Hypertension, Osteoarthritis (OA), Pulmonary Embolus (PE), Renal Disease, Thyroid Disorder Additional Past Medical History / Comment(s): Chronic atrial fibrillation, pr evious history of a popliteal left lower extremity DVT and pulmonary embolism, obesity, bronchial asthma/COPD, previous history of GI bleed secondary to diverticulosis, hypertension, hyperlipidemia, hypothyroidism, chronic renal failure, osteoarthritis him a umbilical hernia, carotid artery disease, chronic back pain, gout, chronic stage III kidney disease History of Any Multi-Drug Resistant Organisms: MRSA Date of last positivie culture/infection: 07/16/17 MDRO Source:: Left First Toe Past Surgical History: Orthopedic Surgery, Tubal Ligation Additional Past Surgical History / Comment(s): d&c,colonoscopy, orif lt ankle has plate and screws.lt knee arthroscopy, skin biopsy on left upper foot Past Anesthesia/Blood Transfusion Reactions: No Reported Reaction Past Psychological History: No Psychological Hx Reported Smoking Status: Former smoker Past Alcohol Use History: Daily Past Drug Use History: None Reported - Past Family History Father Additional Family Medical History / Comment(s): had tb at age 55, lt leg amp.heart problems. Mother History Unknown: Yes Family Medical History: Dementia, Diabetes Mellitus General Exam - General Exam Comments Initial Comments: General: The patient is awake and alert, in no distress Eye: +3 mm pupils are equal, round and reactive to light, extra-ocular movements are intact. No nystagmus. There is normal conjunctiva bilaterally. No signs of icterus. Ears, nose, mouth and throat: There are moist mucous membranes and no oral lesions. Neck: The neck is supple, there is no tenderness or JVD. Cardiovascular: There is a regular rate and rhythm. murmur noted, no rub or gallop is appreciated. Respiratory: Respirations are non-labored, breath sounds are equal. MIld expiratory wheeze. No stridor, rales, or rhonchi. Gastrointestinal: Soft, non-distended, non-tender abdomen without masses or organomegaly noted. There is no rebound or guarding present. Musculoskeletal: Normal ROM, no tenderness. Strength 5/5. Sensation intact. Radial and DP pulses equal bilaterally 2+. Neurological: A&O x 3. CN II-XII intact grossly, There are no obvious motor or sensory deficits. Coordination appears grossly intact. Speech is normal. Skin: Skin is warm and dry and no rashes or lesions are noted. B/l pitting edema of the LE left leg increased from the right. Psychiatric: Cooperative, appropriate mood & affect, normal judgment. Limitations: no limitations Course Vital Signs 11/02/19 11/02/19 11/02/19 10:21 15:39 15:47 Temperature 98.2 F Pulse Rate 80 80 80 Respiratory 21 Rate Blood Pressure 136/73 O2 Sat by Pulse 98 Oximetry Medical Decision Making - Medical Decision Making 74-year-old female with history of atrial fibrillation present today for chief complaint of increasing shortness of breath with ambulation. Patient's EKG revealed atrial fibrillation right bundle branch block which was present on most recent previous EKG. There is noted left anterior fascicular block. Otherwise no ST elevation or depression noted. Patient's troponin negative patient denied any chest pain, or other atypical symptoms. Patient had CT angiography obtained given history of pulmonary embolism on anticoagulation therapy. No evidence of pulmonary embolism however there is noted findings suggestive of pulmonary artery hypertension. Ambulatory oxygen levels were obtained revealing desaturation to 82% with short amount of ambulation. Patient give 1 duoneb treatment, minor improvement. Patient will be admitted for pulmonology and cardiology evaluation. Patient is agreeable to admission case discussed wt Dr. Casiano who was agreeable with care plan. Patient currently taking eliquis daily. - Lab Data Result diagrams: 11/02/19 11:17 12 11:17 Lab Results 11/02/19 11/02/19 11/02/19 Range/Units 11:17 11:17 11:17 WBC 7.7 (3.8-10.6) k/uL RBC 4.17 (3.80-5.40) m/uL Hgb 12.7 (11.4-16.0) gm/dL Hct 39.3 (34.0-46.0) % MCV 94.3 (80.0-100.0) fL MCH 30.5 (25.0-35.0) pg MCHC 32.3 (31.0-37.0) g/dL RDW 15.9 H (11.5-15.5) % Plt Count 246 (150-450) k/uL Neutrophils % 65 % Lymphocytes % 21 % Monocytes % 8 % Eosinophils % 4 % Basophils % 1 % Neutrophils # 5.0 (1.3-7.7) k/uL Lymphocytes # 1.6 (1.0-4.8) k/uL Monocytes # 0.6 (0-1.0) k/uL Eosinophils # 0.3 (0-0.7) k/uL Basophils # 0.0 (0-0.2) k/uL PT (9.0-12.0) sec INR (<1.2) APTT (22.0-30.0) sec Sodium 142 (137-145) mmol/L Potassium 4.1 (3.5-5.1) mmol/L Chloride 109 H (98-107) mmol/L Carbon Dioxide 26 (22-30) mmol/L Anion Gap 7 mmol/L BUN 25 H (7-17) mg/dL Creatinine 1.00 (0.52-1.04) mg/dL Est GFR (CKD-EPI)AfAm 64 (>60 ml/min/1.73 sqM) Est GFR (CKD-EPI)NonAf 55 (>60 ml/min/1.73 sqM) Glucose 119 H (74-99) mg/dL Calcium 9.2 (8.4-10.2) mg/dL Total Bilirubin 0.8 (0.2-1.3) mg/dL AST 38 H (14-36) U/L ALT 22 (4-34) U/L Alkaline Phosphatase 112 (38-126) U/L Troponin I (0.000-0.034) ng/mL NT-Pro-B Natriuret Pep 1980 pg/mL Total Protein 6.9 (6.3-8.2) g/dL Albumin 4.2 (3.5-5.0) g/dL 11/02/19 11/02/19 Range/Units 11:17 11:17 WBC (3.8-10.6) k/uL RBC (3.80-5.40) m/uL Hgb (11.4-16.0) gm/dL Hct (34.0-46.0) % MCV (80.0-100.0) fL MCH (25.0-35.0) pg MCHC (31.0-37.0) g/dL RDW (11.5-15.5) % Plt Count (150-450) k/uL Neutrophils % % Lymphocytes % % Monocytes % % Eosinophils % % Basophils % % Neutrophils # (1.3-7.7) k/uL Lymphocytes # (1.0-4.8) k/uL Monocytes # (0-1.0) k/uL Eosinophils # (0-0.7) k/uL Basophils # (0-0.2) k/uL PT 10.1 (9.0-12.0) sec INR 0.9 (<1.2) APTT 26.9 (22.0-30.0) sec Sodium (137-145) mmol/L Potassium (3.5-5.1) mmol/L Chloride (98-107) mmol/L Carbon Dioxide (22-30) mmol/L Anion Gap mmol/L BUN (7-17) mg/dL Creatinine (0.52-1.04) mg/dL Est GFR (CKD-EPI)AfAm (>60 ml/min/1.73 sqM) Est GFR (CKD-EPI)NonAf (>60 ml/min/1.73 sqM) Glucose (74-99) mg/dL Calcium (8.4-10.2) mg/dL Total Bilirubin (0.2-1.3) mg/dL AST (14-36) U/L ALT (4-34) U/L Alkaline Phosphatase (38-126) U/L Troponin I <0.012 (0.000-0.034) ng/mL NT-Pro-B Natriuret Pep pg/mL Total Protein (6.3-8.2) g/dL Albumin (3.5-5.0) g/dL Disposition Clinical Impression: Pulmonary hypertension, Hypoxia, Shortness of breath Disposition: ADMITTED IP TO THIS HOSP Condition: Stable Is patient prescribed a controlled substance at d/c from ED?: No Referrals: Miguel Hardwick MD [Primary Care Provider] - 1-2 days Time of Disposition: 16:13 Decision to Admit Reason: Admit from EC Decision Date: 11/02/19 Decision Time: 16:13
[2019-11-02] MEDS: amLODIPine 5 MG TAB PO SCH (17:33)
[2019-11-02] MEDS: METOPROLOL TARTRATE 50 MG TAB PO SCH (21:04)
[2019-11-02] MEDS ORDERED: FAMOTIDINE 20 MG TAB PO PRN (23:28)
[2019-11-02] MEDS: ATORVASTATIN 40 MG TAB PO SCH (23:49)
[2019-11-02] MEDS: APIXABAN 5 MG TAB PO SCH (23:49)
[2019-11-03] MEDS: LEVOTHYROXINE 50 MCG TAB PO SCH (05:56)
[2019-11-03] MEDS: FUROSEMIDE 40 MG TAB PO SCH (08:34)
[2019-11-03] MEDS: CHOLECALCIFEROL 1,000 UNIT TAB PO SCH (08:34)
[2019-11-03] MEDS: APIXABAN 5 MG TAB PO SCH ×2 (08:34→20:58)
[2019-11-03] MEDS: MULTIVITAMINS, THERA 1 EACH TAB PO SCH (08:34)
[2019-11-03] MEDS: ALLOPURINOL 100 MG TAB PO SCH (08:34)
[2019-11-03] MEDS: METOPROLOL TARTRATE 50 MG TAB PO SCH ×2 (08:34→20:58)
[2019-11-03 08:48] LABS: Basophils % (A) 0 %; Eosinophils # (A) 0.1 k/uL (0-0.7); Eosinophils % (A) 1 %; HCT 40.2 % (34.0-46.0); HGB 12.6 gm/dL (11.4-16.0); Hypochromasia Slight; Lymphocytes # (A) 0.9 k/uL (1.0-4.8); Lymphocytes % (A) 12 %; MCH 30.4 pg (25.0-35.0); MCHC 31.4 g/dL (31.0-37.0); MCV 96.7 fL (80.0-100.0); Mean Platelet Volume 8.2; Monocytes # (A) 0.2 k/uL (0-1.0); Monocytes % (A) 3 %; Neutrophils # (A) 5.8 k/uL (1.3-7.7); Neutrophils % (A) 84 %; Platelet Count 246 k/uL (150-450); RBC 4.16 m/uL (3.80-5.40); RDW 15.8 % (11.5-15.5)
[2019-11-03 08:55] LABS: Albumin 4.1 g/dL (3.5-5.0); Calcium 9.5 mg/dL (8.4-10.2); Total Bilirubin 0.8 mg/dL (0.2-1.3); Total Protein 7.1 g/dL (6.3-8.2)
[2019-11-03 08:59] LABS: Potassium 4.3 mmol/L (3.5-5.1)
--- NOTE | 2019-11-03 10:35 | P.HPIM ---
History of Present Illness H&P Date: 11/03/19 Chief Complaint: Shortness of breath This is a 74-year-old female patient who presents with complaints of shortness of breath. Patient reports that shortness of breath started on Wednesday in which she was attending [email or web address] parties and had increased shortness of breath with any activity. Patient has a past medical history of pulmonary embolism in which she is maintained on eliquis, atrial fibrillation, asthma, COPD, chronic kidney disease stage III in which she follows with nephrology, DVT, hyperlipidemia, hypertension and MRSA. Patient reports that approximately 2 weeks ago her medications were adjusted due to elevated potassium and kidney enzymes. She was on Aldactone which had been DC'd due to hyperkalemia and lisinopril also switched to Norvasc per nephrology. Chest x-ray completed showing possible underlining interstitial lung disease correlate for possible interstitial edema. Chest CTA completed showing no definitive pulmonary embolism. However there is coronary artery disease with prominence the right side of heart and findings suggesting underlying pulmonary arterial hypertension. Some mosaic attenuation to the mid and lower lungs could represent small airway disease. Moderate sized hilar hernia severe S-shaped scoliosis. Venous Doppler completed showing normal evident deep vein thrombosis. EKG completed showing atrial fibrillation with right bundle branch block. Troponins negative 3. BNP 1979. She received 1 dose of IV steroids home meds resumed. Pulmonary and cardiology services have been consulted. Patient states she artery feels improved. Patient remains on 2 L nasal cannula. At this time patient denies chest pain. Patient denies nausea vomiting or diarrhea. Patient denies any urinary burning or frequency Review of Systems please refer to HPI otherwise unremarkable Past Medical History Past Medical History: Atrial Fibrillation, Asthma, COPD, Deep Vein Thrombosis (DVT), GI Bleed, Hyperlipidemia, Hypertension, Osteoarthritis (OA), Pulmonary Embolus (PE), Renal Disease, Thyroid Disorder Additional Past Medical History / Comment(s): Chronic atrial fibrillation, previous history of a popliteal left lower extremity DVT and pulmonary embolism, obesity, bronchial asthma/COPD, previous history of GI bleed secondary to diverticulosis, hypertension, hyperlipidemia, hypothyroidism, chronic renal failure, osteoarthritis him a umbilical hernia, carotid artery disease, chronic back pain, gout, chronic stage III kidney disease History of Any Multi-Drug Resistant Organisms: MRSA Date of last positivie culture/infection: 07/16/17 MDRO Source:: Left First Toe Past Surgical History: Orthopedic Surgery, Tubal Ligation Additional Past Surgical History / Comment(s): d&c,colonoscopy, orif lt ankle has plate and screws.lt knee arthroscopy, skin biopsy on left upper foot Past Anesthesia/Blood Transfusion Reactions: No Reported Reaction Past Psychological History: No Psychological Hx Reported Additional Psychological History / Comment(s): lives alone single level home that has [address], uses crutch towalk with.no home care services, has nebulizer Smoking Status: Never smoker Past Alcohol Use History: Daily Additional Past Alcohol Use History / Comment(s): started smoking 1979 smoked off and on then quit in 1999. smoked 1 ppd. stated has 1 drink hs daily Past Drug Use History: None Reported - Past Family History Father Additional Family Medical History / Comment(s): had tb at age 55, lt leg amp.heart problems. Mother History Unknown: Yes Family Medical History: Dementia, Diabetes Mellitus Medications and Allergies Home Medications Medication Instructions Recorded Confirmed Type Levothyroxine Sodium [Synthroid] 50 mcg PO DAILY 06/06/15 11/02/19 History Multivitamins, Thera [Multivitamin 1 tab PO DAILY 06/06/15 11/02/19 History (formulary)] Metoprolol Tartrate [Lopressor] 50 mg PO BID #60 tab 06/13/15 11/02/19 Rx Atorvastatin [Lipitor] 40 mg PO HS 02/14/19 11/02/19 History Cholecalciferol [Vitamin D3 (25 5,000 unit PO DAILY 02/14/19 11/02/19 History Mcg = 1000 Iu)] Furosemide [Lasix] 40 mg PO DAILY 02/14/19 11/02/19 History Allopurinol [Zyloprim] 200 mg PO DAILY #30 tab 02/17/19 11/02/19 Rx Apixaban [Eliquis] 5 mg PO BID #60 tab 02/17/19 11/02/19 Rx Calcitriol 0.5 mcg PO WE 11/02/19 11/02/19 History Ciclopirox Olamine [Loprox 0.77% 1 applic TOPICAL BID PRN 11/02/19 11/02/19 History cream] Famotidine [Pepcid AC] 10 mg PO DAILY PRN 11/02/19 11/02/19 History Ketorolac 0.5% Ophth Soln [Acular 1 drop RIGHT EYE BID 11/02/19 11/02/19 History 0.5%] Mupirocin 2% Oint [Bactroban 2% 1 applic TOPICAL BID PRN 11/02/19 11/02/19 History Oint] amLODIPine [Norvasc] 5 mg PO DAILY@1600 11/02/19 11/02/19 History Allergies Allergy/AdvReac Type Severity Reaction Status Date / Time adhesive Allergy Rash/Hives Verified 11/02/19 16:33 cefaclor [From Ceclor] Allergy Rash/Hives Verified 11/02/19 16:33 Penicillins Allergy FAMILY Verified 11/02/19 16:33 HISTORY povidone-iodine Allergy Rash/Hives Verified 11/02/19 16:33 [From Betadine] soap [From Betadine] Allergy Rash/Hives Verified 11/02/19 16:33 hydromorphone [From Dilaudid] AdvReac BP Verified 11/02/19 16:33 DECREASES Physical Exam Vitals: Vital Signs Temp Pulse Pulse Resp BP BP Pulse Ox 11/03/19 08:00 16 11/03/19 07:00 98.2 F 89 15 113/71 98 11/02/19 20:25 97.7 F 96 16 160/88 99 11/02/19 18:51 98.2 F 88 18 147/99 98 11/02/19 18:29 147/99 11/02/19 16:45 88 18 166/101 98 11/02/19 15:47 80 11/02/19 15:39 80 11/02/19 15:25 82 L 11/02/19 14:48 80 16 167/91 Intake and Output 11/02/19 11/03/19 11/03/19 22:59 06:59 14:59 Intake Total 240 Balance 240 Intake: Oral 240 Other: Voiding Method Toilet # Voids 1 1 Weight 106.594 kg Head normocephalic Neck supple Lungs clear to auscultation bilaterally no wheezing or crackles Heart regular rate and rhythm S1-S2, no rub or gallop Abdomen is soft nontender nondistended positive bowel sounds no hepatosplenomegaly Extremities no edema Neuro alert and orientated to 3 Results CBC & Chem 7: 11/03/19 08:34 11/03/19 08:34 Labs: Abnormal Lab Results - Last 24 Hours (Table) 11/02/19 11/02/19 11/03/19 Range/Units 11:17 11:17 08:34 RDW 15.9 H 15.8 H (11.5-15.5) % Lymphocytes # 0.9 L (1.0-4.8) k/uL Chloride 109 H (98-107) mmol/L BUN 25 H (7-17) mg/dL Creatinine (0.52-1.04) mg/dL Glucose 119 H (74-99) mg/dL AST 38 H (14-36) U/L 11/03/19 Range/Units 08:34 RDW (11.5-15.5) % Lymphocytes # (1.0-4.8) k/uL Chloride (98-107) mmol/L BUN 32 H (7-17) mg/dL Creatinine 1.08 H (0.52-1.04) mg/dL Glucose 209 H (74-99) mg/dL AST 37 H (14-36) U/L Thrombosis Risk Factor Assmnt - Choose All That Apply Any of the Below Risk Factors Present?: Yes Each Factor Represents 1 point: Abnormal pulmonary function (COPD), Obesity (BMI >25), Swollen legs (current) Other Risk Factors: Yes Each Risk Factor Represents 3 Points: Age 75 years or older, History of DVT/PE Other congenital or acquired thrombophilia - If yes, enter type in comment: No Thrombosis Risk Factor Assessment Total Risk Factor Score: 9 Thrombosis Risk Factor Assessment Level: High Risk Assessment and Plan Assessment: 1. Shortness breath likely secondary to interstitial edema.Chest CTA completed showing no definitive pulmonary embolism. However there is coronary artery disease with prominence the right side of heart and findings suggesting underlying pulmonary arterial hypertension. Some mosaic attenuation to the mid and lower lungs could represent small airway disease. Moderate sized hilar hernia severe S-shaped scoliosis. Pulmonary and cardiology services have been consulted. 2. History of pulmonary embolism. Last pulmonary embolism in February 2019. Patient is maintained on oral eliquis 3. Lower extremity edema. Venous Doppler negative for bilateral DVTs 4. Chronic atrial fibrillation. Patient maintained on eliquis for anticoagulation 5. Recent episode of acute kidney injury with hyperkalemia. On 10/17/2019 through PCP patient had elevated potassium 6.1 creat and 1.6. At that time medications were adjusted Aldactone DC'd lisinopril switched to Norvasc per nephrology. This does appear resolved we'll continue to monitor 6. History of chronic kidney disease stage III. Patient does reports follows with nephrology services 7. History of hypothyroidism. Maintain on Synthroid 8. History of essential hypertension. Home meds resumed 9. Chronic diastolic congestive heart failure. BNP on admission 1950. Home Lasix dose resumed. Cardiology services have been consulted 10. History of gout. Continue on allopurinol DVT prophylaxis eliquis. GI prophylaxis Pepcid Pulmonary and cardiology services have been consulted Time with Patient: Greater than 30 (Greater than 60% of the total time spent in counseling and coordination of care. I performed an examination of the patient and discussed their management with the Nurse Practitioner. I have reviewed the Nurse Practitioner's notes and agree with the documented findings and plan of care)
--- NOTE | 2019-11-03 10:51 | P.CNPUL ---
History of Present Illness Consult date: 11/03/19 Requesting physician: Miguel Hardwick Reason for consult: dyspnea Chief complaint: Shortness of breath, dyspnea on exertion, lower extremity edema History of present illness: This is a very pleasant 74-year-old female patient who follows with Dr. Hardwick as her primary care physician. She has a history of pulmonary embolism/DVT, atrial fibrillation anticoagulated with Eliquis, diverticulosis, carotid stenosis, umbilical hernia, hypertension, hyperlipidemia, osteoarthritis, hypothyroidism. She has a remote history of smoking. She presented to the emergency room yesterday after having a 2 week history of increasing shortness of breath, dyspnea on exertion and some swelling of lower extremities left greater than right. She was concern regarding possible DVT/PE recurrence. Chest x-ray shows some atelectasis at the bases. There is a hiatal hernia present in the left chest area. CT angiogram ruled out pulmonary embolus. Question of pulmonary hypertension. Atelectasis of the small airways. Moderate size hiatal hernia. Severe S shaped scoliosis. Doppler of the left lower extremity are negative for DVT. White count 7.0. Hemoglobin 12.6. Creatinine 1.08. Troponins negative 3. ProBNP 1979. She is seen today in consultation on the regular medical floor. She is currently sitting up at the bedside. Awake and alert in no acute distress. Breathing easier today as compared to yesterday. No worsening shortness of breath, cough or congestion. Maintaining O2 saturations in the upper 90s on room air. She's been afebrile. Hemodynamically stable. Review of Systems REVIEW OF SYSTEMS: CONSTITUTIONAL: Denies any recent significant weight loss or weight gain. EYES: Denies change in vision. EARS, NOSE, MOUTH, THROAT: Denies headaches, denies sore throat. CARDIOVASCULAR: Denies chest pain, palpitations or syncopal episodes. RESPIRATORY: Positive for shortness of breath on exertion, no cough, congestion or hemoptysis. GASTROINTESTINAL: Denies change in appetite, denies abdominal pain GENITOURINARY: Denies hematuria, denies infections. MUSKULOSKELETAL: Denies pain, positive for lower extremity edema left greater than right. INTEGUMENTARY: Denies rash, denies eczema. NEUROLOGICAL: Denies recent memory loss, no recent seizure activity. PSYCHIATRIC: Denies anxiety, denies depression. HEMATOLOGIC/LYMPHATIC: Denies anemia, denies enlarged lymph nodes. Past Medical History Past Medical History: Atrial Fibrillation, Asthma, COPD, Deep Vein Thrombosis (DVT), GI Bleed, Hyperlipidemia, Hypertension, Osteoarthritis (OA), Pulmonary Embolus (PE), Renal Disease, Thyroid Disorder Additional Past Medical History / Comment(s): Chronic atrial fibrillation, previous history of a popliteal left lower extremity DVT and pulmonary embolism, obesity, bronchial asthma/COPD, previous history of GI bleed secondary to diverticulosis, hypertension, hyperlipidemia, hypothyroidism, chronic renal failure, osteoarthritis him a umbilical hernia, carotid artery disease, chronic back pain, gout, chronic stage III kidney disease History of Any Multi-Drug Resistant Organisms: MRSA Date of last positivie culture/infection: 07/16/17 MDRO Source:: Left First Toe Past Surgical History: Orthopedic Surgery, Tubal Ligation Additional Past Surgical History / Comment(s): d&c,colonoscopy, orif lt ankle has plate and screws.lt knee arthroscopy, skin biopsy on left upper foot Past Anesthesia/Blood Transfusion Reactions: No Reported Reaction Past Psychological History: No Psychological Hx Reported Additional Psychological History / Comment(s): lives alone single level home that [facility] [address], uses crutch [employer]alk with.no home care services, has nebulizer Smoking Status: Never smoker Past Alcohol Use History: Daily Additional Past Alcohol Use History / Comment(s): started smoking 1979 smoked off and on then quit in 1999. smoked 1 ppd. stated has 1 drink hs daily Past Drug Use History: None Reported - Past Family History Father Additional Family Medical History / Comment(s): had tb at age 55, lt leg amp.heart problems. Mother History Unknown: Yes Family Medical History: Dementia, Diabetes Mellitus Medications and Allergies Home Medications Medication Instructions Recorded Confirmed Type Levothyroxine Sodium [Synthroid] 50 mcg PO DAILY 06/06/15 11/02/19 History Multivitamins, Thera [Multivitamin 1 tab PO DAILY 06/06/15 11/02/19 History (formulary)] Metoprolol Tartrate [Lopressor] 50 mg PO BID #60 tab 06/13/15 11/02/19 Rx Atorvastatin [Lipitor] 40 mg PO HS 02/14/19 11/02/19 History Cholecalciferol [Vitamin D3 (25 5,000 unit PO DAILY 02/14/19 11/02/19 History Mcg = 1000 Iu)] Furosemide [Lasix] 40 mg PO DAILY 02/14/19 11/02/19 History Allopurinol [Zyloprim] 200 mg PO DAILY #30 tab 02/17/19 11/02/19 Rx Apixaban [Eliquis] 5 mg PO BID #60 tab 02/17/19 11/02/19 Rx Calcitriol 0.5 mcg PO WE 11/02/19 11/02/19 History Ciclopirox Olamine [Loprox 0.77% 1 applic TOPICAL BID PRN 11/02/19 11/02/19 History cream] Famotidine [Pepcid AC] 10 mg PO DAILY PRN 11/02/19 11/02/19 History Ketorolac 0.5% Ophth Soln [Acular 1 drop RIGHT EYE BID 11/02/19 11/02/19 History 0.5%] Mupirocin 2% Oint [Bactroban 2% 1 applic TOPICAL BID PRN 11/02/19 11/02/19 History Oint] amLODIPine [Norvasc] 5 mg PO DAILY@1600 11/02/19 11/02/19 History Allergies Allergy/AdvReac Type Severity Reaction Status Date / Time adhesive Allergy Rash/Hives Verified 11/02/19 16:33 cefaclor [From Ceclor] Allergy Rash/Hives Verified 11/02/19 16:33 Penicillins Allergy FAMILY Verified 11/02/19 16:33 HISTORY povidone-iodine Allergy Rash/Hives Verified 11/02/19 16:33 [From Betadine] soap [From Betadine] Allergy Rash/Hives Verified 11/02/19 16:33 hydromorphone [From Dilaudid] AdvReac BP Verified 11/02/19 16:33 DECREASES Physical Exam Vitals: Vital Signs Temp Pulse Pulse Resp BP BP Pulse Ox 11/03/19 08:00 16 11/03/19 07:00 98.2 F 89 15 113/71 98 11/02/19 20:25 97.7 F 96 16 160/88 99 11/02/19 18:51 98.2 F 88 18 147/99 98 11/02/19 18:29 147/99 11/02/19 16:45 88 18 166/101 98 11/02/19 15:47 80 11/02/19 15:39 80 11/02/19 15:25 82 L 11/02/19 14:48 80 16 167/91 Intake and Output 11/02/19 11/03/19 11/03/19 22:59 06:59 14:59 Intake Total 240 Balance 240 Intake: Oral 240 Other: Voiding Method Toilet # Voids 1 1 Weight 106.594 kg Gen. appearance: Very pleasant 74-year-old female patient, morbidly obese, on room air, comfortable in no acute distress Head exam was generally normal. There was no scleral icterus or corneal arcus. Mucous membranes were moist. Neck was supple and without jugular venous distension, thyromegaly, or carotid bruits. Carotids were easily palpable bilaterally. There was no adenopathy., Mallampati class IV. Lungs sounds are diminished bilaterally. Faint crackles in the posterior bases. No wheezes or rhonchi. Cardiac exam revealed the PMI to be normally situated and sized. The rhythm was irregular and no extrasystoles were noted during several minutes of auscu ltation. The first and second heart sounds were irregular consistent with atrial fibrillation and physiologic splitting of the second heart sound was noted. There were no murmurs, rubs, clicks, or gallops. Abdominal exam revealed normal bowel sounds. The abdomen was soft, non-tender, and without masses, organomegaly, or appreciable enlargement of the abdominal aorta. Examination of the extremities revealed easily palpable radial, femoral and pedal pulses. There was no cyanosis, clubbing or edema.There are changes consistent with chronic venous stasis involving lower extremity is bilaterally. Examination of the skin revealed no evidence of significant rashes, suspicious appearing nevi or other concerning lesions. Neurologically the patient is awake and alert and is no focal neurological def icit. Psychiatrically the patient has no anxiety or depression. Results - Laboratory Findings CBC and BMP: 11/03/19 08:34 11/03/19 08:34 PT/INR, D-dimer PT 10.1 sec (9.0-12.0) 11/02/19 11:17 INR 0.9 (<1.2) 11/02/19 11:17 Abnormal lab findings: Abnormal Labs 11/02/19 11/02/19 11/03/19 11:17 11:17 08:34 RDW 15.9 H 15.8 H Lymphocytes # 0.9 L Chloride 109 H BUN 25 H Creatinine Glucose 119 H AST 38 H 11/03/19 08:34 RDW Lymphocytes # Chloride BUN 32 H Creatinine 1.08 H Glucose 209 H AST 37 H - Diagnostic Findings Chest x-ray: image reviewed CT scan - chest: image reviewed Assessment and Plan Assessment: 1 Acute hypoxic respiratory failure with and dyspnea on exertion, PE ruled out, suspect acute exacerbation of diastolic congestive heart failure with a moderate to severely enlarged right ventricle and pulmonary hypertension with an RVSP of 50.9 mmHg 2 Left lower extremity edema, DVT ruled out, on oral diuretics 3 Morbid obesity, BMI 44.4 4 Atrial fibrillation, anticoagulated with Eliquis 5 Chronic stage III kidney disease 6 Previous history of PE/DVT 7 History of diverticular bleed 8 Hyperlipidemia 9 Hypertension 10 Hypothyroidism 11 History of COPD/asthma, currently inactive and stable, not on any maintenance medications in the outpatient setting 12 Remote history of chronic tobacco dependence for approximately 15 years however quit 20 years ago 13 Coronary disease 14 Osteoarthritis 15 Chronic back pain with scoliosis and history of L2/L3 compression fracture 16 History of gout Plan The patient was seen and evaluated by Dr. Feliciano. Chest x-ray, computed tomography scan of the chest and labs reviewed no evidence of PE/DVT Remains on Eliquis She is stable from the pulmonary standpoint and could follow-up in our office upon discharge Cardiology consult pending I, the cosigning physician, performed a history & physical examination of the patient. Lungs sounds with faint crackles in posterior bases. Maintaining good O2 saturations in the 90s on room air. I discussed the assessment and plan of care with my nurse practitioner, Sophia Boyer. I attest to the above consultation as dictated by her. Time with Patient: Greater than 30
[2019-11-03] MEDS ORDERED: FUROSEMIDE 10 MG/ML 4 ML VIAL IV STA (12:18)
--- NOTE | 2019-11-03 12:38 | CONS ---
CONSULTATION Mrs. Lobo is a 74-year-old female with known history of chronic persistent atrial fibrillation, history of hypertension, hyperlipidemia, who presented with progressive dyspnea and peripheral edema over the last few days with weight gain. The patient had eaten more salt over the holidays. She has no chest pain. No clear PND, orthopnea. She has mild cough but no fever. She denies any dizziness except change position. No palpitation. No syncope. She has underwent an echocardiogram in December 2017 that revealed preserved left ventricular size and systolic function with mild tricuspid and pulmonic regurgitation as well as mitral regurgitation. She has been anticoagulated and her ventricular response has been under good control in the past. She had no prior history of obstructive coronary artery disease and underwent stress test in July 2016 that revealed no evidence of inducible ischemia. Her coronary risk factors are remarkable for hypertension, hyperlipidemia. MEDICATION: Her medications at home include amlodipine 5 mg daily, metoprolol tartrate 50 mg twice a day, Lasix 40 mg daily, Pepcid, Lipitor 40 mg daily, Eliquis 5 mg twice a day, and allopurinol. REVIEW OF SYSTEMS: RESPIRATORY SYSTEM: She has dyspnea on exertion, and a cough, no wheezing. GI SYSTEM: No recent GI bleeding. No peptic ulcer disease. SYSTEM: No dysuria or hematuria. NERVOUS SYSTEM: No stroke or seizure. PHYSICAL EXAMINATION: She is a 74-year-old female, alert, oriented, in no apparent distress. Blood pressure 113/70 with a heart rate in the 80s. HEAD: Normocephalic. EYES: Sclerae nonicteric. NECK: Good upstroke, no bruit. LUNGS: Clear to auscultation. HEART: Irregular, regular, S1, S2. No S3 with systolic murmur, no diastolic murmur, no rub. ABDOMEN: Soft, obese, positive bowel sounds, no organomegaly. EXTREMITIES: +1 to 2 edema on the left side, trace on the right side. LAB DATA: Lab data revealed BUN and creatinine 32 and 1.08, potassium 4.3. Troponin less than 0.012. Hemoglobin of 12.6. EKG revealed an atrial fibrillation with right bundle branch block, left axis deviation. Chest x-ray shows evidence of congestion. CT angiogram of the chest revealed no evidence of pulmonary embolism. There was evidence of calcification of the coronary arteries. IMPRESSION: 1. Symptoms of progressive dyspnea, most likely related to congestive heart failure with preserved systolic function related to salt intake. 2. History of chronic persistent atrial fibrillation, anticoagulated. 3. History of obesity. 4. Prior history of left lower extremity edema. 5. History of pulmonary embolism. 6. Hypertension. 7. Hyperlipidemia. RECOMMENDATION: From the cardiac standpoint, she is stable. She is feeling better today. Her breathing is better. She denies any symptoms to suggest angina pectoris. Will continue present therapy. Continue on the present treatment. I will give her 1 dose of intravenous diuretics. If she is stable, expect she may be able to be discharged home tomorrow and followed as an outpatient. Thank you for this consult. Will follow with you. NICOLEL / IJN: [id number] /
[2019-11-03] MEDS: amLODIPine 5 MG TAB PO SCH (16:47)
[2019-11-03] MEDS: ATORVASTATIN 40 MG TAB PO SCH (20:58)
[2019-11-04] MEDS: ALLOPURINOL 100 MG TAB PO SCH (08:46)
[2019-11-04] MEDS: APIXABAN 5 MG TAB PO SCH ×2 (08:46→21:00)
[2019-11-04] MEDS: FUROSEMIDE 40 MG TAB PO SCH (08:46)
[2019-11-04] MEDS: LEVOTHYROXINE 50 MCG TAB PO SCH (08:47)
[2019-11-04] MEDS: FAMOTIDINE 20 MG TAB PO SCH (08:47)
[2019-11-04] MEDS: METOPROLOL TARTRATE 50 MG TAB PO SCH ×2 (08:47→21:01)
[2019-11-04] MEDS: CHOLECALCIFEROL 1,000 UNIT TAB PO SCH (08:47)
[2019-11-04] MEDS: MULTIVITAMINS, THERA 1 EACH TAB PO SCH (08:47)
[2019-11-04 08:58] LABS: Basophils % (A) 0 %; Eosinophils # (A) 0.2 k/uL (0-0.7); Eosinophils % (A) 3 %; HCT 37.3 % (34.0-46.0); HGB 11.3 gm/dL (11.4-16.0); Hypochromasia Slight; Lymphocytes # (A) 1.5 k/uL (1.0-4.8); Lymphocytes % (A) 20 %; MCH 29.6 pg (25.0-35.0); MCHC 30.4 g/dL (31.0-37.0); MCV 97.5 fL (80.0-100.0); Macrocytosis Slight; Mean Platelet Volume 7.9; Monocytes # (A) 0.6 k/uL (0-1.0); Monocytes % (A) 8 %; Neutrophils # (A) 5.2 k/uL (1.3-7.7); Neutrophils % (A) 68 %; Platelet Count 212 k/uL (150-450); RBC 3.82 m/uL (3.80-5.40); WBC 7.6 k/uL (3.8-10.6)
[2019-11-04 09:15] LABS: Albumin 3.2 g/dL (3.5-5.0); Calcium 8.7 mg/dL (8.4-10.2); Potassium 4.5 mmol/L (3.5-5.1); Total Bilirubin 0.5 mg/dL (0.2-1.3); Total Protein 5.7 g/dL (6.3-8.2)
[2019-11-04] MEDS ORDERED: FUROSEMIDE 10 MG/ML 2 ML VIAL IV ONE (10:36)
--- NOTE | 2019-11-04 10:52 | P.PN ---
Subjective This is Eden Gillis PA-C dictating a progress note on this patient The patient was interviewed and examined by me as well as by Dr. Bateman Case discussed with Dr. Bateman and he agrees with the plan of care IMPRESSION / ASSESSMENT: Progressive dyspnea, increased lower extremity edema, likely secondary to CHF with preserved LV systolic function Persistent atrial fibrillation, anticoagulated History of DVT and PE, chest CT showed no definite PE, anticoagulated Hypertension Dyslipidemia PLAN: Diuresis with IV Lasix 20 mg today, then switch to increased dose of Lasix 60 mg by mouth tomorrow morning Continue to monitor renal function with daily BMP HPI/interval history Patient is a 74-year-old female with a history of persistent atrial fibrillation, DVT/PE, hypertension, dyslipidemia who presented with complaints of progressive dyspnea, lower extremity edema and weight gain. 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 Over the holiday she had increased salt intake. For the last few days she has been more short of breath and noticed worsening lower extremity edema so she presented for further evaluation. Chest x-ray showed possible interstitial edema.. She was diagnosed with congestive heart failure and started on IV lasix. Patient seen and examined sitting up at the side of the bed. She continues to have shortness of breath with exertion such as walking to the bathroom. States her lower extremity edema has improved somewhat. Denies any orthopnea or PND. Denies any chest pain or palpitations. EXAMINATION Temperature 96.9F, pulse 77, respirations 20, blood pressure 111/70, oxygen saturation 98% Patient seen and examined sitting in bed, in no acute distress Bilateral breath sounds diminished at the bases Heart is irregular, no murmurs noted No elevated JVD 1+ pitting lower extremity edema, worse on the left REVIEW OF LABS, ECG WBC 7.6, hemoglobin 11.3, platelets 212, potassium 4.5, BUN 42, creatinine 1.21 Venous Doppler showed no evidence of DVT Objective - Vital Signs Vital signs: Vital Signs Temp 96.9 F L 11/04/19 05:00 Pulse 77 11/04/19 05:00 Resp 20 11/04/19 05:00 BP 111/70 11/04/19 05:00 Pulse Ox 98 11/04/19 05:00 Intake & Output 11/03/19 11/04/19 11/04/19 18:59 06:59 18:59 Intake Total 480 725 Balance 480 725 Weight 111.5 kg Intake: Oral 480 725 Other: Voiding Method Toilet # Voids 2 2 - Labs CBC & Chem 7: 11/04/19 07:59 11/04/19 07:59 Labs: Abnormal Lab Results - Last 24 Hours (Table) 11/04/19 11/04/19 Range/Units 07:59 07:59 Hgb 11.3 L (11.4-16.0) gm/dL MCHC 30.4 L (31.0-37.0) g/dL RDW 16.0 H (11.5-15.5) % BUN 42 H (7-17) mg/dL Creatinine 1.21 H (0.52-1.04) mg/dL Total Protein 5.7 L (6.3-8.2) g/dL Albumin 3.2 L (3.5-5.0) g/dL
--- NOTE | 2019-11-04 13:37 | P.PN ---
Subjective Progress Note Date: 11/04/19 Principal diagnosis: Acute hypoxic respiratory failure secondary to acute exacerbation of diastolic congestive heart failure This is a very pleasant 74-year-old female patient who follows with Dr. Hardwick as her primary care physician. She has a history of pulmonary embolism/DVT, atrial fibrillation anticoagulated with Eliquis, diverticulosis, carotid stenosis, umbilical hernia, hypertension, hyperlipidemia, osteoarthritis, hypothyroidism. She has a remote history of smoking. She presented to the emergency room yesterday after having a 2 week history of increasing shortness of breath, dyspnea on exertion and some swelling of lower extremities left greater than right. She was concern regarding possible DVT/PE recurrence. Chest x-ray shows some atelectasis at the bases. There is a hiatal hernia present in the left chest area. CT angiogram ruled out pulmonary embolus. Question of pulmonary hypertension. Atelectasis of the small airways. Moderate size hiatal hernia. Severe S shaped scoliosis. Doppler of the left lower extremity are negative for DVT. White count 7.0. Hemoglobin 12.6. Creatinine 1.08. Troponins negative 3. ProBNP 1980. She is seen today in consultation on the regular medical floor. She is currently sitting up at the bedside. Awak e and alert in no acute distress. Breathing easier today as compared to yesterday. No worsening shortness of breath, cough or congestion. Maintaining O2 saturations in the upper 90s on room air. She's been afebrile. Hemodynamically stable. Patient was reevaluated today on 11/04/2019, feeling much better, breathing a lot easier, hardly any cough no wheezing no shortness of breath no chest pain. Swelling in lower extremities is significantly improved, continues to have some swelling in the left lower extremity were and she had previous history of deep vein thrombosis. CBC is relatively normal left lites are normal renal profile is reflecting mild increase in her creatinine related to diuretics. Objective - Vital Signs Vital signs: Vital Signs Temp 97.6 F 11/04/19 12:41 Pulse 80 11/04/19 12:41 Resp 16 11/04/19 12:41 BP 128/85 11/04/19 12:41 Pulse Ox 98 11/04/19 12:41 Intake & Output 11/03/19 11/04/19 11/04/19 18:59 06:59 18:59 Intake Total 480 725 Balance 480 725 Weight 111.5 kg Intake: Oral 480 725 Other: Voiding Method Toilet # Voids 2 2 - Exam Gen. appearance: Revealed 74-year-old female in no distress. Head atraumatic, normocephalic, PERRLA, EOMI, no icterus. Neck supple no neck masses no JVD no thyromegaly. Lungs symmetrical chest expansion, clear bilaterally no crackles or rhonchi or wheezes. Cardiac exam revealed the PMI to be normally situated, normal S1 and S2, no S3 gallop. Abdominal exam obese, soft, nontender, no megaly no rebound Examination of the extremities good pulses bilaterally, trace of bipedal edema, left lower extremity season be a bit more swollen than the right lower extrem ity. Examination of the skin revealed no rashes, no petechiae. Neurologically alert oriented 3 no gross focal neurologic deficit Psychiatrically normal mood affect and normal mental status examination. - Labs CBC & Chem 7: 11/04/19 07:59 11/04/19 07:59 Labs: Abnormal Lab Results - Last 24 Hours (Table) 11/04/19 11/04/19 Range/Units 07:59 07:59 Hgb 11.3 L (11.4-16.0) gm/dL MCHC 30.4 L (31.0-37.0) g/dL RDW 16.0 H (11.5-15.5) % BUN 42 H (7-17) mg/dL Creatinine 1.21 H (0.52-1.04) mg/dL Total Protein 5.7 L (6.3-8.2) g/dL Albumin 3.2 L (3.5-5.0) g/dL Assessment and Plan Assessment: 1 Acute hypoxic respiratory failure, secondary to acute diastolic congestive heart failure. 2 Left lower extremity edema, DVT ruled out, on oral diuretics 3 Morbid obesity, BMi 44.4. 4 chronic atrial fibrillation. 5 acute on chronic kidney injury, likely secondary to diuretics. 6 Previous history of PE/DVT 7 History of diverticular bleed 8: Multiple comorbidities including hypothyroidism hypertension COPD which is presently inactive/asthma. History of coronary artery disease, degenerative joint disease, and history of chronic low back pain. History of gout. Recommendation: Continue present treatment plan including diuretics, bronchodilators, Eliquis, cardiac medications, cleared for discharge from our perspective if cleared already by cardiology. Patient should have follow-up with us on outpatient basis Time with Patient: Less than 30
--- NOTE | 2019-11-04 16:21 | P.PN ---
Subjective Progress Note Date: 11/04/19 This is a 74-year-old female patient who presents with complaints of shortness of breath. Patient reports that shortness of breath started on Wednesday in which she was attending family [employer] parties and had increased shortness of breath with any activity. Patient has a past medical history of pulmonary embolism in which she is maintained on eliquis, atrial fibrillation, asthma, COPD, chronic kidney disease stage III in which she follows with nephrology, DVT, hyperlipidemia, hypertension and MRSA. Patient reports that approximately 2 weeks ago her medications were adjusted due to elevated potassium and kidney enzymes. She was on Aldactone which had been DC'd due to hyperkalemia and lisinopril also switched to Norvasc per nephrology. Chest x-ray completed showing possible underlining interstitial lung disease correlate for possible interstitial edema. Chest CTA completed showing no definitive pulmonary embolism. However there is coronary artery disease with prominence the right si de of heart and findings suggesting underlying pulmonary arterial hypertension. Some mosaic attenuation to the mid and lower lungs could represent small airway disease. Moderate sized hilar hernia severe S-shaped scoliosis. Venous Doppler completed showing normal evident deep vein thrombosis. EKG completed showing atrial fibrillation with right bundle branch block. Troponins negative 3. BNP 1980. She received 1 dose of IV steroids home meds resumed. Pulmonary and cardiology services have been consulted. Patient states she artery feels improved. Patient remains on 2 L nasal cannula. At this time patient denies chest pain. Patient denies nausea vomiting or diarrhea. Patient denies any urinary burning or frequency On 11/04/2019 patient was seen and examined on the medical floor is alert and oriented 3 in no apparent distress she is still complaining of severe shortness of breath with any activity otherwise she denies any complaints there is no fever or chills no headache or dizziness no chest pain no cough no nausea or vomiting no abdominal pain no diarrhea no burning with urination no frequency or urgency and no hematuria Objective - Vital Signs Vital signs: Vital Signs Temp 97.6 F 11/04/19 12:41 Pulse 80 11/04/19 12:41 Resp 16 11/04/19 12:41 BP 128/85 11/04/19 12:41 Pulse Ox 98 11/04/19 12:41 Intake & Output 11/03/19 11/04/19 11/04/19 18:59 06:59 18:59 Intake Total 480 725 300 Balance 480 725 300 Weight 111.5 kg 109.6 kg Intake: Oral 480 725 300 Other: Voiding Method Toilet # Voids 2 2 1 - Exam In general patient is alert and oriented 3 in no apparent distress Head normocephalic and atraumatic Neck supple no JVD no goiter Lungs clear to auscultation bilaterally no wheezing or crackles Heart regular rate and rhythm S1-S2, no rub or gallop Abdomen is soft nontender nondistended positive bowel sounds no hepatosplenomegaly Extremities no edema no cyanosis or clubbing Neuro no gross focal deficit - Labs CBC & Chem 7: 11/04/19 07:59 12 07:59 Labs: Abnormal Lab Results - Last 24 Hours (Table) 11/04/19 11/04/19 Range/Units 07:59 07:59 Hgb 11.3 L (11.4-16.0) gm/dL MCHC 30.4 L (31.0-37.0) g/dL RDW 16.0 H (11.5-15.5) % BUN 42 H (7-17) mg/dL Creatinine 1.21 H (0.52-1.04) mg/dL Total Protein 5.7 L (6.3-8.2) g/dL Albumin 3.2 L (3.5-5.0) g/dL Assessment and Plan Plan: 1. Shortness breath likely secondary to interstitial edema. Acute diastolic congestive heart failure exacerbation . Chest CTA completed showing no definitive pulmonary embolism. However there is coronary artery disease with prominence the right side of heart and findings suggesting underlying pulmonary arterial hypertension. Some mosaic attenuation to the mid and lower lungs could represent small airway disease. Moderate sized hilar hernia severe S-shaped scoliosis. Pulmonary and cardiology services have been consulted. 2. History of pulmonary embolism. Last pulmonary embolism in February 2019. Patient is maintained on oral eliquis 3. Lower extremity edema. Venous Doppler negative for bilateral DVTs 4. Chronic atrial fibrillation. Patient maintained on eliquis for anticoagulation 5. Recent episode of acute kidney injury with hyperkalemia. On 10/17/2019 through PCP patient had elevated potassium 6.1 creat and 1.6. At that time medications were adjusted Aldactone DC'd lisinopril switched to Norvasc per nephrology. This does appear resolved we'll continue to monitor 6. History of chronic kidney disease stage III. Patient does reports follows with nephrology services 7. History of hypothyroidism. Maintain on Synthroid 8. History of essential hypertension. Home meds resumed 9. Chronic diastolic congestive heart failure. BNP on admission 1950. Home Lasix dose resumed. Cardiology services have been consulted 10. History of gout. Continue on allopurinol DVT prophylaxis eliquis. GI prophylaxis Pepcid Pulmonary and cardiology services have been consulted
[2019-11-04] MEDS: amLODIPine 5 MG TAB PO SCH (16:57)
[2019-11-04] MEDS: ATORVASTATIN 40 MG TAB PO SCH (21:01)
[2019-11-05] MEDS: LEVOTHYROXINE 50 MCG TAB PO SCH (06:36)
[2019-11-05 09:11] LABS: Basophils % (A) 0 %; Eosinophils # (A) 0.4 k/uL (0-0.7); Eosinophils % (A) 6 %; HCT 41.6 % (34.0-46.0); HGB 13.2 gm/dL (11.4-16.0); Hypochromasia Slight; Lymphocytes # (A) 1.5 k/uL (1.0-4.8); Lymphocytes % (A) 21 %; MCH 30.8 pg (25.0-35.0); MCHC 31.6 g/dL (31.0-37.0); MCV 97.4 fL (80.0-100.0); Macrocytosis Slight; Mean Platelet Volume 8.4; Monocytes # (A) 0.6 k/uL (0-1.0); Monocytes % (A) 8 %; Neutrophils # (A) 4.9 k/uL (1.3-7.7); Neutrophils % (A) 65 %; Platelet Count 256 k/uL (150-450); RBC 4.27 m/uL (3.80-5.40); RDW 15.8 % (11.5-15.5); WBC 7.5 k/uL (3.8-10.6)
[2019-11-05 09:22] LABS: Albumin 3.9 g/dL (3.5-5.0); Calcium 9.3 mg/dL (8.4-10.2); Potassium 4.5 mmol/L (3.5-5.1); Total Bilirubin 0.8 mg/dL (0.2-1.3); Total Protein 6.6 g/dL (6.3-8.2)
[2019-11-05] MEDS: APIXABAN 5 MG TAB PO SCH ×2 (09:39→20:33)
[2019-11-05] MEDS: METOPROLOL TARTRATE 50 MG TAB PO SCH ×2 (09:39→20:33)
[2019-11-05] MEDS: MULTIVITAMINS, THERA 1 EACH TAB PO SCH (09:39)
[2019-11-05] MEDS: CHOLECALCIFEROL 1,000 UNIT TAB PO SCH (09:39)
[2019-11-05] MEDS: ALLOPURINOL 100 MG TAB PO SCH (09:39)
[2019-11-05] MEDS: FUROSEMIDE 20 MG TAB PO SCH (09:39)
[2019-11-05] MEDS: FAMOTIDINE 20 MG TAB PO SCH (09:39)
--- NOTE | 2019-11-05 10:20 | P.PN ---
Subjective Progress Note Date: 11/05/19 This is a 74-year-old female patient who presents with complaints of shortness of breath. Patient reports that shortness of breath started on Wednesday in which she was attending family [employer] parties and had increased shortness of breath with any activity. Patient has a past medical history of pulmonary embolism in which she is maintained on eliquis, atrial fibrillation, asthma, COPD, chronic kidney disease stage III in which she follows with nephrology, DVT, hyperlipidemia, hypertension and MRSA. Patient reports that approximately 2 weeks ago her medications were adjusted due to elevated potassium and kidney enzymes. She was on Aldactone which had been DC'd due to hyperkalemia and lisinopril also switched to Norvasc per nephrology. Chest x-ray completed showing possible underlining interstitial lung disease correlate for possible interstitial edema. Chest CTA completed showing no definitive pulmonary embolism. However there is coronary artery disease with prominence the right si de of heart and findings suggesting underlying pulmonary arterial hypertension. Some mosaic attenuation to the mid and lower lungs could represent small airway disease. Moderate sized hilar hernia severe S-shaped scoliosis. Venous Doppler completed showing normal evident deep vein thrombosis. EKG completed showing atrial fibrillation with right bundle branch block. Troponins negative 3. BNP 1980. She received 1 dose of IV steroids home meds resumed. Pulmonary and cardiology services have been consulted. Patient states she artery feels improved. Patient remains on 2 L nasal cannula. At this time patient denies chest pain. Patient denies nausea vomiting or diarrhea. Patient denies any urinary burning or frequency On 11/04/2019 patient was seen and examined on the medical floor is alert and oriented 3 in no apparent distress she is still complaining of severe shortness of breath with any activity otherwise she denies any complaints there is no fever or chills no headache or dizziness no chest pain no cough no nausea or vomiting no abdominal pain no diarrhea no burning with urination no frequency or urgency and no hematuria On 11/05/2019 patient is alert and oriented 3 in no apparent distress still complaining of shortness of breath with activity otherwise she denies any complaints there is no fever or chills no headache or dizziness no chest pain no nausea or vomiting no abdominal pain no diarrhea no burning with urination no frequency or urgency and no hematuria Objective - Vital Signs Vital signs: Vital Signs Temp 97.5 F L 11/05/19 05:38 Pulse 71 11/05/19 05:38 Resp 20 11/05/19 05:38 BP 148/71 11/05/19 05:38 Pulse Ox 94 L 11/05/19 05:38 Intake & Output 11/04/19 11/05/19 11/05/19 18:59 06:59 18:59 Intake Total 700 575 Balance 700 575 Weight 109.6 kg 109.225 kg Intake: Oral 700 575 Other: Voiding Method Toilet # Voids 1 2 - Exam In general patient is alert and oriented 3 in no apparent distress Head normocephalic and atraumatic Neck supple no JVD no goiter Lungs clear to auscultation bilaterally no wheezing or crackles Heart regular rate and rhythm S1-S2, no rub or gallop Abdomen is soft nontender nondistended positive bowel sounds no hepatosplenomegaly Extremities no edema no cyanosis or clubbing Neuro no gross focal deficit - Labs CBC & Chem 7: 11/05/19 08:21 11/05/19 08:21 Labs: Abnormal Lab Results - Last 24 Hours (Table) 11/04/19 11/04/19 Range/Units 07:59 07:59 Hgb 11.3 L (11.4-16.0) gm/dL MCHC 30.4 L (31.0-37.0) g/dL RDW 16.0 H (11.5-15.5) % BUN 42 H (7-17) mg/dL Creatinine 1.21 H (0.52-1.04) mg/dL Total Protein 5.7 L (6.3-8.2) g/dL Albumin 3.2 L (3.5-5.0) g/dL Assessment and Plan Plan: 1. Shortness breath likely secondary to interstitial edema. Acute diastolic congestive heart failure exacerbation . Chest CTA completed showing no definitive pulmonary embolism. However there is coronary artery disease with prominence the right side of heart and findings suggesting underlying pulmonary arterial hypertension. Some mosaic attenuation to the mid and lower lungs could represent small airway disease. Moderate sized hilar hernia severe S-shaped scoliosis. Pulmonary and cardiology services have been consulted. Patient will be switched to oral diuretics today Lasix 60 mg by mouth daily she received IV Lasix yesterday will monitor progress still tomorrow if stable on oral Lasix possible discharge to home tomorrow 2. History of pulmonary embolism. Last pulmonary embolism in February 2019. Patient is maintained on oral eliquis 3. Lower extremity edema. Venous Doppler negative for bilateral DVTs 4. Chronic atrial fibrillation. Patient maintained on eliquis for anticoagulation 5. Recent episode of acute kidney injury with hyperkalemia. On 10/17/2019 through PCP patient had elevated potassium 6.1 creat and 1.6. At that time medications were adjusted Aldactone DC'd lisinopril switched to Norvasc per nephrology. This does appear resolved we'll continue to monitor 6. History of chronic kidney disease stage III. Patient does reports follows with nephrology services 7. History of hypothyroidism. Maintain on Synthroid 8. History of essential hypertension. Home meds resumed 9. Chronic diastolic congestive heart failure. BNP on admission 1950. Home Lasix dose resumed. Cardiology services have been consulted 10. History of gout. Continue on allopurinol DVT prophylaxis eliquis. GI prophylaxis Pepcid Pulmonary and cardiology services have been consulted
--- NOTE | 2019-11-05 12:22 | P.PN ---
Subjective This is Eden Gillis PA-C dictating a progress note on this patient The patient was interviewed and examined by me as well as by Dr. Bateman Case discussed with Dr. Bateman and he agrees with the plan of care IMPRESSION / ASSESSMENT: Progressive dyspnea, increased lower extremity edema, likely secondary to CHF with preserved LV systolic function, symptoms improving Persistent atrial fibrillation, rate controlled, anticoagulated History of DVT and PE, chest CT showed no definite PE, anticoagulated Hypertension Dyslipidemia RAYSA, creatinine improving 0.96 today from 1.21 yesterday PLAN: Continue current medication regimen including Lasix 60 mg by mouth daily Continue to monitor BMP and kidney function HPI/interval history Patient is a 74-year-old female with a history of persistent atrial fibrillation, DVT/PE, hypertension, dyslipidemia who presented with complaints of progressive dyspnea, lower extremity edema and weight gain. She was diagnosed and is being treated for a CHF exacerbation. Yesterday we gave her one dose of IV Lasix 20 mg and increased her oral Lasix dose to 60 mg this morning. Patient seen and examined resting comfortably in bed, lying almost completely flat. She states her breathing has improved this morning. She was not short of breath when she walked to the bathroom. Denies any orthopnea or P ND. States her lower extremity edema has improved as well. No chest pain or palpitations, dizziness or syncope. EXAMINATION Tsai is afebrile, pulse 71, respirations 20, blood pressure 140/71, oxygen agitation 94% on room air Patient seen and examined lying comfortably in bed, in no acute distress Bilateral breath sounds slightly diminished at the bases Heart is irregular, no murmurs noted No elevated JVD 1+ pitting lower extremity edema on the left, no edema on the right REVIEW OF LABS, ECG WBC 7.5, hemoglobin 13.2, platelets 256, BUN 35, creatinine 0.96 Objective - Vital Signs Vital signs: Vital Signs Temp 97.5 F L 11/05/19 05:38 Pulse 71 11/05/19 05:38 Resp 20 11/05/19 05:38 BP 148/71 11/05/19 05:38 Pulse Ox 94 L 11/05/19 05:38 Intake & Output 11/04/19 11/05/19 11/05/19 18:59 06:59 18:59 Intake Total 700 575 400 Balance 700 575 400 Weight 109.6 kg 109.225 kg 109 kg Intake: Oral 700 575 400 Other: Voiding Method Toilet # Voids 1 2 - Labs CBC & Chem 7: 11/05/19 08:21 11/05/19 08:21 Labs: Abnormal Lab Results - Last 24 Hours (Table) 11/05/19 11/05/19 Range/Units 08:21 08:21 RDW 15.8 H (11.5-15.5) % BUN 35 H (7-17) mg/dL Glucose 103 H (74-99) mg/dL
[2019-11-05] MEDS: amLODIPine 5 MG TAB PO SCH (16:33)
[2019-11-05] MEDS: ATORVASTATIN 40 MG TAB PO SCH (20:33)
[2019-11-06] MEDS: LEVOTHYROXINE 50 MCG TAB PO SCH (05:23)
[2019-11-06 09:35] LABS: Basophils % (A) 0 %; Eosinophils # (A) 0.3 k/uL (0-0.7); Eosinophils % (A) 4 %; HCT 37.5 % (34.0-46.0); HGB 11.7 gm/dL (11.4-16.0); Lymphocytes # (A) 1.5 k/uL (1.0-4.8); Lymphocytes % (A) 22 %; MCH 29.9 pg (25.0-35.0); MCHC 31.1 g/dL (31.0-37.0); Mean Platelet Volume 8.1; Monocytes # (A) 0.8 k/uL (0-1.0); Monocytes % (A) 11 %; Neutrophils # (A) 4.1 k/uL (1.3-7.7); Neutrophils % (A) 61 %; Platelet Count 213 k/uL (150-450); RDW 15.7 % (11.5-15.5); WBC 6.8 k/uL (3.8-10.6)
[2019-11-06 09:45] LABS: Calcium 8.5 mg/dL (8.4-10.2); Potassium 3.8 mmol/L (3.5-5.1); Total Bilirubin 0.6 mg/dL (0.2-1.3); Total Protein 5.5 g/dL (6.3-8.2)
[2019-11-06] MEDS: FUROSEMIDE 20 MG TAB PO SCH (09:56)
[2019-11-06] MEDS: METOPROLOL TARTRATE 50 MG TAB PO SCH ×2 (09:56→21:23)
[2019-11-06] MEDS: APIXABAN 5 MG TAB PO SCH ×2 (09:56→21:23)
[2019-11-06] MEDS: MULTIVITAMINS, THERA 1 EACH TAB PO SCH (09:56)
[2019-11-06] MEDS: CHOLECALCIFEROL 1,000 UNIT TAB PO SCH (09:56)
[2019-11-06] MEDS: ALLOPURINOL 100 MG TAB PO SCH (09:56)
[2019-11-06] MEDS: FAMOTIDINE 20 MG TAB PO SCH (09:56)
--- NOTE | 2019-11-06 10:22 | P.PN ---
Subjective Progress Note Date: 11/06/19 This is a pleasant 74-year-old female patient who follows with Dr. Monge in the office. She has a known history of persistent atrial fibrillation, hypertension, hyperlipidemia. Presented to the hospital with complaints of progressive dyspnea, lower extremity edema and weight gain. She was diagnosed and treated first CHF exacerbation. She was initiated on IV Lasix. She is currently on Lasix 60 mg by mouth daily. Weight this morning is down almost 1 kg from yesterday. Labs this morning show potassium 3.8, BUN 27, creatinine 0.96. Upon examination patient is sitting up at the side of the bed. She feels that her breathing has improved since admission but did note some mild dyspnea when getting up to use the bathroom earlier this morning. Also continues to complain of lower extremity edema which is chronic on the right but has been worse on the left recently. She notes it is better in the morning and worse towards the end of the day. Objective - Vital Signs Vital signs: Vital Signs Temp 97.4 F L 11/06/19 05:30 Pulse 91 11/06/19 05:30 Resp 18 11/06/19 05:30 BP 154/84 11/06/19 05:30 Pulse Ox 96 11/06/19 05:30 Intake & Output 11/05/19 11/06/19 11/06/19 18:59 06:59 18:59 Intake Total 800 Balance 800 Weight 109 kg 108.4 kg Intake: Oral 800 Other: Voiding Method Toilet # Voids 1 1 - Exam PHYSICAL EXAMINATION: HEENT: Head is atraumatic, normocephalic. Pupils equal, round. Neck is supple. There is no elevated jugular venous pressure. HEART EXAMINATION: Heart sounds irregularly irregular, S1 and S2 with systolic murmur. CHEST EXAMINATION: Lungs are clear to auscultation, slightly diminished in the lower lobes. No chest wall tenderness is noted on palpation or with deep breathing. ABDOMEN: Soft, nontender. Bowel sounds are heard. No organomegaly noted. EXTREMITIES: 2+ peripheral pulses with evidence of trace right lower extremity and +1 left lower extremity edema and no calf tenderness noted. NEUROLOGIC patient is awake, alert and oriented x3. . - Labs CBC & Chem 7: 11/06/19 08:49 11/06/19 08:49 Labs: Abnormal Lab Results - Last 24 Hours (Table) 11/06/19 11/06/19 Range/Units 08:49 08:49 RDW 15.7 H (11.5-15.5) % BUN 27 H (7-17) mg/dL Glucose 113 H (74-99) mg/dL Total Protein 5.5 L (6.3-8.2) g/dL Albumin 3.0 L (3.5-5.0) g/dL Assessment and Plan Assessment: #1 symptoms of progressive dyspnea secondary to congestive heart failure with preserved systolic function exacerbated by recent increase in sodium intake #2 chronic persistent atrial fibrillation, anticoagulated #3 obesity #4 chronic lower extremity edema #5 history of PE #6 hypertension #7 hyperlipidemia Plan: From cardiology's perspective, medications were reviewed and will continue the same. Discussed at length with the patient importance of following a low sodium diet and attempting to maintain this around the holiday season. We will follow- up with the patient in the office after discharge. TRANSPORTATION PROGRAM DIRECTOR note has been reviewed, I agree with a documented findings and plan of care. Patient was seen and examined.
--- NOTE | 2019-11-06 12:59 | P.PN ---
Subjective Progress Note Date: 11/06/19 This is a 74-year-old female patient who presents with complaints of shortness of breath. Patient reports that shortness of breath started on Wednesday in which she was attending family [employer] parties and had increased shortness of breath with any activity. Patient has a past medical history of pulmonary embolism in which she is maintained on eliquis, atrial fibrillation, asthma, COPD, chronic kidney disease stage III in which she follows with nephrology, DVT, hyperlipidemia, hypertension and MRSA. Patient reports that approximately 2 weeks ago her medications were adjusted due to elevated potassium and kidney enzymes. She was on Aldactone which had been DC'd due to hyperkalemia and lisinopril also switched to Norvasc per nephrology. Chest x-ray completed showing possible underlining interstitial lung disease correlate for possible interstitial edema. Chest CTA completed showing no definitive pulmonary embolism. However there is coronary artery disease with prominence the right side of heart and findings suggesting underlying pulmonary arterial hypertension. Some mosaic attenuation to the mid and lower lungs could represent small airway disease. Moderate sized hilar hernia severe S-shaped scoliosis. Venous Doppler completed showing normal evident deep vein thrombosis. EKG completed showing atrial fibrillation with right bundle branch block. Troponins negative 3. BNP 1980. She received 1 dose of IV steroids home meds resumed. Pulmonary and cardiology services have been consulted. Patient states she artery feels improved. Patient remains on 2 L nasal cannula. At this time patient denies chest pain. Patient denies nausea vomiting or diarrhea. Patient denies any urinary burning or frequency On 11/04/2019 patient was seen and examined on the medical floor is alert and oriented 3 in no apparent distress she is still complaining of severe shortness of breath with any activity otherwise she denies any complaints there is no fever or chills no headache or dizziness no chest pain no cough no nausea or vomiting no abdominal pain no diarrhea no burning with urination no frequency or urgency and no hematuria On 11/05/2019 patient is alert and oriented 3 in no apparent distress still complaining of shortness of breath with activity otherwise she denies any complaints there is no fever or chills no headache or dizziness no chest pain no nausea or vomiting no abdominal pain no diarrhea no burning with urination no frequency or urgency and no hematuria On 11/06/2018 patient is alert and oriented 3. Patient is still having some shortness of breath with activity does not feel quite ready to be DC'd home. Patient's Lasix has been increased per cardiology. Patient denies chest pain. We'll continue to monitor patient for an additional 24 hours. Patient denies nausea vomiting or diarrhea. Patient denies any urinary burning or frequency Objective - Vital Signs Vital signs: Vital Signs Temp 97.4 F L 11/06/19 05:30 Pulse 91 11/06/19 05:30 Resp 18 11/06/19 05:30 BP 154/84 11/06/19 05:30 Pulse Ox 96 11/06/19 05:30 Intake & Output 11/05/19 11/06/19 11/06/19 18:59 06:59 18:59 Intake Total 800 Balance 800 Weight 109 kg 108.4 kg Intake: Oral 800 Other: Voiding Method Toilet # Voids 1 1 - Exam In general patient is alert and oriented 3 in no apparent distress Head normocephalic and atraumatic Neck supple no JVD no goiter Lungs clear to auscultation bilaterally no wheezing or crackles Heart regular rate and rhythm S1-S2, no rub or gallop Abdomen is soft nontender nondistended positive bowel sounds no hepatosplenomegaly Extremities no edema no cyanosis or clubbing Neuro no gross focal deficit - Labs CBC & Chem 7: 11/06/19 08:49 11/06/19 08:49 Labs: Abnormal Lab Results - Last 24 Hours (Table) 11/06/19 11/06/19 Range/Units 08:49 08:49 RDW 15.7 H (11.5-15.5) % BUN 27 H (7-17) mg/dL Glucose 113 H (74-99) mg/dL Total Protein 5.5 L (6.3-8.2) g/dL Albumin 3.0 L (3.5-5.0) g/dL Assessment and Plan Assessment: 1. Shortness breath likely secondary to interstitial edema. Acute diastolic congestive heart failure exacerbation . Chest CTA completed showing no definitive pulmonary embolism. However there is coronary artery disease with prominence the right side of heart and findings suggesting underlying pulmonary arterial hypertension. Some mosaic attenuation to the mid and lower lungs could represent small airway disease. Moderate sized hilar hernia severe S-shaped scoliosis. Pulmonary and cardiology services have been consulted. Patient will be switched to oral diuretics today Lasix 60 mg by mouth daily she received IV Lasix yesterday will monitor progress still tomorrow if stable on oral Lasix possible discharge to home tomorrow 2. History of pulmonary embolism. Last pulmonary embolism in February 2019. Patient is maintained on oral eliquis 3. Lower extremity edema. Venous Doppler negative for bilateral DVTs 4. Chronic atrial fibrillation. Patient maintained on eliquis for anticoagulation 5. Recent episode of acute kidney injury with hyperkalemia. On 10/17/2019 through PCP patient had elevated potassium 6.1 creat and 1.6. At that time medications were adjusted Aldactone DC'd lisinopril switched to Norvasc per nephrology. This does appear resolved we'll continue to monitor 6. History of chronic kidney disease stage III. Patient does reports follows with nephrology services 7. History of hypothyroidism. Maintain on Synthroid 8. History of essential hypertension. Home meds resumed 9. Chronic diastolic congestive heart failure. BNP on admission 1950. Home Lasix dose resumed. Cardiology services have been consulted 10. History of gout. Continue on allopurinol DVT prophylaxis eliquis. GI prophylaxis Pepcid Pulmonary and cardiology services have been consulted I performed an examination of the patient and discussed their management with the Nurse Practitioner. I have reviewed the Nurse Practitioner's notes and agree with the documented findings and plan of care
--- NOTE | 2019-11-06 14:33 | P.PN ---
Subjective Progress Note Date: 11/06/19 Principal diagnosis: Acute hypoxemic respiratory failure This is a very pleasant 74-year-old female patient who follows with Dr. Hardwick as her primary care physician. She has a history of pulmonary embolism/DVT, atrial fibrillation anticoagulated with Eliquis, diverticulosis, carotid stenosis, umbilical hernia, hypertension, hyperlipidemia, osteoarthritis, hypothyroidism. She has a remote history of smoking. She presented to the emergency room yesterday after having a 2 week history of increasing shortness of breath, dyspnea on exertion and some swelling of lower extremities left greater than right. She was concern regarding possible DVT/PE recurrence. Chest x-ray shows some atelectasis at the bases. There is a hiatal hernia present in the left chest area. CT angiogram ruled out pulmonary embolus. Question of pulmonary hypertension. Atelectasis of the small airways. Moderate size hiatal hernia. Severe S shaped scoliosis. Doppler of the left lower extremity are negative for DVT. White count 7.0. Hemoglobin 12.6. Creatinine 1.08. Troponins negative 3. ProBNP 1980. She is seen today in consultation on the regular medical floor. She is currently sitting up at the bedside. Awake and alert in no acute distress. Breathing easier today as compared to yesterday. No worsening shortness of breath, cough or congestion. Maintaining O2 saturations in the upper 90s on room air. She's been afebrile. Hemodynamically stable. Patient was reevaluated today on 11/04/2019, feeling much better, breathing a lot easier, hardly any cough no wheezing no shortness of breath no chest pain. Swelling in lower extremities is significantly improved, continues to have some swelling in the left lower extremity were and she had previous history of deep vein thrombosis. CBC is relatively normal left lites are normal renal profile is reflecting mild increase in her creatinine related to diuretics. On 11/06/2019 patient seen in follow-up on medical surgical floor. She is awake and alert, in no acute distress, she is on room air, denies any shortness of breath, pulse ox on room air is 96%, she is afebrile, no complaints of shortness of breath, no complaints of chest pain, she has been transitioned to oral Lasix, currently 60 mg daily, she is on oral anticoagulation. She is in negative fluid balance, fluid bonds status is improving. No new chest x-rays, today's labs have been reviewed, CBC is relatively unremarkable, electrolytes are within nor mal limits, BUN is 27 creatinine 0.96. No acute issues overnight, and patient is going home today Objective - Vital Signs Vital signs: Vital Signs Temp 97.4 F L 11/06/19 05:30 Pulse 91 11/06/19 05:30 Resp 18 11/06/19 05:30 BP 154/84 11/06/19 05:30 Pulse Ox 96 11/06/19 05:30 Intake & Output 11/05/19 11/06/19 11/06/19 18:59 06:59 18:59 Intake Total 800 Balance 800 Weight 109 kg 108.4 kg Intake: Oral 800 Other: Voiding Method Toilet # Voids 1 1 - Exam GENERAL EXAM: Alert, very pleasant, 74-year-old white female, on room air, with a pulse ox of 96% comfortable in no apparent distress. HEAD: Normocephalic/atraumatic. EYES: Normal reaction of pupils, equal size. Conjunctiva pink, sclera white. NOSE: Clear with pink turbinates. THROAT: No erythema or exudates. NECK: No masses, no JVD, no thyroid enlargement, no adenopathy. CHEST: No chest wall deformity. Symmetrical expansion. LUNGS: Equal air entry with no crackles, wheeze, rhonchi or dullness. CVS: Regular rate and rhythm, normal S1 and S2, no gallops, no murmurs, no rubs ABDOMEN: Soft, nontender. No hepatosplenomegaly, normal bowel sounds, no guarding or rigidity. EXTREMITIES: No clubbing, no edema, no cyanosis, 2+ pulses and upper and lower extremities. MUSCULOSKELETAL: Muscle strength and tone normal. SPINE: No scoliosis or deformity SKIN: No rashes CENTRAL NERVOUS SYSTEM: Alert and oriented -3. No focal deficits, tone is normal in all 4 extremities. PSYCHIATRIC: Alert and oriented -3. Appropriate affect. Intact judgment and insight. - Labs CBC & Chem 7: 11/06/19 08:49 11/06/19 08:49 Labs: Abnormal Lab Results - Last 24 Hours (Table) 11/06/19 11/06/19 Range/Units 08:49 08:49 RDW 15.7 H (11.5-15.5) % BUN 27 H (7-17) mg/dL Glucose 113 H (74-99) mg/dL Total Protein 5.5 L (6.3-8.2) g/dL Albumin 3.0 L (3.5-5.0) g/dL Assessment and Plan Plan: Assessment: 1 Acute hypoxic respiratory failure, secondary to acute diastolic congestive heart failure. 2 Left lower extremity edema, DVT ruled out, on oral diuretics 3 Morbid obesity, BMi 44.4. 4 chronic atrial fibrillation. 5 acute on chronic kidney injury, likely secondary to diuretics. 6 Previous history of PE/DVT 7 History of diverticular bleed 8: Multiple comorbidities including hypothyroidism hypertension COPD which is presently inactive/asthma. History of coronary artery disease, degenerative joint disease, and history of chronic low back pain. History of gout. Plan: Patient is doing well, clinically stable, no worsening dyspnea, she is on room air, she is tolerating ambulation, no acute issues overnight, no complaints of shortness of breath or chest pain, she has been transitioned to oral Lasix, she is on oral anticoagulation for chronic atrial fibrillation, vital signs are stable, patient is being discharged home today, follow up with Dr. Morin in the office in one to 2 weeks I performed a history & physical examination of the patient and discussed their management with my nurse practitioner, Tiffanie rCawford. I reviewed the nurse practitioner's note and agree with the documented findings and plan of care. Jazzy ng sounds are positive for clear throughout the lung de la cruz. The findings and the impression was discussed with the patient. I attest to the documentation by the nurse practitioner. Time with Patient: Less than 30
[2019-11-06] MEDS: amLODIPine 5 MG TAB PO SCH (17:39)
[2019-11-06] MEDS: ATORVASTATIN 40 MG TAB PO SCH (21:23)
[2019-11-07] MEDS: LEVOTHYROXINE 50 MCG TAB PO SCH (05:19)
[2019-11-07 06:12] VITALS: PULSE 79
[2019-11-07] MEDS: FAMOTIDINE 20 MG TAB PO SCH (08:54)
[2019-11-07] MEDS: FUROSEMIDE 20 MG TAB PO SCH (08:54)
[2019-11-07] MEDS: MULTIVITAMINS, THERA 1 EACH TAB PO SCH (08:55)
[2019-11-07] MEDS: APIXABAN 5 MG TAB PO SCH (08:55)
[2019-11-07] MEDS: ALLOPURINOL 100 MG TAB PO SCH (08:55)
[2019-11-07] MEDS: CHOLECALCIFEROL 1,000 UNIT TAB PO SCH (08:55)
[2019-11-07] MEDS: METOPROLOL TARTRATE 50 MG TAB PO SCH (08:55)
[2019-11-07 09:55] LABS: Albumin 3.4 g/dL (3.5-5.0); Calcium 8.6 mg/dL (8.4-10.2); Total Bilirubin 0.6 mg/dL (0.2-1.3); Total Protein 6.1 g/dL (6.3-8.2)
[2019-11-07 10:06] LABS: Basophils % (A) 0 %; Eosinophils # (A) 0.3 k/uL (0-0.7); Eosinophils % (A) 4 %; HCT 40.8 % (34.0-46.0); HGB 12.6 gm/dL (11.4-16.0); Hypochromasia Slight; Lymphocytes # (A) 1.5 k/uL (1.0-4.8); Lymphocytes % (A) 23 %; MCH 29.7 pg (25.0-35.0); MCHC 30.9 g/dL (31.0-37.0); MCV 96.2 fL (80.0-100.0); Mean Platelet Volume 8.1; Monocytes # (A) 0.6 k/uL (0-1.0); Monocytes % (A) 10 %; Neutrophils % (A) 62 %; Platelet Count 237 k/uL (150-450); RBC 4.24 m/uL (3.80-5.40); RDW 15.7 % (11.5-15.5); WBC 6.5 k/uL (3.8-10.6)
--- NOTE | 2019-11-07 12:41 | P.DS ---
Providers Date of admission: 11/02/19 16:21 Expected date of discharge: 11/07/19 Attending physician: Miguel Hardwick Consults: 11/02/19 16:11 Consult Physician Routine Consulting Provider: Mehul Zamudio Consult Reason/Comments: SOB Do you want consulting provider notified?: Yes 11/02/19 16:12 Consult Physician Routine Consulting Provider: Ladonna Parks Consult Reason/Comments: pulmonary hypertension, SOB and hypoxia with ambulation Do you want consulting provider notified?: Yes, Notify in am Primary care physician: Miguel Hardwick [facility] Course: Discharge diagnosis 1. Shortness breath likely secondary to interstitial edema. Acute diastolic congestive heart failure exacerbation . Chest CTA completed showing no definitive pulmonary embolism. However there is coronary artery disease with prominence the right side of heart and findings suggesting underlying pulmonary arterial hypertension. Some mosaic attenuation to the mid and lower lungs could represent small airway disease. Moderate sized hilar hernia severe S-shaped scoliosis. Pulmonary and cardiology services have been consulted. Patient will be switched to oral diuretics today Lasix 60 mg by mouth daily she received IV Lasix yesterday will monitor progress still tomorrow if stable on oral Lasix possible discharge to home tomorrow 2. History of pulmonary embolism. Last pulmonary embolism in February 2019. Patient is maintained on oral eliquis 3. Lower extremity edema. Left lower extremity venous Doppler completed showing no evidence of deep vein thrombosis 4. Chronic atrial fibrillation. Patient maintained on eliquis for anticoagulation 5. Recent episode of acute kidney injury with hyperkalemia. On 10/17/2019 through PCP patient had elevated potassium 6.1 creat and 1.6. At that time medications were adjusted Aldactone DC'd lisinopril switched to Norvasc per nephrology. This does appear resolved we'll continue to monitor 6. History of chronic kidney disease stage III. Patient does reports follows with nephrology services 7. History of hypothyroidism. Maintain on Synthroid 8. History of essential hypertension. Home meds resumed 9. Chronic diastolic congestive heart failure. BNP on admission 1950. Home Lasix dose resumed. Cardiology services have been consulted. Lasix has been increased to 60 mg. Cardiology services have cleared patient for discharge 10. History of gout. Continue on allopurinol Hospital course This is a 74-year-old female patient who presents with complaints of shortness of breath. Patient reports that shortness of breath started on Wednesday in which she was attending [employer] parties and had increased shortness of breath with any activity. Patient has a past medical history of pulmonary embolism in which she is maintained on eliquis, atrial fibrillation, asthma, COPD, chronic kidney disease stage III in which she follows with nephrology, DVT, hyperlipidemia, hypertension and MRSA. Patient reports that approximately 2 weeks ago her medications were adjusted due to elevated potassium and kidney enzymes. She was on Aldactone which had been DC'd due to hyperkalemia and lisinopril also switched to Norvasc per nephrology. Chest x-ray completed showing possible underlining interstitial lung disease correlate for possible interstitial edema. Chest CTA completed showing no definitive pulmonary embolism. However there is coronary artery disease with prominence the right side of heart and findings suggesting underlying pulmonary arterial hypertension. Some mosaic attenuation to the mid and lower lungs could represent small airway disease. Moderate sized hilar hernia severe S-shaped scoliosis. Venous Doppler completed showing normal evident deep vein thrombosis. EKG completed showing atrial fibrillation with right bundle branch block. Troponins negative 3. BNP 1979. She received 1 dose of IV steroids home meds resumed. Pulmonary and cardiology services have been consulted. Patient states she artery feels improved. Patient remains on 2 L nasal cannula. At this time patient denies chest pain. Patient denies nausea vomiting or diarrhea. Patient denies any urinary burning or frequency On 11/04/2019 patient was seen and examined on the medical floor is alert and oriented 3 in no apparent distress she is still complaining of severe shortness of breath with any activity otherwise she denies any complaints there is no fever or chills no headache or dizziness no chest pain no cough no nausea or vomiting no abdominal pain no diarrhea no burning with urination no frequency or urgency and no hematuria On 11/05/2019 patient is alert and oriented 3 in no apparent distress still complaining of shortness of breath with activity otherwise she denies any complaints there is no fever or chills no headache or dizziness no chest pain no nausea or vomiting no abdominal pain no diarrhea no burning with urination no frequency or urgency and no hematuria On 11/06/2019 patient is alert and oriented 3. Patient is still having some shortness of breath with activity does not feel quite ready to be DC'd home. Patient's Lasix has been increased per cardiology. Patient denies chest pain. We'll continue to monitor patient for an additional 24 hours. Patient denies nausea vomiting or diarrhea. Patient denies any urinary burning or frequency On 11/07/2019 patient is alert and oriented 3. Patient's Lasix dose increased to 60 mg per cardiology services. Shortness of breath has improved. Patient educated on the importance of low sodium diet. Patient cleared by cardiology and pulmonary services for discharge. At this time patient denies chest pain or shortness of breath. Patient denies nausea vomiting or diarrhea. Patient denies any urinary burning or frequency. I performed an examination of the patient and discussed their management with the Nurse Practitioner. I have reviewed the Nurse Practitioner's notes and agree with the documented findings and plan of care Patient Condition at Discharge: Stable Plan - Discharge Summary Discharge Rx Participant: Yes New Discharge Prescriptions: New Furosemide [Lasix] 60 mg PO DAILY 30 Days #90 tab Continue Levothyroxine Sodium [Synthroid] 50 mcg PO DAILY Multivitamins, Thera [Multivitamin (formulary)] 1 tab PO DAILY Metoprolol Tartrate [Lopressor] 50 mg PO BID #60 tab Atorvastatin [Lipitor] 40 mg PO HS Cholecalciferol [Vitamin D3 (25 Mcg = 1000 Iu)] 5,000 unit PO DAILY Apixaban [Eliquis] 5 mg PO BID #60 tab Allopurinol [Zyloprim] 200 mg PO DAILY #30 tab Calcitriol 0.5 mcg PO WE Ciclopirox Olamine [Loprox 0.77% cream] 1 applic TOPICAL BID PRN PRN Reason: FUNGAL INFECTION amLODIPine [Norvasc] 5 mg PO DAILY@1600 Mupirocin 2% Oint [Bactroban 2% Oint] 1 applic TOPICAL BID PRN PRN Reason: FUNGAL INFECTION Famotidine [Pepcid AC] 10 mg PO DAILY PRN PRN Reason: Heartburn Ketorolac 0.5% Ophth Soln [Acular 0.5%] 1 drop RIGHT EYE BID Discontinued Furosemide [Lasix] 40 mg PO DAILY Discharge Medication List Levothyroxine Sodium [Synthroid] 50 mcg PO DAILY 06/06/15 [History] Multivitamins, Thera [Multivitamin (formulary)] 1 tab PO DAILY 06/06/15 [History] Metoprolol Tartrate [Lopressor] 50 mg PO BID #60 tab 06/13/15 [Rx] Atorvastatin [Lipitor] 40 mg PO HS 02/14/19 [History] Cholecalciferol [Vitamin D3 (25 Mcg = 1000 Iu)] 5,000 unit PO DAILY 02/14/19 [History] Allopurinol [Zyloprim] 200 mg PO DAILY #30 tab 02/17/19 [Rx] Apixaban [Eliquis] 5 mg PO BID #60 tab 02/17/19 [Rx] Calcitriol 0.5 mcg PO WE 11/02/19 [History] Ciclopirox Olamine [Loprox 0.77% cream] 1 applic TOPICAL BID PRN 11/02/19 [History] Famotidine [Pepcid AC] 10 mg PO DAILY PRN 11/02/19 [History] Ketorolac 0.5% Ophth Soln [Acular 0.5%] 1 drop RIGHT EYE BID 11/02/19 [History] Mupirocin 2% Oint [Bactroban 2% Oint] 1 applic TOPICAL BID PRN 11/02/19 [History] amLODIPine [Norvasc] 5 mg PO DAILY@1600 11/02/19 [History] Furosemide [Lasix] 60 mg PO DAILY 30 Days #90 tab 11/07/19 [Rx] Follow up Appointment(s)/Referral(s): Trent Monge MD [STAFF PHYSICIAN] - 11/15/19 9:30 am (9:30 Echo and 10:15 OV/DCG) Miguel Hardwick MD [Primary Care Provider] - 1-2 days Activity/Diet/Wound Care/Special Instructions: Wants d/c Rx.
--- NOTE | 2019-11-07 13:25 | P.PN ---
Subjective Progress Note Date: 11/07/19 Principal diagnosis: Acute hypoxemic respiratory failure This is a very pleasant 74-year-old female patient who follows with Dr. Hardwick as her primary care physician. She has a history of pulmonary embolism/DVT, atrial fibrillation anticoagulated with Eliquis, diverticulosis, carotid stenosis, umbilical hernia, hypertension, hyperlipidemia, osteoarthritis, hypothyroidism. She has a remote history of smoking. She presented to the emergency room yesterday after having a 2 week history of increasing shortness of breath, dyspnea on exertion and some swelling of lower extremities left greater than right. She was concern regarding possible DVT/PE recurrence. Chest x-ray shows some atelectasis at the bases. There is a hiatal hernia present in the left chest area. CT angiogram ruled out pulmonary embolus. Question of pulmonary hypertension. Atelectasis of the small airways. Moderate size hiatal hernia. Severe S shaped scoliosis. Doppler of the left lower extremity are negative for DVT. White count 7.0. Hemoglobin 12.6. Creatinine 1.08. Troponins negative 3. ProBNP 1980. She is seen today in consultation on the regular medical floor. She is currently sitting up at the bedside. Awake and alert in no acute distress. Breathing easier today as compared to yesterday. No worsening shortness of breath, cough or congestion. Maintaining O2 saturations in the upper 90s on room air. She's been afebrile. Hemodynamically stable. Patient was reevaluated today on 11/04/2019, feeling much better, breathing a lot easier, hardly any cough no wheezing no shortness of breath no chest pain. Swelling in lower extremities is significantly improved, continues to have some swelling in the left lower extremity were and she had previous history of deep vein thrombosis. CBC is relatively normal left lites are normal renal profile is reflecting mild increase in her creatinine related to diuretics. On 11/06/2019 patient seen in follow-up on medical surgical floor. She is awake and alert, in no acute distress, she is on room air, denies any shortness of breath, pulse ox on room air is 96%, she is afebrile, no complaints of shortness of breath, no complaints of chest pain, she has been transitioned to oral Lasix, currently 60 mg daily, she is on oral anticoagulation. She is in negative fluid balance, fluid bonds status is improving. No new chest x-rays, today's labs have been reviewed, CBC is relatively unremarkable, electrolytes are within nor mal limits, BUN is 27 creatinine 0.96. No acute issues overnight, and patient is going home today On 11/07/2019 patient seen in follow-up on medical surgical floor. He is awake and alert, she sits up in the chair, in no acute distress, on room air pulse ox is 94%, hemodynamically stable, afebrile. Lung sounds are clear to auscultation, continues on oral Lasix, no couplets or shortness of breath or chest pain, she is maintaining negative fluid balance. No lower extremity swelling. Patient is on oral anticoagulation for chronic atrial fibrillation, vital signs have been stable, no acute issues overnight, Objective - Vital Signs Vital signs: Vital Signs Temp 97.9 F 11/07/19 06:11 Pulse 79 11/07/19 06:11 Resp 18 11/07/19 06:11 BP 160/87 11/07/19 06:11 Pulse Ox 94 L 11/07/19 06:11 Intake & Output 11/06/19 11/07/19 11/07/19 18:59 06:59 18:59 Intake Total 540 Balance 540 Weight 108.2 kg Intake: Oral 540 Other: Voiding Method Toilet # Voids 1 1 - Exam GENERAL EXAM: Alert, very pleasant, 74-year-old white female, on room air, with a pulse ox of 96% comfortable in no apparent distress. HEAD: Normocephalic/atraumatic. EYES: Normal reaction of pupils, equal size. Conjunctiva pink, sclera white. NOSE: Clear with pink turbinates. THROAT: No erythema or exudates. NECK: No masses, no JVD, no thyroid enlargement, no adenopathy. CHEST: No chest wall deformity. Symmetrical expansion. LUNGS: Equal air entry with no crackles, wheeze, rhonchi or dullness. CVS: Regular rate and rhythm, normal S1 and S2, no gallops, no murmurs, no rubs ABDOMEN: Soft, nontender. No hepatosplenomegaly, normal bowel sounds, no guarding or rigidity. EXTREMITIES: No clubbing, no edema, no cyanosis, 2+ pulses and upper and lower extremities. MUSCULOSKELETAL: Muscle strength and tone normal. SPINE: No scoliosis or deformity SKIN: No rashes CENTRAL NERVOUS SYSTEM: Alert and oriented -3. No focal deficits, tone is normal in all 4 extremities. PSYCHIATRIC: Alert and oriented -3. Appropriate affect. Intact judgment and insight. - Labs CBC & Chem 7: 11/07/19 08:44 11/07/19 08:44 Labs: Abnormal Lab Results - Last 24 Hours (Table) 11/07/19 11/07/19 Range/Units 08:44 08:44 MCHC 30.9 L (31.0-37.0) g/dL RDW 15.7 H (11.5-15.5) % BUN 24 H (7-17) mg/dL Glucose 121 H (74-99) mg/dL Total Protein 6.1 L (6.3-8.2) g/dL Albumin 3.4 L (3.5-5.0) g/dL Assessment and Plan Plan: Assessment: 1 Acute hypoxic respiratory failure, secondary to acute diastolic congestive heart failure. 2 Left lower extremity edema, DVT ruled out, on oral diuretics 3 Morbid obesity, BMi 44.4. 4 chronic atrial fibrillation. 5 acute on chronic kidney injury, likely secondary to diuretics. 6 Previous history of PE/DVT 7 History of diverticular bleed 8: Multiple comorbidities including hypothyroidism hypertension COPD which is presently inactive/asthma. History of coronary artery disease, degenerative joint disease, and history of chronic low back pain. History of gout. Plan: Patient is doing well, no acute issues overnight, no worsening dyspnea, she is maintaining negative fluid balance on oral Lasix, she is on oral anticoagulation for chronic A. fib, moderate signs are stable, she is on room air, anticipate discharge home today follow-up with Dr. Morin in the office in one to 2 weeks I performed a history & physical examination of the patient and discussed their management with my nurse practitioner, Tiffanie Crawford. I reviewed the nurse practitioner's note and agree with the documented findings and plan of care. Lung sounds are positive for clear throughout the lung de la cruz. The findings and the impression was discussed with the patient. I attest to the documentation by the nurse practitioner. Time with Patient: Less than 30
[2019-11-07 14:20] VITALS: BP 150/88; RESP 20; TEMP 97.4
== END 2019-11-07 15:06 | disposition home or self-care (01) | DRG 291 ==
LOC: EC 10:20 → 6NMEDSUR 16:21
PROVIDERS: ADMIT Internal Medicine; ATTEND Internal Medicine
DX: I13.0 Hypertensive heart and chronic kidney disease with heart failure and stage 1 through stage 4 chronic kidney disease, or unspecified chronic kidney disease (principal); I50.33 Acute on chronic diastolic (congestive) heart failure; J96.01 Acute respiratory failure with hypoxia; I48.19 Other persistent atrial fibrillation; J98.11 Atelectasis; N17.9 Acute kidney failure, unspecified; Z68.41 Body mass index [BMI] 40.0-44.9, adult; J84.9 Interstitial pulmonary disease, unspecified; E03.9 Hypothyroidism, unspecified; E66.01 Morbid (severe) obesity due to excess calories; E78.5 Hyperlipidemia, unspecified; G89.29 Other chronic pain; I25.10 Atherosclerotic heart disease of native coronary artery without angina pectoris; I27.20 Pulmonary hypertension, unspecified; I08.8 Other rheumatic multiple valve diseases; I45.10 Unspecified right bundle-branch block; J44.9 Chronic obstructive pulmonary disease, unspecified; K44.9 Diaphragmatic hernia without obstruction or gangrene; M19.90 Unspecified osteoarthritis, unspecified site; M41.9 Scoliosis, unspecified; N18.3 Chronic kidney disease, stage 3 (moderate); T50.2X5A Adverse effect of carbonic-anhydrase inhibitors, benzothiadiazides and other diuretics, initial encounter; Z79.01 Long term (current) use of anticoagulants; Z79.890 Hormone replacement therapy; Z79.899 Other long term (current) drug therapy; K57.90 Diverticulosis of intestine, part unspecified, without perforation or abscess without bleeding; Z87.19 Personal history of other diseases of the digestive system; Z83.3 Family history of diabetes mellitus; Z86.711 Personal history of pulmonary embolism; Z86.718 Personal history of other venous thrombosis and embolism; Z87.891 Personal history of nicotine dependence; Z91.041 Radiographic dye allergy status; Z88.1 Allergy status to other antibiotic agents; Z88.5 Allergy status to narcotic agent; Z88.0 Allergy status to penicillin; Z88.8 Allergy status to other drugs, medicaments and biological substances; Z83.6 Family history of other diseases of the respiratory system; Z82.0 Family history of epilepsy and other diseases of the nervous system; Z60.2 Problems related to living alone; Z86.14 Personal history of Methicillin resistant Staphylococcus aureus infection; I87.8 Other specified disorders of veins; I65.29 Occlusion and stenosis of unspecified carotid artery
CPT/HCPCS: 36415; 71046; 71275; 80053; 83880; 84484; 85025; 85610; 85730; 93005; 94640; 96374; 96375; 99285

== ENCOUNTER → 2020-05-08 | Outpatient (CLI) | payer MEDICARE, BC ==
[2020-05-08 13:41] LABS: Anisocytosis Slight; Appearance,Urine Cloudy (Clear); Bacteria,Urine Rare /hpf; Bilirubin,Urine Negative (Negative); Blood,Urine Negative (Negative); Color,Urine Yellow; Glucose,Urine (UA) Negative (Negative); HCT 42.4 % (34.0-46.0); HGB 12.9 gm/dL (11.4-16.0); Hyaline Casts,Urine 4 /lpf (0-2); Hypochromasia Slight; Ketones,Urine Negative (Negative); Leukocyte Esterase,Urine Moderate (Negative); MCH 29.5 pg (25.0-35.0); MCHC 30.5 g/dL (31.0-37.0); MCV 96.8 fL (80.0-100.0); Macrocytosis Slight; Mean Platelet Volume 7.8; Mucus,Urine Rare /hpf; Nitrite,Urine Negative (Negative); PH, Urine 5.5 (5.0-8.0); Platelet Count 246 k/uL (150-450); Protein,Urine Trace (Negative); RBC 4.39 m/uL (3.80-5.40); RBC,Urine 1 /hpf (0-5); RDW 16.5 % (11.5-15.5); Specific Gravity,Urine 1.025 (1.001-1.035); Squamous Epithelial Cell,Urine 6 /hpf (0-4); WBC 6.6 k/uL (3.8-10.6); WBC,Urine 10 /hpf (0-5)
[2020-05-08 21:17] LABS: African American GFR (CKD) 82.4 (60.0-200.0); Anion Gap 6.5 mmol/L (4.00-12.00); BUN/Creat Ratio 23.75 Ratio (12.00-20.00); Carbon Dioxide 28.5 mmol/L (21.6-31.8); Non-African American GFR(CKD) 71.1 (60.0-200.0); Phosphorus 3.4 mg/dL (2.4-5.1); Total Bilirubin 0.9 mg/dL (0.3-1.2); Uric Acid 5.5 mg/dL (2.9-7.7)
[2020-05-08 21:25] LABS: Ferritin 51.8 ng/mL (10.0-291.0)
== END | disposition home or self-care (01) ==
LOC: LABWHC1 11:56
PROVIDERS: ATTEND Internal Medicine
DX: N18.3 Chronic kidney disease, stage 3 (moderate) (principal); D63.1 Anemia in chronic kidney disease; N39.0 Urinary tract infection, site not specified; N25.81 Secondary hyperparathyroidism of renal origin; E55.9 Vitamin D deficiency, unspecified; M10.9 Gout, unspecified
CPT/HCPCS: 36415; 80053; 81001; 82728; 83540; 83550; 83735; 83970; 84100; 84550; 85027

== ENCOUNTER → 2020-08-27 | Outpatient (CLI) | payer MEDICARE, BC ==
[2020-08-27 12:44] LABS: Basophils % (A) 1 %; Eosinophils # (A) 0.1 k/uL (0-0.7); Eosinophils % (A) 2 %; HCT 46.2 % (34.0-46.0); HGB 14.1 gm/dL (11.4-16.0); Hypochromasia Slight; Lymphocytes # (A) 1.4 k/uL (1.0-4.8); Lymphocytes % (A) 26 %; MCH 29.4 pg (25.0-35.0); MCHC 30.5 g/dL (31.0-37.0); MCV 96.7 fL (80.0-100.0); Mean Platelet Volume 7.8; Monocytes # (A) 0.5 k/uL (0-1.0); Monocytes % (A) 9 %; Neutrophils # (A) 3.4 k/uL (1.3-7.7); Neutrophils % (A) 61 %; Platelet Count 216 k/uL (150-450); RBC 4.78 m/uL (3.80-5.40); RDW 15.9 % (11.5-15.5); WBC 5.6 k/uL (3.8-10.6)
[2020-08-27 20:08] LABS: African American GFR (CKD) 71.5 (60.0-200.0); Albumin 4.1 g/dL (3.80-4.90); Albumin/Globulin Ratio 1.95 (1.60-3.17); Anion Gap 10.3 mmol/L (4.00-12.00); BUN/Creat Ratio 25.56 Ratio (12.00-20.00); Calcium 9.2 mg/dL (8.7-10.3); Carbon Dioxide 28.7 mmol/L (21.6-31.8); Chol/HDL Ratio 2.66; Globulin 2.1 g/dL (1.6-3.3); Non-African American GFR(CKD) 61.7 (60.0-200.0); Potassium 4.2 mmol/L (3.5-5.5); Total Bilirubin 0.8 mg/dL (0.2-1.2); Total Protein 6.2 g/dL (6.2-8.2); Uric Acid 6.4 mg/dL (2.9-7.7)
== END | disposition home or self-care (01) ==
LOC: LABWHC1 11:00
PROVIDERS: ATTEND Internal Medicine
DX: E03.9 Hypothyroidism, unspecified (principal); E78.2 Mixed hyperlipidemia; I48.0 Paroxysmal atrial fibrillation; E55.9 Vitamin D deficiency, unspecified; J44.9 Chronic obstructive pulmonary disease, unspecified
CPT/HCPCS: 36415; 80053; 80061; 84443; 84550; 85025

== ENCOUNTER → 2020-10-09 | Outpatient (CLI) | payer MEDICARE, BC ==
[2020-10-09 12:15] LABS: HCT 44.8 % (34.0-46.0); HGB 14.8 gm/dL (11.4-16.0); MCH 31.4 pg (25.0-35.0); MCV 95.1 fL (80.0-100.0); Mean Platelet Volume 7.5; Platelet Count 218 k/uL (150-450); RBC 4.71 m/uL (3.80-5.40); RDW 15.8 % (11.5-15.5); WBC 5.6 k/uL (3.8-10.6)
[2020-10-09 12:24] LABS: Appearance,Urine Clear (Clear); Bacteria,Urine Occasional /hpf; Bilirubin,Urine Negative (Negative); Blood,Urine Negative (Negative); Color,Urine Yellow; Glucose,Urine (UA) Negative (Negative); Hyaline Casts,Urine 18 /lpf (0-2); Ketones,Urine Negative (Negative); Leukocyte Esterase,Urine Moderate (Negative); Mucus,Urine Rare /hpf; Nitrite,Urine Negative (Negative); PH, Urine 5.5 (5.0-8.0); Protein,Urine Negative (Negative); RBC,Urine 1 /hpf (0-5); Specific Gravity,Urine 1.019 (1.001-1.035); Squamous Epithelial Cell,Urine 1 /hpf (0-4); WBC,Urine 12 /hpf (0-5)
[2020-10-09 18:40] LABS: % Iron Saturation 20.78 (12.00-45.00); African American GFR (CKD) 56.1 (60.0-200.0); Albumin 4.2 g/dL (3.80-4.90); Albumin/Globulin Ratio 2.1 (1.60-3.17); Anion Gap 9.3 mmol/L (4.00-12.00); BUN/Creat Ratio 28.18 Ratio (12.00-20.00); Calcium 9.2 mg/dL (8.7-10.3); Carbon Dioxide 30.7 mmol/L (21.6-31.8); Magnesium 1.9 mg/dL (1.5-2.4); Non-African American GFR(CKD) 48.4 (60.0-200.0); Phosphorus 3.8 mg/dL (2.4-5.1); Total Bilirubin 0.7 mg/dL (0.2-1.2); Total Protein 6.2 g/dL (6.2-8.2); Uric Acid 6.1 mg/dL (2.9-7.7)
[2020-10-09 18:48] LABS: Ferritin 59.7 ng/mL (10.0-291.0)
== END | disposition home or self-care (01) ==
LOC: LABWHC1 11:16
PROVIDERS: ATTEND Nurse Practitioner Family
DX: N18.30 Chronic kidney disease, stage 3 unspecified (principal); D63.1 Anemia in chronic kidney disease; N25.81 Secondary hyperparathyroidism of renal origin; E55.9 Vitamin D deficiency, unspecified; M10.9 Gout, unspecified; R82.81 Pyuria
CPT/HCPCS: 36415; 80053; 81001; 82306; 82728; 83540; 83550; 83735; 83970; 84100; 84550; 85027; 87086

== ENCOUNTER → 2021-04-09 | Outpatient (CLI) | payer MEDICARE, BC ==
[2021-04-09 14:36] LABS: Appearance,Urine Cloudy (Clear); Bacteria,Urine Rare /hpf; Bilirubin,Urine Negative (Negative); Blood,Urine Negative (Negative); Color,Urine Yellow; Glucose,Urine (UA) Negative (Negative); Hyaline Casts,Urine 3 /lpf (0-2); Ketones,Urine Negative (Negative); Leukocyte Esterase,Urine Moderate (Negative); Mucus,Urine Rare /hpf; Nitrite,Urine Negative (Negative); Protein,Urine Negative (Negative); RBC,Urine 1 /hpf (0-5); Specific Gravity,Urine 1.013 (1.001-1.035); Squamous Epithelial Cell,Urine 4 /hpf (0-4); Urobilinogen,Urine <2.0 mg/dL (<2.0); WBC,Urine 13 /hpf (0-5)
[2021-04-09 19:57] LABS: HCT 45.1 % (37.2-46.3); HGB 14.1 g/dL (12.0-15.0); MCH 29.8 pg (27.0-32.0); MCHC 31.3 g/dL (32.0-37.0); MCV 95.3 fL (80.0-97.0); Mean Platelet Volume 11.1 fL (9.5-12.2); Platelet Count 232 X 10*3/uL (140-440); RBC 4.73 X 10*6/uL (4.10-5.20); RDW 15.9 % (11.5-14.5); WBC 6.14 X 10*3/uL (4.50-10.00)
[2021-04-10 16:10] LABS: African American GFR (CKD) 81.8 (60.0-200.0); Albumin 4.1 g/dL (3.80-4.90); Albumin/Globulin Ratio 1.78 (1.60-3.17); Anion Gap 16.7 mmol/L (4.00-12.00); BUN/Creat Ratio 26.25 Ratio (12.00-20.00); Calcium 9.9 mg/dL (8.7-10.3); Carbon Dioxide 25.3 mmol/L (21.6-31.8); Chol/HDL Ratio 2.51; Globulin 2.3 g/dL (1.6-3.3); LDL Cholesterol,Calculated 78.2 mg/dL (0.0-131.0); Magnesium 1.7 mg/dL (1.5-2.4); Non-African American GFR(CKD) 70.6 (60.0-200.0); Phosphorus 3.4 mg/dL (2.4-5.1); Potassium 3.9 mmol/L (3.5-5.5); Total Bilirubin 0.9 mg/dL (0.2-1.2); Total Protein 6.4 g/dL (6.2-8.2); Uric Acid 5.4 mg/dL (2.9-7.7); VLDL Calculation 25.8 mg/dL (5.00-40.00)
[2021-04-10 16:17] LABS: Ferritin 83.7 ng/mL (10.0-291.0)
== END | disposition home or self-care (01) ==
LOC: LABWHC1 09:57
PROVIDERS: ATTEND Nurse Practitioner Family
DX: E03.9 Hypothyroidism, unspecified (principal); E78.2 Mixed hyperlipidemia; I48.0 Paroxysmal atrial fibrillation; N18.30 Chronic kidney disease, stage 3 unspecified; D64.9 Anemia, unspecified; N39.0 Urinary tract infection, site not specified; N25.81 Secondary hyperparathyroidism of renal origin; E55.9 Vitamin D deficiency, unspecified; M10.9 Gout, unspecified
CPT/HCPCS: 36415; 80053; 80061; 81001; 82306; 82728; 83540; 83550; 83735; 83970; 84100; 84443; 84550; 85027

== ENCOUNTER 2021-07-02 04:34 | Observation (INO) | payer MEDICARE, BC ==
--- NOTE | 2021-07-02 04:36 | ED ---
Chest Pain HPI - General Stated Complaint: Chest Pain Time Seen by Provider: 07/02/21 04:35 Source: RN notes reviewed, old records reviewed Mode of arrival: EMS Limitations: no limitations - History of Present Illness Initial Comments: This is a 68-year-old female to the ER today. Patient presents emergency department for evaluation of chest pain shortness of breath that woke her from sleep. Patient is with [facility] medical history with COPD with significant heart disease and atrial fibrillation prior NM. CHF. Patient has no fevers no travel history no sick contacts. MD Complaint: chest pain, other (sob) -: hour(s) Onset: during rest Pain Location: substernal, left chest Pain Radiation: RUE Severity: severe Severity scale (1-10): 10 Quality: tightness, aching, heaviness Consistency: constant Improves With: nothing Worsens With: nothing, inspiration, movement Anginal Symptoms: diaphoresis, dyspnea, sense of impending doom Other Symptoms: palpitations Treatments Prior to Arrival: none - Related Data Home Medications Medication Instructions Recorded Confirmed Levothyroxine Sodium [Synthroid] 50 mcg PO DAILY@79906/06/15 07/02/21 Multivitamins, Thera [Multivitamin 1 tab PO DAILY@89906/06/15 07/02/21 (formulary)] Atorvastatin [Lipitor] 40 mg PO HS@199902/14/19 07/02/21 Ciclopirox Olamine [Loprox 0.77% 1 applic TOPICAL BID PRN 11/02/19 07/02/21 cream] Mupirocin 2% Oint [Bactroban 2% 1 applic TOPICAL BID PRN 11/02/19 07/02/21 Oint] amLODIPine [Norvasc] 5 mg PO DAILY@149911/02/19 07/02/21 calcitrioL [Calcitriol] 0.5 mcg PO MOWEFR@89911/02/19 07/02/21 Apixaban [Eliquis] 5 mg PO BID@899,199907/02/21 07/02/21 Ferrous Sulfate [Iron (65 MG 325 mg PO TUTH@89907/02/21 07/02/21 Elemental)] Furosemide [Lasix] 20 mg PO DAILY@149907/02/21 07/02/21 Furosemide [Lasix] 40 mg PO DAILY@89907/02/21 07/02/21 Metoprolol Tartrate [Lopressor] 50 mg PO BID@899,199907/02/21 07/02/21 allopurinoL [Zyloprim] 200 mg PO DAILY@89907/02/21 07/02/21 Allergies Allergy/AdvReac Type Severity Reaction Status Date / Time adhesive Allergy Rash/Hives Verified 07/02/21 06:52 cefaclor [From Ceclor] Allergy Rash/Hives Verified 07/02/21 06:52 Penicillins Allergy FAMILY Verified 07/02/21 06:52 HISTORY povidone-iodine Allergy Rash/Hives Verified 07/02/21 06:52 [From Betadine] soap [From Betadine] Allergy Rash/Hives Verified 07/02/21 06:52 hydromorphone [From Dilaudid] AdvReac BP Verified 07/02/21 06:52 DECREASES Review of Systems ROS Statement: Those systems with pertinent positive or pertinent negative responses have been documented in the HPI. ROS Other: All systems not noted in ROS Statement are negative. EKG Findings - EKG Comments: EKG Findings:: EKG shows atrial fibrillation 78 QRS 140 QTC 467 Past Medical History Past Medical History: Atrial Fibrillation, Asthma, COPD, Deep Vein Thrombosis (DVT), GI Bleed, Hyperlipidemia, Hypertension, Osteoarthritis (OA), Pulmonary Embolus (PE), Renal Disease, Thyroid Disorder Additional Past Medical History / Comment(s): Chronic atrial fibrillation, previous history of a popliteal left lower extremity DVT and pulmonary embolism, obesity, bronchial asthma/COPD, previous history of GI bleed secondary to diverticulosis, hypertension, hyperlipidemia, hypothyroidism, chronic renal failure, osteoarthritis him a umbilical hernia, carotid artery disease, chronic back pain, gout, chronic stage III kidney disease History of Any Multi-Drug Resistant Organisms: MRSA Date of last positivie culture/infection: 07/16/17 MDRO Source:: Left First Toe Past Surgical History: Orthopedic Surgery, Tubal Ligation Additional Past Surgical History / Comment(s): d&c,colonoscopy, orif lt ankle has plate and screws.lt knee arthroscopy, skin biopsy on left upper foot Past Anesthesia/Blood Transfusion Reactions: No Reported Reaction Past Psychological History: No Psychological Hx Reported Additional Psychological History / Comment(s): lives alone single level [facility] that [facility], uses crutch towalk with.no home care services, has nebulizer Past Alcohol Use History: Daily Additional Past Alcohol Use History / Comment(s): started smoking 1979 smoked off and on then quit in 1999. smoked 1 ppd. stated has 1 drink hs daily Past Drug Use History: None Reported - Past Family History Father Additional Family Medical History / Comment(s): had tb at age 55, lt leg amp.heart problems. Mother History Unknown: Yes Family Medical History: Dementia, Diabetes Mellitus General Exam General appearance: alert, in no apparent distress, anxious, in distress Head exam: Present: atraumatic, normocephalic, normal inspection Eye exam: Present: normal appearance, PERRL, EOMI. Absent: scleral icterus, conjunctival injection, periorbital swelling ENT exam: Present: normal exam, mucous membranes moist Neck exam: Present: normal inspection. Absent: tenderness, meningismus, lymphadenopathy Respiratory exam: Present: respiratory distress, accessory muscle use, decreased breath sounds, prolonged expiratory. Absent: wheezes, rales, rhonchi, stridor Cardiovascular Exam: Present: regular rate, normal rhythm, normal heart sounds. Absent: systolic murmur, diastolic murmur, rubs, gallop, clicks GI/Abdominal exam: Present: soft, normal bowel sounds. Absent: distended, tenderness, guarding, rebound, rigid Extremities exam: Present: normal inspection, full ROM, normal capillary refill. Absent: tenderness, pedal edema, joint swelling, calf tenderness Back exam: Present: normal inspection Neurological exam: Present: alert, oriented X3, CN II-XII intact Psychiatric exam: Present: normal affect, normal mood Skin exam: Present: warm, dry, intact, normal color. Absent: rash Course Vital Signs 07/02/21 07/02/21 07/02/21 04:36 04:45 05:38 Temperature 97.9 F Pulse Rate 79 72 Pulse Rate [ [address] ] Respiratory 18 18 18 Rate Blood Pressure 119/78 123/61 O2 Sat by Pulse 92 L 96 Oximetry 07/02/21 07/02/21 07/02/21 06:38 07:10 07:20 Temperature 98.0 F Pulse Rate 73 78 85 Pulse Rate [ [facility] ] Respiratory 18 16 17 Rate Blood Pressure 122/75 134/84 O2 Sat by Pulse 96 98 95 Oximetry 07/02/21 07/02/21 07/02/21 08:00 09:00 10:00 Temperature Pulse Rate 80 80 83 Pulse Rate [ [facility] ] Respiratory 20 17 12 Rate Blood Pressure 134/84 128/83 122/75 O2 Sat by Pulse 94 L 96 Oximetry 07/02/21 07/02/21 07/02/21 11:00 12:00 13:00 Temperature Pulse Rate 71 85 Pulse Rate [ [facility] Magistrate ] Respiratory 23 22 10 L Rate Blood Pressure O2 Sat by Pulse Oximetry 07/02/21 07/02/21 07/02/21 14:00 15:00 15:13 Temperature 98.0 F Pulse Rate 85 92 86 Pulse Rate [ [facility] Magistrate ] Respiratory 19 16 Rate Blood Pressure 153/96 O2 Sat by Pulse 95 Oximetry 07/02/21 07/02/21 07/02/21 16:00 17:00 17:36 Temperature Pulse Rate 90 83 89 Pulse Rate [ [facility] Magistrate ] Respiratory 10 L 18 20 Rate Blood Pressure 153/96 144/98 O2 Sat by Pulse 96 Oximetry 07/02/21 07/02/21 18:53 20:38 Temperature Pulse Rate 87 Pulse Rate [ [facility] Magistrate ] Respiratory 18 Rate Blood Pressure 135/77 135/87 O2 Sat by Pulse 95 Oximetry - Reevaluation(s) Reevaluation #1: 07/02/21 Medical record is reviewed Symptoms are not improved here in the emergency department Patient informed results and questions answered Patient is in significant acute distress Chest Pain MDM - MDM 76 female to the emergency. Patient is multiple medical comorbidities and multifactorial shortness of breath COPD, Atrial fibrillation CHF and chest pain throughout ACS. Critical Care Time Critical Care Time: Yes Total Critical Care Time: 31 Disposition Clinical Impression: Chest pain, Congestive heart failure Disposition: ADMITTED IP TO THIS HOSP Condition: Stable Is patient prescribed a controlled substance at d/c from ED?: No
[2021-07-02 05:15] LABS: Basophils # (A) 0.1 k/uL (0-0.2); Basophils % (A) 1 %; Eosinophils # (A) 0.3 k/uL (0-0.7); Eosinophils % (A) 4 %; HGB 13.6 gm/dL (11.4-16.0); Lymphocytes # (A) 1.8 k/uL (1.0-4.8); Lymphocytes % (A) 28 %; MCH 31.3 pg (25.0-35.0); MCHC 32.4 g/dL (31.0-37.0); MCV 96.4 fL (80.0-100.0); Mean Platelet Volume 7.3; Monocytes # (A) 0.5 k/uL (0-1.0); Monocytes % (A) 8 %; Neutrophils # (A) 3.6 k/uL (1.3-7.7); Neutrophils % (A) 56 %; Platelet Count 239 k/uL (150-450); RBC 4.35 m/uL (3.80-5.40); WBC 6.5 k/uL (3.8-10.6)
[2021-07-02 05:27] LABS: Albumin 3.7 g/dL (3.5-5.0); Calcium 9.3 mg/dL (8.4-10.2); Magnesium 1.8 mg/dL (1.6-2.3); Potassium 3.4 mmol/L (3.5-5.1); Total Bilirubin 0.5 mg/dL (0.2-1.3); Total Protein 6.1 g/dL (6.3-8.2)
--- NOTE | 2021-07-02 05:28 | XR ---
EXAMINATION TYPE: XR chest 1V portable DATE OF EXAM: 07/02/2021 COMPARISON: 12/04/2019 HISTORY: Chest pain TECHNIQUE: FINDINGS: Heart is enlarged. There is some mild pulmonary interstitial edema. Thoracic aorta is ather omatous. There are chest leads. There is thoracic dextroscoliosis. IMPRESSION: There is slight increased pulmonary interstitial edema compared to last exam and this could be some a cute heart failure.
[2021-07-02 05:43] LABS: Partial Thromboplastin Time 24.2 sec (22.0-30.0); Prothrombin Time 10.7 sec (9.0-12.0)
[2021-07-02] MEDS ORDERED: MORPHINE SULFATE 4 MG/ML SYRINGE IV PRN (05:46)
[2021-07-02] MEDS ORDERED: NITROGLYCERIN SL TABS 0.4 MG TAB SUBLINGUAL PRN (05:46)
[2021-07-02] MEDS ORDERED: ASPIRIN 81 MG PO STA (05:46)
[2021-07-02] MEDS ORDERED: POTASSIUM BICARBONATE/CIT AC 20 MEQ TABLET.EFF PO ONE (06:13)
[2021-07-02] MEDS ORDERED: CLOTRIMAZOLE 1% CREAM 30 GM TUBE TOPICAL PRN (08:52)
[2021-07-02] MEDS: MULTIVITAMINS, THERA 1 EACH TAB PO SCH (09:38)
[2021-07-02] MEDS: allopurinoL 100 MG TAB PO SCH ×2 (09:38→09:39)
[2021-07-02] MEDS: APIXABAN 5 MG TAB PO SCH ×2 (09:39→20:41)
[2021-07-02] MEDS: FUROSEMIDE 40 MG TAB PO SCH (09:39)
[2021-07-02] MEDS: METOPROLOL TARTRATE 50 MG TAB PO SCH ×2 (09:40→20:41)
--- NOTE | 2021-07-02 10:54 | ECHOF ---
Referral Reason:CHF MEASUREMENTS -------- HEIGHT: 154.9 cm WEIGHT: 108.9 kg BP: 122/75 RVIDd: 3.6 cm (< 3.3) IVSd: 1.4 cm (0.6 - 1.1) LVIDd: 4.9 cm (3.9 - 5.3) LVPWd: 1.4 cm (0.6 - 1.1) IVSs: 2.4 cm LVIDs: 2.8 cm LVPWs: 1.7 cm LAESV Index (A-L): 61.81 ml/m Ao Diam: 2.9 cm (2.0 - 3.7) AV Cusp: 2.2 cm (1.5 - 2.6) LA Diam: 6.2 cm (2.7 - 3.8) MV EXCURSION: 16.144 mm (> 18.000) MV EF SLOPE: 50 mm/s (70 - 150) EPSS: 0.9 cm RAP: 5.00 mmHg RVSP: 63.38 mmHg FINDINGS -------- Atrial fibrillation. This was a technically difficult study with suboptimal views. The left ventricular size is normal. There is moderate concentric left ventricular hypertrophy. O verall left ventricular systolic function is low-normal with, an EF between 50 - 55 %. Left ventric ular fillimg pressure cannot be estimated due to Atrial fibrillation. The right ventricle is mildly enlarged. LA is severely dilated >40 ml/m2 The right atrium is mildly enlarged. 5.0mg of Lumason was utilized for enhancement of images Interatrial and interventricular septum intact. There is mild aortic valve sclerosis. There is no evidence of aortic regurgitation. There is no e vidence of aortic stenosis. Myjjpsfe-am-wvvuex mitral regurgitation is present. Moderate to severe tricuspid regurgitation present. There is severe pulmonary hypertension. The r ight ventricular systolic pressure, as measured by Doppler, is 63.38mmHg. Trace/mild (physiologic) pulmonic regurgitation. The aortic root size is normal. IVC Not well visulized. There is a trivial pericardial effusion present. CONCLUSIONS -------- 1. The left ventricular size is normal. 2. There is moderate concentric left ventricular hypertrophy. 3. Overall left ventricular systolic function is low-normal with, an EF between 50 - 55 %. 4. The right ventricle is mildly enlarged. 5. LA is severely dilated >40 ml/m2 6. The right atrium is mildly enlarged. 7. There is mild aortic valve sclerosis. 8. Zizqrqxi-vz-kijqog mitral regurgitation is present. 9. Moderate to severe tricuspid regurgitation present. 10. There is severe pulmonary hypertension. 11. The right ventricular systolic pressure, as measured by Doppler, is 63.38mmHg. 12. Trace/mild (physiologic) pulmonic regurgitation. 13. There is a trivial pericardial effusion present. [employer] SUPERVISOR: Stefania Herman RDCS
--- NOTE | 2021-07-02 10:57 | P.CRDCN ---
History of Present Illness History of present illness: HISTORY OF PRESENTING ILLNESS This is a pleasant 76-year-old female past medical history significant for chronic persistent atrial fibrillation on long-term anticoagulation, dyslip idemia and hypertension. She follows in the office with Dr. Monge. We have been asked to see in consultation for chest pain. She has been experiencing a pressure type sensation in the midsternal region. This occurs at rest and is not associated with activity or exertion. The discomfort is brief in nature with no radiation to the arm, back, neck or jaw. She denies associated shortness of breath, dizziness or palpitations. EKG on arrival revealed atrial fibrillation, intraventricular conduction delay and diffuse T-wave inversions in the precordial leads. Consistent with previous EKGs. Chest x-ray reveals slight increased pulmonary interstitial edema. Laboratory data reviewed, CBC unremarkable, sodium 133, potassium 3.4, creatinine 0.78, magnesium 1.8, cardiac enzymes negative 2 and an T proBNP 2069. Current daily cardiac medications include Lopressor 50 mg twice a day, Lasix 40 mg in the morning and 20 mg in the afternoon, atorvastatin 40 mg at bedtime, Eliquis 5 mg twice a day and amlodipine 5 mg daily. Most recent echocardiogram obtained in the office in November 2019 reveals preserved LV systolic function with ejection fraction 55%, moderate concentric LVH, fairly dilated left atrium, moderate mitral regurgitation and mild to moderate tricuspid regurgitation. Most recent stress test performed in the office August 2020 was a Lexiscan stress test that was negative for stress-induced cardiac reversible. REVIEW OF SYSTEMS At the time of my exam: CONSTITUTIONAL: Denies fever or chills. CARDIOVASCULAR: Denies chest pain, shortness of breath, orthopnea, PND or pal pitations. RESPIRATORY: Denies cough. GASTROINTESTINAL: Denies abdominal pain, diarrhea, constipation, nausea or vomiting. MUSCULOSKELETAL: Denies myalgias. NEUROLOGIC: Denies numbness, tingling, headache or weakness. ENDOCRINE: Denies fatigue, weight change, polydipsia or polyurina. GENITOURINARY: Denies burning, hematuria or urgency with micturation. HEMATOLOGIC: Denies history of anemia or bleeding. PHYSICAL EXAMINATION Blood pressure 134/84 heart rate 78 afebrile and maintaining oxygen saturation on nasal cannula. CONSTITUTIONAL: No apparent distress. Obese. HEENT: Head is normocephalic. Pupils are equal, round. Sclerae anicteric. Mucous membranes of the mouth are moist. No JVD. No carotid bruit. CHEST EXAMINATION: Lungs are clear to auscultation. No chest wall tenderness is noted on palpation or with deep breathing. Diminished. HEART EXAMINATION: Iegular rate and rhythm. S1, S2 heard. No murmurs, gallops or rub. ABDOMEN: Soft, nontender. EXTREMITIES: 2+ peripheral pulses, 1+ bilateral lower extremity edema, chronic in nature and no calf tenderness. NEUROLOGIC EXAMINATION: Patient is awake, alert and oriented x3. ASSESSMENT Chest pain, atypical Chronic persistent atrial fibrillation on long-term anticoagulation Hypertension Dyslipidemia Morbid obesity, BMI 45 PLAN An acute coronary event has been ruled out. Echocardiogram has been obtained and will be reviewed. Recent stress testing discussed with the patient. No plans for further cardiac testing at this time. Recommend discharge home and follow-up with Dr. Monge in the office. If she continues to have chest pain they can discuss setting her up for an outpatient catheterization. Thank you kindly for this consultation. Nurse Practitioner note has been reviewed, I agree with a documented findings and plan of care. Patient was seen and examined. Past Medical History Past Medical History: Atrial Fibrillation, Asthma, COPD, Deep Vein Thrombosis (DVT), GI Bleed, Hyperlipidemia, Hypertension, Osteoarthritis (OA), Pulmonary Embolus (PE), Renal Disease, Thyroid Disorder Additional Past Medical History / Comment(s): Chronic atrial fibrillation, previous history of a popliteal left lower extremity DVT and pulmonary embolism, obesity, bronchial asthma/COPD, previous history of GI bleed secondary to diverticulosis, hypertension, hyperlipidemia, hypothyroidism, chronic renal failure, osteoarthritis him a umbilical hernia, carotid artery disease, chronic back pain, gout, chronic stage III kidney disease History of Any Multi-Drug Resistant Organisms: MRSA Date of last positivie culture/infection: 07/16/17 MDRO Source:: Left First Toe Past Surgical History: Orthopedic Surgery, Tubal Ligation Additional Past Surgical History / Comment(s): d&c,colonoscopy, orif lt ankle has plate and screws.lt knee arthroscopy, skin biopsy on left upper foot Past Anesthesia/Blood Transfusion Reactions: No Reported Reaction Past Psychological History: No Psychological Hx Reported Additional Psychological History / Comment(s): lives alone single level home that has [address], uses crutch towalk with.no home care services, has nebulizer Past Alcohol Use History: Daily Additional Past Alcohol Use History / Comment(s): started smoking 1979 smoked off and on then quit in 1999. smoked 1 ppd. stated has 1 drink hs daily Past Drug Use History: None Reported - Past Family History Father Additional Family Medical History / Comment(s): had tb at age 55, lt leg amp.heart problems. Mother History Unknown: Yes Family Medical History: Dementia, Diabetes Mellitus Medications and Allergies Home Medications Medication Instructions Recorded Confirmed Type Levothyroxine Sodium [Synthroid] 50 mcg PO DAILY@79906/06/15 07/02/21 History Multivitamins, Thera [Multivitamin 1 tab PO DAILY@89906/06/15 07/02/21 History (formulary)] Atorvastatin [Lipitor] 40 mg PO HS@199902/14/19 07/02/21 History Ciclopirox Olamine [Loprox 0.77% 1 applic TOPICAL BID PRN 11/02/19 07/02/21 History cream] Mupirocin 2% Oint [Bactroban 2% 1 applic TOPICAL BID PRN 11/02/19 07/02/21 History Oint] amLODIPine [Norvasc] 5 mg PO DAILY@149911/02/19 07/02/21 History calcitrioL [Calcitriol] 0.5 mcg PO MOWEFR@89911/02/19 07/02/21 History Apixaban [Eliquis] 5 mg PO BID@899,199907/02/21 07/02/21 History Ferrous Sulfate [Feosol] 325 mg PO TUTH@89907/02/21 07/02/21 History Furosemide [Lasix] 20 mg PO DAILY@149907/02/21 07/02/21 History Furosemide [Lasix] 40 mg PO DAILY@89907/02/21 07/02/21 History Metoprolol Tartrate [Lopressor] 50 mg PO BID@899,199907/02/21 07/02/21 History allopurinoL [Zyloprim] 200 mg PO DAILY@89907/02/21 07/02/21 History Allergies Allergy/AdvReac Type Severity Reaction Status Date / Time adhesive Allergy Rash/Hives Verified 07/02/21 06:52 cefaclor [From [facility]] Allergy Rash/Hives Verified 07/02/21 06:52 Penicillins Allergy FAMILY Verified 07/02/21 06:52 HISTORY povidone-iodine Allergy Rash/Hives Verified 07/02/21 06:52 [From Betadine] soap [From Betadine] Allergy Rash/Hives Verified 07/02/21 06:52 hydromorphone [From Dilaudid] AdvReac BP Verified 07/02/21 06:52 DECREASES Physical Exam Vitals: Vital Signs Temp Pulse Pulse Resp BP Pulse Ox 07/02/21 07:10 98.0 F 78 16 134/84 98 07/02/21 06:38 73 18 122/75 96 07/02/21 05:38 72 18 123/61 96 07/02/21 04:45 81 18 07/02/21 04:36 97.9 F 79 18 119/78 92 L Intake and Output 07/01/21 07/02/21 07/02/21 22:59 06:59 14:59 Other: Weight 108.862 kg Results 07/02/21 04:56 07/02/21 04:56 Cardiac Enzymes 07/02/21 07/02/21 07/02/21 Range/Units 04:56 04:56 07:27 AST 30 (14-36) U/L Troponin I 0.013 <0.012 (0.000-0.034) ng/mL Coagulation 07/02/21 Range/Units 04:56 PT 10.7 (9.0-12.0) sec APTT 24.2 (22.0-30.0) sec CBC 07/02/21 Range/Units 04:56 WBC 6.5 (3.8-10.6) k/uL RBC 4.35 (3.80-5.40) m/uL Hgb 13.6 (11.4-16.0) gm/dL Hct 42.0 (34.0-46.0) % Plt Count 239 (150-450) k/uL Comprehensive Metabolic Panel 07/02/21 Range/Units 04:56 Sodium 133 L (137-145) mmol/L Potassium 3.4 L (3.5-5.1) mmol/L Chloride 98 (98-107) mmol/L Carbon Dioxide 25 (22-30) mmol/L BUN 23 H (7-17) mg/dL Creatinine 0.78 (0.52-1.04) mg/dL Glucose 99 (74-99) mg/dL Calcium 9.3 (8.4-10.2) mg/dL AST 30 (14-36) U/L ALT 18 (4-34) U/L Alkaline Phosphatase 102 (38-126) U/L Total Protein 6.1 L (6.3-8.2) g/dL Albumin 3.7 (3.5-5.0) g/dL Current Medications Generic Name Dose Route Start Last Admin Trade Name Freq PRN Reason Stop Dose Admin Aspirin 325 mg 07/03/21 09:00 Aspirin 325 Mg Tab PO DAILY MACKENZIE Morphine Sulfate 4 mg 07/02/21 05:46 Morphine Sulfate 4 Mg/Ml Syringe IV Q4HR PRN Chest Pain Nitroglycerin 0.4 mg 07/02/21 05:46 Nitroglycerin Sl Tabs 0.4 Mg Tab SUBLINGUAL Q5M PRN Chest Pain Intake and Output 07/01/21 07/02/21 07/02/21 22:59 06:59 14:59 Other: Weight 108.862 kg 07/02/21 04:56 07/02/21 04:56
--- NOTE | 2021-07-02 12:19 | P.HPIM ---
History of Present Illness H&P Date: 07/02/21 Chief Complaint: Chest pain This is 76-year-old female patient who presented to the ER with complaints of chest pain. Patient reports that pain started yesterday and was intermittent throughout the night. Patient reports that the pain woke her up at nighttime. Patient denies any associated shortness of breath nausea or vomiting. Patient doesn't past medical history of atrial fibrillation which she is maintained on anticoagulation, asthma, COPD, DVT, GI bleed, hyperlipidemia, hypertension, osteoarthritis, pulmonary embolism, renal disease and thyroid disorder. She had recent stress tests completed in August 2020 which will was negative for stress-induced cardiac ischemia. Chest x-ray was completed showing slightly increased pulmonary interstitial edema compared to last exam this could be some acute heart failure. Troponins negative. Patient's lipase elevated at 426. Patient does reports she has 1 cocktail every night. Patient reports she has not been vaccinated against COVID-19. At this time cardiology services have been consulted. 2-D echo has been ordered. Patient will be placed on clear liquid diet for acute pancreatitis ultrasound of abdomen will be ordered. Repeat labs will be ordered in a.m. at this time patient denies chest pain or sh ortness of breath. Patient denies nausea vomiting and diarrhea. Patient denies any urinary burning or frequency Review of Systems please refer to HPI otherwise unremarkable Past Medical History Past Medical History: Atrial Fibrillation, Asthma, COPD, Deep Vein Thrombosis (DVT), GI Bleed, Hyperlipidemia, Hypertension, Osteoarthritis (OA), Pulmonary Embolus (PE), Renal Disease, Thyroid Disorder Additional Past Medical History / Comment(s): Chronic atrial fibrillation, previous history of a popliteal left lower extremity DVT and pulmonary embolism, obesity, bronchial asthma/COPD, previous history of GI bleed secondary to diverticulosis, hypertension, hyperlipidemia, hypothyroidism, chronic renal konrad lure, osteoarthritis him a umbilical hernia, carotid artery disease, chronic back pain, gout, chronic stage III kidney disease History of Any Multi-Drug Resistant Organisms: MRSA Date of last positivie culture/infection: 07/16/17 MDRO Source:: Left First Toe Past Surgical History: Orthopedic Surgery, Tubal Ligation Additional Past Surgical History / Comment(s): d&c,colonoscopy, orif lt ankle has plate and screws.lt knee arthroscopy, skin biopsy on left upper foot Past Anesthesia/Blood Transfusion Reactions: No Reported Reaction Past Psychological History: No Psychological Hx Reported Additional Psychological History / Comment(s): lives alone single level home that has 4 [address], uses crutch towalk with.no home care services, has nebulizer Past Alcohol Use History: Daily Additional Past Alcohol Use History / Comment(s): started smoking 1979 smoked off and on then quit in 1999. smoked 1 ppd. stated has 1 drink hs daily Past Drug Use History: None Reported - Past Family History Father Additional Family Medical History / Comment(s): had tb at age 55, lt leg amp.heart problems. Mother History Unknown: Yes Family Medical History: Dementia, Diabetes Mellitus Medications and Allergies Home Medications Medication Instructions Recorded Confirmed Type Levothyroxine Sodium [Synthroid] 50 mcg PO DAILY@79906/06/15 07/02/21 History Multivitamins, Thera [Multivitamin 1 tab PO DAILY@89906/06/15 07/02/21 History (formulary)] Atorvastatin [Lipitor] 40 mg PO HS@199902/14/19 07/02/21 History Ciclopirox Olamine [Loprox 0.77% 1 applic TOPICAL BID PRN 11/02/19 07/02/21 History cream] Mupirocin 2% Oint [Bactroban 2% 1 applic TOPICAL BID PRN 11/02/19 07/02/21 History Oint] amLODIPine [Norvasc] 5 mg PO DAILY@149911/02/19 07/02/21 History calcitrioL [Calcitriol] 0.5 mcg PO MOWEFR@89911/02/19 07/02/21 History Apixaban [Eliquis] 5 mg PO BID@899,199907/02/21 07/02/21 History Ferrous Sulfate [Feosol] 325 mg PO TUTH@89907/02/21 07/02/21 History Furosemide [Lasix] 20 mg PO DAILY@149907/02/21 07/02/21 History Furosemide [Lasix] 40 mg PO DAILY@89907/02/21 07/02/21 History Metoprolol Tartrate [Lopressor] 50 mg PO BID@899,199907/02/21 07/02/21 History allopurinoL [Zyloprim] 200 mg PO DAILY@89907/02/21 07/02/21 History Allergies Allergy/AdvReac Type Severity Reaction Status Date / Time adhesive Allergy Rash/Hives Verified 07/02/21 06:52 cefaclor [From Ceclor] Allergy Rash/Hives Verified 07/02/21 06:52 Penicillins Allergy FAMILY Verified 07/02/21 06:52 HISTORY povidone-iodine Allergy Rash/Hives Verified 07/02/21 06:52 [From Betadine] soap [From Betadine] Allergy Rash/Hives Verified 07/02/21 06:52 hydromorphone [From Dilaudid] AdvReac BP Verified 07/02/21 06:52 DECREASES Physical Exam Vitals: Vital Signs Temp Pulse Pulse Resp BP Pulse Ox 07/02/21 07:10 98.0 F 78 16 134/84 98 07/02/21 06:38 73 18 122/75 96 07/02/21 05:38 72 18 123/61 96 07/02/21 04:45 81 18 07/02/21 04:36 97.9 F 79 18 119/78 92 L Intake and Output 07/01/21 07/02/21 07/02/21 22:59 06:59 14:59 Other: Weight 108.862 kg Head normocephalic Neck supple Lungs clear to auscultation bilaterally no wheezing or crackles Heart regular rate and rhythm S1-S2, no rub or gallop Abdomen is soft nontender nondistended positive bowel sounds no hepatosplenomegaly Extremities no edema Neuro alert and orientated to 3 Results CBC & Chem 7: 07/02/21 04:56 07/02/21 04:56 Labs: Abnormal Lab Results - Last 24 Hours (Table) 07/02/21 07/02/21 Range/Units 04:56 04:56 RDW 16.0 H (11.5-15.5) % Sodium 133 L (137-145) mmol/L Potassium 3.4 L (3.5-5.1) mmol/L BUN 23 H (7-17) mg/dL Total Protein 6.1 L (6.3-8.2) g/dL Lipase 426 H (23-300) U/L Assessment and Plan Assessment: 1. Chest pain. Troponins negative. Cardiology consulted 2-D echo ordered. Zamzam hernandez had recent stress test in August 2020 2. Acute pancreatitis. Lipase elevated at 426. Patient educated on importance of complete alcohol cessation. Ultrasound of abdomen ordered. Patient maintained a clear liquid diet and repeat labs ordered for a.m. 3. Bilateral lower extremity edema. Patient reports this is chronic for her. 2-D echo has been ordered 4. Chronic persistent atrial fibrillation on long-term anticoagulation 5. Essential hypertension 6. History of hyperlipidemia. Maintained on statin 7. History of hypothyroidism 8. History of DVT and PE patient maintained on anticoagulation. Patient maintained on anticoagulation 9. History of COPD no exacerbation at this time DVT prophylaxis eliquis. GI prophylaxis Protonix Cardiology services consulted 2-D echo ordered Ultrasound of abdomen ordered Repeat labs ordered for a.m. COVID-19 test ordered Time with Patient: Greater than 30 (Greater than 60% of the total time spent in counseling and coordination of care)
--- NOTE | 2021-07-02 14:39 | US ---
EXAMINATION TYPE: US abdomen complete DATE OF EXAM: 07/02/2021 COMPARISON: NONE CLINICAL HISTORY: elevated lipase. Essentially non-diagnostic exam. Very limited due to patient body habitus and overlying bowel gas EXAM MEASUREMENTS: Liver Length: 13.9 cm Gallbladder Wall: 0.16 cm CBD: 0.6 cm Spleen: 8 cm Right Kidney: 8.0 x 4.0 x 4.0 cm Left Kidney: 9.6 x 4.8 x 4.4 cm Pancreas: Obscured by bowel gas Liver: heterogeneous. Limited visualization Gallbladder: wnl Evidence for sonographic Kaye's sign: No CBD: wnl Spleen: wnl Right Kidney: Measuring small Left Kidney: No hydronephrosis or masses seen Upper IVC: wnl Abd Aorta: Not visualized The intrahepatic portion of the IVC and proximal. There is no evidence of cholelithiasis. Common enrike e duct is unremarkable. The visualized portions of the pancreas are homogenous. The spleen is unrem arkable. Kidneys are symmetric and free of hydronephrosis. No renal lesions are seen. IMPRESSION: Hepatic steatosis.
[2021-07-02] MEDS: FUROSEMIDE 20 MG TAB PO SCH (15:11)
[2021-07-02] MEDS: amLODIPine 5 MG TAB PO SCH (15:11)
[2021-07-02] MEDS: ATORVASTATIN 40 MG TAB PO SCH (20:40)
[2021-07-03] MEDS: FUROSEMIDE 40 MG TAB PO SCH (07:55)
[2021-07-03] MEDS: allopurinoL 100 MG TAB PO SCH (07:55)
[2021-07-03] MEDS: ASPIRIN 325 MG TAB PO SCH (07:56)
[2021-07-03] MEDS: PANTOPRAZOLE 40 MG TABLET PO SCH (07:56)
[2021-07-03] MEDS: METOPROLOL TARTRATE 50 MG TAB PO SCH ×2 (07:56→19:53)
[2021-07-03] MEDS: LEVOTHYROXINE 50 MCG TAB PO SCH (07:56)
[2021-07-03] MEDS: MULTIVITAMINS, THERA 1 EACH TAB PO SCH (07:57)
[2021-07-03] MEDS: APIXABAN 5 MG TAB PO SCH ×2 (07:57→19:53)
[2021-07-03] MEDS ORDERED: FERROUS SULFATE 325 MG TAB PO SCH (09:00)
[2021-07-03 09:22] LABS: Basophils # (A) 0.03 X 10*3/uL (0.00-0.10); Basophils % (A) 0.5 %; Eosinophils # (A) 0.24 X 10*3/uL (0.04-0.35); Eosinophils % (A) 3.8 %; HCT 39.8 % (37.2-46.3); MCH 31.2 pg (27.0-32.0); MCHC 32.7 g/dL (32.0-37.0); MCV 95.4 fL (80.0-97.0); Mean Platelet Volume 10.5 fL (9.5-12.2); Monocytes # (A) 0.85 X 10*3/uL (0.20-1.00); Monocytes % (A) 13.6 %; Neutrophils # (A) 3.62 X 10*3/uL (1.80-7.70); Neutrophils % (A) 57.8 %; Platelet Count 243 X 10*3/uL (140-440); RBC 4.17 X 10*6/uL (4.10-5.20); RDW 16.2 % (11.5-14.5); WBC 6.26 X 10*3/uL (4.50-10.00)
[2021-07-03 09:40] LABS: African American GFR (CKD) 96.2 (60.0-200.0); Albumin 3.6 g/dL (3.80-4.90); Anion Gap 9.6 mmol/L (4.00-12.00); BUN/Creat Ratio 44.29 Ratio (12.00-20.00); Calcium 8.6 mg/dL (8.7-10.3); Carbon Dioxide 28.4 mmol/L (21.6-31.8); Chol/HDL Ratio 2.63; Globulin 1.8 g/dL (1.6-3.3); LDL Cholesterol,Calculated 57.8 mg/dL (0.0-131.0); Potassium 3.8 mmol/L (3.5-5.5); Total Protein 5.4 g/dL (6.2-8.2); VLDL Calculation 27.2 mg/dL (5.00-40.00)
[2021-07-03] MEDS: amLODIPine 5 MG TAB PO SCH (15:38)
[2021-07-03] MEDS: FUROSEMIDE 20 MG TAB PO SCH (15:38)
--- NOTE | 2021-07-03 17:49 | P.PN ---
Subjective Progress Note Date: 07/03/21 This is 76-year-old female patient who presented to the ER with complaints of chest pain. Patient reports that pain started yesterday and was intermittent throughout the night. Patient reports that the pain woke her up at nighttime. Patient denies any associated shortness of breath nausea or vomiting. Patient doesn't past medical history of atrial fibrillation which she is maintained on anticoagulation, asthma, COPD, DVT, GI bleed, hyperlipidemia, hypertension, osteoarthritis, pulmonary embolism, renal disease and thyroid disorder. She had recent stress tests completed in August 2020 which will was negative for stress-induced cardiac ischemia. Chest x-ray was completed showing slightly inc reased pulmonary interstitial edema compared to last exam this could be some acute heart failure. Troponins negative. Patient's lipase elevated at 426. Patient does reports she has 1 cocktail every night. Patient reports she has not been vaccinated against COVID-19. At this time cardiology services have been consulted. 2-D echo has been ordered. Patient will be placed on clear liquid diet for acute pancreatitis ultrasound of abdomen will be ordered. Repeat labs will be ordered in a.m. at this time patient denies chest pain or shortness of breath. Patient denies nausea vomiting and diarrhea. Patient denies any urinary burning or frequency On 07/03/2021 Patient was seen and examined on the medical floor, she is alert and oriented x 3 in no distress, patient is still complaining of epigastric discomfort otherwise she denies any complaints there is no fever or chills no headache or dizziness no chest pain no shortness of breath no palpitation no cough no nausea or vomiting no abdominal pain no diarrhea no blood in the stools no burning with urination no frequency or urgency and no hematuria, there is no weakness or numbness in any of the extremities no change in vision speech or gait. Objective - Vital Signs Vital signs: Vital Signs Temp 98.2 F 07/03/21 15:00 Pulse 91 07/03/21 15:00 Resp 17 07/03/21 15:00 BP 114/73 07/03/21 15:00 Pulse Ox 97 07/03/21 15:00 Intake & Output 07/02/21 07/03/21 07/03/21 18:59 06:59 18:59 Intake Total 300 720 Balance 300 720 Weight 110 kg Intake: Oral 300 720 Other: Voiding Method Toilet Toilet # Voids 1 1 - Exam In general patient is alert and oriented x 3 in no distress HEENT head normocephalic and atraumatic Neck is supple no JVD no goiter no lymphadenopathy no carotid bruit Chest examination is clear to auscultation no crackles no wheezing Cardiac exam reveals regular heart sounds S1 and S2 no gallops no murmurs Abdomen is soft nontender no organomegaly with normal bowel sounds Extremity exam reveals no edema no cyanosis or clubbing Neurological examination reveals no gross focal deficits - Labs CBC & Chem 7: 07/03/21 06:04 07/03/21 06:04 Labs: Abnormal Lab Results - Last 24 Hours (Table) 07/03/21 07/03/21 Range/Units 06:04 06:04 RDW 16.2 H (11.5-14.5) % BUN 31.0 H (9.0-27.0) mg/dL BUN/Creatinine Ratio 44.29 H (12.00-20.00) Ratio Calcium 8.6 L (8.7-10.3) mg/dL Total Protein 5.4 L (6.2-8.2) g/dL Albumin 3.60 L (3.80-4.90) g/dL Lipase 80 H (14-63) U/L Assessment and Plan Assessment: 1. Chest pain. Troponins negative. Cardiology consulted 2-D echo ordered. Patient had recent stress test in August 2020 2. Acute pancreatitis. Lipase elevated at 426. Patient educated on importance of complete alcohol cessation. Ultrasound of abdomen ordered. Patient maintained a clear liquid diet and repeat labs ordered for a.m. 3. Bilateral lower extremity edema. Patient reports this is chronic for her. 2-D echo has been ordered 4. Chronic persistent atrial fibrillation on long-term anticoagulation 5. Essential hypertension 6. History of hyperlipidemia. Maintained on statin 7. History of hypothyroidism 8. History of DVT and PE patient maintained on anticoagulation. Patient maintained on anticoagulation 9. History of COPD no exacerbation at this time DVT prophylaxis eliquis. GI prophylaxis Protonix Cardiology services consulted 2-D echo ordered Ultrasound of abdomen ordered Repeat labs ordered for a.m. COVID-19 test ordered
[2021-07-03] MEDS: ATORVASTATIN 40 MG TAB PO SCH (19:53)
[2021-07-04] MEDS: ASPIRIN 325 MG TAB PO SCH (08:52)
[2021-07-04] MEDS: METOPROLOL TARTRATE 50 MG TAB PO SCH (08:52)
[2021-07-04] MEDS: APIXABAN 5 MG TAB PO SCH (08:52)
[2021-07-04] MEDS: PANTOPRAZOLE 40 MG TABLET PO SCH (08:53)
[2021-07-04] MEDS: FUROSEMIDE 40 MG TAB PO SCH (08:53)
[2021-07-04] MEDS: MULTIVITAMINS, THERA 1 EACH TAB PO SCH (08:53)
[2021-07-04] MEDS: LEVOTHYROXINE 50 MCG TAB PO SCH (08:53)
[2021-07-04 09:37] LABS: Basophils % (A) 1 %; Eosinophils # (A) 0.3 k/uL (0-0.7); Eosinophils % (A) 5 %; HCT 37.9 % (34.0-46.0); Hypochromasia Slight; Lymphocytes # (A) 1.6 k/uL (1.0-4.8); Lymphocytes % (A) 27 %; MCH 31.5 pg (25.0-35.0); MCHC 31.8 g/dL (31.0-37.0); Macrocytosis Slight; Monocytes # (A) 0.6 k/uL (0-1.0); Monocytes % (A) 9 %; Neutrophils # (A) 3.4 k/uL (1.3-7.7); Neutrophils % (A) 57 %; Platelet Count 240 k/uL (150-450); RBC 3.83 m/uL (3.80-5.40); RDW 15.8 % (11.5-15.5)
[2021-07-04 09:45] LABS: ALT 16 U/L (4-34); AST 26 U/L (14-36); African American GFR (CKD) 82 (>60 ml/min/1.73 sqM); Albumin 3.4 g/dL (3.5-5.0); Albumin/Globulin Ratio 1.5; Alkaline Phosphatase 76 U/L (38-126); Amylase 61 U/L (30-110); Anion Gap 8 mmol/L; Blood Urea Nitrogen 55 mg/dL (7-17); Calcium 9.1 mg/dL (8.4-10.2); Carbon Dioxide 28 mmol/L (22-30); Chloride 105 mmol/L (98-107); Globulin 2.2 g/dL; Glucose 105 mg/dL (74-99); Lipase 214 U/L (23-300); Non-African American GFR(CKD) 71 (>60 ml/min/1.73 sqM); Potassium 4.3 mmol/L (3.5-5.1); Sodium 141 mmol/L (137-145); Total Bilirubin 0.6 mg/dL (0.2-1.3); Total Protein 5.6 g/dL (6.3-8.2)
--- NOTE | 2021-07-04 10:27 | P.DS ---
Providers Date of admission: 07/02/21 05:46 Expected date of discharge: 07/04/21 Attending physician: Miguel Hardwick Consults: 07/02/21 05:46 Consult Physician Urgent Consulting Provider: Trent Monge Consult Reason/Comments: cp Do you want consulting provider notified?: Yes Primary care physician: Miguel Mulu [place] [facility] Course: Discharge diagnosis 1. Chest pain. Troponins negative. Cardiology consulted 2-D echo ordered. Patient had recent stress test in August 2020. Per cardiology and acute coronary event has been ruled out. Recommend discharge home and follow up with cardiology in office if patient continues to have chest pain can be discussed in the outpatient setting of an outpatient catheterization 2. Acute pancreatitis. Lipase elevated at 426. Patient educated on importance of complete alcohol cessation. Ultrasound of abdomen ordered. Patient maintained a clear liquid diet and repeat labs ordered for a.m. labs improved. Patient will be DC'd home educated to obtain from alcohol consumption 3. Bilateral lower extremity edema. Patient reports this is chronic for her. 2-D echo has been ordered 4. Chronic persistent atrial fibrillation on long-term anticoagulation 5. Essential hypertension 6. History of hyperlipidemia. Maintained on statin 7. History of hypothyroidism 8. History of DVT and PE patient maintained on anticoagulation. Patient maintained on anticoagulation 9. History of COPD no exacerbation at this time DVT prophylaxis eliquis. GI prophylaxis Protonix Hospital course This is 76-year-old female patient who presented to the ER with complaints of chest pain. Patient reports that pain started yesterday and was intermittent throughout the night. Patient reports that the pain woke her up at nighttime. Patient denies any associated shortness of breath nausea or vomiting. Patient doesn't past medical history of atrial fibrillation which she is maintained on anticoagulation, asthma, COPD, DVT, GI bleed, hyperlipidemia, hypertension, osteoarthritis, pulmonary embolism, renal disease and thyroid disorder. She had recent stress tests completed in August 2020 which will was negative for stress-induced cardiac ischemia. Chest x-ray was completed showing slightly increased pulmonary interstitial edema compared to last exam this could be some acute heart failure. Troponins negative. Patient's lipase elevated at 426. Patient does reports she has 1 cocktail every night. Patient reports she has not been vaccinated against COVID-19. At this time cardiology services have been consulted. 2-D echo has been ordered. Patient will be placed on clear liquid diet for acute pancreatitis ultrasound of abdomen will be ordered. Repeat labs will be ordered in a.m. at this time patient denies chest pain or shortness of breath. Patient denies nausea vomiting and diarrhea. Patient denies any urinary burning or frequency On 07/03/2021 Patient was seen and examined on the medical floor, she is alert and oriented x 3 in no distress, patient is still complaining of epigastric discomfort otherwise she denies any complaints there is no fever or chills no headache or dizziness no chest pain no shortness of breath no palpitation no cough no nausea or vomiting no abdominal pain no diarrhea no blood in the stools no burning with urination no frequency or urgency and no hematuria, there is no weakness or numbness in any of the extremities no change in vision speech or gait. On 07/04/2021 patient alert and oriented 3. Patient denies any chest pain or shortness of breath. Patient denies nausea vomiting or diarrhea. Patient will be DC'd home and follow up with cardiology services outpatient. Patient educated on the importance of complete alcohol cessation due to acute pancreatitis. Patient has been tolerating diet. Patient denies chest pain or shortness breath. Patient denies nausea vomiting or diarrhea. Patient denies any urinary burning or frequency Patient Condition at Discharge: Stable Plan - Discharge Summary Discharge Rx Participant: Yes New Discharge Prescriptions: Continue Levothyroxine Sodium [Synthroid] 50 mcg PO DAILY@0800 Multivitamins, Thera [Multivitamin (formulary)] 1 tab PO DAILY@0900 Atorvastatin [Lipitor] 40 mg PO HS@1999 calcitrioL [Calcitriol] 0.5 mcg PO MOWEFR@0900 Ciclopirox Olamine [Loprox 0.77% cream] 1 applic TOPICAL BID PRN PRN Reason: FUNGAL INFECTION amLODIPine [Norvasc] 5 mg PO DAILY@1500 Mupirocin 2% Oint [Bactroban 2% Oint] 1 applic TOPICAL BID PRN PRN Reason: FUNGAL INFECTION Furosemide [Lasix] 20 mg PO DAILY@1500 Ferrous Sulfate [Iron (65 MG Elemental)] 325 mg PO TUTH@0900 Metoprolol Tartrate [Lopressor] 50 mg PO BID@899,1999 Furosemide [Lasix] 40 mg PO DAILY@0900 Apixaban [Eliquis] 5 mg PO BID@899,1999 allopurinoL [Zyloprim] 200 mg PO DAILY@0900 Discharge Medication List Levothyroxine Sodium [Synthroid] 50 mcg PO DAILY@0806/06/15 [History] Multivitamins, Thera [Multivitamin (formulary)] 1 tab PO DAILY@89906/06/15 [History] Atorvastatin [Lipitor] 40 mg PO HS@199902/14/19 [History] Ciclopirox Olamine [Loprox 0.77% cream] 1 applic TOPICAL BID PRN 11/02/19 [History] Mupirocin 2% Oint [Bactroban 2% Oint] 1 applic TOPICAL BID PRN 11/02/19 [History] amLODIPine [Norvasc] 5 mg PO DAILY@149911/02/19 [History] calcitrioL [Calcitriol] 0.5 mcg PO MOWEFR@89911/02/19 [History] Apixaban [Eliquis] 5 mg PO BID@899,199907/02/21 [History] Ferrous Sulfate [Iron (65 MG Elemental)] 325 mg PO TUTH@89907/02/21 [History] Furosemide [Lasix] 20 mg PO DAILY@1500 07/02/21 [History] Furosemide [Lasix] 40 mg PO DAILY@89907/02/21 [History] Metoprolol Tartrate [Lopressor] 50 mg PO BID@899,199907/02/21 [History] allopurinoL [Zyloprim] 200 mg PO DAILY@89907/02/21 [History] Follow up Appointment(s)/Referral(s): Trent Monge MD [STAFF PHYSICIAN] - 2 Weeks Miguel Hardwick MD [Primary Care Provider] - 1-2 days Activity/Diet/Wound Care/Special Instructions: Activity as tolerated Diet heart healthy Discharge Disposition: HOME SELF-CARE
[2021-07-04 15:11] VITALS: BP 101/68; PULSE 94; RESP 17; TEMP 98
[2021-07-04] MEDS: amLODIPine 5 MG TAB PO SCH (16:25)
[2021-07-04] MEDS: FUROSEMIDE 20 MG TAB PO SCH (16:25)
== END 2021-07-04 16:28 | disposition home or self-care (01) ==
LOC: EC 04:34 → 1SOBS 05:46 → 6NMEDSUR 15:11
PROVIDERS: ADMIT Internal Medicine; ATTEND Internal Medicine
DX: R07.89 Other chest pain (principal); E03.9 Hypothyroidism, unspecified; E66.01 Morbid (severe) obesity due to excess calories; E78.5 Hyperlipidemia, unspecified; I08.1 Rheumatic disorders of both mitral and tricuspid valves; I13.0 Hypertensive heart and chronic kidney disease with heart failure and stage 1 through stage 4 chronic kidney disease, or unspecified chronic kidney disease; I45.9 Conduction disorder, unspecified; I48.19 Other persistent atrial fibrillation; I50.9 Heart failure, unspecified; J44.9 Chronic obstructive pulmonary disease, unspecified; K85.90 Acute pancreatitis without necrosis or infection, unspecified; N18.30 Chronic kidney disease, stage 3 unspecified; Z20.822 Contact with and (suspected) exposure to COVID-19; Z68.42 Body mass index [BMI] 45.0-49.9, adult; Z79.01 Long term (current) use of anticoagulants; Z79.890 Hormone replacement therapy; Z79.899 Other long term (current) drug therapy; Z83.3 Family history of diabetes mellitus; Z86.711 Personal history of pulmonary embolism; Z86.718 Personal history of other venous thrombosis and embolism; Z87.891 Personal history of nicotine dependence; Z91.041 Radiographic dye allergy status
CPT/HCPCS: 99285; 36415; 93005; 83880; 80061; 80053 ×3; 82150 ×2; 83690 ×3; 83735; 84484; 85025 ×3; 85610; 85730; 71045; 76700; G0378 ×3; C8929; U0003; U0005; Q9950; 93306

== ENCOUNTER → 2021-08-05 | Outpatient (CLI) | payer MEDICARE, BC ==
[2021-08-05 14:41] LABS: Appearance,Urine Clear (Clear); Bilirubin,Urine Negative (Negative); Blood,Urine Negative (Negative); Color,Urine Yellow; Glucose,Urine (UA) Negative (Negative); Hyaline Casts,Urine 6 /lpf (0-2); Ketones,Urine Negative (Negative); Leukocyte Esterase,Urine Small (Negative); Mucus,Urine Rare /hpf; Nitrite,Urine Negative (Negative); PH, Urine 6.5 (5.0-8.0); Protein,Urine Trace (Negative); RBC,Urine 1 /hpf (0-5); Squamous Epithelial Cell,Urine 4 /hpf (0-4); WBC,Urine 5 /hpf (0-5)
[2021-08-05 19:03] LABS: HCT 33.4 % (37.2-46.3); MCH 26.7 pg (27.0-32.0); MCHC 29.9 g/dL (32.0-37.0); MCV 89.3 fL (80.0-97.0); Mean Platelet Volume 10.2 fL (9.5-12.2); Platelet Count 408 X 10*3/uL (140-440); RBC 3.74 X 10*6/uL (4.10-5.20); WBC 6.64 X 10*3/uL (4.50-10.00)
[2021-08-06 23:55] LABS: African American GFR (CKD) 70.2 (60.0-200.0); Albumin 4.1 g/dL (3.8-4.9); Albumin/Globulin Ratio 1.85 (1.60-3.17); Anion Gap 15.2 mmol/L (4.00-12.00); BUN/Creat Ratio 13.44 Ratio (12.00-20.00); Blood Urea Nitrogen 12.2 mg/dL (9.0-27.0); Calcium 9.4 mg/dL (8.7-10.3); Carbon Dioxide 22.1 mmol/L (21.6-31.8); Chol/HDL Ratio 2.5 Ratio; Globulin 2.2 g/dL (1.6-3.3); HDL Cholesterol 52.9 mg/dL (40.00-60.00); LDL Cholesterol,Calculated 57.5 mg/dL (0.0-131.0); Non-African American GFR(CKD) 60.6 (60.0-200.0); Potassium 3.8 mmol/L (3.5-5.5); Total Bilirubin 0.5 mg/dL (0.30-1.20); Total Protein 6.4 g/dL (6.2-8.2); VLDL Calculation 21.6 mg/dL (5.00-40.00)
[2021-08-07 03:37] LABS: % Iron Saturation 4.88 (12.00-45.00); Magnesium 2.1 mg/dL (1.5-2.4); Phosphorus 3.8 mg/dL (2.4-5.1); Uric Acid 5.9 mg/dL (2.9-7.7)
== END | disposition home or self-care (01) ==
LOC: LABWHC1 13:18
PROVIDERS: ATTEND Internal Medicine
DX: N18.2 Chronic kidney disease, stage 2 (mild) (principal)
CPT/HCPCS: 36415; 80053; 80061; 81001; 82306; 82728; 83540; 83550; 83735; 83970; 84100; 84443; 84550; 85027

== ENCOUNTER → 2023-07-26 | Outpatient (CLI) | payer MEDICARE, BC ==
--- NOTE | 2023-07-26 12:50 | US ---
EXAMINATION TYPE: US kidneys/renal and bladder DATE OF EXAM: 07/26/2023 COMPARISON: Abdominal ultrasound 07/02/2021 CLINICAL INDICATION: Female, 78 years old with history of N18.31 CHR KIDNEY DISEASE, STAGE 3A; CKD EXAM MEASUREMENTS: Right Kidney: 8.9 x 4.3 x 3.8 cm Left Kidney: 9.3 x 4.1 x 4.1 cm Technical limitations due to patient's body habitus and large amount of overlying bowel content Right Kidney: anechoic area = 1.0 x 1.0 x 1.1cm Left Kidney: no evidence of hydronephrosis Bladder: not fully distended, appears wnl as visualized Bilateral Jets seen: no There is no evidence for hydronephrosis at this point in time. No nephrolithiasis is seen. Simple ap pearing right renal cyst measuring 1.1 cm. Cortical medullary differentiation is maintained bilateral ly. The urinary bladder is anechoic. IMPRESSION: Limited examination due to patient's body habitus and overlying bowel gas. 1. No hydronephrosis or nephrolithiasis. 2. Simple right renal 1.1 cm cyst.
== END | disposition home or self-care (01) ==
LOC: RADUSWWP 11:48
PROVIDERS: ATTEND Internal Medicine
DX: N18.31 Chronic kidney disease, stage 3a (principal); N28.1 Cyst of kidney, acquired
CPT/HCPCS: 76770

== ENCOUNTER 2025-02-11 10:36 | Inpatient (IN) | payer MEDICARE, BC ==
--- NOTE | 2025-02-11 11:25 | ED ---
General Adult HPI - General Chief complaint: Abdominal Pain Stated complaint: Abd pain Time Seen by Provider: 02/11/25 10:50 Source: patient, RN notes reviewed, old records reviewed Mode of arrival: EMS Limitations: no limitations - History of Present Illness Initial comments: This is an 79-year-old female who presents to the emergency department compla ining of abdominal pain. Patient states she has an umbilical hernia for quite a long time and last night it started to hurt but she did not think much of it but by the time this morning came about her abdomen had significant pain at the hernia. Patient states she also had profuse vomiting this morning with the pain. Patient denies any diarrhea. Patient denies a bowel movement or passing gas today. Patient states she has not had problems with the hernia in the past. Patient denies any chest pain difficulty breathing shortness of breath. Patient has any fever chills. Patient did get Zofran on the way in and helped with her nausea and she has not vomited since - Related Data Allergies Allergy/AdvReac Type Severity Reaction Status Date / Time adhesive Allergy Rash/Hives Verified 02/11/25 10:49 cefaclor [From Ceclor] Allergy Rash/Hives Verified 02/11/25 10:49 Penicillins Allergy FAMILY Verified 02/11/25 10:49 HISTORY povidone-iodine Allergy Rash/Hives Verified 02/11/25 10:49 [From Betadine] soap [From Betadine] Allergy Rash/Hives Verified 02/11/25 10:49 hydromorphone [From Dilaudid] AdvReac BP Verified 02/11/25 10:49 DECREASES Review of Systems ROS Statement: Those systems with pertinent positive or pertinent negative responses have been documented in the HPI. ROS Other: All systems not noted in ROS Statement are negative. Past Medical History Past Medical History: Atrial Fibrillation, Asthma, COPD, Deep Vein Thrombosis (DVT), GI Bleed, Hyperlipidemia, Hypertension, Osteoarthritis (OA), Pulmonary Embolus (PE), Renal Disease, Thyroid Disorder Additional Past Medical History / Comment(s): Chronic atrial fibrillation, previous history of a popliteal left lower extremity DVT and pulmonary embolism, obesity, bronchial asthma/COPD, previous history of GI bleed secondary to diverticulosis, hypertension, hyperlipidemia, hypothyroidism, chronic renal failure, osteoarthritis him a umbilical hernia, carotid artery disease, chronic back pain, gout, chronic stage III kidney disease History of Any Multi-Drug Resistant Organisms: MRSA Date of last positivie culture/infection: 07/16/17 MDRO Source:: Left First Toe Past Surgical History: Orthopedic Surgery, Tubal Ligation Additional Past Surgical History / Comment(s): d&c,colonoscopy, orif lt ankle has plate and screws.lt knee arthroscopy, skin biopsy on left upper foot Past Anesthesia/Blood Transfusion Reactions: No Reported Reaction Past Psychological History: No Psychological Hx Reported Smoking Status: Former smoker Past Alcohol Use History: Daily Past Drug Use History: None Reported - Past Family History Father Additional Family Medical History / Comment(s): had tb at age 55, lt leg amp.heart problems. Mother History Unknown: Yes Family Medical History: Dementia, Diabetes Mellitus General Exam - General Exam Comments Initial Comments: GENERAL: Patient is well-developed and well-nourished. Patient is nontoxic and well- hydrated and is in mild distress. ENT: Neck is soft and supple. No significant lymphadenopathy is noted. Oropharynx is clear. Moist mucous membranes. Neck has full range of motion without eliciting any pain. EYES: The sclera were anicteric and conjunctiva were pink and moist. Extraocular movements were intact and pupils were equal round and reactive to light. Eyelids were unremarkable. PULMONARY: Unlabored respirations. Good breath sounds bilaterally. No audible rales rhonchi or wheezing was noted. CARDIOVASCULAR: There is a regular rate and rhythm without any murmurs gallops or rubs. ABDOMEN: Patient has a large umbilical hernia that is extremely tender to palpate and not reducible SKIN: Skin is clear with no lesions or rashes and otherwise unremarkable. NEUROLOGIC: Patient is alert and oriented x3. Cranial nerves II through XII are grossly intact. Motor and sensory are also intact. Normal speech, volume and content. Symmetrical smile. MUSCULOSKELETAL: Normal extremities with adequate strength and full range of motion. No lower extremity swelling or edema. No calf tenderness. LYMPHATICS: No significant lymphadenopathy is noted PSYCHIATRIC: Normal psychiatric evaluation. Limitations: no limitations Course Vital Signs 02/11/25 02/11/25 10:45 10:49 Temperature 98.3 F Pulse Rate 66 Respiratory 20 Rate Blood Pressure 137/84 O2 Sat by Pulse 91 L 98 Oximetry Medical Decision Making - Medical Decision Making EKG is interpreted by myself but EKG shows atrial fibrillation 81 bpm QRS 149 QT interval 400 QTc is 437. Patient EKG shows a right bundle branch block. Was pt. sent in by a medical professional or institution ([facility], [facility], urgent care, hospital, or usp...) When possible be specific @ -No Did you speak to anyone other than the patient for history (EMS, parent, family, police, friend...)? What history was obtained from this source @ -No Did you review nursing and triage notes (agree or disagree)? Why? @ -I reviewed and agree with nursing and triage notes Were old charts reviewed (outside hosp., previous admission, EMS record, old EKG, old radiological studies, urgent care reports/EKG's, usp records)? Report findings @ -No old charts were reviewed Differential Diagnosis? @ -Differential Abdominal Pain Women: Appendicitis, Cholecystitis, diverticulosis, ischemic bowel, pancreatitis, hepatitis, UTI, gastroenteritis, AAA, incarcerated hernia, bowel obstruction, constipation, inflammatory bowel, hepatitis, peptic ulcer disease, splenic infarction, perforated viscus, vulvitis, ovarian torsion, PID, kidney stone, placenta abruption, this is not meant to be an all-inclusive list EKG interpreted by me (3pts min.). @ -As above X-rays interpreted by me (1pt min.). @ -None done CT interpreted by me (1pt min.). @ -CAT scan shows a partial small bowel obstruction U/S interpreted by me (1pt. min.). @ -None done What testing was considered but not performed or refused? (CT, X-rays, U/S, labs)? Why? @ -None What meds were considered but not given or refused? Why? @ -None Did you discuss the management of the patient with other professionals (professionals i.e. [facility]avaleta, [facility] [employer] [facility], lab, RT, psych nurse, social organization professor, acid tank liner, teacher, police or patrol park officer, rn case management)? Give summary @ -I spoke with Dr. Hardwick he agreed to admit the patient Was smoking cessation discussed for >3mins.? @ -No Was critical care preformed (if so, how long)? @ -No Were there social determinants of health that impacted care today? How? (Homelessness, low income, unemployed, alcoholism, drug addiction, transportation, low edu. Level, literacy, decrease access to med. care, detention, rehab)? @ -No Was there de-escalation of care discussed even if they declined (Discuss DNR or withdrawal of care, Hospice)? DNR status @ -No What co-morbidities impacted this encounter? (DM, HTN, Smoking, COPD, CAD, Cancer, CVA, ARF, Chemo, Hep., AIDS, mental health diagnosis, sleep apnea, morbid obesity)? @ -None Was patient admitted / discharged? Hospital course, mention meds given and route, prescriptions, significant lab abnormalities, going to OR and other pertinent info. @ -Patient had a small bowel obstruction and had an NG tube placed. Patient will be admitted to Dr. Hardwick with a surgical consult Undiagnosed new problem with uncertain prognosis? @ -No Drug Therapy requiring intensive monitoring for toxicity (Heparin, Nitro, Insulin, Cardizem)? @ -No Were any procedures done? @ -No Diagnosis/symptom? @ -Partial small bowel obstruction Acute, or Chronic, or Acute on Chronic? @ -Default Uncomplicated (without systemic symptoms) or Complicated (systemic symptoms)? @ -Complicated Side effects of treatment? @ -No Exacerbation, Progression, or Severe Exacerbation? @ -No Poses a threat to life or bodily function? How? (Chest pain, USA, CA, pneumonia, PE, COPD, DKA, ARF, appy, cholecystitis, CVA, Diverticulitis, Homicidal, Suicidal, threat to staff... and all critical care pts) @ -Yes this could lead to dehydration or possible bowel. - Lab Data Result diagrams: 02/11/25 11:27 02/11/25 11:27 Lab Results 02/11/25 02/11/25 02/11/25 Range/Units 11:27 11:27 11: WBC 16.7 H (3.8-10.6) k/uL RBC 4.95 (3.80-5.40) m/uL Hgb 14.1 (11.4-16.0) gm/dL Hct 44.9 (34.0-46.0) % MCV 90.7 (80.0-100.0) fL MCH 28.5 (25.0-35.0) pg MCHC 31.5 (31.0-37.0) g/dL RDW 15.6 H (11.5-15.5) % Plt Count 280 (150-450) k/uL MPV 7.8 Neutrophils % 91 % Lymphocytes % 4 % Monocytes % 5 % Eosinophils % 0 % Basophils % 0 % Neutrophils # 15.2 H (1.3-7.7) k/uL Lymphocytes # 0.6 L (1.0-4.8) k/uL Monocytes # 0.8 (0-1.0) k/uL Eosinophils # 0.1 (0-0.7) k/uL Basophils # 0.1 (0-0.2) k/uL Hypochromasia Moderate Sodium 143 (137-145) mmol/L Potassium 4.4 (3.5-5.1) mmol/L Chloride 105 (98-107) mmol/L Carbon Dioxide 28 (22-30) mmol/L Anion Gap 10 mmol/L BUN 32 H (7-17) mg/dL Creatinine 0.91 (0.52-1.04) mg/dL Est GFR (CKD-EPI)AfAm 68 (>60 ml/min/1.73 sqM) Est GFR (CKD-EPI)NonAf 59 (>60 ml/min/1.73 sqM) Glucose 202 H (74-99) mg/dL Plasma Lactic Acid Seymour 2.5 H* (0.7-2.0) mmol/L Calcium 9.9 (8.4-10.2) mg/dL Total Bilirubin 0.8 (0.2-1.3) mg/dL AST 27 (14-36) U/L ALT 15 (4-34) U/L Alkaline Phosphatase 99 (38-126) U/L Total Protein 6.7 (6.3-8.2) g/dL Albumin 4.0 (3.5-5.0) g/dL Amylase 124 H (30-110) U/L Lipase 353 H (23-300) U/L Disposition Clinical Impression: Partial small bowel obstruction Disposition: ADMITTED IP TO THIS HOSP Referrals: Miguel Hardwick MD [Primary Care Provider] - 1-2 days Time of Disposition: 12:56
[2025-02-11] MEDS: SODIUM CHLORIDE 0.9% 500 ML 500 ML IV ONE (11:34)
[2025-02-11 11:46] LABS: Basophils # (A) 0.1 k/uL (0-0.2); Basophils % (A) 0 %; Eosinophils # (A) 0.1 k/uL (0-0.7); Eosinophils % (A) 0 %; HCT 44.9 % (34.0-46.0); HGB 14.1 gm/dL (11.4-16.0); Hypochromasia Moderate; Lymphocytes # (A) 0.6 k/uL (1.0-4.8); Lymphocytes % (A) 4 %; MCH 28.5 pg (25.0-35.0); MCHC 31.5 g/dL (31.0-37.0); MCV 90.7 fL (80.0-100.0); Mean Platelet Volume 7.8; Monocytes # (A) 0.8 k/uL (0-1.0); Monocytes % (A) 5 %; Neutrophils # (A) 15.2 k/uL (1.3-7.7); Neutrophils % (A) 91 %; Platelet Count 280 k/uL (150-450); RBC 4.95 m/uL (3.80-5.40); RDW 15.6 % (11.5-15.5); WBC 16.7 k/uL (3.8-10.6)
[2025-02-11 11:54] LABS: ALT 15 U/L (4-34); AST 27 U/L (14-36); African American GFR (CKD) 68 (>60 ml/min/1.73 sqM); Alkaline Phosphatase 99 U/L (38-126); Amylase 124 U/L (30-110); Anion Gap 10 mmol/L; Blood Urea Nitrogen 32 mg/dL (7-17); Calcium 9.9 mg/dL (8.4-10.2); Carbon Dioxide 28 mmol/L (22-30); Chloride 105 mmol/L (98-107); Glucose 202 mg/dL (74-99); Lipase 353 U/L (23-300); Non-African American GFR(CKD) 59 (>60 ml/min/1.73 sqM); Potassium 4.4 mmol/L (3.5-5.1); Sodium 143 mmol/L (137-145); Total Bilirubin 0.8 mg/dL (0.2-1.3); Total Protein 6.7 g/dL (6.3-8.2)
--- NOTE | 2025-02-11 12:49 | CT ---
EXAMINATION TYPE: CT abdomen pelvis wo con DATE OF EXAM: 02/11/2025 12:18 PM COMPARISON: None. CLINICAL INDICATION: Female, 79 years old with history of abdominal pain, Abdominal pain, nausea, umb ilical hernia, pt threw up this morning, it was darker and slimy. TECHNIQUE: Axial images were obtained from above the diaphragm to the pubic rami in the axial plane a t 5 mm thick sections. Reconstructed images are reviewed on the computer in the coronal plane. CONTRAST: mL of . Study performed without Oral Contrast DLP: 999.6 mGycm, Automated exposure control for dose reduction was used. FINDINGS: Limited CT sections are obtained the lung bases. There may be some mild atelectasis at the left lung base.. CT ABDOMEN: Scoliosis is present. Liver: There is ar 1.6 cm cyst in the left lobe liver. Spleen: Normal Pancreas: Normal Adrenal glands: The adrenal glands are normal. Gallbladder: Normal Kidneys: No masses are evident. No hydronephrosis is present. No cysts are present. No renal stone s are evident. Aorta: Vascular calcification is within the aorta. Inferior vena cava: Normal. CT PELVIS: There is an anterior abdominal wall hernia in the right pelvis with an opening of 4.0 cm. Multiple loops of colonic bowel are involved. There are dilated small bowel loops within the right pelvis. Diverticular changes are within the sigm oid colon. The colon is decompressed. Findings appear to be related to partial small bowel obstructio n. The zone of transition is not identified . Report was called to the emergency room by Dr. Preet flores by telephone at time of interpretation. Left lower quadrant near the hernia is the region of the pa tient's pain. Appendix: Not identified Urinary bladder: Normal. Genitourinary structures: Uterus contains a small calcification could be a calcified fibroid. Adnexa appear normal. Osseous structures: No suspicious lytic or sclerotic lesions. Degenerative changes are through the sc oliotic lumbar and thoracic spine IMPRESSION: 1. Dilated small bowel loops suspicious for partial small bowel obstruction. The zone of transition is not identified but appears to be in the intraperitoneal region near the hernia. The anterior wall hernia contains loops of colon which do not appear obstructed. [facility], , 02/11/2025 12:47 PM
[2025-02-11] MEDS: ONDANSETRON 4 MG/2 ML VIAL IVP PRN (13:22)
[2025-02-11] MEDS: SODIUM CHLORIDE 0.9% 1,000 ML IV ONE (13:22)
--- NOTE | 2025-02-11 14:34 | XR ---
EXAMINATION TYPE: XR KUB portable DATE OF EXAM: 02/11/2025 2:26 PM COMPARISON: CT abdomen/pelvis 02/21/2025. CLINICAL INDICATION: Female, 79 years old with history of NG TUBE PLACEMENT; PHH, pain TECHNIQUE: One radiographic view of the abdomen was obtained. FINDINGS: Very limited study due to patient positioning and body habitus. Enteric tube visualized coursing belo w the left hemidiaphragm with distal tip overlying the region of the proximal stomach. IMPRESSION: Enteric tube courses below the left hemidiaphragm and distal tip overlies the region of the proximal stomach. Consider slightly advancing. [facility], , 02/11/2025 2:32 PM
--- NOTE | 2025-02-11 17:23 | P.GSCN ---
History of Present Illness Consult date: 02/11/25 History of present illness: 79-year-old female presents to the emergency department with complaint of severe abdominal pain over known hernia site and vomiting dark and bilious material. On workup, she appears to have a bowel obstruction with transition point within the hernia sac. She states that she has not had a bowel movement in the past day. States that the hernia has been present for many years and has increased in size over time. She states that after meals the hernia site does become distended. Review of Systems All systems: negative Past Medical History Past Medical History: Atrial Fibrillation, Asthma, COPD, Deep Vein Thrombosis (DVT), GI Bleed, Hyperlipidemia, Hypertension, Osteoarthritis (OA), Pulmonary Embolus (PE), Renal Disease, Thyroid Disorder Additional Past Medical History / Comment(s): Chronic atrial fibrillation, previous history of a popliteal left lower extremity DVT and pulmonary embolism, obesity, bronchial asthma/COPD, previous history of GI bleed secondary to diverticulosis, hypertension, hyperlipidemia, hypothyroidism, chronic renal failure, osteoarthritis him a umbilical hernia, carotid artery disease, chronic back pain, gout, chronic stage III kidney disease History of Any Multi-Drug Resistant Organisms: MRSA Year Discovered:: 07/16/17 MDRO Source:: Left First Toe Past Surgical History: Orthopedic Surgery, Tubal Ligation Additional Past Surgical History / Comment(s): d&c,colonoscopy, orif lt ankle has plate and screws.lt knee arthroscopy, skin biopsy on left upper foot Past Anesthesia/Blood Transfusion Reactions: No Reported Reaction Past Psychological History: No Psychological Hx Reported Smoking Status: Former smoker Past Alcohol Use History: Daily Past Drug Use History: None Reported - Past Family History Father Additional Family Medical History / Comment(s): had tb at age 55, lt leg amp.heart problems. Mother History Unknown: Yes Family Medical History: Dementia, Diabetes Mellitus Medications and Allergies Home Medications Medication Instructions Recorded Confirmed Type Apixaban [Eliquis] 5 mg PO BID 02/11/25 02/11/25 History Atorvastatin [Lipitor] 40 mg PO HS 02/11/25 02/11/25 History Cholecalciferol (Vitamin D3) 125 mcg PO DAILY@1500 02/11/25 02/11/25 History [Vitamin D3 (125 MCG = 5,000 IU)] Ciclopirox Olamine [Loprox 0.77% 1 applic TOPICAL BID PRN 02/11/25 02/11/25 History cream] Furosemide [Lasix] 20 mg PO DAILY@1500 02/11/25 02/11/25 History Furosemide [Lasix] 40 mg PO DAILY 02/11/25 02/11/25 History Levothyroxine Sodium [Synthroid] 75 mcg PO DAILY 02/11/25 02/11/25 History Metoprolol Tartrate [Lopressor] 50 mg PO BID 02/11/25 02/11/25 History Multivitamins, Thera [Multivitamin 1 tab PO DAILY@1500 02/11/25 02/11/25 History (formulary)] Mupirocin 2% Oint [Bactroban 2% 1 applic TOPICAL BID PRN 02/11/25 02/11/25 History Oint] allopurinoL [Zyloprim] 200 mg PO DAILY 02/11/25 02/11/25 History amLODIPine [Norvasc] 5 mg PO DAILY@1500 02/11/25 02/11/25 History calcitrioL [Rocaltrol] 0.25 mcg PO MOTUTHFR@1500 02/11/25 02/11/25 History Allergies Allergy/AdvReac Type Severity Reaction Status Date / Time adhesive Allergy Rash/Hives Verified 02/11/25 14:47 cefaclor [From Ceclor] Allergy Rash/Hives Verified 02/11/25 14:47 Penicillins Allergy FAMILY Verified 02/11/25 14:47 HISTORY povidone-iodine Allergy Rash/Hives Verified 02/11/25 14:47 [From Betadine] soap [From Betadine] Allergy Rash/Hives Verified 02/11/25 14:47 hydromorphone [From Dilaudid] AdvReac BP Verified 02/11/25 14:47 DECREASES Surgical - Exam Osteopathic Statement: *. No significant issues noted on an osteopathic structural exam other than those noted in the History and Physical/Consult. Vital Signs Pulse Resp BP Pulse Ox 66 20 137/84 91 L 02/11/25 10:45 02/11/25 10:45 02/11/25 10:45 02/11/25 10:45 - General well developed, well nourished - Eyes normal ocular movement - ENT no hearing loss - Neck trachea midline - Respiratory normal respiratory effort - Abdomen Soft, tender to palpation around hernia site, mild distention, no rebound or guarding - Psychiatric oriented to time, oriented to person, oriented to place Results - Labs 02/11/25 11:27 02/11/25 11:27 Abnormal Lab Results - Last 24 Hours (Table) 02/11/25 02/11/25 02/11/25 Range/Units 11:27 11:27 11:27 WBC 16.7 H (3.8-10.6) k/uL RDW 15.6 H (11.5-15.5) % Neutrophils # 15.2 H (1.3-7.7) k/uL Lymphocytes # 0.6 L (1.0-4.8) k/uL BUN 32 H (7-17) mg/dL Glucose 202 H (74-99) mg/dL Plasma Lactic Acid Seymour 2.5 H* (0.7-2.0) mmol/L Amylase 124 H (30-110) U/L Lipase 353 H (23-300) U/L Diabetes panel 02/11/25 Range/Units 11:27 Sodium 143 (137-145) mmol/L Potassium 4.4 (3.5-5.1) mmol/L Chloride 105 (98-107) mmol/L Carbon Dioxide 28 (22-30) mmol/L BUN 32 H (7-17) mg/dL Creatinine 0.91 (0.52-1.04) mg/dL Glucose 202 H (74-99) mg/dL Calcium 9.9 (8.4-10.2) mg/dL AST 27 (14-36) U/L ALT 15 (4-34) U/L Alkaline Phosphatase 99 (38-126) U/L Total Protein 6.7 (6.3-8.2) g/dL Albumin 4.0 (3.5-5.0) g/dL Calcium panel 02/11/25 Range/Units 11:27 Calcium 9.9 (8.4-10.2) mg/dL Albumin 4.0 (3.5-5.0) g/dL Pituitary panel 02/11/25 Range/Units 11:27 Sodium 143 (137-145) mmol/L Potassium 4.4 (3.5-5.1) mmol/L Chloride 105 (98-107) mmol/L Carbon Dioxide 28 (22-30) mmol/L BUN 32 H (7-17) mg/dL Creatinine 0.91 (0.52-1.04) mg/dL Glucose 202 H (74-99) mg/dL Calcium 9.9 (8.4-10.2) mg/dL Adrenal panel 02/11/25 Range/Units 11:27 Sodium 143 (137-145) mmol/L Potassium 4.4 (3.5-5.1) mmol/L Chloride 105 (98-107) mmol/L Carbon Dioxide 28 (22-30) mmol/L BUN 32 H (7-17) mg/dL Creatinine 0.91 (0.52-1.04) mg/dL Glucose 202 H (74-99) mg/dL Calcium 9.9 (8.4-10.2) mg/dL Total Bilirubin 0.8 (0.2-1.3) mg/dL AST 27 (14-36) U/L ALT 15 (4-34) U/L Alkaline Phosphatase 99 (38-126) U/L Total Protein 6.7 (6.3-8.2) g/dL Albumin 4.0 (3.5-5.0) g/dL Assessment and Plan Plan: 79-year-old female with incarcerated umbilical hernia containing bowel. This is causing obstructive symptoms. Secondary to this, there is concern for strangulation and recommendation is for urgent incarcerated umbilical hernia repair. Patient is on Eliquis and I did explain the risks of bleeding with surgical intervention. Current NG tube is in place for decompression. Continue NPO. Continue IV fluids. Plan for operative intervention today
[2025-02-11] MEDS ORDERED: MORPHINE SULFATE 2 MG/ML SYRINGE IVP PRN (17:24)
[2025-02-11] MEDS: IV FLUID CONTINUATION 1,000 ML IV ONE (18:14)
[2025-02-11] MEDS ORDERED: SUCCINYLCHOLINE CHLORIDE 200 MG/10 ML VIAL IV ONE (19:42)
[2025-02-11] MEDS ORDERED: fentaNYL (PF) 50 MCG/ML 2 ML AMP ONE (19:42)
[2025-02-11] MEDS ORDERED: LIDOCAINE 1% INJ 10MG/ML (20 ML MDV) ONE (19:42)
[2025-02-11] MEDS ORDERED: GLYCOPYRROLATE 0.2 MG/ML 2 ML VIAL ONE (19:42)
[2025-02-11] MEDS ORDERED: NEOSTIGMINE 1 MG/ML 10 ML VIAL ONE (19:42)
[2025-02-11] MEDS ORDERED: ROCURONIUM 10 MG/ML (5 ML VIAL) IV ONE (19:42)
[2025-02-11] MEDS ORDERED: PROPOFOL 10 MG/ML 20 ML VIAL IV ONE (19:42)
[2025-02-11] MEDS: SODIUM CHLORIDE 0.9% 50 ML with ceFAZolin 2,000 MG IV ONE (20:05)
[2025-02-11] MEDS: LACTATED RINGERS 1,000 ML IV ONE (21:05)
--- NOTE | 2025-02-11 21:39 | P.OP ---
Date of Procedure: 02/11/25 Preoperative Diagnosis: Incarcerated ventral hernia Postoperative Diagnosis: Incarcerated ventral hernia Ischemic/hemorrhagic small bowel Procedure(s) Performed: Exploratory laparotomy Small bowel resection Umbilectomy Repair of incarcerated ventral hernia measuring 4 x 5 cm Anesthesia: VIDHI Surgeon: Corinne Donis Pathology: other (Small bowel, hernia sac) Condition: stable Disposition: floor Indications for Procedure: 79-year-old female presented to the emergency department with complaint of sever e abdominal pain at known ventral hernia site. She states that the area felt hard to the touch and she was having vomiting episodes. CT of the abdomen pelvis confirmed incarcerated ventral hernia containing bowel and concerning for bowel obstruction. Plan is for operative intervention secondary to concern for strangulation. Risks, benefits and alternatives were provided to the patient. All questions answered prior to attending the operating suite. Operative Findings: Ischemic/hemorrhagic portion of small bowel, distal Hernia sac containing both large and small bowel Description of Procedure: Patient was brought to the operative suite and placed in supine position on the operating table. Sedation was provided by anesthesia and the patient underwent endotracheal intubation. The patient was then prepped and draped in regular sterile fashion. Midline incision was made over the palpable hernia site and dissection was carried towards the hernia sac. The hernia sac was then dissected free from all surrounding tissue and was noted to contain both large and small bowel through a defect that measured approximately 4 x 5 cm. The he rnia sac was entered and inflammatory fluid was immediately drained along with some hemorrhagic content. The large bowel appeared to be quite healthy and was reduced back into the abdominal cavity. On examination of the small bowel, there did appear to be ischemic changes along with hemorrhagic changes to a portion of the distal small bowel. The site was examined for period of time and concern for ischemia was still present and decision was made to perform a small bowel resection. Both distal and proximal sites for resection were decided upon and transection was performed using Endo RENAE stapler, blue load. The 2 ends of the small bowel were then anastomosed by creating 2 enterotomies and firing a Endo RENAE blue load stapler. The resulting enterotomy was closed with TX 60 blue load stapler. The staple line was then imbricating using interrupted 3-0 Vicryl suture. The resulting mesentery rent was closed using a running 3-0 Vicryl suture. This was then reduced back into the abdominal cavity. Copious amounts irrigation was placed and suctioned. On exam of the skin and soft tissue, the umbilicus was noted to have significant excoriation and decision was made to excise the umbilicus. This was done with cautery and hemostasis was maintained. At this point, based on small bowel resection and excoriated skin, decision was made to perform a primary hernia closure without mesh. A oh STRATAFIX suture was used to close the fascial defect in running fashion. Skin was then closed with skin arsh and Prevena dressing was placed. The patient was awakened in the operating suite and taken to postanesthesia care unit in stable condition.
[2025-02-11] MEDS: NYSTATIN 100,000 UNIT/GM POWD 15 GM TOPICAL SCH (23:40)
[2025-02-11] MEDS: HEPARIN SODIUM,PORCINE 5,000 UNIT/ML 1 ML VIAL SQ SCH (23:40)
[2025-02-12] MEDS: MORPHINE SULFATE 4 MG/ML SYRINGE IVP PRN (00:50)
[2025-02-12 08:17] LABS: Basophils # (A) 0.03 X 10*3/uL (0.00-0.10); Basophils % (A) 0.4 %; Eosinophils # (A) 0.01 X 10*3/uL (0.04-0.35); Eosinophils % (A) 0.1 %; HCT 41.2 % (37.2-46.3); HGB 12.8 g/dL (12.0-15.0); Lymphocytes # (A) 0.62 X 10*3/uL (0.90-5.00); Lymphocytes % (A) 8.3 %; MCH 28.9 pg (27.0-32.0); MCHC 31.1 g/dL (32.0-37.0); Mean Platelet Volume 11.5 FL (9.5-12.2); Monocytes # (A) 0.86 X 10*3/uL (0.20-1.00); Monocytes % (A) 11.6 %; NRBC Per 100 WBC 0 X 10*3/uL (0.00-0.01); Neutrophils # (A) 5.91 X 10*3/uL (1.80-7.70); Neutrophils % (A) 79.5 %; Platelet Count 284 X 10*3/uL (140-440); RBC 4.43 X 10*6/uL (4.10-5.20); RDW 16.5 % (11.5-14.5); WBC 7.44 X 10*3/uL (4.50-10.00)
[2025-02-12 08:27] LABS: ALT 13 U/L (8-44); AST 29 U/L (13-35); Albumin 3.6 g/dL (3.8-4.9); Alkaline Phosphatase 80 U/L (41-126); Blood Urea Nitrogen 26.1 mg/dL (9.0-27.0); Calcium 9.1 mg/dL (8.7-10.3); Carbon Dioxide 23.9 mmol/L (21.6-31.8); Chloride 113 mmol/L (96-109); Globulin 2.4 g/dL (1.6-3.3); Glucose 160 mg/dL (70-110); Potassium 4.2 mmol/L (3.5-5.5); Sodium 148 mmol/L (135-145); Total Bilirubin 0.6 mg/dL (0.3-1.2)
[2025-02-12] MEDS: metroNIDAZOLE-NS PMX 500 MG in SALINE 1 100ML.BAG IVPB SCH (08:34)
[2025-02-12] MEDS ORDERED: hydrALAZINE HCL 20 MG/ML 1 ML VIAL IVP PRN (09:09)
--- NOTE | 2025-02-12 09:09 | P.HPIM ---
History of Present Illness H&P Date: 02/12/25 Irene Lobo, is an 79-year-old female who presented to [facility] emergency room with a chief complaint of abdominal pain and vomiting She was evaluated in the emergency room vital examination on presentation revealed a temperature of 98.3 pulse 66 respiration 20 blood pressure 137/84 pulse ox 91% on room air Laboratory data revealed a white blood count of 16.7 hemoglobin 14.1 platelet count 280 sodium 143 potassium 4.4 chloride 105 CO2 28 BUN 32 creatinine 0.91 plasma lactic acid was elevated at 2.5 amylase was elevated at 124 lipase was elevated at 353 Testing in the emergency room revealed CT scan of the abdomen and pelvis revealed dilated small bowel loops suspicious for partial small bowel obstruction, the anterior wall has a hernia that contains loops of colon. Julio César vera underwent surgery on 02/11/[address] Donis, she had exploratory laparotomy, small bowel resection, umbilectomy and repair of incarcerated ventral hernia. She was admitted to medical floor postsurgery. Patient was admitted to medical floor for further evaluation and treatment Past medical history is significant for history of asthma, history of COPD, history of atrial fibrillation, history of hypertension, history of hyperlipidemia, history of osteoarthritis, history of DVT and pulmonary e mbolism, history of hypothyroidism, and history of chronic kidney disease stage III On review of systems patient was seen postoperatively on the medical floor, she is alert and oriented x 3 in no apparent distress, there is no fever or chills no headache or dizziness no chest pain no shortness of breath no cough, no nausea or vomiting no abdominal pain no diarrhea no blood in the stools no burning with urination no frequency or urgency and no hematuria, NG tube is in and Palomo catheter is in. Past Medical History Past Medical History: Atrial Fibrillation, Asthma, COPD, Deep Vein Thrombosis (DVT), GI Bleed, Hyperlipidemia, Hypertension, Osteoarthritis (OA), Pulmonary Embolus (PE), Renal Disease, Thyroid Disorder Additional Past Medical History / Comment(s): Chronic atrial fibrillation, previous history of a popliteal left lower extremity DVT and pulmonary embolism, obesity, bronchial asthma/COPD, previous history of GI bleed secondary to diverticulosis, hypertension, hyperlipidemia, hypothyroidism, chronic renal failure, osteoarthritis him a umbilical hernia, carotid artery disease, chronic back pain, gout, chronic stage III kidney disease History of Any Multi-Drug Resistant Organisms: MRSA Date of last positivie culture/infection: 07/16/17 MDRO Source:: Left First Toe Past Surgical History: Orthopedic Surgery, Tubal Ligation Additional Past Surgical History / Comment(s): d&c,colonoscopy, orif lt ankle has plate and screws.lt knee arthroscopy, skin biopsy on left upper foot Past Anesthesia/Blood Transfusion Reactions: No Reported Reaction Past Psychological History: No Psychological Hx Reported Smoking Status: Former smoker Past Alcohol Use History: Daily Past Drug Use History: None Reported - Past Family History Father Additional Family Medical History / Comment(s): had tb at age 55, lt leg amp.hea rt problems. Mother History Unknown: Yes Family Medical History: Dementia, Diabetes Mellitus Medications and Allergies Home Medications Medication Instructions Recorded Confirmed Type Apixaban [Eliquis] 5 mg PO BID 02/11/25 02/11/25 History Atorvastatin [Lipitor] 40 mg PO HS 02/11/25 02/11/25 History Cholecalciferol (Vitamin D3) 125 mcg PO DAILY@1500 02/11/25 02/11/25 History [Vitamin D3 (125 MCG = 5,000 IU)] Ciclopirox Olamine [Loprox 0.77% 1 applic TOPICAL BID PRN 02/11/25 02/11/25 History cream] Furosemide [Lasix] 20 mg PO DAILY@1500 02/11/25 02/11/25 History Furosemide [Lasix] 40 mg PO DAILY 02/11/25 02/11/25 History Levothyroxine Sodium [Synthroid] 75 mcg PO DAILY 02/11/25 02/11/25 History Metoprolol Tartrate [Lopressor] 50 mg PO BID 02/11/25 02/11/25 History Multivitamins, Thera [Multivitamin 1 tab PO DAILY@1500 02/11/25 02/11/25 History (formulary)] Mupirocin 2% Oint [Bactroban 2% 1 applic TOPICAL BID PRN 02/11/25 02/11/25 History Oint] allopurinoL [Zyloprim] 200 mg PO DAILY 02/11/25 02/11/25 History amLODIPine [Norvasc] 5 mg PO DAILY@1500 02/11/25 02/11/25 History calcitrioL [Rocaltrol] 0.25 mcg PO MOTUTHFR@1500 02/11/25 02/11/25 History Allergies Allergy/AdvReac Type Severity Reaction Status Date / Time adhesive Allergy Rash/Hives Verified 02/11/25 14:47 cefaclor [From Ceclor] Allergy Rash/Hives Verified 02/11/25 14:47 Penicillins Allergy FAMILY Verified 02/11/25 14:47 HISTORY povidone-iodine Allergy Rash/Hives Verified 02/11/25 14:47 [From Betadine] soap [From Betadine] Allergy Rash/Hives Verified 02/11/25 14:47 hydromorphone [From Dilaudid] AdvReac BP Verified 02/11/25 14:47 DECREASES Physical Exam Vitals: Vital Signs Temp Pulse Pulse Resp BP BP Pulse Ox 02/12/25 07:04 98.4 F 95 18 129/84 94 L 02/12/25 02:18 97.8 F 80 15 105/73 92 L 02/12/25 00:25 86 18 133/76 96 02/11/25 23:30 75 18 120/78 97 02/11/25 22:20 97.8 F 66 18 149/72 92 L 02/11/25 21:49 84 16 157/72 94 L 02/11/25 21:34 87 16 156/78 94 L 02/11/25 21:19 97.1 F L 91 16 142/72 95 02/11/25 18:14 97.6 F 83 16 138/71 95 02/11/25 17:01 97.5 F L 79 18 108/68 96 02/11/25 14:14 75 19 116/59 96 02/11/25 13:30 98 F 69 20 129/79 95 02/11/25 10:49 98.3 F 98 02/11/25 10:45 66 20 137/84 91 L Intake and Output 02/11/25 02/12/25 02/12/25 22:59 06:59 14:59 Intake Total 1050 Output Total 350 550 Balance 700 -550 Intake: IV 1050 Output: Gastric Drainage 200 Urine 300 350 Estimated Blood Loss 50 Other: Voiding Method Indwelling Catheter In general patient is alert and oriented x 3 in no distress HEENT head normocephalic and atraumatic Neck is supple no JVD no goiter no lymphadenopathy no carotid bruit Chest examination is clear to auscultation no crackles no wheezing Cardiac exam reveals regular heart sounds S1 and S2 no gallops no murmurs Abdomen is soft nontender no organomegaly with normal bowel sounds Extremity exam reveals no edema no cyanosis or clubbing Neurological examination reveals no gross focal deficits Results CBC & Chem 7: 02/12/25 03:45 02/12/25 03:45 Labs: Abnormal Lab Results - Last 24 Hours (Table) 02/11/25 02/11/25 02/11/25 Range/Units 11:27 11:27 11:27 WBC 16.7 H (3.8-10.6) k/uL MCHC (32.0-37.0) g/dL RDW 15.6 H (11.5-15.5) % Neutrophils # 15.2 H (1.3-7.7) k/uL Lymphocytes # 0.6 L (1.0-4.8) k/uL Eosinophils # (0.04-0.35) X 10*3/uL Sodium (135-145) mmol/L Chloride (96-109) mmol/L BUN 32 H (7-17) mg/dL Est GFR (CKD-EPI) (>=60) BUN/Creatinine Ratio (12.00-20.00) Ratio Glucose 202 H (74-99) mg/dL Plasma Lactic Acid [place] 2.5 H* (0.7-2.0) mmol/L Total Protein (6.2-8.2) g/dL Albumin (3.8-4.9) g/dL Albumin/Globulin Ratio (1.60-3.17) Ratio Amylase 124 H (30-110) U/L Lipase 353 H (23-300) U/L 02/12/25 02/12/25 Range/Units 03:45 03:45 WBC (3.8-10.6) k/uL MCHC 31.1 L (32.0-37.0) g/dL RDW 16.5 H (11.5-15.5) % Neutrophils # (1.3-7.7) k/uL Lymphocytes # 0.62 L (1.0-4.8) k/uL Eosinophils # 0.01 L (0.04-0.35) X 10*3/uL Sodium 148 H (135-145) mmol/L Chloride 113 H (96-109) mmol/L BUN (7-17) mg/dL Est GFR (CKD-EPI) 57 L (>=60) BUN/Creatinine Ratio 26.10 H (12.00-20.00) Ratio Glucose 160 H (74-99) mg/dL Plasma Lactic Acid [place] (0.7-2.0) mmol/L Total Protein 6.0 L (6.2-8.2) g/dL Albumin 3.6 L (3.8-4.9) g/dL Albumin/Globulin Ratio 1.50 L (1.60-3.17) Ratio Amylase (30-110) U/L Lipase (23-300) U/L Thrombosis Risk Factor Assmnt - Choose All That Apply Each Factor Represents 1 point: Abnormal pulmonary function (COPD), Obesity (BMI >25) Each Risk Factor Represents 2 Points: Major surgery Each Risk Factor Represents 3 Points: Age 75 years or older Other congenital or acquired thrombophilia - If yes, enter type in comment: No Thrombosis Risk Factor Assessment Total Risk Factor Score: 7 Thrombosis Risk Factor Assessment Level: High Risk Assessment and Plan Plan: Abdominal pain, with evidence of ventral hernia and bowel obstruction, patient underwent surgery on 02/11/[address] Donis Underlying history of hypertension Underlying history of hyperlipidemia Underlying history of hypothyroidism Underlying history of atrial fibrillation Previous history of DVT and pulmonary embolism Underlying history of asthma Underlying history of COPD Underlying history of chronic kidney disease stage III At this time patient was seen and examined Home medications reviewed and are held at this time due to presence of NG tube Blood pressure is well-controlled and will be covered with IV hydralazine as needed until patient is able to take her oral medications Due to history of atrial fibrillation, and history of multiple episodes of DVT and PE, patient will need to be fully anticoagulated, at home she was maintained on Eliquis, she still has an NG tube in, she was started on subcu heparin yesterday. At this time will discontinue subcu heparin, and place patient on Lovenox 1 mg/kg twice daily, will monitor closely for any sign of bleeding or anemia. Will follow closely
[2025-02-12] MEDS: ENOXAPARIN 100 MG/ML SYRINGE SQ SCH (10:49)
[2025-02-12] MEDS: LEVOTHYROXINE IVP 100 MCG/5 ML VIAL IV SCH (10:49)
[2025-02-12] MEDS: LEVOFLOXACIN 500MG-D5W PMX 500 MG in DEXTROSE/WATER 1 100ML.BAG IVPB SCH (10:50)
[2025-02-12] MEDS ORDERED: BENZOCAINE SPRAY 1 EACH MUCOUS MEM PRN (11:05)
--- NOTE | 2025-02-12 13:07 | P.PN ---
Subjective Progress Note Date: 02/12/25 SURGICAL PROGRESS NOTE CHIEF COMPLAINT: Incarcerated ventral hernia HISTORY OF PRESENT ILLNESS: Patient is postop day #1 status post exploratory laparotomy, small bowel resection, umbilical ectomy, and repair of incarcerated ventral hernia. Patient reports her pain is controlled. Denies any flatus. D enies any nausea. 200 mL output through the NG tube. Prevena wound VAC is intact. Afebrile. WBC is down from 16.7-7.4 hgb 12.8 PHYSICAL EXAM: VITAL SIGNS: Reviewed. GENERAL: Well-developed in no acute distress. ABDOMEN: Soft. Nondistended. Mild tenderness at incision site. Prevena wound VAC intact NEUROLOGIC: Alert and oriented. Cranial nerves II through XII grossly intact. ASSESSMENT: 1. Incarcerated ventral hernia with ischemic/hemorrhagic small bowel causing small bowel obstruction PLAN: - Continue NG tube for decompression. Awaiting bowel function return. - HurriCaine spray added for throat irritation from NG tube - Keep patient n.p.o. - IV Tylenol added for pain management - Encourage patient to ambulate - Encourage patient to use incentive spirometer - Continue IV fluids - Levaquin and Flagyl added for antibiotic coverage - DVT prophylaxis Lovenox and GI prophylaxis Pepcid Physician Sales Data Analyst note has been reviewed by physician. Signing provider agrees with the documented findings, assessment, and plan of care. Attestation Patient seen and examined at bedside on 02/12/2025 in early a.m. States pain is well-controlled as she is postoperative day #1 from exploratory laparotomy small bowel resection. Will await further bowel function. Requiring NG tube for decompression at this time. Encouraged increased activity. Continue pain control. IV antibiotics. Corinne Donis DO Objective - Vital Signs Vital signs: Vital Signs Temp 98.4 F 02/12/25 07:04 Pulse 95 02/12/25 07:04 Resp 18 02/12/25 07:04 BP 129/84 02/12/25 07:04 Pulse Ox 94 L 02/12/25 07:04 FiO2 Intake & Output 02/11/25 02/12/25 02/12/25 18:59 06:59 18:59 Intake Total 200 850 Output Total 900 Balance 200 -50 Weight 91.626 kg Intake: IV 200 850 Output: Gastric Drainage 200 Urine 650 Estimated Blood Loss 50 Other: Voiding Method Indwelling Catheter - Labs CBC & Chem 7: 02/14/25 02:56 02/14/25 02:56 Labs: Abnormal Lab Results - Last 24 Hours (Table) 02/12/25 02/12/25 Range/Units 03:45 03:45 MCHC 31.1 L (32.0-37.0) g/dL RDW 16.5 H (11.5-14.5) % Lymphocytes # 0.62 L (0.90-5.00) X 10*3/uL Eosinophils # 0.01 L (0.04-0.35) X 10*3/uL Sodium 148 H (135-145) mmol/L Chloride 113 H (96-109) mmol/L Est GFR (CKD-EPI) 57 L (>=60) BUN/Creatinine Ratio 26.10 H (12.00-20.00) Ratio Glucose 160 H (70-110) mg/dL Total Protein 6.0 L (6.2-8.2) g/dL Albumin 3.6 L (3.8-4.9) g/dL Albumin/Globulin Ratio 1.50 L (1.60-3.17) Ratio
[2025-02-12] MEDS: FAMOTIDINE 20 MG/2 ML VIAL IV SCH (13:37)
[2025-02-12] MEDS: ACETAMINOPHEN IV (For NPO) 1,000 MG in EMPTY BAG 1 BAG IVPB SCH (13:37)
--- NOTE | 2025-02-13 09:15 | P.PN ---
Subjective Progress Note Date: 02/13/25 Irene Lobo, is an 79-year-old female who presented to [facility] emergency room with a chief complaint of abdominal pain and vomiting She was evaluated in the emergency room vital examination on presentation revealed a temperature of 98.3 pulse 66 respiration 20 blood pressure 137/84 pu lse ox 91% on room air Laboratory data revealed a white blood count of 16.7 hemoglobin 14.1 platelet count 280 sodium 143 potassium 4.4 chloride 105 CO2 28 BUN 32 creatinine 0.91 plasma lactic acid was elevated at 2.5 amylase was elevated at 124 lipase was elevated at 353 Testing in the emergency room revealed CT scan of the abdomen and pelvis revealed dilated small bowel loops suspicious for partial small bowel obstruction, the anterior wall has a hernia that contains loops of colon. Patient underwent surgery on 02/11/[address] Donis, she had exploratory laparotomy, small bowel resection, umbilectomy and repair of incarcerated ventral hernia. She was admitted to medical floor postsurgery. Patient was admitted to medical floor for further evaluation and treatment Past medical history is significant for history of asthma, history of COPD, history of atrial fibrillation, history of hypertension, history of hyperlipidemia, history of osteoarthritis, history of DVT and pulmonary embolism , history of hypothyroidism, and history of chronic kidney disease stage III On review of systems patient was seen postoperatively on the medical floor, she is alert and oriented x 3 in no apparent distress, there is no fever or chills no headache or dizziness no chest pain no shortness of breath no cough, no nausea or vomiting no abdominal pain no diarrhea no blood in the stools no burning with urination no frequency or urgency and no hematuria, NG tube is in and Palomo catheter is in. On 02/13/2025 patient is alert and oriented x 3. NG tube has been removed per patient. Patient remains n.p.o. at this time awaiting further recommendations from surgical services. Patient remains on IV Flagyl and Levaquin. Patient remains on high-dose Lovenox for DVT prophylaxis. Patient reports occasional abdominal pain and nausea. Patient denies chest pain or shortness of breath. Current vital signs temp 98.0, heart rate 91, respiratory rate 18, blood pressure 132/78 with a pulse ox of 92% on room air Objective - Vital Signs Vital signs: Vital Signs Temp 98.0 F 02/13/25 07:20 Pulse 91 02/13/25 07:20 Resp 18 02/13/25 07:20 BP 92/59 02/13/25 07:20 Pulse Ox 90 L 02/13/25 07:20 FiO2 Intake & Output 02/12/25 02/13/25 02/13/25 18:59 06:59 18:59 Output Total 800 350 Balance -800 -350 Output: Urine 800 350 Other: Voiding Method Indwelling Catheter Indwelling Catheter - Exam In general patient is alert and oriented x 3 in no distress HEENT head normocephalic and atraumatic Neck is supple no JVD no goiter no lymphadenopathy no carotid bruit Chest examination is clear to auscultation no crackles no wheezing Cardiac exam reveals regular heart sounds S1 and S2 no gallops no murmurs Abdomen is soft nontender no organomegaly with normal bowel sounds Extremity exam reveals no edema no cyanosis or clubbing Neurological examination reveals no gross focal deficits - Labs CBC & Chem 7: 02/12/25 03:45 02/12/25 03:45 Assessment and Plan Plan: Abdominal pain, with evidence of ventral hernia and bowel obstruction, patient underwent surgery on 02/11/[address] Donis Underlying history of hypertension Underlying history of hyperlipidemia Underlying history of hypothyroidism Underlying history of atrial fibrillation Previous history of DVT and pulmonary embolism Underlying history of asthma Underlying history of COPD Underlying history of chronic kidney disease stage III At this time patient was seen and examined Home medications reviewed and are held at this time due to presence of NG tube Blood pressure is well-controlled and will be covered with IV hydralazine as needed until patient is able to take her oral medications Due to history of atrial fibrillation, and history of multiple episodes of DVT and PE, patient will need to be fully anticoagulated, at home she was maintained on Eliquis, she still has an NG tube in, she was started on subcu heparin yesterday. At this time will discontinue subcu heparin, and place patient on Lovenox 1 mg/kg twice daily, will monitor closely for any sign of bleeding or anemia. Will follow closely
--- NOTE | 2025-02-13 14:03 | P.PN ---
Subjective Progress Note Date: 02/13/25 SURGICAL PROGRESS NOTE CHIEF COMPLAINT: Incarcerated ventral hernia HISTORY OF PRESENT ILLNESS: Patient is postop day #2 status post exploratory laparotomy, small bowel resection, umbilical ectomy, and repair of incarcerated ventral hernia. Patient reports her pain is controlled. Denies any flatus. Zamzam hernandez's NG tube accidentally came out during the night. They were having difficulty reinserting it. She started to have nosebleed. Therefore NG tube was kept out. And she is n.p.o. Patient did have nausea earlier this has improved with Zofran. She does report burping. Denies any flatus. Afebrile. WBC 7.4 PHYSICAL EXAM: VITAL SIGNS: Reviewed. GENERAL: Well-developed in no acute distress. ABDOMEN: Soft. Nondistended. Mild tenderness at incision site. Prevena wound VAC intact NEUROLOGIC: Alert and oriented. Cranial nerves II through XII grossly intact. ASSESSMENT: 1. Incarcerated ventral hernia with ischemic/hemorrhagic small bowel causing small bowel obstruction PLAN: -Keep patient strict NPO -Okay to keep NG tube out -Discontinue Palomo catheter -Continue IV Tylenol for pain management -Encourage patient to increase activity level. PT OT consulted -Encourage patient to use incentive spirometer -Continue antibiotics -Resume IV fluids at 75 mL/h -DVT prophylaxis Lovenox and GI prophylaxis Pepcid Physician Distillery Worker General note has been reviewed by physician. Signing provider agrees with the documented findings, assessment, and plan of care. Objective - Vital Signs Vital signs: Vital Signs Temp 98.0 F 02/13/25 07:20 Pulse 91 02/13/25 07:20 Resp 18 02/13/25 07:20 BP 92/59 02/13/25 07:20 Pulse Ox 90 L 02/13/25 07:20 FiO2 Intake & Output 02/12/25 02/13/25 02/13/25 18:59 06:59 18:59 Output Total 800 350 250 Balance -800 -350 -250 Output: Urine 800 350 250 Uretheral (Palomo) 250 Other: Voiding Method Indwelling Catheter Indwelling Catheter Indwelling Catheter - Labs CBC & Chem 7: 02/12/25 03:45 02/12/25 03:45 Assessment and Plan Assessment: passing flatus, will start on clears.
[2025-02-13] MEDS: ACETAMINOPHEN IV (For NPO) 1,000 MG in EMPTY BAG 1 BAG IVPB SCH (14:47)
[2025-02-13] MEDS: SODIUM CHLORIDE 0.9% 1,000 ML IV SCH (14:48)
[2025-02-14 08:23] LABS: ALT 11 U/L (8-44); AST 18 U/L (13-35); Albumin 3.2 g/dL (3.8-4.9); Alkaline Phosphatase 78 U/L (41-126); Basophils # (A) 0.03 X 10*3/uL (0.00-0.10); Basophils % (A) 0.5 %; Blood Urea Nitrogen 27.2 mg/dL (9.0-27.0); Calcium 8.3 mg/dL (8.7-10.3); Chloride 110 mmol/L (96-109); Eosinophils # (A) 0.29 X 10*3/uL (0.04-0.35); Eosinophils % (A) 4.7 %; Glucose 92 mg/dL (70-110); HCT 36.1 % (37.2-46.3); HGB 11.2 g/dL (12.0-15.0); Lymphocytes % (A) 27.7 %; MCH 28.9 pg (27.0-32.0); MCV 93.3 FL (80.0-97.0); Monocytes # (A) 0.92 X 10*3/uL (0.20-1.00); NRBC Per 100 WBC 0 X 10*3/uL (0.00-0.01); Neutrophils # (A) 3.19 X 10*3/uL (1.80-7.70); Neutrophils % (A) 51.9 %; Platelet Count 233 X 10*3/uL (140-440); RBC 3.87 X 10*6/uL (4.10-5.20); RDW 16.3 % (11.5-14.5); Sodium 143 mmol/L (135-145); Total Bilirubin 0.4 mg/dL (0.3-1.2); Total Protein 5.2 g/dL (6.2-8.2); WBC 6.14 X 10*3/uL (4.50-10.00)
[2025-02-14] MEDS: LEVOFLOXACIN 750MG-D5W PMX 750 MG in DEXTROSE/WATER 1 150ML.BAG IVPB SCH (10:59)
[2025-02-14] MEDS: HYDROcodone/APAP 5-325MG 1 EACH TAB PO PRN (11:12)
[2025-02-14] MEDS ORDERED: ACETAMINOPHEN TAB 325 MG TAB PO PRN (14:13)
--- NOTE | 2025-02-14 14:16 | P.PN ---
Subjective Progress Note Date: 02/14/25 SURGICAL PROGRESS NOTE CHIEF COMPLAINT: Incarcerated ventral hernia HISTORY OF PRESENT ILLNESS: Patient is postop day #3 status post exploratory laparotomy, small bowel resection, umbilical ectomy, and repair of incarcerated ventral hernia. Patient denies any nausea or vomiting. She has had a small am ount of flatus. She is able to urinate. Palomo catheter was removed yesterday. She does report pain with ambulating. Afebrile. WBC 6.14 PHYSICAL EXAM: VITAL SIGNS: Reviewed. GENERAL: Well-developed in no acute distress. ABDOMEN: Soft. Nondistended. Mild tenderness at incision site. Prevena wound VAC intact NEUROLOGIC: Alert and oriented. Cranial nerves II through XII grossly intact. ASSESSMENT: 1. Incarcerated ventral hernia with ischemic/hemorrhagic small bowel causing small bowel obstruction PLAN: -Continue clear liquid diet -[place] and Tylenol added for oral pain medication -Encourage patient to increase activity level. Continue to work with PT OT. Anticipate home at discharge -Abdominal binder added for support -Continue antibiotics -Discontinue IV fluids -DVT prophylaxis Lovenox and GI prophylaxis Pepcid Physician Operating System Programmer note has been reviewed by physician. Signing provider agrees with the documented findings, assessment, and plan of care. Objective - Vital Signs Vital signs: Vital Signs Temp 98.0 F 02/14/25 14:00 Pulse 68 02/14/25 14:00 Resp 18 02/14/25 14:00 BP 128/73 02/14/25 14:00 Pulse Ox 91 L 02/14/25 14:00 FiO2 Intake & Output 02/13/25 02/14/25 02/14/25 18:59 06:59 18:59 Intake Total 925 Output Total 250 Balance -250 925 Intake: Intake, IV Titration 925 Amount Sodium Chloride 0.9% 1, 825 000 ml @ 75 mls/hr IV . [id number] MACKENZIE Rx#:[id number] metroNIDAZOLE-NS PMX 500 100 mg In Saline 1 100ml.bag @ 100 mls/hr IVPB Q8HR MACKENZIE Rx#:[id number] Output: Urine 250 Uretheral (Palomo) 250 Other: Voiding Method Indwelling Catheter Bedside Commode # Voids 0 1 # Bowel Movements 0 - Labs CBC & Chem 7: 02/14/25 02:56 02/14/25 02:56 Labs: Abnormal Lab Results - Last 24 Hours (Table) 02/14/25 02/14/25 Range/Units 02:56 02:56 RBC 3.87 L (4.10-5.20) X 10*6/uL Hgb 11.2 L (12.0-15.0) g/dL Hct 36.1 L (37.2-46.3) % MCHC 31.0 L (32.0-37.0) g/dL RDW 16.3 H (11.5-14.5) % Chloride 110 H (96-109) mmol/L BUN 27.2 H (9.0-27.0) mg/dL Est GFR (CKD-EPI) 57 L (>=60) BUN/Creatinine Ratio 27.20 H (12.00-20.00) Ratio Calcium 8.3 L (8.7-10.3) mg/dL Total Protein 5.2 L (6.2-8.2) g/dL Albumin 3.2 L (3.8-4.9) g/dL
--- NOTE | 2025-02-14 16:12 | P.PN ---
Subjective Progress Note Date: 02/14/25 Irene Lobo, is an 79-year-old female who presented to [facility] emergency room with a chief complaint of abdominal pain and vomiting She was evaluated in the emergency room vital examination on presentation revealed a temperature of 98.3 pulse 66 respiration 20 blood pressure 137/84 pu lse ox 91% on room air Laboratory data revealed a white blood count of 16.7 hemoglobin 14.1 platelet count 280 sodium 143 potassium 4.4 chloride 105 CO2 28 BUN 32 creatinine 0.91 plasma lactic acid was elevated at 2.5 amylase was elevated at 124 lipase was elevated at 353 Testing in the emergency room revealed CT scan of the abdomen and pelvis revealed dilated small bowel loops suspicious for partial small bowel obstruction, the anterior wall has a hernia that contains loops of colon. Patient underwent surgery on 02/11/[address] Donis, she had exploratory laparotomy, small bowel resection, umbilectomy and repair of incarcerated ventral hernia. She was admitted to medical floor postsurgery. Patient was admitted to medical floor for further evaluation and treatment Past medical history is significant for history of asthma, history of COPD, history of atrial fibrillation, history of hypertension, history of hyperlipidemia, history of osteoarthritis, history of DVT and pulmonary embolism , history of hypothyroidism, and history of chronic kidney disease stage III On review of systems patient was seen postoperatively on the medical floor, she is alert and oriented x 3 in no apparent distress, there is no fever or chills no headache or dizziness no chest pain no shortness of breath no cough, no nausea or vomiting no abdominal pain no diarrhea no blood in the stools no burning with urination no frequency or urgency and no hematuria, NG tube is in and Palomo catheter is in. On 02/13/2025 patient is alert and oriented x 3. NG tube has been removed per patient. Patient remains n.p.o. at this time awaiting further recommendations from surgical services. Patient remains on IV Flagyl and Levaquin. Patient remains on high-dose Lovenox for DVT prophylaxis. Patient reports occasional abdominal pain and nausea. Patient denies chest pain or shortness of breath. Current vital signs temp 98.0, heart rate 91, respiratory rate 18, blood pressure 132/78 with a pulse ox of 92% on room air On 02/14/2025 patient was seen and examined on the medical floor she is alert and oriented x 3 in no apparent distress there is no fever or chills no headache or dizziness no chest pain no shortness of breath no cough no nausea or vomiting no abdominal pain no diarrhea and no urinary symptoms, patient is able to ambulate, she is tolerating clear liquid diet well, she passed some gas but no bowel movement since surgery, will continue to monitor closely. Objective - Vital Signs Vital signs: Vital Signs Temp 97.3 F L 02/14/25 07:12 Pulse 92 02/14/25 07:12 Resp 18 02/14/25 07:12 BP 131/85 02/14/25 07:12 Pulse Ox 86 L 02/14/25 07:12 FiO2 Intake & Output 02/13/25 02/14/25 02/14/25 18:59 06:59 18:59 Intake Total 925 Output Total 250 Balance -250 925 Intake: Intake, IV Titration 925 Amount Sodium Chloride 0.9% 1, 825 000 ml @ 75 mls/hr IV . [id number] [facility] Rx#:[id number] metroNIDAZOLE-NS PMX 500 100 mg In Saline 1 100ml.bag @ 100 mls/hr IVPB Q8HR [facility] Rx#:[id number] Output: Urine 250 Uretheral (Palomo) 250 Other: Voiding Method Indwelling Catheter # Voids 0 1 # Bowel Movements 0 - Exam In general patient is alert and oriented x 3 in no distress HEENT head normocephalic and atraumatic Neck is supple no JVD no goiter no lymphadenopathy no carotid bruit Chest examination is clear to auscultation no crackles no wheezing Cardiac exam reveals regular heart sounds S1 and S2 no gallops no murmurs Abdomen is soft nontender no organomegaly with normal bowel sounds Extremity exam reveals no edema no cyanosis or clubbing Neurological examination reveals no gross focal deficits - Labs CBC & Chem 7: 02/14/25 02:56 02/14/25 02:56 Labs: Abnormal Lab Results - Last 24 Hours (Table) 02/14/25 02/14/25 Range/Units 02:56 02:56 RBC 3.87 L (4.10-5.20) X 10*6/uL Hgb 11.2 L (12.0-15.0) g/dL Hct 36.1 L (37.2-46.3) % MCHC 31.0 L (32.0-37.0) g/dL RDW 16.3 H (11.5-14.5) % Chloride 110 H (96-109) mmol/L BUN 27.2 H (9.0-27.0) mg/dL Est GFR (CKD-EPI) 57 L (>=60) BUN/Creatinine Ratio 27.20 H (12.00-20.00) Ratio Calcium 8.3 L (8.7-10.3) mg/dL Total Protein 5.2 L (6.2-8.2) g/dL Albumin 3.2 L (3.8-4.9) g/dL Assessment and Plan Plan: Abdominal pain, with evidence of ventral hernia and bowel obstruction, patient underwent surgery on 02/11/[address] Donis Underlying history of hypertension Underlying history of hyperlipidemia Underlying history of hypothyroidism Underlying history of atrial fibrillation Previous history of DVT and pulmonary embolism Underlying history of asthma Underlying history of COPD Underlying history of chronic kidney disease stage III At this time patient was seen and examined Home medications reviewed and are held at this time due to presence of NG tube Blood pressure is well-controlled and will be covered with IV hydralazine as needed until patient is able to take her oral medications Due to history of atrial fibrillation, and history of multiple episodes of DVT and PE, patient will need to be fully anticoagulated, at home she was maintained on Eliquis, she still has an NG tube in, she was started on subcu heparin yesterday. At this time will discontinue subcu heparin, and place patient on Lovenox 1 mg/kg twice daily, will monitor closely for any sign of bleeding or anemia. Will follow closely
[2025-02-15 08:34] LABS: Basophils # (A) 0.03 X 10*3/uL (0.00-0.10); Basophils % (A) 0.4 %; Eosinophils # (A) 0.33 X 10*3/uL (0.04-0.35); Eosinophils % (A) 4.6 %; HGB 10.7 g/dL (12.0-15.0); Lymphocytes # (A) 1.97 X 10*3/uL (0.90-5.00); Lymphocytes % (A) 27.7 %; MCH 28.9 pg (27.0-32.0); MCHC 31.5 g/dL (32.0-37.0); MCV 91.9 FL (80.0-97.0); Mean Platelet Volume 11.2 FL (9.5-12.2); Monocytes # (A) 0.88 X 10*3/uL (0.20-1.00); Monocytes % (A) 12.4 %; NRBC Per 100 WBC 0 X 10*3/uL (0.00-0.01); Neutrophils # (A) 3.87 X 10*3/uL (1.80-7.70); Neutrophils % (A) 54.6 %; Platelet Count 246 X 10*3/uL (140-440)
[2025-02-15 08:49] LABS: ALT 13 U/L (8-44); AST 19 U/L (13-35); Albumin 2.9 g/dL (3.8-4.9); Albumin/Globulin Ratio 1.53 Ratio (1.60-3.17); Alkaline Phosphatase 81 U/L (41-126); Blood Urea Nitrogen 16.1 mg/dL (9.0-27.0); Carbon Dioxide 24.3 mmol/L (21.6-31.8); Chloride 108 mmol/L (96-109); Globulin 1.9 g/dL (1.6-3.3); Glucose 93 mg/dL (70-110); Potassium 3.8 mmol/L (3.5-5.5); Sodium 139 mmol/L (135-145); Total Bilirubin 0.4 mg/dL (0.3-1.2); Total Protein 4.8 g/dL (6.2-8.2)
--- NOTE | 2025-02-15 09:19 | P.PN ---
Subjective Progress Note Date: 02/15/25 Irene Lobo, is an 79-year-old female who presented to [facility] emergency room with a chief complaint of abdominal pain and vomiting She was evaluated in the emergency room vital examination on presentation revealed a temperature of 98.3 pulse 66 respiration 20 blood pressure 137/84 pu lse ox 91% on room air Laboratory data revealed a white blood count of 16.7 hemoglobin 14.1 platelet count 280 sodium 143 potassium 4.4 chloride 105 CO2 28 BUN 32 creatinine 0.91 plasma lactic acid was elevated at 2.5 amylase was elevated at 124 lipase was elevated at 353 Testing in the emergency room revealed CT scan of the abdomen and pelvis revealed dilated small bowel loops suspicious for partial small bowel obstruction, the anterior wall has a hernia that contains loops of colon. Patient underwent surgery on 02/11/[address] Donis, she had exploratory laparotomy, small bowel resection, umbilectomy and repair of incarcerated ventral hernia. She was admitted to medical floor postsurgery. Patient was admitted to medical floor for further evaluation and treatment Past medical history is significant for history of asthma, history of COPD, history of atrial fibrillation, history of hypertension, history of hyperlipidemia, history of osteoarthritis, history of DVT and pulmonary embolism , history of hypothyroidism, and history of chronic kidney disease stage III On review of systems patient was seen postoperatively on the medical floor, she is alert and oriented x 3 in no apparent distress, there is no fever or chills no headache or dizziness no chest pain no shortness of breath no cough, no nausea or vomiting no abdominal pain no diarrhea no blood in the stools no burning with urination no frequency or urgency and no hematuria, NG tube is in and Palomo catheter is in. On 02/13/2025 patient is alert and oriented x 3. NG tube has been removed per patient. Patient remains n.p.o. at this time awaiting further recommendations from surgical services. Patient remains on IV Flagyl and Levaquin. Patient remains on high-dose Lovenox for DVT prophylaxis. Patient reports occasional abdominal pain and nausea. Patient denies chest pain or shortness of breath. Current vital signs temp 98.0, heart rate 91, respiratory rate 18, blood pressure 132/78 with a pulse ox of 92% on room air On 02/14/2025 patient was seen and examined on the medical floor she is alert and oriented x 3 in no apparent distress there is no fever or chills no headache or dizziness no chest pain no shortness of breath no cough no nausea or vomiting no abdominal pain no diarrhea and no urinary symptoms, patient is able to ambulate, she is tolerating clear liquid diet well, she passed some gas but no bowel movement since surgery, will continue to monitor closely. On 02/15/2025 patient is alert and oriented x 3. Patient has been tolerating clear liquid diet passing gas no bowel movement. Patient denies chest pain or shortness of breath. Patient denies nausea vomiting or diarrhea. Patient jone es any urinary burning or frequency. Patient remains on IV Levaquin and Flagyl. Current vital signs temp 97.9, heart 85, respiratory rate 20, blood pressure 103/73 with pulse ox of 94% on room air Objective - Vital Signs Vital signs: Vital Signs Temp 97.9 F 02/15/25 06:47 Pulse 85 02/15/25 06:47 Resp 20 02/15/25 06:47 BP 103/73 02/15/25 06:47 Pulse Ox 94 L 02/15/25 06:47 FiO2 Intake & Output 02/14/25 02/15/25 02/15/25 18:59 06:59 18:59 Intake Total 280 Balance 280 Intake: Oral 280 Other: Voiding Method Bedside Commode Bedside Commode # Voids 2 2 # Bowel Movements 0 - Exam In general patient is alert and oriented x 3 in no distress HEENT head normocephalic and atraumatic Neck is supple no JVD no goiter no lymphadenopathy no carotid bruit Chest examination is clear to auscultation no crackles no wheezing Cardiac exam reveals regular heart sounds S1 and S2 no gallops no murmurs Abdomen is soft nontender no organomegaly with normal bowel sounds Extremity exam reveals no edema no cyanosis or clubbing Neurological examination reveals no gross focal deficits - Labs CBC & Chem 7: 02/15/25 03:08 02/15/25 03:08 Labs: Abnormal Lab Results - Last 24 Hours (Table) 02/15/25 02/15/25 Range/Units 03:08 03:08 RBC 3.70 L (4.10-5.20) X 10*6/uL Hgb 10.7 L (12.0-15.0) g/dL Hct 34.0 L (37.2-46.3) % MCHC 31.5 L (32.0-37.0) g/dL RDW 16.0 H (11.5-14.5) % BUN/Creatinine Ratio 23.00 H (12.00-20.00) Ratio Calcium 8.0 L (8.7-10.3) mg/dL Total Protein 4.8 L (6.2-8.2) g/dL Albumin 2.9 L (3.8-4.9) g/dL Albumin/Globulin Ratio 1.53 L (1.60-3.17) Ratio Assessment and Plan Plan: Abdominal pain, with evidence of ventral hernia and bowel obstruction, patient underwent surgery on 02/11/[address] Donis Underlying history of hypertension Underlying history of hyperlipidemia Underlying history of hypothyroidism Underlying history of atrial fibrillation Previous history of DVT and pulmonary embolism Underlying history of asthma Underlying history of COPD Underlying history of chronic kidney disease stage III At this time patient was seen and examined Home medications reviewed and are held at this time due to presence of NG tube Blood pressure is well-controlled and will be covered with IV hydralazine as needed until patient is able to take her oral medications Due to history of atrial fibrillation, and history of multiple episodes of DVT and PE, patient will need to be fully anticoagulated, at home she was maintained on Eliquis, she still has an NG tube in, she was started on subcu heparin yesterday. At this time will discontinue subcu heparin, and place patient on Lovenox 1 mg/kg twice daily, will monitor closely for any sign of bleeding or anemia. Will follow closely
[2025-02-15] MEDS: LEVOFLOXACIN 500MG-D5W PMX 500 MG in DEXTROSE/WATER 1 100ML.BAG IVPB SCH (13:31)
--- NOTE | 2025-02-15 15:19 | P.PN ---
Subjective Progress Note Date: 02/15/25 SURGICAL PROGRESS NOTE CHIEF COMPLAINT: Incarcerated ventral hernia HISTORY OF PRESENT ILLNESS: Patient is postop day #4 status post exploratory laparotomy, small bowel resection, umbilectomy, and repair of incarcerated ventral hernia. Patient is sitting up in bed. She is having a lot of flatus. No bowel movement. Her pain is controlled. She denies any difficulty urinating. She has been up and ambulating. She is asking for advancement of her diet. Afebrile. WBC 7.10 Hgb 10.7 PHYSICAL EXAM: VITAL SIGNS: Reviewed. GENERAL: Well-developed in no acute distress. ABDOMEN: Soft. Nondistended. Mild tenderness at incision site. Prevena wound VAC intact NEUROLOGIC: Alert and oriented. Cranial nerves II through XII grossly intact. ASSESSMENT: 1. Incarcerated ventral hernia with ischemic/hemorrhagic small bowel causing small bowel obstruction PLAN: -Advance diet to full liquids -Anticipate possible discharge tomorrow -corporate relations manager has arranged for home care at discharge -Continue antibiotics -Plan to remove Prevena wound VAC dressing tomorrow if discharged -DVT prophylaxis Lovenox and GI prophylaxis Pepcid Physician Claim Review Medical Director note has been reviewed by physician. Signing provider agrees with the documented findings, assessment, and plan of care. Attestation Patient seen and examined at bedside on 02/15/2025. Having flatus. Okay to advance to full liquid diet. Continue to increase activity. Continue antibiotics. Discharge planning was discussed with the patient with likely home care. Plan to remove Prevena dressing prior to discharge. Patient agreeable with this plan. Corinne Donis DO Objective - Vital Signs Vital signs: Vital Signs Temp 98 F 02/15/25 13:19 Pulse 104 H 02/15/25 13:19 Resp 18 02/15/25 13:19 BP 124/79 02/15/25 13:19 Pulse Ox 97 02/15/25 13:19 FiO2 Intake & Output 02/14/25 02/15/25 02/15/25 18:59 06:59 18:59 Intake Total 280 Balance 280 Intake: Oral 280 Other: Voiding Method Bedside Commode Bedside Commode Bedside Commode # Voids 2 2 1 # Bowel Movements 0 - Labs CBC & Chem 7: 02/16/25 06:13 02/16/25 06:13 Labs: Abnormal Lab Results - Last 24 Hours (Table) 02/15/25 02/15/25 Range/Units 03:08 03:08 RBC 3.70 L (4.10-5.20) X 10*6/uL Hgb 10.7 L (12.0-15.0) g/dL Hct 34.0 L (37.2-46.3) % MCHC 31.5 L (32.0-37.0) g/dL RDW 16.0 H (11.5-14.5) % BUN/Creatinine Ratio 23.00 H (12.00-20.00) Ratio Calcium 8.0 L (8.7-10.3) mg/dL Total Protein 4.8 L (6.2-8.2) g/dL Albumin 2.9 L (3.8-4.9) g/dL Albumin/Globulin Ratio 1.53 L (1.60-3.17) Ratio
[2025-02-16 10:26] LABS: Basophils # (A) 0.03 X 10*3/uL (0.00-0.10); Basophils % (A) 0.4 %; Eosinophils # (A) 0.28 X 10*3/uL (0.04-0.35); Eosinophils % (A) 3.7 %; HCT 37.7 % (37.2-46.3); HGB 11.8 g/dL (12.0-15.0); Lymphocytes # (A) 2.36 X 10*3/uL (0.90-5.00); Lymphocytes % (A) 30.9 %; MCH 28.3 pg (27.0-32.0); MCHC 31.3 g/dL (32.0-37.0); MCV 90.4 FL (80.0-97.0); Mean Platelet Volume 10.6 FL (9.5-12.2); Monocytes # (A) 0.98 X 10*3/uL (0.20-1.00); Monocytes % (A) 12.8 %; NRBC Per 100 WBC 0 X 10*3/uL (0.00-0.01); Neutrophils # (A) 3.95 X 10*3/uL (1.80-7.70); Neutrophils % (A) 51.7 %; Platelet Count 284 X 10*3/uL (140-440); RBC 4.17 X 10*6/uL (4.10-5.20); RDW 15.8 % (11.5-14.5); WBC 7.64 X 10*3/uL (4.50-10.00)
[2025-02-16 10:50] LABS: ALT 15 U/L (8-44); AST 24 U/L (13-35); Albumin 3.2 g/dL (3.8-4.9); Albumin/Globulin Ratio 1.45 Ratio (1.60-3.17); Alkaline Phosphatase 90 U/L (41-126); Blood Urea Nitrogen 9.9 mg/dL (9.0-27.0); Calcium 8.4 mg/dL (8.7-10.3); Chloride 109 mmol/L (96-109); Globulin 2.2 g/dL (1.6-3.3); Glucose 96 mg/dL (70-110); Potassium 3.8 mmol/L (3.5-5.5); Sodium 140 mmol/L (135-145); Total Bilirubin 0.4 mg/dL (0.3-1.2); Total Protein 5.4 g/dL (6.2-8.2)
--- NOTE | 2025-02-16 11:24 | P.PN ---
Subjective Progress Note Date: 02/16/25 Irene Lobo, is an 79-year-old female who presented to [facility] emergency room with a chief complaint of abdominal pain and vomiting She was evaluated in the emergency room vital examination on presentation revealed a temperature of 98.3 pulse 66 respiration 20 blood pressure 137/84 pu lse ox 91% on room air Laboratory data revealed a white blood count of 16.7 hemoglobin 14.1 platelet count 280 sodium 143 potassium 4.4 chloride 105 CO2 28 BUN 32 creatinine 0.91 plasma lactic acid was elevated at 2.5 amylase was elevated at 124 lipase was elevated at 353 Testing in the emergency room revealed CT scan of the abdomen and pelvis revealed dilated small bowel loops suspicious for partial small bowel obstruction, the anterior wall has a hernia that contains loops of colon. Patient underwent surgery on 02/11/[address] Donis, she had exploratory laparotomy, small bowel resection, umbilectomy and repair of incarcerated ventral hernia. She was admitted to medical floor postsurgery. Patient was admitted to medical floor for further evaluation and treatment Past medical history is significant for history of asthma, history of COPD, history of atrial fibrillation, history of hypertension, history of hyperlipidemia, history of osteoarthritis, history of DVT and pulmonary embolism , history of hypothyroidism, and history of chronic kidney disease stage III On review of systems patient was seen postoperatively on the medical floor, she is alert and oriented x 3 in no apparent distress, there is no fever or chills no headache or dizziness no chest pain no shortness of breath no cough, no nausea or vomiting no abdominal pain no diarrhea no blood in the stools no burning with urination no frequency or urgency and no hematuria, NG tube is in and Palomo catheter is in. On 02/13/2025 patient is alert and oriented x 3. NG tube has been removed per patient. Patient remains n.p.o. at this time awaiting further recommendations from surgical services. Patient remains on IV Flagyl and Levaquin. Patient remains on high-dose Lovenox for DVT prophylaxis. Patient reports occasional abdominal pain and nausea. Patient denies chest pain or shortness of breath. Current vital signs temp 98.0, heart rate 91, respiratory rate 18, blood pressure 132/78 with a pulse ox of 92% on room air On 02/14/2025 patient was seen and examined on the medical floor she is alert and oriented x 3 in no apparent distress there is no fever or chills no headache or dizziness no chest pain no shortness of breath no cough no nausea or vomiting no abdominal pain no diarrhea and no urinary symptoms, patient is able to ambulate, she is tolerating clear liquid diet well, she passed some gas but no bowel movement since surgery, will continue to monitor closely. On 02/15/2025 patient is alert and oriented x 3. Patient has been tolerating clear liquid diet passing gas no bowel movement. Patient denies chest pain or shortness of breath. Patient denies nausea vomiting or diarrhea. Patient jone es any urinary burning or frequency. Patient remains on IV Levaquin and Flagyl. Current vital signs temp 97.9, heart 85, respiratory rate 20, blood pressure 103/73 with pulse ox of 94% on room air On 02/16/2025 patient is alert and oriented x 3. Patient has been tolerating clear liquid diet had bowel movement this a.m. PT OT to reassess patient IPR consult placed. Patient denies chest pain or shortness of breath. Patient denies nausea vomiting or diarrhea. Patient denies any urinary burning or frequency. Current vital signs temp 97.8, heart rate 86, respiratory rate 17, blood pressure 134/78 with pulse ox 95% on room air Objective - Vital Signs Vital signs: Vital Signs Temp 97.8 F 02/16/25 06:56 Pulse 86 02/16/25 06:56 Resp 17 02/16/25 06:56 BP 151/88 02/16/25 06:56 Pulse Ox 94 L 02/16/25 06:56 FiO2 Intake & Output 02/15/25 02/16/25 02/16/25 18:59 06:59 18:59 Intake Total 340 Balance 340 Intake: Intake, IV Titration 100 Amount metroNIDAZOLE-NS PMX 500 100 mg In Saline 1 100ml.bag @ 100 mls/hr IVPB Q8HR [facility] Rx#:[id number] Oral 240 Other: Voiding Method Bedside Commode # Voids 3 2 1 # Bowel Movements 1 2 - Exam In general patient is alert and oriented x 3 in no distress HEENT head normocephalic and atraumatic Neck is supple no JVD no goiter no lymphadenopathy no carotid bruit Chest examination is clear to auscultation no crackles no wheezing Cardiac exam reveals regular heart sounds S1 and S2 no gallops no murmurs Abdomen is soft nontender no organomegaly with normal bowel sounds Extremity exam reveals no edema no cyanosis or clubbing Neurological examination reveals no gross focal deficits - Labs CBC & Chem 7: 02/16/25 06:13 02/16/25 06:13 Labs: Abnormal Lab Results - Last 24 Hours (Table) 02/16/25 02/16/25 Range/Units 06:13 06:13 Hgb 11.8 L (12.0-15.0) g/dL MCHC 31.3 L (32.0-37.0) g/dL RDW 15.8 H (11.5-14.5) % Carbon Dioxide 21.0 L (21.6-31.8) mmol/L Calcium 8.4 L (8.7-10.3) mg/dL Total Protein 5.4 L (6.2-8.2) g/dL Albumin 3.2 L (3.8-4.9) g/dL Albumin/Globulin Ratio 1.45 L (1.60-3.17) Ratio Assessment and Plan Plan: Abdominal pain, with evidence of ventral hernia and bowel obstruction, patient underwent surgery on 02/11/[address] Donis Underlying history of hypertension Underlying history of hyperlipidemia Underlying history of hypothyroidism Underlying history of atrial fibrillation Previous history of DVT and pulmonary embolism Underlying history of asthma Underlying history of COPD Underlying history of chronic kidney disease stage III At this time patient was seen and examined Home medications reviewed and are held at this time due to presence of NG tube Blood pressure is well-controlled and will be covered with IV hydralazine as needed until patient is able to take her oral medications Due to history of atrial fibrillation, and history of multiple episodes of DVT and PE, patient will need to be fully anticoagulated, at home she was maintained on Eliquis, she still has an NG tube in, she was started on subcu heparin yesterday. At this time will discontinue subcu heparin, and place patient on Lovenox 1 mg/kg twice daily, will monitor closely for any sign of bleeding or anemia. Will follow closely
--- NOTE | 2025-02-16 14:32 | P.PN ---
Subjective Progress Note Date: 02/16/25 SURGICAL PROGRESS NOTE CHIEF COMPLAINT: Incarcerated ventral hernia HISTORY OF PRESENT ILLNESS: Patient is postop day #5 status post exploratory laparotomy, small bowel resection, umbilectomy, and repair of incarcerated ventral hernia. Patient sitting up at bedside chair. Patient has had bowel movements. She reports her pain is controlled. She is tolerating the full liquid diet. Afebrile. Patient working with family preservation caseworker on discharge planning. WBC 7.64 Hgb 11.8 PHYSICAL EXAM: VITAL SIGNS: Reviewed. GENERAL: Well-developed in no acute distress. ABDOMEN: Soft. Nondistended. Prevena wound VAC intact NEUROLOGIC: Alert and oriented. Cranial nerves II through XII grossly intact. ASSESSMENT: 1. Incarcerated ventral hernia with ischemic/hemorrhagic small bowel causing small bowel obstruction PLAN: -Advance diet to low fiber -Prevena wound VAC dressing to be removed prior to discharge tomorrow -Patient can be discharged from surgical standpoint when medically cleared -external relations manager working on discharge planning -DVT prophylaxis, patient on Eliquis. GI prophylaxis Pepcid Physician Credit Portfolio Advisor note has been reviewed by physician. Signing provider agrees with the documented findings, assessment, and plan of care. Attestation Patient seen and examined at bedside. Doing well. Having multiple bowel movements and flatus. No leukocytosis. Advance diet to soft diet. Prevena wound VAC dressing to be removed prior to discharge. Surgically stable for discharge. Corinne Donis DO Objective - Vital Signs Vital signs: Vital Signs Temp 97.8 F 02/16/25 06:56 Pulse 86 02/16/25 06:56 Resp 17 02/16/25 06:56 BP 151/88 02/16/25 06:56 Pulse Ox 94 L 02/16/25 06:56 FiO2 Intake & Output 02/15/25 02/16/25 02/16/25 18:59 06:59 18:59 Intake Total 340 Balance 340 Intake: Intake, IV Titration 100 Amount metroNIDAZOLE-NS PMX 500 100 mg In Saline 1 100ml.bag @ 100 mls/hr IVPB Q8HR [facility] Rx#:[id number] Oral 240 Other: Voiding Method Bedside Commode # Voids 3 2 1 # Bowel Movements 1 2 - Labs CBC & Chem 7: 02/16/25 06:13 02/16/25 06:13 Labs: Abnormal Lab Results - Last 24 Hours (Table) 02/16/25 02/16/25 Range/Units 06:13 06:13 Hgb 11.8 L (12.0-15.0) g/dL MCHC 31.3 L (32.0-37.0) g/dL RDW 15.8 H (11.5-14.5) % Carbon Dioxide 21.0 L (21.6-31.8) mmol/L Calcium 8.4 L (8.7-10.3) mg/dL Total Protein 5.4 L (6.2-8.2) g/dL Albumin 3.2 L (3.8-4.9) g/dL Albumin/Globulin Ratio 1.45 L (1.60-3.17) Ratio
[2025-02-16 19:57] VITALS: RESP 17
[2025-02-16] MEDS: APIXABAN 5 MG TAB PO SCH (20:19)
[2025-02-17 09:31] LABS: Basophils # (A) 0.03 X 10*3/uL (0.00-0.10); Basophils % (A) 0.4 %; Eosinophils # (A) 0.25 X 10*3/uL (0.04-0.35); Eosinophils % (A) 3.3 %; HCT 33.3 % (37.2-46.3); HGB 10.5 g/dL (12.0-15.0); Lymphocytes # (A) 2.07 X 10*3/uL (0.90-5.00); Lymphocytes % (A) 27.1 %; MCH 28.4 pg (27.0-32.0); MCHC 31.5 g/dL (32.0-37.0); Mean Platelet Volume 10.6 FL (9.5-12.2); Monocytes # (A) 1.06 X 10*3/uL (0.20-1.00); Monocytes % (A) 13.9 %; NRBC Per 100 WBC 0 X 10*3/uL (0.00-0.01); Neutrophils # (A) 4.17 X 10*3/uL (1.80-7.70); Neutrophils % (A) 54.5 %; Platelet Count 279 X 10*3/uL (140-440); RDW 16.1 % (11.5-14.5); WBC 7.64 X 10*3/uL (4.50-10.00)
[2025-02-17 09:47] LABS: ALT 24 U/L (8-44); AST 38 U/L (13-35); Albumin 2.8 g/dL (3.8-4.9); Albumin/Globulin Ratio 1.33 Ratio (1.60-3.17); Alkaline Phosphatase 84 U/L (41-126); BUN/Creat Ratio 13.86 Ratio (12.00-20.00); Blood Urea Nitrogen 9.7 mg/dL (9.0-27.0); Calcium 8.1 mg/dL (8.7-10.3); Carbon Dioxide 21.7 mmol/L (21.6-31.8); Chloride 111 mmol/L (96-109); Globulin 2.1 g/dL (1.6-3.3); Glucose 107 mg/dL (70-110); Potassium 3.9 mmol/L (3.5-5.5); Sodium 140 mmol/L (135-145); Total Bilirubin <0.2 mg/dL (0.3-1.2); Total Protein 4.9 g/dL (6.2-8.2)
[2025-02-17 10:48] VITALS: BP 130/84; PULSE 71; TEMP 97.6
--- NOTE | 2025-02-17 12:14 | P.DS ---
Providers Date of admission: 02/12/25 08:57 Expected date of discharge: 02/17/25 Attending physician: Miguel Hardwick Consults: 02/11/25 12:56 Consult Physician Urgent Consulting Provider: Corinne Donis Consult Reason/Comments: Partial small bowel obstruction Do you want consulting provider notified?: Yes Primary care physician: Miguel Mulu [facility] Course: Diagnosis on discharge: Abdominal pain, with evidence of ventral hernia and bowel obstruction, patient underwent surgery on 02/11/[address] Donis Underlying history of hypertension Underlying history of hyperlipidemia Underlying history of hypothyroidism Underlying history of atrial fibrillation Previous history of DVT and pulmonary embolism Underlying history of asthma Underlying history of COPD Underlying history of chronic kidney disease stage III Hospital course: Irene Lobo, is an 79-year-old female who presented to [facility] emergency room with a chief complaint of abdominal pain and vomiting She was evaluated in the emergency room vital examination on presentation revealed a temperature of 98.3 pulse 66 respiration 20 blood pressure 137/84 pulse ox 91% on room air Laboratory data revealed a white blood count of 16.7 hemoglobin 14.1 platelet count 280 sodium 143 potassium 4.4 chloride 105 CO2 28 BUN 32 creatinine 0.91 plasma lactic acid was elevated at 2.5 amylase was elevated at 124 lipase was elevated at 353 Testing in the emergency room revealed CT scan of the abdomen and pelvis revealed dilated small bowel loops suspicious for partial small bowel obstruction, the anterior wall has a hernia that contains loops of colon. Patient underwent surgery on 02/11/[address] Donis, she had exploratory laparotomy, small bowel resection, umbilectomy and repair of incarcerated ventral hernia. She was admitted to medical floor postsurgery. Patient was admitted to medical floor for further evaluation and treatment Past medical history is significant for history of asthma, history of COPD, history of atrial fibrillation, history of hypertension, history of hyperlipidemia, history of osteoarthritis, history of DVT and pulmonary embolism, history of hypothyroidism, and history of chronic kidney disease stage III On review of systems patient was seen postoperatively on the medical floor, she is alert and oriented x 3 in no apparent distress, there is no fever or chills no headache or dizziness no chest pain no shortness of breath no cough, no nausea or vomiting no abdominal pain no diarrhea no blood in the stools no burning with urination no frequency or urgency and no hematuria, NG tube is in and Palomo catheter is in. On 02/13/2025 patient is alert and oriented x 3. NG tube has been removed per patient. Patient remains n.p.o. at this time awaiting further recommendations from surgical services. Patient remains on IV Flagyl and Levaquin. Patient remains on high-dose Lovenox for DVT prophylaxis. Patient reports occasional abdominal pain and nausea. Patient denies chest pain or shortness of breath. Current vital signs temp 98.0, heart rate 91, respiratory rate 18, blood pressure 132/78 with a pulse ox of 92% on room air On 02/14/2025 patient was seen and examined on the medical floor she is alert and oriented x 3 in no apparent distress there is no fever or chills no headache or dizziness no chest pain no shortness of breath no cough no nausea or vomiting no abdominal pain no diarrhea and no urinary symptoms, patient is able to ambulate, she is tolerating clear liquid diet well, she passed some gas but no bowel movement since surgery, will continue to monitor closely. On 02/15/2025 patient is alert and oriented x 3. Patient has been tolerating clear liquid diet passing gas no bowel movement. Patient denies chest pain or shortness of breath. Patient denies nausea vomiting or diarrhea. Patient denies any urinary burning or frequency. Patient remains on IV Levaquin and Flagyl. Current vital signs temp 97.9, heart 85, respiratory rate 20, blood pressure 103/73 with pulse ox of 94% on room air On 02/16/2025 patient is alert and oriented x 3. Patient has been tolerating c lear liquid diet had bowel movement this a.m. PT OT to reassess patient IPR consult placed. Patient denies chest pain or shortness of breath. Patient denies nausea vomiting or diarrhea. Patient denies any urinary burning or frequency. Current vital signs temp 97.8, heart rate 86, respiratory rate 17, blood pressure 134/78 with pulse ox 95% on room air On 02/17/2025 patient was seen and examined on the medical floor she is alert and oriented x 3 in no apparent distress there is no fever or chills no headache or dizziness no chest pain no shortness of breath no cough no nausea or vomiting no abdominal pain no diarrhea and no urinary symptoms. Patient will be discharged to home today. Medications including pain medications antibiotics and nystatin powder were sent to [facility] on 10th, as the hospital pharmacy is closed today, she will be followed in our office within 1 week Plan - Discharge Summary Discharge Rx Participant: No New Discharge Prescriptions: New Levofloxacin [Levaquin] 500 mg PO DAILY 5 Days #5 tab metroNIDAZOLE [Flagyl] 500 mg PO TID 5 Days #15 tab Nystatin 100,000 Unit/gm Powd [Mycostatin Powder] 1 applic TOPICAL BID 15 Days #250 each Continue calcitrioL [Rocaltrol] 0.25 mcg PO MOTUTHFR@1500 Ciclopirox Olamine [Loprox 0.77% cream] 1 applic TOPICAL BID PRN PRN Reason: Skin Irritation Furosemide [Lasix] 20 mg PO DAILY@1500 Furosemide [Lasix] 40 mg PO DAILY Metoprolol Tartrate [Lopressor] 50 mg PO BID Multivitamins, Thera [Multivitamin (formulary)] 1 tab PO DAILY@1500 allopurinoL [Zyloprim] 200 mg PO DAILY amLODIPine [Norvasc] 5 mg PO DAILY@1500 Apixaban [Eliquis] 5 mg PO BID Atorvastatin [Lipitor] 40 mg PO HS Cholecalciferol (Vitamin D3) [Vitamin D3 (125 MCG = 5,000 IU)] 125 mcg PO DAILY@1500 Levothyroxine Sodium [Synthroid] 75 mcg PO DAILY Discontinued Mupirocin 2% Oint [Bactroban 2% Oint] 1 applic TOPICAL BID PRN PRN Reason: Skin Irritation Discharge Medication List Apixaban [Eliquis] 5 mg PO BID 02/11/25 [History] Atorvastatin [Lipitor] 40 mg PO HS 02/11/25 [History] Cholecalciferol (Vitamin D3) [Vitamin D3 (125 MCG = 5,000 IU)] 125 mcg PO DAILY@1500 02/11/25 [History] Ciclopirox Olamine [Loprox 0.77% cream] 1 applic TOPICAL BID PRN 02/11/25 [History] Furosemide [Lasix] 20 mg PO DAILY@1500 02/11/25 [History] Furosemide [Lasix] 40 mg PO DAILY 02/11/25 [History] Levothyroxine Sodium [Synthroid] 75 mcg PO DAILY 02/11/25 [History] Metoprolol Tartrate [Lopressor] 50 mg PO BID 02/11/25 [History] Multivitamins, Thera [Multivitamin (formulary)] 1 tab PO DAILY@1500 02/11/25 [History] allopurinoL [Zyloprim] 200 mg PO DAILY 02/11/25 [History] amLODIPine [Norvasc] 5 mg PO DAILY@1500 02/11/25 [History] calcitrioL [Rocaltrol] 0.25 mcg PO MOTUTHFR@1500 02/11/25 [History] Levofloxacin [Levaquin] 500 mg PO DAILY 5 Days #5 tab 02/17/25 [Rx] Nystatin 100,000 Unit/gm Powd [Mycostatin Powder] 1 applic TOPICAL BID 15 Days #250 each 02/17/25 [Rx] metroNIDAZOLE [Flagyl] 500 mg PO TID 5 Days #15 tab 02/17/25 [Rx] Follow up Appointment(s)/Referral(s): Miguel Hardwick MD [Primary Care Provider] - 1-2 days [facility] Visiting Nurse, [NON-STAFF] - 1-2 Days ([facility] will call you to schedule your in home nursing and physical therapy visits. )
--- NOTE | 2025-02-17 14:44 | P.PN ---
Subjective pt seen and evaluated at bedside. doing well, no issues. Objective - Vital Signs Vital signs: Vital Signs Temp 97.6 F 02/17/25 06:47 Pulse 71 02/17/25 06:47 Resp 17 02/17/25 06:47 BP 130/84 02/17/25 06:47 Pulse Ox 96 02/17/25 06:47 FiO2 Intake & Output 02/16/25 02/17/25 02/17/25 18:59 06:59 18:59 Other: Voiding Method Toilet Bedside Commode # Voids 1 2 # Bowel Movements 1 - Exam gen: nad cv: rrr pul: non labored breathing abd: soft, non distended, non tender to palpation, no guarding or rebound tenderness - Labs CBC & Chem 7: 02/17/25 05:10 02/17/25 05:10 Labs: Abnormal Lab Results - Last 24 Hours (Table) 02/17/25 02/17/25 Range/Units 05:10 05:10 RBC 3.70 L (4.10-5.20) X 10*6/uL Hgb 10.5 L (12.0-15.0) g/dL Hct 33.3 L (37.2-46.3) % MCHC 31.5 L (32.0-37.0) g/dL RDW 16.1 H (11.5-14.5) % Immature Gran # 0.06 H (0.00-0.04) X 10*3/uL Monocytes # 1.06 H (0.20-1.00) X 10*3/uL Chloride 111 H (96-109) mmol/L Calcium 8.1 L (8.7-10.3) mg/dL Total Bilirubin <0.2 L (0.3-1.2) mg/dL AST 38 H (13-35) U/L Total Protein 4.9 L (6.2-8.2) g/dL Albumin 2.8 L (3.8-4.9) g/dL Albumin/Globulin Ratio 1.33 L (1.60-3.17) Ratio Assessment and Plan Assessment: Incarcerated ventral hernia with ischemic/hemorrhagic small bowel causing small bowel obstruction PLAN: -ok for discharge -Prevena wound VAC dressing to be removed prior to discharge -pricing manager working on discharge planning -DVT prophylaxis, patient on Eliquis. GI prophylaxis Pepcid Time with Patient: Less than 30
== END 2025-02-17 15:46 | disposition home health service (06) | DRG 330 ==
LOC: EC 10:36 → SUPCPDRO 10:36 → 4SSUR 12:56 → OBSVTOIN 02-12 08:57
PROVIDERS: ADMIT Internal Medicine; ATTEND Internal Medicine
PROC: 0WQF0ZZ Repair Abdominal Wall, Open Approach (ICD-10-PCS; principal; 2025-02-11 19:00)
PROC: 0DB80ZZ Excision of Small Intestine, Open Approach (ICD-10-PCS; principal; 2025-02-11 19:00)
DX: K43.7 Other and unspecified ventral hernia with gangrene (principal); I48.20 Chronic atrial fibrillation, unspecified; E03.9 Hypothyroidism, unspecified; N18.30 Chronic kidney disease, stage 3 unspecified; J44.89 Other specified chronic obstructive pulmonary disease; E66.9 Obesity, unspecified; I12.9 Hypertensive chronic kidney disease with stage 1 through stage 4 chronic kidney disease, or unspecified chronic kidney disease; K43.6 Other and unspecified ventral hernia with obstruction, without gangrene; K42.9 Umbilical hernia without obstruction or gangrene; E78.5 Hyperlipidemia, unspecified; R04.0 Epistaxis; G89.29 Other chronic pain; M54.9 Dorsalgia, unspecified; M10.9 Gout, unspecified; Z79.01 Long term (current) use of anticoagulants; Z79.890 Hormone replacement therapy; Z79.899 Other long term (current) drug therapy; Z86.14 Personal history of Methicillin resistant Staphylococcus aureus infection; Z87.891 Personal history of nicotine dependence; Z86.718 Personal history of other venous thrombosis and embolism; Z86.711 Personal history of pulmonary embolism; Z91.041 Radiographic dye allergy status; Z88.0 Allergy status to penicillin; Z88.1 Allergy status to other antibiotic agents; Z88.5 Allergy status to narcotic agent; Z88.8 Allergy status to other drugs, medicaments and biological substances
CPT/HCPCS: 36415; 43753; 74018; 74176; 80053; 82150; 83605; 83690; 85025; 88302; 88307; 93005; 96361; 96374; 99285

== ENCOUNTER 2025-03-04 18:55 | Emergency (ER) | payer MEDICARE, BC ==
[2025-03-04 19:30] VITALS: BP 126/76; PULSE 74; RESP 17; TEMP 98
--- NOTE | 2025-03-04 20:23 | ED ---
Recheck HPI - General Chief Complaint: Recheck/Abnormal Lab/Rx Stated Complaint: bleeding from incision Time Seen by Provider: 03/04/25 19:33 Source: patient, RN notes reviewed, old records reviewed Mode of arrival: wheelchair Limitations: no limitations - History of Present Illness Initial Comments: This is an 79-year-old female to the ER for evaluation recently had laceration repair and arsh have opened up and now she is having bleeding from the staple site. Patient has no other complaints Arsh were placed 3 days ago MD Complaint: wound re-check -: days(s) Symptoms Since Prior Visit: no new symptoms Associated Symptoms: none Treatments Prior to Arrival: other (0) - Related Data Home Medications Medication Instructions Recorded Confirmed Apixaban [Eliquis] 5 mg PO BID 02/11/25 03/08/25 Atorvastatin [Lipitor] 40 mg PO HS 02/11/25 03/08/25 Cholecalciferol (Vitamin D3) 125 mcg PO DAILY@149902/11/25 03/08/25 [Vitamin D3 (125 MCG = 5,000 IU)] Ciclopirox Olamine [Loprox 0.77% 1 applic TOPICAL BID PRN 02/11/25 03/08/25 cream] Furosemide [Lasix] 20 mg PO DAILY@1500 02/11/25 03/08/25 Furosemide [Lasix] 40 mg PO QAM 02/11/25 03/08/25 Levothyroxine Sodium [Synthroid] 75 mcg PO DAILY 02/11/25 03/08/25 Metoprolol Tartrate [Lopressor] 50 mg PO BID 02/11/25 03/08/25 Multivitamins, Thera [Multivitamin 1 tab PO DAILY@149902/11/25 03/08/25 (formulary)] allopurinoL [Zyloprim] 200 mg PO DAILY 02/11/25 03/08/25 amLODIPine [Norvasc] 5 mg PO DAILY@1500 02/11/25 03/08/25 calcitrioL [Rocaltrol] 0.25 mcg PO MOTUTHFR@149902/11/25 03/08/25 Nystatin 100,000 Unit/gm Powd 1 applic TOPICAL BID PRN 03/07/25 03/08/25 [Mycostatin Powder] Allergies Allergy/AdvReac Type Severity Reaction Status Date / Time adhesive Allergy Rash/Hives Verified 03/08/25 12:13 cefaclor [From Ceclor] Allergy Rash/Hives Verified 03/08/25 12:13 Penicillins Allergy FAMILY Verified 03/08/25 12:13 HISTORY povidone-iodine Allergy Rash/Hives Verified 03/08/25 12:13 [From Betadine] soap [From Betadine] Allergy Rash/Hives Verified 03/08/25 12:13 hydromorphone [From Dilaudid] AdvReac BP Verified 03/08/25 12:13 DECREASES Review of Systems ROS Statement: Those systems with pertinent positive or pertinent negative responses have been documented in the HPI. ROS Other: All systems not noted in ROS Statement are negative. Past Medical History Past Medical History: Atrial Fibrillation, Asthma, COPD, Deep Vein Thrombosis (DVT), GI Bleed, Hyperlipidemia, Hypertension, Osteoarthritis (OA), Pulmonary Embolus (PE), Renal Disease, Thyroid Disorder Additional Past Medical History / Comment(s): Chronic atrial fibrillation, previous history of a popliteal left lower extremity DVT and pulmonary embolism, obesity, bronchial asthma/COPD, previous history of GI bleed secondary to diverticulosis, hypertension, hyperlipidemia, hypothyroidism, chronic renal failure, osteoarthritis him a umbilical hernia, carotid artery disease, chronic back pain, gout, chronic stage III kidney disease History of Any Multi-Drug Resistant Organisms: MRSA Date of last positivie culture/infection: 07/16/17 MDRO Source:: Left First Toe Past Surgical History: Orthopedic Surgery, Tubal Ligation Additional Past Surgical History / Comment(s): d&c,colonoscopy, orif lt ankle has plate and screws.lt knee arthroscopy, skin biopsy on left upper foot Past Anesthesia/Blood Transfusion Reactions: No Reported Reaction Past Psychological History: No Psychological Hx Reported Smoking Status: Former smoker Past Alcohol Use History: Daily Past Drug Use History: None Reported - Past Family History Father Additional Family Medical History / Comment(s): had tb at age 55, lt leg amp.heart problems. Mother History Unknown: Yes Family Medical History: Dementia, Diabetes Mellitus General Exam Limitations: no limitations General appearance: alert, in no apparent distress Head exam: Present: atraumatic, normocephalic, normal inspection Eye exam: Present: normal appearance, PERRL, EOMI. Absent: scleral icterus, conjunctival injection, periorbital swelling ENT exam: Present: normal exam, mucous membranes moist Neck exam: Present: normal inspection. Absent: tenderness, meningismus, lymphadenopathy Respiratory exam: Present: normal lung sounds bilaterally. Absent: respiratory distress, wheezes, rales, rhonchi, stridor Cardiovascular Exam: Present: regular rate, normal rhythm, normal heart sounds. Absent: systolic murmur, diastolic murmur, rubs, gallop, clicks GI/Abdominal exam: Present: soft, normal bowel sounds. Absent: distended, tenderness, guarding, rebound, rigid Extremities exam: Present: normal inspection, full ROM, normal capillary refill. Absent: tenderness, pedal edema, joint swelling, calf tenderness Back exam: Present: normal inspection Neurological exam: Present: alert, oriented X3, CN II-XII intact Psychiatric exam: Present: normal affect, normal mood Skin exam: Present: warm, dry, intact, normal color. Absent: rash Course Vital Signs 03/04/25 19:23 Temperature 98.0 F Pulse Rate 74 Respiratory 17 Rate Blood Pressure 126/76 O2 Sat by Pulse 96 Oximetry - Reevaluation(s) Reevaluation #1: medical records reviewed Reevaluation #2: Patient informed of results questions answered Reevaluation #3: Patient informed of results and questions answered Reevaluation #4: Was pt. sent in by a medical professional or institution (, PA, MAIL CALLER, urgent care, hospital, or [facility]...) When possible be specific @ -no Did you speak to anyone other than the patient for history (EMS, parent, family, police, friend...)? What history was obtained from this source @ -no Did you review nursing and triage notes (agree or disagree)? Why? @ -agree Are old charts reviewed (outside hosp., previous admission, EMS record, old EKG, old radiological studies, urgent care reports/EKG's, [facility] records)? Report findings @ -yes Differential Diagnosis (chest pain, altered mental status, abdominal pain women, abdominal pain men, vaginal bleeding, weakness, fever, dyspnea, syncope, headache, dizziness, GI bleed, back pain, seizure, CVA, palpatations, mental h ealth, musculoskeletal)? @ -prior EKG interpreted by me (3pts min.). @ -no X-rays interpreted by me (1pt min.). @ -no CT interpreted by me (1pt min.). @ -no U/S interpreted by me (1pt. min.). @ -no What testing was considered but not performed or refused? (CT, X-rays, U/S, labs)? Why? @ -none What meds were considered but not given or refused? Why? @ -none Did you discuss the management of the patient with other professionals (professionals i.e. DrAda, PA, MAIL CALLER, lab, RT, psych nurse, nephrology social worker, barrel coater, teacher, senior officer, caser)? Give summary @ -no Was smoking cessation discussed for >3mins.? @ -no Was critical care preformed (if so, how long)? @ -no Were there social determinants of health that impacted care today? How? (Homelessness, low income, unemployed, alcoholism, drug addiction, transportation, low edu. Level, literacy, decrease access to med. care, shelter, rehab)? @ -none Was there de-escalation of care discussed even if they declined (Discuss DNR or withdrawal of care, Hospice)? DNR status @ -no What co-morbidities impacted this encounter? (DM, HTN, Smoking, COPD, CAD, Cancer, CVA, ARF, Chemo, Hep., AIDS, mental health diagnosis, sleep apnea, morbid obesity)? @ -none Was patient admitted / discharged? Hospital course, mention meds given and route, prescriptions, significant lab abnormalities, going to OR and other pertinent info. @ -79 female to ER for laceration, patient had sutures placed on the laceration replaced over her knee, bandage is placed no active bleeding patient can be discharged home Discharge Undiagnosed new problem with uncertain prognosis? @ -no Drug Therapy requiring intensive monitoring for toxicity (Heparin, Nitro, Insulin, Cardizem)? @ -no Were any procedures done? @ -no Diagnosis/symptom? @ - Acute, or Chronic, or Acute on Chronic? @ -Acute Uncomplicated (without systemic symptoms) or Complicated (systemic symptoms)? @ -Complicated Side effects of treatment? @ -no Exacerbation, Progression, or Severe Exacerbation? @ -exacerbation Poses a threat to life or bodily function? How? (Chest pain, [place], [place], pneumonia, PE, COPD, DKA, ARF, appy, cholecystitis, CVA, Diverticulitis, Homicidal, Suicidal, threat to staff... and all critical care pts) @ -no Medical Decision Making - Medical Decision Making 79 female to ER for laceration, patient had sutures placed on the laceration replaced over her knee, bandage is placed no active bleeding patient can be discharged home Disposition Clinical Impression: Bleeding from wound, Postoperative bleeding from incision, Coagulopathy Disposition: HOME SELF-CARE Condition: Good Instructions (If sedation given, give patient instructions): Acute Wound Care (ED), Chronic Wound Care (ED) Is patient prescribed a controlled substance at d/c from ED?: No Referrals: Miguel Hardwick MD [Primary Care Provider] - 1-2 days Time of Disposition: 21:00
== END 2025-03-04 21:27 | disposition home or self-care (01) ==
LOC: EC 18:55
DX: T81.31XA Disruption of external operation (surgical) wound, not elsewhere classified, initial encounter (principal); D68.9 Coagulation defect, unspecified; Z87.891 Personal history of nicotine dependence; Z91.048 Other nonmedicinal substance allergy status; Z88.8 Allergy status to other drugs, medicaments and biological substances; Z88.0 Allergy status to penicillin
CPT/HCPCS: 99283

== ENCOUNTER 2025-03-08 09:48 | Inpatient (IN) | payer MEDICARE, BC ==
[2025-03-08] MEDS ORDERED: HYDROmorphone 0.5 MG/0.5 ML SYRINGE IVP PRN (11:37)
[2025-03-08] MEDS: IV FLUID CONTINUATION 1,000 ML IV ONE (12:11)
[2025-03-08 12:33] VITALS: TEMP 97.3
[2025-03-08] MEDS: LACTATED RINGERS 1,000 ML IV SCH (12:44)
[2025-03-08] MEDS: DEXAMETHASONE SOD PHOSPHATE 4 MG/ML 1 ML VIAL IV ONE (12:45)
[2025-03-08] MEDS: ONDANSETRON 4 MG/2 ML VIAL IVP ONE (12:46)
[2025-03-08] MEDS ORDERED: KETAMINE HCL IN 0.9 % NACL 50 MG/5 ML SYRINGE ONE (13:15)
[2025-03-08] MEDS ORDERED: MIDAZOLAM 2 MG/2 ML VIAL ONE (13:15)
[2025-03-08] MEDS ORDERED: fentaNYL (PF) 50 MCG/ML 2 ML AMP ONE (13:15)
[2025-03-08] MEDS: ceFAZolin 2 GM in DEXTROSE 5% IN WATER 50 ML IVPB PRN (13:20)
[2025-03-08 14:11] VITALS: RESP 16
--- NOTE | 2025-03-08 14:28 | P.OP ---
Date of Procedure: 03/08/25 Preoperative Diagnosis: Abdominal wound hematoma Postoperative Diagnosis: Abdominal wall hematoma Procedure(s) Performed: Abdominal wound exploration with wound VAC application Anesthesia: local Surgeon: Chris Varela Pathology: none sent Condition: stable Disposition: PACU Indications for Procedure: Bleeding Operative Findings: Large hematoma Description of Procedure: Patient was brought to the operating suite where she was cleaned and draped in sterile fashion. A timeout was performed and everyone agreed with the information and site. Next the wound was explored and blunt dissection was used to break up a large hematoma measuring 5 x 5 x 5 collectively. The fascia was palpated and observed the fascia was intact. There was no active bleeding the pulse lavage radio rigger was used to instill and suction 1 L of saline. After this a wound VAC was placed the patient tolerated procedure well and was transported to PACU in stable condition.
[2025-03-08 14:33] VITALS: BP 120/67; PULSE 63
== END 2025-03-08 15:10 | disposition home or self-care (01) | DRG 909 ==
LOC: 2ORMAIN 10:54 → EDSTATUS 13:00
PROVIDERS: ADMIT Surgery; ATTEND Surgery
PROC: 0JD80ZZ Extraction of Abdomen Subcutaneous Tissue and Fascia, Open Approach (ICD-10-PCS; principal; 2025-03-08 13:00)
DX: L76.32 Postprocedural hematoma of skin and subcutaneous tissue following other procedure (principal); Z87.19 Personal history of other diseases of the digestive system; Y84.8 Other medical procedures as the cause of abnormal reaction of the patient, or of later complication, without mention of misadventure at the time of the procedure; Z88.0 Allergy status to penicillin; Z88.8 Allergy status to other drugs, medicaments and biological substances; Z88.5 Allergy status to narcotic agent; Z91.048 Other nonmedicinal substance allergy status